=== PATIENT | male | born 1955 | race Caucasian/White ===

== ENCOUNTER 2024-10-08 15:07 | Outpatient (AMB) | payer MEDICARE, SELFPAY ==
--- NOTE | 2024-10-08 15:25 | A.OFFPC_ITS ---
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 ?? PMHx:? PMH: CAD w/ CABGx4 2005, Heart Failure w/ EF 35-40% (Has been as low as 20%). AICD in place. Currently on Entresto, Carvedilol, Aspirin. Taking?atorvastatin?40? mg?b.i.d.?but?notes?adverse?effects?including?muscle?aches. Triple AAA. Followed by [facility] CABGx4 2006, Angiogram 2005, OA Hands SurgHx:? SocHx: Quit Cigs in 2006, EtOH very little 1 dr a month. No drugs PFSH Medical History (Updated 10/08/24 @ 16:25 by Ammon Bowie) Neuropathy Arthritis Heart disease High cholesterol Family History (Updated 10/08/24 @ 15:33 by Tomy Atkins [facility]) Father High blood pressure High cholesterol Thyroid disorder [facility] Tobacco Use Status: Never used Tobacco e-Cigarette/Vaping Use: Never Used service: No Current occupational status: retired Cognitive needs: No Hearing needs: No Vision needs: Yes Questionnaire PHQ-9 Over the last 2 weeks, how often have you been bothered by any of the following problems? 1. Little interest or pleasure in doing things: not at all 2. Feeling down, depressed, or hopeless: not at all 3. Trouble falling or staying asleep, or sleeping too much: several days 4. Feeling tired or having little energy: not at all 5. Poor appetite or overeating: not at all 6. Feeling bad about yourself - or that you are a failure or have let yourself or your family down: not at all 7. Trouble concentrating on things, such as reading the newspaper or watching television: not at all 8. Moving or speaking so slowly that other people could have noticed. Or the opposite - being so fidgety or restless that you have been moving around a lot more than usual: not at all 9. Thoughts that you would be better off or of hurting yourself in some way: not at all Total score: 1 Depression Screening Interpretation: Negative Depression Screening Done: Yes 54536 - PHQ-9 Billing: Yes Source: Developed by Drs. Rudi Sanchez, Serenity Mendez, Mauricio Charles and colleagues, with an educational zenaida from [employer]. Thrive Questionnaire Date Thrive assessed: 10/08/24 I am a: Patient What is your living situation today?: I have a steady place to live Within the past 12 months, did the food you bought not last and you didn't have the money to get more?: Never true Within the past 12 months, did you worry whether your food would run out before you got money to buy more?: Never true Do you have trouble paying for medicines?: No Do you have trouble getting transportation to medical appointments?: No Do you have trouble paying your heating and electricity bill?: No Do you have trouble taking care of your child, family member or friend?: No Do you have trouble with day-to-day activities such as bathing, preparing meals, shopping, managing finances, etc.?: No Are you currently unemployed and looking for a job?: No Are you interested in more education?: No Please select the resources that you would like help with: Paying for medicine Currently or been in a relationship where the following occur: No concerns reported THRIVE Score: 0 AUDIT C Alcohol Use Questionnaire (AUDIT-C) 1. How often do you have a drink containing alcohol?: Monthly or less 2. How many drinks containing alcohol do you have on a typical day when you are drinking?: 1 or 2 3. How often do you have six or more drinks on one occasion?: Never Total Score: 1 Score Reviewed/Action Taken: Yes MARA-7 AMB Questionnaire MARA-7 Date MARA - 7 assessed: 10/08/24 Feeling nervous, anxious, or on edge: 0 = Not at all Not being able to stop or control worryin = Not at all Worrying too much about different things: 1 = Several days Trouble relaxin = Not at all Being so restless that it is hard to sit still: 0 = Not at all Becoming easily annoyed or irritable: 0 = Not at all Feeling afraid as if something awful might happen: 0 = Not at all Total MARA-7 score (0-4 normal; 5-9 mild; 10-14 moderate; 15-21 severe): 1 Source: Developed by Drs. Rudi Sanchez, Serenity Mendez, Mauricio Charles and colleagues, with an educational zenaida from [employer]. MARA-7 Assessment Billing MARA-7 Assessment Tool: MARA-7 Assessment 79731 Review of Systems Const Denies chills, Denies fatigue, Denies fever(s), Denies headache(s) and Denies weakness ENT Denies dizziness and Denies headache(s) Card Denies chest pain, Denies lightheadedness, Denies dyspnea and Denies other (Palpitations) Resp Denies cough, Denies dyspnea, Denies wheezing and Denies other ( shortness of breath) Musc Denies numbness and Denies tingling Neuro Denies dizziness, Denies headache(s), Denies numbness, Denies tingling, Denies paresthesias and Denies weakness Psych Denies anxiety and Denies depression Endo Denies fatigue Aller/Immun Denies wheezing Physical exam (Primary Care) Tobacco/Smoking Status: Tobacco use Status Tobacco use date assessed 10/08/24 10/08/24 15:38 Patient Tobacco Use Status Never used Tobacco 10/08/24 15:40 e-Cigarette/Vaping Use Never Used 10/08/24 15:40 PHQ-9: PHQ-9 Score PHQ-9: Total score 1 10/08/24 15:46 Depression Screening Interpretation: Negative Thrive Assessment: Date of Thrive Assessment Date Thrive assessed 10/08/24 10/08/24 15:28 Currently or been in a relationship where the following occur: No concerns reported Const General: no acute distress and well developed Nutritional Appearance: well nourished Orientation/consciousness: patient oriented x3 HENMT Head: Yes normocephalic and Yes atraumatic Eyes General: appearance normal, both eyes and all related structures Pupils: Equal, round and reactive pupils present EOM: EOMs intact bilaterally Resp Effort & Inspection: normal respiratory effort Auscultation: clear to auscultation bilaterally Cardio Rate: regular rate Rhythm: regular rhythm Heart sounds: S1 normal heart sound present, S2 normal heart sound present, no gallops, no murmurs and no rubs Neuro General: patient oriented x3 and gait normal Cranial nerves: Yes Equal, round and reactive pupils present Psych Affect: normal affect Coding Level of Care Code New Pt Level 4 (73662) Diagnoses Coronary artery disease I25.10 Hyperlipidemia E78.5 Hypertension I10 Ischemic cardiomyopathy I25.5 Hx of CABG Z95.1 NSVT (nonsustained ventricular tachycardia) I47.29 ICD (implantable cardioverter-defibrillator) in place Z95.810 AAA (abdominal aortic aneurysm) I71.40 Neuropathy G62.9 History of smoking Z87.891 HFrEF (heart failure with reduced ejection fraction) I50.20 Lower extremity edema R60.0 Laboratory exam ordered as part of routine general medical examination Z00.00 Additional Codes MARA-7 Assessment Billing - MARA-7 Assessment Tool: MARA-7 Assessment 50723 ([id number]) PHQ-9 - 98908 - PHQ-9 Billing: Yes ([id number]) Assessment & Plan Assessment & Plan (1) Coronary artery disease: Code(s): I25.10 - Atherosclerotic heart disease of [place] coronary artery without angina pectoris Category: Medical Plan: PMH: CAD w/ CABGx4 2006, Heart Failure w/ EF 35-40% (Has been as low as 20%). AICD in place. Currently on Entresto, Carvedilol, Aspirin. Taki ng?atorvastatin?40?mg?b.i.d.?but?notes?adverse?effects?including?muscle?aches. Triple AAA. Followed by [facility] CABGx4 2006, Angiogram 2005, Trial rosuvastatin?instead?of?atorvas tatin.??He?will?let?me?know?if?adverse?effects - could?return?to?atorvastatin?if?he?prefers (2) Hyperlipidemia: Code(s): E78.5 - Hyperlipidemia, unspecified Category: Medical Plan: On Atorvastatin 40mg BID w/ adverse effect; Muscle aches. As?above,?will?switch?to?rosuvastatin (3) Hypertension: Code(s): I10 - Essential (primary) hypertension Category: Medical Plan: Blood?pressure?is?too?high.??Goal?is?less?than?130/80 1st?visit?here. Continue?Entresto?and?carvedilol Patient?says?blood?pressure?is?usually?well?controlled?at?home (4) Ischemic cardiomyopathy: Code(s): I25.5 - Ischemic cardiomyopathy Category: Medical Plan: Currently?stable Follow-up?with[facility]?as?recommended (5) Hx of CABG: Code(s): Z95.1 - Presence of aortocoronary bypass graft Category: Surgical Plan: As?above (6) NSVT (nonsustained ventricular tachycardia): Code(s): I47.29 - Other ventricular tachycardia Category: Medical Plan: S/p?AICD Stable (7) ICD (implantable cardioverter-defibrillator) in place: Code(s): Z95.810 - Presence of automatic (implantable) cardiac defibrillator Category: Medical Plan: As?above (8) AAA (abdominal aortic aneurysm): Code(s): I71.40 - Abdominal aortic aneurysm, without rupture, unspecified Category: Medical Plan: Awaiting?further?records Follow-up?with?Cardiology?as?recommended (9) Neuropathy: Code(s): G62.9 - Polyneuropathy, unspecified Category: Medical Plan: Patient?notes?tingling?burning?sensation?in?bilateral?toes?and?feet He?does?have?edema?in?bilateral?feet?and?ankles,?right?worse?than?left?and?had saphenous?vein?grafted?from?right?leg. Checking?labs?including?blood?sugar,?B12,?thyroid?level?and?electrolytes. ?Also?checking?BNP Elevate?legs (10) History of smoking: Code(s): Z87.891 - Personal history of nicotine dependence Category: Social Hx Plan: Quit?cigarettes?in?2006 (11) HFrEF (heart failure with reduced ejection fraction): Code(s): I50.20 - Unspecified systolic (congestive) heart failure Category: Medical Plan: Heart?failure?with?reduced?ejection?fraction Checking?BNP Continue?Entresto Avoid?salt/sodium Follow-up?with?Cardiology (12) Lower extremity edema: Code(s): R60.0 - Localized edema Category: Medical Plan: Bilateral?lower?extremity?edema?right?worse?than?left?though?patient?has?had?vei n?harvested?for?CABG?from?right?leg Elevate?legs ?avoid?salt Will?monitor (13) Laboratory exam ordered as part of routine general medical examination: Code(s): Z00.00 - Encounter for general adult medical examination without abnormal findings Category: Medical Plan: Check labs Orders: Orders Comprehensive [place]. Panel Fast Today I25.5 - Ischemic cardiomyopathy, Z00.00 - Encounter for general adult medical examination without abnormal findings Complete Blood Count Auto Diff Today I25.5 - Ischemic cardiomyopathy, Z00.00 - Encounter for general adult medical examination without abnormal findings Lipid Panel Today I25.5 - Ischemic cardiomyopathy, Z00.00 - Encounter for general adult medical examination without abnormal findings Microalbumin, Random (w Creat) Today I10 - Essential (primary) hypertension, I25.5 - Ischemic cardiomyopathy UA CC w/rflx Micro + Cult Today I25.5 - Ischemic cardiomyopathy, Z00.00 - Encounter for general adult medical examination without abnormal findings B Type Natriuretic Peptide Today I25.5 - Ischemic cardiomyopathy, I50.9 - Heart failure, unspecified Vitamin D 25-OH Total Today E55.9 - Vitamin D deficiency, unspecified TSH reflex Free T4 Today I25.5 - Ischemic cardiomyopathy, Z00.00 - Encounter for general adult medical examination without abnormal findings Prostate Specific Antigen Scr Today Z12.5 - Encounter for screening for m alignant neoplasm of prostate Hemoglobin A1c Today I25.5 - Ischemic cardiomyopathy, R73.01 - Impaired fasting glucose Vitamin B12 and Folate Today E53.8 - Deficiency of other specified B group vitamins
[2024-10-08 16:24] VITALS: BP 152/72; PULSE 88; RESP 16; TEMP 36.7; O2SAT 98; BMI 36.6
[2024-10-08 16:28] VITALS: BP 152/72
--- OUTSIDE RECORDS SUMMARY | 2024-10-08 17:58 | XMS_ITS | Clinical Summary ---
Author Organization Patient Business Ser Formerly named [facility] Address [address] [place] [address] Care Team Providers Care Movie Projectionist Name Role Phone Orlin Shah MD Primary Care Provider Allergies No known active allergies Medications sacubitriL-vals marion (Entresto) 24-26 mg per tablet Take 1 tablet by mouth 2 (two) times a day. 4 Active zolpidem (AMBIEN) 5 mg tablet Take 0.5-1 Tablets by mouth at bedtime as needed for Insomnia. 3 Active aspirin 81 mg chewable tablet Chew 1 tablet (81 mg total) 1 (one) time each day. 0 Active OMEGA-3 FATTY ACIDS ORAL Take by mouth. Nicasio-3 Fatty Acids (FISH OIL) 1200 MG Cap Active cholecalciferol , vitamin D3, 10 mcg (400 unit) tablet,chewable Chew. Acti ve carvediloL (COREG) 25 mg tablet TAKE 1 TABLET BY MOUTH TWICE DAILY WITH MEALS 180 tablet 3 5 Active atorvastatin (LIPITOR) 40 mg tablet Take 2 tablets (80 mg total) by mouth 1 (one) time each day. 180 tablet 5 Active atorvastatin (LIPITOR) 40 mg tablet Take 2 tablets (80 mg total) by mouth 1 (one) time each day. 4 09/11/19 25 Discontinu ed(Reorder ) Active Problems Problem Noted Date Diagnosed Date Insomnia 03/25/2023 BPH (benign prostatic hyperplasia) 11/18/2019 Lung nodules 03/01/2019 Overview (05/07/2024): Seen on ldct Fatty liver 03/01/2019 Overview (05/07/2024): Seen on ldct Obstructive sleep apnea 02/22/2017 Overview (05/07/2024): [facility] Home Polysomnogram: Date 02/19/2017; AHI 35, Unclassified apneas 2; Obstructive apneas 145; Central apneas 6; Mixed apneas 1; hypopneas 8; average oxygen saturation 93% (lowest 81% without saturations <88% for 5% or more of study) [facility] Polysomnogram treatment study. Date 06/03/2017. SE 65 % SM 72 %; spent 18 % of the study in REM. At the optimal pressure of CPAP @ 11; RDI 3.4 (AHI 3.4), Central apneas 4; Obstructive apneas 0; Mixed apneas 0; hypopneas 0; RERAs 0; and, average oxygen saturation was 93%. For the entire study, PLMs ~14. Eczema 03/01/2016 Coronary artery disease 02/19/2015 Overview (05/07/2024): 4 vessel 2004 Last Assessment & Plan: Patient has history of coronary artery disease status post four-vessel CABG in 2005. He continues to feel well and denies any exertional anginal symptoms. He continues on cardioprotective medical therapy with aspirin, beta-charu and statin. I have reviewed with the patient the importance of a heart healthy lifestyle which includes eating a low-fat low-salt diet, getting regular exercise, maintaining a healthy weight, not smoking, and following up with routine medical care. Ischemic cardiomyopathy 02/19/2015 Overview (05/07/2024): EF 30% in 2019 Last Assessment & Plan: Patient has history of HFrEF-EF 40% ischemic, ACC/AHA stage C heart failure with NYHA class II symptoms. He remains euvolemic on physical examination he is tolerating his medical therapies well. He was unable to tolerate spironolactone due to pain gynecomastia. Diuretic is not indicated at this time. His labs have been stable. He will continue on Entresto and carvedilol as prescribed. We discussed adding Farxiga for optimization of GDMT for heart failure. At this time the patient would like to think about it. Will update an echocardiogram in 6 months. The use of an SGLT2 inhibitor is recommended for patients with chronic heart failure in order to reduce hospitalization due to heart failure and cardiovascular mortality, irrespective of the presence of type 2 diabetes (class Ia recommendation from the 2022 [place] [employer] heart failure guidelines). I've asked the patient to call if they develop worsening symptoms of heart failure such as increased shortness of breath, new or worsening cough, increased swelling in the legs or ankles, or weight gain of more than 2 pounds in one day or 4 pounds in one week. AAA (abdominal aortic aneurysm) ([facility] V24) Overview (05/07/2024): Last Assessment & Plan: This is been stable. This is monitored by vascular surgery. 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 He gets quarterly checks in our device clinic. He will consider remote monitoring next device clinic apt. We discussed his history of NSVT and importance of close monitoring. Microscopic hematuria 02/18/2015 Overview (05/07/2024): Neg work up Hyperlipidemia 02/18/2015 Overview (05/07/2024): Last Assessment & Plan: Patient's last LDL cholesterol is 41 this is at goal. His triglycerides remain elevated at 338. Patient encouraged to follow a low-fat diet and also to make greater efforts to lose weight. He continues on fish oil. HTN (hypertension) 02/18/2015 Overview (05/07/2024): Last Assessment & Plan: Patient's blood pressure is under excellent control with a reading today of 126/76. Continue with carvedilol and Entresto as prescribed. Resolved Problems Problem Noted Date Diagnosed Date Resolved Date Edema 10/11/2022 07/05/2024 Overview (05/07/2024): Last Assessment & Plan: We did discuss his leg edema. This is mild. This worse in his right leg where he had his vein harvested from. We will continue to monitor. I have encouraged him to use compression stockings. If this worsens he will let us know. COVID-19 07/23/2020 07/05/2024 Aneurysm of ascending aorta (CMS/HCC V24) 08/26/2019 07/05/2024 Overview (05/07/2024): 3.8cm 2019 Low HDL (under 40) 12/19/2018 Hemorrhage of rectum 11/17/2016 025 Overview (05/07/2024): 02/2013 Dr. Gardiner, neg colonoscopy 04/2013 Old NE (myocardial infarction) 02/18/2015 07/05/2024 Overview (05/07/2024): 10/16 silent Encounters Date Type Department Care Team Description 09/25/2024 9:00 AM EDT Ancillary Procedure [facility] [address] [address] [place] [id number] Encounter for adjustment or management of cardiac device 09/10/2024 Telephone [facility] [address] [place] [address] Roger Nelson MD Med Refill (Atorvastatin) 08/02/2024 Telephone [facility] [address] [place] [address] Annika Blakely NP Results 08/01/2024 9:10 AM EST Office Visit [facility] [address] [place] [phone] Annika Blakley NP Coronary artery disease involving sokaogon coronary artery of sokaogon heart without angina pectoris (Primary Dx); Primary hypertension; Ischemic cardiomyopathy; Mixed hyperlipidemia; Presence of combination internal cardiac defibrillator (ICD) and pacemaker 08/01/2024 Telephone [facility] [address] [place] [address] Annika Blakely NP 07/31/2024 Telephone [facility] [address] [place] [address] Annika Blakely NP Concerned 07/18/2024 8:30 AM EST Ancillary Procedure [facility] [address] [place] [address] Coronary artery disease involving sokaogon coronary artery of sokaogon heart without angina pectoris from Last 3 Months Immunizations Name Administration Dates Next Due Influenza Quadravalent, MDCK , 0.5ml, preservative free (Flucelvax) 6mo and older 07/03/2018 Influenza Quadravalent, MDCK , 0.5ml, with preservative (Flucelvax) 6mo and older 03/30/2017 Influenza trivalent, 0.5mL ( Fluad) 65yo and older 03/25/2023,03/25/2022,04/06/2021,04/03 Influenza trivalent, 0.5mL, preservative free (Fluarix; FluLaval; Fluzone) ages 6mo and older (Afluria) 3 years and older 03/21/2019,03/01/2016,02/27/2015 Mechanology SARS-CoV-2 COVID-19, mRNA, LNP-S, preservative free 05/26/2021 Pneumococcal conjugate 13 va lent (Prevnar 13, PCV13) 2mo and older 01/21/2020 Pneumococcal polysaccharide 23 valent (Pneumovax 23) 2yo and older 04/06/2021 Tdap Tetanus diptheria acell ular pertussis (Boostrix; Adacel) 7yo and older 03/01/2016 Zoster Live 09/07/2016 Surgical History Surgery Date Site/Laterality Comments COLONOSCOPY 05/08/2013 PROCEDURE: HISTORICAL COLONOSCOPY; COMMENT: Dr Gardiner, 2012, due in 10 yrs OTHER SURGICAL HISTORY PROCEDURE: MO CORONARY ARTERY BYP W/VEIN & ARTERY GRAFT 4 VEIN OTHER SURGICAL HISTORY PROCEDURE: HISTORICAL ICD; COMMENT: single lead CYST REMOVAL PROCEDURE: MO EXCISION PILONIDAL CYST/SINUS SIMPLE Medical History Medical History Date Comments AAA (abdominal aortic aneury sm) (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 Gardiner, neg colonoscopy 04/2013 Low HDL (under 40) 12/19/2018 DX:Low HDL (u nder 40) Lung nodules 03/01/2019 DX:Lung nodules; COMMENT: Seen on ldct Fatty liver 03/01/2019 DX:Fatty liver; COMMENT: Seen on ldct Aneurysm of ascending aorta ([facility]/HCC V24) 08/26/2019 DX:Aneurysm of ascending aor ta (HCC); COMMENT: 3.8cm 2019 BPH (benign prostatic hyperplasia) 11/18/2019 DX:BPH (benign prostatic hyperplasia) Covid-19 07/23/2020 Family History Medical History Relation Name Comments Breast cancer Aunt age 60, does n ot think she had it bilat Other: brain aneurysm Father Relation Name Status Comments Aunt Father Social History Tobacco Use Types Packs/Day Years Used Date Smoking Tobacco: Former Cigarettes 1 32 0 06/13/1972 - 06/13/2004 Smokeless Tobacco: Former Alcohol Use Standard Drinks/Week Comments Yes 0 (1 standard drink = 0.6 oz pur e alcohol) occassionally Sex and Gender Information Value Date Recorded Sex Assigned at Not on file Legal Sex Male 6:46 PM EST Gender Identity Not on file Sexual Orientation Not on file Obstetrics History Last Filed Vital Signs Vital Sign Reading Time Taken Comments Blood Pressure 118/70 08/01/2024 9:14 AM EST Pulse 74 08/01/2024 9:14 AM EST Temperature - - Respiratory Rate - - Oxygen Saturation 94% 08/01/2024 9:14 AM EST Inhaled Oxygen Concentration - - Weight 108 kg (237 lb) 08/01/2024 9:14 AM EST Height 182.9 cm (6') 08/01/2024 9:14 AM EST Body Mass Index 32.14 08/01/2024 9:14 AM EST Plan of Treatment Upcoming Encounters Date Type Department Care Team (Late st Contact Info) Description 11/01/2024 9:40 AM EDT Office Visit [facility] [address] [place] [address] [address] [place] [address] Annika Blakely NP [address] [place] [address] [address] [place] [address] 12/25/2024 10:30 AM EDT Ancillary Procedure [facility] [address] [place] [address] 01/01/2025 10:20 AM EDT Office Visit [facility] [address] [place] [address] Dr [address] [place] [address] Roger Nelson MD [address] [place] [address] [address] [place] [address] Health Maintenance Due Date Last Done Comments RSV Immunization Adult Patients (1 - Risk 60-74 years 1-dose series) 2014 Zoster Vaccines (2 of 3) 11/02/2016 09/07/2016 Falls Risk Assessment 04/29/2020 Social Influencers of Health Screening 04/29/2020 Colorectal Cancer Screening: Colonoscopy 05/08/2023 05/08/2013 COVID-19 Vaccine ( season) 2024 05/26/2021, 09/19/2020, 08/29/2020 Depression Screening 05/10/2024 05/10/2023 Medicare Annual Wellness Visit 05/10/2024 05/10/2023 Hypertension/CHF/CAD Annual BMP Blood Test 08/01/2025 08/01/2024, 03/24/2023 DTaP,Tdap,and Td Vaccines (2 - Td or Tdap) 03/01/2026 03/01/2016 Cholesterol Screening (Lipid Panel) 08/01/2029 08/01/2024, 03/24/2023 Hepatitis C Screening Completed 08/28/2015 Pneumococcal Vaccine: 50+ Years Completed 04/06/2021, 01/21/2020 Influenza Vaccine Completed 04/04/2024, , 03/25/2022, Additional history exists HIB Vaccines Aged Out No longer eligi ble based on patient's age to complete this topic HPV Vaccines Aged Out No longer eligi ble based on patient's age to complete this topic Hepatitis A Vaccines Aged Out No long er eligible based on patient's age to complete this topic Hepatitis B Vaccines Aged Out No long er eligible based on patient's age to complete this topic IPV Vaccines Aged Out No longer eligi ble based on patient's age to complete this topic MMR Vaccines Aged Out No longer eligi ble based on patient's age to complete this topic Meningococcal ACWY Vaccine Aged Out N o longer eligible based on patient's age to complete this topic Meningococcal B Vaccine Aged Out No l onger eligible based on patient's age to complete this topic RSV Immunization Patients Under 20 months Aged Out No longer eligible based on patient's age to complete this topic Varicella Vaccines Aged Out No longer eligible based on patient's age to complete this topic Medical Devices Implanted Type Area Manual Tester Device Identifier Shelf Expiration Date Model / Serial / Lot Bsci-[id number] Implanted:10/2013 by Dean Kaba MD (Quantity not on file) Cardiac ICD Left: Chest [employer] CARD RHYTHM MGMT [id number] / [id number] / Procedures Procedure Name Priority Date/Time Associated Diagnosis Comments CARDIAC DEVICE CHECK- IN CLINIC- [facility] Routine 09/25/2024 9:11 AM EDT Encounter for adjustment or management of cardiac device BASIC METABOLIC PANEL Routine 08/01/2024 9:50 AM EST CBC WITH AUTO DIFFERENTIAL Routine 08/01/2024 9:50 AM EST Coronary artery disease involving sokaogon coronary artery of sokaogon heart without angina pectoris LIPID PANEL Routine 08/01/2024 9:50 AM EST Coronary artery disease involving sokaogon coronary artery of sokaogon heart without angina pectoris PROTHROMBIN TIME WITH INR Routine 08/01/2024 9:50 AM EST Coronary artery disease involving sokaogon coronary artery of sokaogon heart without angina pectoris CBC AND DIFFERENTIAL Routine 08/01/2024 9:50 AM EST Coronary artery disease involving sokaogon coronary artery of sokaogon heart without angina pectoris NM LEXISCAN STRESS TEST W/ MYOCARDIAL PERFUSION Routine 07/18/2024 10:50 AM EST Coronary artery disease involving sokaogon coronary artery of sokaogon heart without angina pectoris HM DEPRESSION SCREENING Routine 05/10/2023 HM HEPATITIS C SCREENING Routine 08/28/2015 HM COLONOSCOPY Routine 05/08/2013 from Last 3 Months or Most Recently Relevant to Health Maintenance Results * CARDIAC [place]ICE [place] [facility] [place]09/25/[place]24 9:11 AM EDT) Date Time Interrogation Session [id number] CV DEVICE CHECK Implantable Pulse Generator Manual Tester BSX CV DEVICE CHECK Implantable Pulse Generator Type ICD CV DEVICE CHECK Implantable Pulse Generator Model E141 CV DEVICE CHECK Implantable Pulse Generator Serial Number [id number] CV DEVICE CHECK Implantable Pulse Generator Implant Date 20140115 CV DEVICE CHECK Battery Status Middle of Service CV DEVICE CHECK Eb Statistic RV Percent Paced 1.00 CV DEVICE CHECK Lead Channel Sensing Intrinsic Amplitude 17.700 CV DEVICE CHECK Lead Channel Setting Sensing Sensitivity 0.60 CV DEVICE CHECK Lead Channel Impedance Value 471 CV DEVICE CHECK Lead Channel Pacing Threshold Amplitude 1.000 CV DEVICE CHECK Lead Channel Pacing Threshold Pulse Width 0.5 CV DEVICE CHECK Lead Channel RV Pacing Threshold Date 2024-09-25 CV DEVICE CHECK Lead Channel Setting Pacing Amplitude 2.000 CV DEVICE CHECK Lead Channel Setting Pacing Pulse Width 0.5 CV DEVICE CHECK Eb Setting Mode (NBG Code) VVI CV DEVICE CHECK Eb Setting Lower Rate Limit 40 CV DEVICE CHECK Therapy Statistic Recent Shocks Delivered 0 CV DEVICE CHECK Therapy Statistic Recent Shocks Aborted 0 CV DEVICE CHECK Therapy Statistic Recent ATP Delivered 0 CV DEVICE CHECK Shock Measured Impedance 88 CV DEVICE CHECK Zone Setting Type Category VF CV DEVICE CHECK Rate 200 CV DEVICE CHECK Therapies 31J, 41J CV DEVICE CHECK Zone Setting Status On CV DEVICE CHECK Zone ID 1 CV DEVICE CHECK Zone Setting Type Category VT CV DEVICE CHECK Rate 170 CV DEVICE CHECK Therapies 31J, 41J CV DEVICE CHECK Zone Setting Status On CV DEVICE CHECK Zone ID 2 CV DEVICE CHECK Zone Setting Type Category VT1 CV DEVICE CHECK Rate 150 CV DEVICE CHECK Therapies NaNJ, NaNJ CV DEVICE CHECK Zone Setting Status Off CV DEVICE CHECK Zone ID 3 CV DEVICE CHECK Date of Service 2024-09-26 CV DEVICE CHECK Anatomical Region Laterality Modality Device Interroga tion 09/25/2024 Impressions 09/25/2024 10:44 AM EDT Normal In-Office: With Events * Normal Device Function * Events or Alerts: 11 NSVT events noted in-keeping with Hx. Pt asymptomatic, will continue to monitor * Battery: MOS, 3.5 years * Sensing, impedance and thresholds reviewed and tested * Presenting Rhythm: VS 70's * Heart Rate Histograms reviewed * Pacing and Detection Parameters were evaluated Narrative Procedure Note Dean Kaba MD - 09/25/2024 IMPRESSION: Normal In-Office: With Events * Normal Device Function * Events or Alerts: 11 NSVT events noted in-keeping with Hx. Ptasymptomatic, will continue to monitor * Battery: MOS, 3.5 years * Sensing, impedance and thresholds reviewed and tested * Presenting Rhythm: VS 70's * Heart Rate Histograms reviewed * Pacing and Detection Parameters were evaluated us Order Referral Cardiovascular CV IMPLANTABLE CAR DIAC DEVICE PROCEDURES Final Result * (ABNORMAL) Basic metabolic panel (08/01/2024 9:50 AM EST) Glucose 129(H) 70 - 99 MG/DL [facility] Blood Urea Nitrogen (BUN) 12 8 - 23 MG/DL [facility] Creatinine 0.56(L) 0.7 - 1.2 MG/DL [facility] eGFR 106 ML/MIN/1.7 3 M2 [facility] Comment: Creatinine based estimated glomerular filtration (eGFR) in adults is calculated using the National [employer] recommended 2020 CKD-EPI equation. Estimates GFR from serum creatinine, age and sex. Sodium 138 133 - 145 MMOL/L [facility] Potassium 4.3 3.6 - 5.2 MMOL/L [facility] Chloride 103 98 - 107 MMOL/L [facility] Carbon Dioxide 25 22 - 29 MMOL/L [facility] Anion Gap 10 4 - 17 MMOL/L [facility] Calcium 9.7 8.6 - 10.5 MG/DL [facility] 1 08/01/2024 9:50 AM EST 08/01/2024 Narrative [facility] - 08/01/2024 11:45 AM EST Performed at: ??01 - [address] ??[id number] Newspaper Manager: Roosevelt Ferro MD, Phone: ??[phone] us Annika Blakely COLLAR TRIMMER LAB BLOOD ORDERABLES Final R esult [facility] * CBC auto differential (08/01/2024 9:50 AM EST) WBC 8.0 4.0 - 11.0 K/MM3 [facility] RBC 5.55 4.70 - 6.10 M/MM3 [facility] Hemoglobin 16.4 13.7 - 17.1 GM/DL [facility] Hematocrit 49.4 40.5 - 50.0 % [facility] MCV 89.0 80.0 - 94.0 FL [facility] MCH 29.5 27.0 - 34.0 PG [facility] MCHC 33.2 33.0 - 37.0 g/dL [facility] RDW 43.3 <47.0 FL [facility] Platelets 212 150 - 460 K/MM3 [facility] Neutrophils 68.5 44 - 76 % [facility] Lymphocytes 22.5 15 - 43 % [facility] Monocytes 6.5 4.5 - 10.5 % [facility] Eosinophils 1.6 0 - 6 % [facility] Basophils 0.7 0 - 2 % [facility] Neutrophils Absolute 5.5 1.3 - 7.0 K/MM3 [facility] Lymphocytes Absolute 1.8 0.8 - 3.1 K/MM3 [facility] Monocytes Absolute 0.5 0.4 - 1.3 K/MM3 [facility] Eosinophils Absolute 0.1 0.0 - 0.4 K/MM3 [facility] Basophils Absolute 0.1 0.0 - 0.1 K/MM3 [facility] Immature Granulocytes Relative 0.2 % [facility] Immature Grans (Abs) 0.0 K/MM3 [facility] 1 Nucleated RBC 0.0 #/100 WBC'S [facility] 1 Hematology Comments: Comment [facility] Comment: AUTOMATED DIFFERENTIAL MPV ?10.6 ? FL ? 9.4-12.4 ?? N ABS. NRBC ?0.0 ?K/MM3 ? N Blood Venous blood specimen / Unknown 08/01/2024 9:50 AM EST 08/01/2024 Narrative [facility] - 08/01/2024 11:32 AM EST Performed at: ??01 - [address] ??[id number] Newspaper Manager: Roosevelt Ferro MD, Phone: ??[phone] us Annika Blakely [employer]LL[employer] TR[employer] LAB BLOOD ORDERABLES Final R esult [facility] * Prothrombin time with INR (08/01/2024 9:50 AM EST) International Normalized Ratio (INR) 1.0 0.9 - 1.1 [facility] Prothrombin Time 11.0 9.2 - 11.4 SEC [facility] 1 Blood Venous blood specimen / Unknown 08/01/2024 9:50 AM EST 08/01/2024 Narrative [facility] - 08/01/2024 11:45 AM EST Performed at: ??01 - [address] ??[id number] Newspaper Manager: Roosevelt Ferro MD, Phone: ??[phone] us Annikase Blakely [employer]LLAR TR[employer]MER LAB BLOOD ORDERABLES Final R esult [facility] * (ABNORMAL) Lipid panel (08/01/2024 9:50 AM EST) Cholesterol Total 156 100 - 199 mg/dL [facility] Triglycerides 206(H) 0 - 149 mg/dL [facility] HDL Cholesterol 38(L) >39 mg/dL [facility] VLDL Cholesterol Calculated 35 5 - 40 mg/dL [facility] LDL Chol Calc (NIH) 83 0 - 99 mg/dL [facility] 1 Blood Venous blood specimen / Unknown 08/01/2024 9:50 AM EST 08/01/2024 Narrative [facility] - 08/02/2024 8:07 AM EST Performed at: ??01 - [facility] [address] ??[id number] Newspaper Manager: Mala Jenkins MD, Phone: ??[phone] us Annika Blakely COLLAR TRIMMER LAB BLOOD ORDERABLES Final R esult [facility] * NM LEXISCAN STRESS TEST W/ MYOCARDIAL PERFUSION (07/18/2024 10:50 AM EST) Exercise/injec tion duration (min) 0 CV PACS STRESS Exercise/injec tion duration (sec) 46 CV PACS STRESS Peak SBP 135 mmHg CV PACS STRESS Peak DBP 78 mmHg CV PACS STRESS Peak HR 84 bpm CV PACS STRESS Baseline HR 73 bpm CV PACS STRESS Baseline SBP 135 mmHg CV PACS STRESS Baseline DBP 78 mmHg CV PACS STRESS Estimated workload 1.0 METS CV PACS STRESS Percent HR 56 % CV PACS STRESS Rate Pressure Product 11,340.0 mmHg*bpm CV PACS STRESS BSA 2.44 m2 CV PACS STRESS Target HR 128 bpm CV PACS STRESS TID 0.98 CV PACS STRESS Nuc Stress EF 56 % CV PAC S STRESS Nuc Rest EF 60 % CV PACS STRESS Anatomical Region Laterality Modality Nuclear Medicine 07/18/2024 9:27 AM EST 07/18/2024 9:52 AM EST Impressions 07/18/2024 2:59 PM EST Abnormal Regadenoson stress test with nuclear imaging. ?? No chest pain or EKG changes consistent with ischemia. Nuclear imaging revealed a small, moderate, reversible perfusion defect of the apex consistent with ischemia There is a normal TID ratio. Gated SPECT imaging was performed demonstrating a dilated LV and normal ?? LVEF of 60 %. Narrative 07/18/2024 2:59 PM EST Nuclear imaging of the left ventricle shows a dilated cavity size. Myocardial perfusion imaging of the left ventricle reveals a small, moderate, reversible perfusion defect of the anteroseptal, noemí apical and apical rice after CT attenuation correction was applied to the study Gated SPECT imaging was performed which demonstrated normal left ventricular systolic function. The calculated LVEF is 60 %. TID ratio is normal. Stress Findings A pharmacological stress test was performed using regadenoson, 0.4 mg IV over 10-15 seconds, followed by radiopharmacological injection 10 seconds post infusion. Total stress time was 0 min and 46 sec. The patient reached the end of the protocol. Blood pressure demonstrated a normal response. Heart rate demonstrated a normal response. The patient reported no symptoms during the stress test. ECG 69 yo male with CAD, prior CABG and ischemic cardiomyopathy. History of defective anginal warning system. The ECG shows normal sinus rhythm with PVCS, anterior infarct pattern and mild nonspecific STT abnormality Arrhythmias during stress: occasional premature ventricular contractions (PVCs) . The result of the stress ECG was non- diagnostic for ischemia due to baseline ECG abnormalities and pharmacologic stress test. Nuclear Study Quality Study technique: MPI, SPECT, multi, rest and stress, 1 day. Overall image quality is excellent. CT attenuation correction was utilized. There are no artifacts present. No radiopharmaceutical dose was extravasated. The time from injection to rest imaging is 35 mins. The time from injection to stress imaging is 35 mins. Stress Function Comments Stress ejection fraction is 56%. Rest Function Comments Resting ejection fraction was 60%. Annika Blakely COLLAR TRIMMER CV STRESS PROCEDURES Final R esult * Depression Screening (05/10/2023) [facility] Depression Screening Abstracted Result [facility] Historical Provider MD HEALTH MAINTENANCE Final Result * Hepatitis C Screening (08/28/2015) [facility] Hepatitis C Screening Abstracted Result [facility] Provider MD HEALTH MAINTENANCE Final Result * Colonoscopy (05/08/2013) [facility] Colonoscopy No Interpretation , Abstracted Anatomical Region Laterality Modality Other Result [facility] Provider HEALTH MAINTENANCE Final Result from Last 3 Months or Most Recently Relevant to Health Maintenance Insurance MEDICARE [facility] Care Teams Movie Projectionist Relationship Specialty Start Date End Date Orlin Shah MD [address] [place] [address] Dr Benjamin MA PCP - General 03/27/24
== END 2024-10-08 16:22 | disposition home or self-care (01) ==
LOC: HO.HMCFM 15:10
PROVIDERS: PCP Family Medicine; Visit Provider Family Medicine
DX: I25.10 Atherosclerotic heart disease of native coronary artery without angina pectoris (principal); I47.29 Other ventricular tachycardia; I50.20 Unspecified systolic (congestive) heart failure; E78.5 Hyperlipidemia, unspecified; I10 Essential (primary) hypertension; I25.5 Ischemic cardiomyopathy; Z95.1 Presence of aortocoronary bypass graft; Z95.810 Presence of automatic (implantable) cardiac defibrillator; I71.40 Abdominal aortic aneurysm, without rupture, unspecified; G62.9 Polyneuropathy, unspecified; Z87.891 Personal history of nicotine dependence; R60.0 Localized edema

== ENCOUNTER → 2024-10-08 15:07 | Outpatient (BNVA) | payer MEDICARE, SELFPAY | PROVIDERS: PCP Family Medicine; Visit Provider Family Medicine | DX: I25.10 Atherosclerotic heart disease of native coronary artery without angina pectoris (principal); E78.5 Hyperlipidemia, unspecified; I25.5 Ischemic cardiomyopathy; I47.29 Other ventricular tachycardia; I71.40 Abdominal aortic aneurysm, without rupture, unspecified; G62.9 Polyneuropathy, unspecified; Z87.891 Personal history of nicotine dependence; I11.0 Hypertensive heart disease with heart failure; I50.20 Unspecified systolic (congestive) heart failure; R60.0 Localized edema; Z95.810 Presence of automatic (implantable) cardiac defibrillator; Z95.1 Presence of aortocoronary bypass graft | CPT/HCPCS: 96127; 99202 ==

== ENCOUNTER 2024-10-09 07:58 | Outpatient (REF) | payer MEDICARE, SELFPAY ==
--- OUTSIDE RECORDS SUMMARY | 2024-10-09 08:03 | XMS_ITS | Encounter Summary ---
Author Organization [facility] Address [address] [place] [address] Care Team Providers Care Steam Service Inspector Name Role Phone Jeanette Camacho MD Primary Care Provider Unavailable Donna Padilla MD Primary Care Provider [phone] Jeanette Camacho MD Primary Care Provider Unavailable Jillian Bustamante MD Primary Care Provider Unavailable Jillian Bustamante MD Primary Care Provider Unavailable Annika Blakely BRAND COMMUNICATIONS MANAGER Unavailable [phone] Misael Plascencia MD Unavailable Unavailable Kenia Omalley DO Primary Care Provider Unavaila Dionne Monteiro MD Primary Care Provider Un available Orlin Shah MD Primary Care Provider Unav ailable Encounter Details Date Type Department Care Team Description 09/19/2015 Rug Dyer Helper Report Medical Records [address] [place] [address] Jose Lara MD Social History Tobacco Use Types Packs/Day Years Used Date Smoking Tobacco: Former Smokeless Tobacco: Never Alcohol Use Standard Drinks/Week Comments Yes 0 (1 standard drink = 0.6 oz pur e alcohol) occas Sex Assigned at Date Recorded Not on file Job Start Date Occupation Industry Not on file Not on file Not on file documented as of this encounter Plan of Treatment Not on file documented as of this encounter Visit Diagnoses Not on filedocumented in this encounter Care Teams Steam Service Inspector Relationship Specialty Start Date End Date Jeanette Camacho MD PCP - General Internal Medicine 01/17/15 11/10/15 Donna Padilla MD [address] [place] [address] PCP - General Internal Medicine 08/12/17 01/11/18 Yolanda-Jeanette Dupree MD PCP - General Internal Medicine 01/12/18 01/14/20 Jillian Bustamante MD [address] [place] [address] PCP - General Internal Medicine 01/15/20 06/21/21 Jillian Bustamante MD [address] [place] [address] PCP - General 11/11/15 08/11/17 Kenia Omalley DO [address] [place] [address] PCP - General Internal Medicine 06/22/21 11/23/23 Dionne Marcus MD [address] [place] [address] PCP - General Internal Medicine 11/24/23 03/26/24 Orlin Shah MD [address] [place] [address] PCP - General Family Practice 03/27/24 Annika Blakely, FRANK [address] [place], [place] [id number] Nurse Practitioner Cardiology 10/29/20 Misael Plascencia MD [address] [place] [address] Medical Record Clerk Cardiovascular Disease 10/29/20 11/14/23 documented as of this encounter
--- OUTSIDE RECORDS SUMMARY | 2024-10-09 08:03 | XMS_ITS | Encounter Summary ---
Author Organization [facility] Address [address] [place] [address] Care Team Providers Care Genetic Supervisor Name Role Phone Annika Blakely PERSONAL CARE ASSISTANT Unavailable [phone] Misael Plascencia MD Unavailable Unavailable Kenia Omalley DO Primary Care Provider Unavaila ble Dionne Marcus MD Primary Care Provider Un available Orlin Shah MD Primary Care Provider Unav ailable Reason for Visit * Reason Comments Remote Device Check Encounter Details Date Type Department Care Team Description 12/20/2021 Remote Device Check Cardio PVC POC 154 [address] [facility] [address] [place] [address] Dean Kaba MD [address] [place] [address] Social History Tobacco Use Types Packs/Day Years Used Date Smoking Tobacco: Former Cigarettes 1 32 1 973 - 2005 Smokeless Tobacco: Former Alcohol Use Standard Drinks/Week Comments Yes 0 (1 standard drink = 0.6 oz pur e alcohol) occ Sex Assigned at Date Recorded Not on file Job Start Date Occupation Industry Not on file Not on file Not on file documented as of this encounter Plan of Treatment Not on file documented as of this encounter Visit Diagnoses Not on filedocumented in this encounter Care Teams Genetic Supervisor Relationship Specialty Start Date End Date Kenia Omalley DO PCP - General Internal Medicine 06/22/21 11/23/23 Dionne Marcus MD PCP - General Internal Medicine 11/24/23 03/26/24 Orlin Shah MD PCP - General Family Practice 03/27/24 Annika Blakely NP Nurse Practitioner Cardiology 10/29/20 Misael Plascencia MD Conveyor Technician Cardiovascular Disease 10/29/20 11/14/23 documented as of this encounter
--- OUTSIDE RECORDS SUMMARY | 2024-10-09 08:03 | XMS_ITS | Encounter Summary ---
Author Organization [facility] Address [address] [place] [address] Care Team Providers Care Garbage Worker Name Role Phone Jillian Bustamante MD Primary Care Provider Unavailable Jeanette Camacho MD Primary Care Provider Unavailable Donna Padilla MD Primary Care Provider [phone] Jeanette Camacho MD Primary Care Provider Unavailable Jillian Bustamante MD Primary Care Provider Unavailable Jillian Bustamante MD Primary Care Provider Unavailable Annika Blakely NP Unavailable [phone] Misael Plascencia MD Unavailable Unavailable Kenia Omalley DO Primary Care Provider Unavaila Dionne Monteiro MD Primary Care Provider Un available Orlin Shah MD Primary Care Provider Unav ailable Encounter Details Date Type Department Care Team Description 01/15/2014 Hospital Medical Records [address] [place] [address] Social History Tobacco Use Types Packs/Day Years Used Date Smoking Tobacco: Former Cigarettes 1 32 1 973 - 2004 Smokeless Tobacco: Former Alcohol Use Standard Drinks/Week [...] on filedocumented in this encounter Care Teams Garbage Worker Relationship Specialty Start Date End Date Jillian Bustamante MD PCP - General Internal Medicine 12/31/14 01/16/15 Jeanette Camacho MD PCP - General Internal Medicine 01/17/15 11/10/15 Donna Padilla MD [address] [place] [address] PCP - General Internal Medicine 08/12/17 01/11/18 Richmond-Jeanette Dupree MD PCP - General Internal Medicine 01/12/18 01/14/20 Jillian Bustamante MD PCP - General Internal Medicine 01/15/20 06/21/21 Jillian Bustamante MD PCP - General 11/11/15 08/11/17 Kenia Omalley DO [address] [place] [address] PCP - General Internal Medicine 06/22/21 11/23/23 Dionne Marcus MD [address] [place] [address] PCP - General Internal Medicine 11/24/23 03/26/24 Orlin Shah MD [address] [place] [address] PCP - General Family Practice 03/27/24 Annika Blakely NP [address] [place], [place] [id number] Nurse Practitioner Cardiology 10/29/20 Misael Plascencia MD [address] [place] [address] Fitting Room Supervisor Cardiovascular Disease 10/29/20 11/14/23 documented as of this encounter
--- OUTSIDE RECORDS SUMMARY | 2024-10-09 08:03 | XMS_ITS | Encounter Summary ---
Author Organization [facility] Address [address] [place] [address] Care Team Providers Care Furniture Associate Name Role Phone Annika Blakely BROKE BEATER Unavailable [phone] Misael Plascencia MD Unavailable Unavailable Kenia Omalley DO Primary Care Provider Unavaila ble Dionne Marcus MD Primary Care Provider Un available Orlin Shah MD Primary Care Provider Unav ailable Reason for Visit * Reason Comments Remote Device Check Encounter Details Date Type Department Care Team Description 07/27/2021 Remote Device Check Cardio PVC POC 154 [address] [facility] [address] [place] [address] Dean Kaba MD [address] [place] [address] Social History Tobacco Use Types Packs/Day Years [...] on filedocumented in this encounter Care Teams Furniture Associate Relationship Specialty Start Date End Date Kenia Omalley DO PCP - General Internal Medicine 06/22/21 11/23/23 Dionne Marcus MD PCP - General Internal Medicine 11/24/23 03/26/24 Orlin Shah MD PCP - General Family Practice 03/27/24 Annika Blakely NP Nurse Practitioner Cardiology 10/29/20 Misael Plascencia MD Field Agronomist Cardiovascular Disease 10/29/20 11/14/23 documented as of this encounter
--- OUTSIDE RECORDS SUMMARY | 2024-10-09 08:03 | XMS_ITS | Encounter Summary ---
Author Organization [facility] Address [address] [place] [address] Care Team Providers Care Traffic Personnel Supervisor Name Role Phone Jillian Bustamante MD Primary Care Provider Unavailable Annika Blakely AUTOPSY PATHOLOGIST Unavailable [phone] Misael Plascencia MD Unavailable Unavailable Kenia Omalley DO Primary Care Provider Unavaila ble Dionne Marcus MD Primary Care Provider Un available Orlin Shah MD Primary Care Provider Unav ailable Encounter Details Date Type Department Care Team Description 03/04/2020 Residential Treatment Staff Report Medical Records [address] [place] [address] [facility] [address] [place] [address] Social History Tobacco Use Types Packs/Day Years Used Date Smoking Tobacco: Former Cigarettes 1 32 1 3 - 2004 Smokeless Tobacco: Never Alcohol Use Standard Drinks/Week [...] on filedocumented in this encounter Care Teams Traffic Personnel Supervisor Relationship Specialty Start Date End Date Jillian Bustamante MD PCP - General Internal Medicine 01/15/20 06/21/21 Kenia Omalley DO PCP - General Internal Medicine 06/22/21 11/23/23 Dionne Marcus MD PCP - General Internal Medicine 11/24/23 03/26/24 Orlin Shah MD PCP - General Family Practice 03/27/24 Annika Blakely, AUTOPSY PATHOLOGIST Nurse Practitioner Cardiology 10/29/20 Misael Plascencia MD Injection Maintenance Technician Cardiovascular Disease 10/29/20 11/14/23 documented as of this encounter
--- OUTSIDE RECORDS SUMMARY | 2024-10-09 08:03 | XMS_ITS | Encounter Summary ---
Author Organization [facility] Address [address] [place] [address] Care Team Providers Care Product Safety Administrator Name Role Phone Jeanette Camacho MD Primary Care Provider Unavailable Donna Padilla MD Primary Care Provider [phone] Jeanette Camacho MD Primary Care Provider Unavailable Jillian Bustamante MD Primary Care Provider Unavailable Jillian Bustamante MD Primary Care Provider Unavailable Annika Blakely POWERTRAIN CALIBRATION ENGINEER Unavailable [phone] Misael Plascencia MD Unavailable Unavailable Kenia Omalley DO Primary Care Provider UnavailDionne Hewitt MD Primary Care Provider Un available Orlin Shah MD Primary Care Provider Unav ailable Encounter Details Date Type Department Care Team Description 01/22/2015 Release of Information Medical Records [address] [place] [address] Abstract, Provider Social History Tobacco Use Types Packs/Day Years Used Date Smoking Tobacco: Never Assessed Sex Assigned at Date Recorded Not on file Job Start Date Occupation Industry Not on file Not on file Not on file documented as of this encounter Plan of Treatment Not on file documented as of this encounter Visit Diagnoses Not on filedocumented in this encounter Care Teams Product Safety Administrator Relationship Specialty Start Date End Date Jeanette Camacho MD PCP - General Internal Medicine 01/17/15 11/10/15 Donna Padilla MD [address] [place] [address] PCP - General Internal Medicine 08/12/17 01/11/18 Jeanette Camacho MD PCP - General Internal Medicine 01/12/18 01/14/20 Jillian Bustamante MD [address] [place] [address] PCP - General Internal Medicine 01/15/20 06/21/21 Jillian Bustamante MD [address] [place] [address] PCP - General 11/11/15 08/11/17 Kenia Omalley DO [address] [place] [address] PCP - General Internal Medicine 06/22/21 11/23/23 Dionne Marcus MD [address] [place] [address] PCP - General Internal Medicine 11/24/23 03/26/24 Orlin Shah MD [address] [place], [place] [id number] PCP - General Family Practice 03/27/24 Annika Blakely NP [address] [place], [place] [address] Nurse Practitioner Cardiology 10/29/20 Misael Plascencia MD [address] [place], [place] [address] Manager Economic Cardiovascular Disease 10/29/20 11/14/23 documented as of this encounter
--- OUTSIDE RECORDS SUMMARY | 2024-10-09 08:03 | XMS_ITS | Encounter Summary ---
Author Organization [facility] Address [address] [place] [address] Care Team Providers Care Sheet Rock Layer Name Role Phone Annika Blakely NP Unavailable [phone] Misael Plascencia MD Unavailable Unavailable Kenia Omalley DO Primary Care Provider Unavaila Dionne Monteiro MD Primary Care Provider Un available Orlin Shah MD Primary Care Provider Unav ailable Encounter Details Date Type Department Care Team Description 11/08/2022 Pt. Non Urgent Medic [place] [address] Bernarda Augustin PA-C [address] [place] [address] Social History Tobacco Use Types Packs/Day Years Used Date Smoking Tobacco: Former Cigarettes 1 32 1 973 - 2005 Smokeless Tobacco: Former Alcohol Use Standard Drinks/Week Comments Yes 0 (1 standard drink = 0.6 oz pur e alcohol) occ Sex Assigned at Date Recorded Not on file Job Start Date Occupation Industry Not on file Not on file Not on file COVID-19 Exposure Response Date Recorded In the last 10 days, have yo u been in contact with someone who was confirmed or suspected to have Coronavirus/COVID-19? No / Unsure 10/27/2022 11:00 AM EDT documented as of this encounter Miscellaneous Notes * Telephone Encounter - Jeannette Cheung L.P.N. - 11/09/2022 9:03 AM EDTFrom: Aaron Humphreys To: Henry Augustin Sent: 11/08/2022 7:35 AM EDT Subject: Triglycerides high range Hello Bernarda, My latest triglyceride count was well over the range. is this something I should be very concerned about? documented in this encounter Plan of Treatment Not on file documented as of this encounter Visit Diagnoses Not on filedocumented in this encounter Care Teams Sheet Rock Layer Relationship Specialty Start Date End Date Kenia Omalley DO PCP - General Internal Medicine 06/22/21 11/23/23 Dionne Marcus MD PCP - General Internal Medicine 11/24/23 03/26/24 Orlin Shah MD PCP - General Family Practice 03/27/24 Annika Blakely NP Nurse Practitioner Cardiology 10/29/20 Misael Plascencia MD Bilingual Secretary Cardiovascular Disease 10/29/20 11/14/23 documented as of this encounter
--- OUTSIDE RECORDS SUMMARY | 2024-10-09 08:03 | XMS_ITS | Encounter Summary ---
Author Organization [facility] Address [address] [place] [address] Care Team Providers Care Deep Sea Diver Name Role Phone Jeanette Camacho MD Primary Care Provider Unavailable Donna Padilla MD Primary Care Provider [phone] Jeanette Camacho MD Primary Care Provider Unavailable Jillian Bustamante MD Primary Care Provider Unavailable Jillian Bustamante MD Primary Care Provider Unavailable Annika Blakely SERVICE ENGINE REPAIRER Unavailable [phone] Misael Plascencia MD Unavailable Unavailable Kenia Omalley DO Primary Care Provider Unavaila Dionne Monteiro MD Primary Care Provider Un available Orlin Shah MD Primary Care Provider Unav ailable Reason for Referral * EXTERNAL (Routine) - Authorized/Booked Specialty Diagnoses / Procedures Referred By Curtis barnett Referred To Contact Dermatology Procedures REFERRAL TO DERMATOLOGY Jeanette Camacho MD [address] [place] [address] External Dermatology Referral ID Status Reason Start Date Expiration Date V isits Requested Visits Authorized SEE REVIEW 10/24/15 Authorized/ Booked 10/23/2015 10/22/2016 1 1 Reason for Visit * Reason Onset Date Comments Marine Equipment Research Engineer Feedback 10/23/2015 Encounter Details Date Type Department Care Team Description 10/23/2015 Telephone Adult Medicine - [place] [address] [place] [address] Jeanette Camacho MD Marine Equipment Research Engineer Feedback Social History Tobacco Use Types Packs/Day Years Used Date Smoking Tobacco: Former Smokeless Tobacco: Never Alcohol Use Standard Drinks/Week Comments Yes 0 (1 standard drink = 0.6 oz pur e alcohol) occas Sex Assigned at Date Recorded Not on file Job Start Date Occupation Industry Not on file Not on file Not on file documented as of this encounter Miscellaneous Notes * Telephone Encounter - Aaron Winkler - 10/23/2015 9:46 AM EDT Please review this patients new referral request. The referral has been pended. Please complete thefollowing: If approved> sign order If denied>please give instructions and route to your practice nursing pool. Practice nurse should inform referrals and the patient if denied. * Telephone Encounter - Bessie Thompson - 10/23/2015 9:38 AM EDT What insurance does the patient have today? [employer] Effective 03/13/09: [facility] will not retro referral requests over 90 days. If request is for this please instruct patient to call the 800# on their insurance card to appeal. Do not submit a request. Referrals cannot be processed if the insurance is not accurate. If the insurance listed above in red is NO BILLING INFORMATION FOUND FOR THIS ENCOUTNER The patients correct insurance must be obtained and registered in [facility] or their referral can not be processed. Is this a retro request? NO. If yes for what date of service do you need the retro referral? Who is calling to request this referral? pATIENT If the caller is not the patient, what is their name? Ask the patient WHO referred them to this specialty: Patient saw DR Yolanda Dupree at [facility] and was told if symptoms did not resolve or worsen they would refer them to this specialty FIRST and LAST NAME of SPECIALIST PATIENT is seeing: [facility] What specialty is this? Line Controller DIAGNOSIS Patient is being seen for (Not a body part or a procedure): Facial rash Have you seen this SPECIALIST for this PROBLEM/DX before?NO If YES, when: Have you checked REVIEW or the APPT DESK to see if this referral has already been done or has visits left? Yes-Pt has an appt with Derm at [facility] in Jan. Bust doesn't want to wait that long Is this visit:Initial Visit Address of Specialist[facility] [address] Phone # of Specialist:[phone] Fax #: (if applicable): Does patient have an appointment scheduled?: NO Date of appointment- (including a retro-request): Is this appointment related to: Not MVA, WC or Surgery related documented in this encounter Plan of Treatment Not on file documented as of this encounter Visit Diagnoses Not on filedocumented in this encounter Care Teams Deep Sea Diver Relationship Specialty Start Date End Date Yolanda-Jeanette Dupree MD PCP - General Internal Medicine 01/17/15 11/10/15 Donna Padilla MD [address] [place] [address] PCP - General Internal Medicine 08/12/17 01/11/18 Jeanette Camacho MD PCP - General Internal Medicine 01/12/18 01/14/20 Jillian Bustamante MD [address] [place] [address] PCP - General Internal Medicine 01/15/20 06/21/21 Jillian Bustamante MD [address] [place] [address] PCP - General 11/11/15 08/11/17 Kenia Omalley DO [address] [place] [address] PCP - General Internal Medicine 06/22/21 11/23/23 Dionne Marcus MD [address] [place] [address] PCP - General Internal Medicine 11/24/23 03/26/24 Orlin Shah MD [address] [place] [address] PCP - General Family Practice 03/27/24 Annika Blakely NP [address] [place] [address] Nurse Practitioner Cardiology 10/29/20 Misael Plascencia MD [address] [place], [place] [address] Material Expediter Cardiovascular Disease 10/29/20 11/14/23 documented as of this encounter
--- OUTSIDE RECORDS SUMMARY | 2024-10-09 08:03 | XMS_ITS | Encounter Summary ---
Author Organization [facility] Address [address] [place] [address] Care Team Providers Care Drafter Apprentice Name Role Phone Annika Blakely NP Unavailable [phone] Misael Plascencia MD Unavailable Unavailable Kenia Omalley DO Primary Care Provider Unavaila Dionne Monteiro MD Primary Care Provider Un available Orlin Shah MD Primary Care Provider Unav ailable Encounter Details Date Type Department Care Team Description 08/13/2021 Telephone Cardio PVC POC [address] [place] [address] [address] [place] [address] Khadra Gandhi PA-C [address] [place] [address] Social History Tobacco Use Types Packs/Day Years [...] encounter Miscellaneous Notes * Telephone Encounter - Khadra Gandhi PA-C - 08/13/2021 9:19 AM EST 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 brief, 19 beats August 11 at 5:30 AM rate 150 bpm documented in this encounter Plan of Treatment Not on file documented as of this encounter Visit Diagnoses Not on filedocumented in this encounter Care Teams Drafter Apprentice Relationship Specialty Start Date End Date Kenia Omalley DO PCP - General Internal Medicine 06/22/21 11/23/23 Dionne Marcus MD PCP - General Internal Medicine 11/24/23 03/26/24 Orlin Shah MD PCP - General Family Practice 03/27/24 Annika Blakely NP Nurse Practitioner Cardiology 10/29/20 Misael Plascencia MD School Psychology Professor Cardiovascular Disease 10/29/20 11/14/23 documented as of this encounter
--- OUTSIDE RECORDS SUMMARY | 2024-10-09 08:03 | XMS_ITS | Encounter Summary ---
Author Organization [facility] Address [address] [place] [address] Care Team Providers Care School Bus Driver/Custodian Name Role Phone Annika Blakely YARN DYER Unavailable [phone] Misael Plascencia MD Unavailable Unavailable Kenia Omalley DO Primary Care Provider Unavaila ble Dionne Marcus MD Primary Care Provider Un available Orlin Shah MD Primary Care Provider Unav ailable Encounter Details Date Type Department Care Team Description 11/12/2021 Tooling Supervisor Report Medical Records [address] [place] [address] Jeannine Muller PA-C Social History Tobacco Use Types Packs/Day Years [...] suspected to have Coronavirus/COVID-19? No / Unsure 10/22/2021 9:23 AM EDT documented as of this encounter Plan of Treatment Not on file documented as of this encounter Visit Diagnoses Not on filedocumented in this encounter Care Teams School Bus Driver/Custodian Relationship Specialty Start Date End Date Kenia Omalley DO PCP - General Internal Medicine 06/22/21 11/23/23 Dionne Marcus MD PCP - General Internal Medicine 11/24/23 03/26/24 Orlin Shah MD PCP - General Family Practice 03/27/24 Annika Blakely, FRANK Nurse Practitioner Cardiology 10/29/20 Misael Plascencia MD Bank Vault Attendant Cardiovascular Disease 10/29/20 11/14/23 documented as of this encounter
--- OUTSIDE RECORDS SUMMARY | 2024-10-09 08:03 | XMS_ITS | Encounter Summary ---
Author Organization [facility] Address [address] [place] [address] Care Team Providers Care Precinct I Police Sergeant Name Role Phone Annika Blakely NP Unavailable [phone] Misael Plascencia MD Unavailable Unavailable Kenia Omalley DO Primary Care Provider Unavaila Dionne Monteiro MD Primary Care Provider Un available Orlin Shah MD Primary Care Provider Unav ailable Encounter Details Date Type Department Care Team Description 11/04/2022 Orders Only Cardio PVC [facility] [address] [place] [address] Default, Provider Social History Tobacco Use Types Packs/Day [...] on file documented as of this encounter Procedures Procedure Name Priority Date/Time Associated Diagnosis Comments OUTSIDE LAB Routine 11/01/2022 documented in this encounter Results * OUTSIDE LAB (11/01/2022) Provider Default LAB documented in this encounter Visit Diagnoses Not on filedocumented in this encounter Care Teams Precinct I Police Sergeant Relationship Specialty Start Date End Date Kenia Omalley DO PCP - General Internal Medicine 06/22/21 11/23/23 Dionne Marcus MD PCP - General Internal Medicine 11/24/23 03/26/24 Orlin Shah MD PCP - General Family Practice 03/27/24 Annika Blakely NP Nurse Practitioner Cardiology 10/29/20 Misael Plascencia MD Change Control Manager Cardiovascular Disease 10/29/20 11/14/23 documented as of this encounter
--- OUTSIDE RECORDS SUMMARY | 2024-10-09 08:03 | XMS_ITS | Encounter Summary ---
Author Organization [facility] Address [address] [place] [address] Care Team Providers Care Final Rail Cutter Name Role Phone Jillian Bustamante MD Primary Care Provider Unavailable Jeanette Camacho MD Primary Care Provider Unavailable Donna Padilla MD Primary Care Provider [phone] Jeanette Camacho MD Primary Care Provider Unavailable Jillian Bustamante MD Primary Care Provider Unavailable Jillian Bustamante MD Primary Care Provider Unavailable Annika Blakely NP Unavailable [phone] Misael Plascencia MD Unavailable Unavailable Kenia Omalley DO Primary Care Provider Unavaila Dionne Monteiro MD Primary Care Provider Un available Orlin Shah MD Primary Care Provider Unav ailable Encounter Details Date Type Department Care Team Description 01/15/2014 Hospital Medical Records [address] [place] [address] Social History Tobacco Use Types Packs/Day Years [...] on filedocumented in this encounter Care Teams Final Rail Cutter Relationship Specialty Start Date End Date Jillian Bustamante MD PCP - General Internal Medicine 12/31/14 01/16/15 Jeanette Camacho MD PCP - General Internal Medicine 01/17/15 11/10/15 Donna Padilla MD [address] [place] [address] PCP - General Internal Medicine 08/12/17 01/11/18 Enfield-Jeanette Dupree MD PCP - General Internal Medicine 01/12/18 01/14/20 Jillian Bustamante MD PCP - General Internal Medicine 01/15/20 06/21/21 Jillian Bustamante MD PCP - General 11/11/15 08/11/17 Kenia Omalley DO [address] [place] [address] PCP - General Internal Medicine 06/22/21 11/23/23 Dionne Marcus MD [address] [place] [address] PCP - General Internal Medicine 11/24/23 03/26/24 Orlin Shah MD [address] [place] [address] PCP - General Family Practice 03/27/24 Annika Blakely NP [address] [place], [place] [id number] Nurse Practitioner Cardiology 10/29/20 Misael Plascencia MD [address] [place] [address] Snow Remover Cardiovascular Disease 10/29/20 11/14/23 documented as of this encounter
--- OUTSIDE RECORDS SUMMARY | 2024-10-09 08:03 | XMS_ITS | Encounter Summary ---
Author Organization [facility] Address [address] [place] [address] Care Team Providers Care Supervisor Pastry Name Role Phone Jeanette Camacho MD Primary Care Provider Unavailable Donna Padilla MD Primary Care Provider [phone] Jeanette Camacho MD Primary Care Provider Unavailable Jillian Bustamante MD Primary Care Provider Unavailable Jillian Bustamante MD Primary Care Provider Unavailable Annika Blakely CARE DIRECTOR Unavailable Misael Plascencia MD Unavailable Unavailable Kenia Omalley DO Primary Care Provider Unavaila Dionne Monteiro MD Primary Care Provider Un available Orlin Shah MD Primary Care Provider Unav ailable Reason for Referral * EXTERNAL (Routine) - Authorized/Booked Specialty Diagnoses / Procedures Referred By Conttodd barnett Referred To Contact Dermatology Procedures REFERRAL TO DERMATOLOGY Jeanette Camacho MD [address] [place] [address] Ginger De La Rosa MD [address] [place] [address] Referral ID Status Reason Start Date Expiration Date V isits Requested Visits Authorized SEE NOTE Authorized/B ooked 10/27/2015 10/26/2016 1 1 Reason for Visit * Reason Onset Date Comments Assessment Specialist Feedback 10/24/2015 [facility] Encounter Details Date Type Department Care Team Description 10/24/2015 Telephone Adult Medicine - [place] [address] [place] [address] Jeanette Camacho MD Assessment Specialist Feedback ([facility]) Social History Tobacco Use Types Packs/Day Years [...] Miscellaneous Notes * Telephone Encounter - Khadra Paul - 10/24/2015 8:[address] Camacho, You have placed a referral to see [facility]. Unfortunately, their office does not accept this patient's health insurance.. A new order is required to schedule patient externally. Please review this patient???s new referral request. The referral has been pended. Please complete the following: If approved> sign order If denied>please give instructions and route to your practice nursing pool. Practice nurse should inform referrals and the patient if denied. Thank you, Khadra documented in this encounter Plan of Treatment Not on file documented as of this encounter Visit Diagnoses Not on filedocumented in this encounter Care Teams Supervisor Pastry Relationship Specialty Start Date End Date Jeanette Camacho MD PCP - General Internal Medicine 01/17/15 11/10/15 Donna Padilla MD [address] [place] [address] PCP - General Internal Medicine 08/12/17 01/11/18 Jeanette Camacho MD PCP - General Internal Medicine 01/12/18 01/14/20 Jillian Bustamante MD [address] [place] [address] PCP - General Internal Medicine 01/15/20 06/21/21 Jillian Bustamante MD [address] [place] [address] PCP - General 11/11/15 08/11/17 Kenia Omalley DO [address] [place] [address] PCP - General Internal Medicine 06/22/21 11/23/23 Dionne Marcus MD [address] [place] [address] PCP - General Internal Medicine 11/24/23 03/26/24 Orlin Shah MD [address] [place] [address] PCP - General Family Practice 03/27/24 Annika Blakely NP [address] [place] [address] Nurse Practitioner Cardiology 10/29/20 Misael Plascencia MD [address] [place] [address] Seo Associate Cardiovascular Disease 10/29/20 11/14/23 documented as of this encounter
--- OUTSIDE RECORDS SUMMARY | 2024-10-09 08:03 | XMS_ITS | Encounter Summary ---
Author Organization [facility] Address [address] [place] [address] Care Team Providers Care Jig Builder Name Role Phone Yolanda-Jeanette Dupree MD Primary Care Provider Unavailable Jillian Bustamante MD Primary Care Provider Unavailable Annika Blakely NP Unavailable [phone] Misael Plascencia MD Unavailable Unavailable Kenia Omalley DO Primary Care Provider Unavaila Dionne Monteiro MD Primary Care Provider Un available Orlin Shah MD Primary Care Provider Unav ailable Encounter Details Date Type Department Care Team Description 02/26/2019 Manager Float Report Medical Records [address] [place] [address] Jazmin Greene PA-C [address] [place] [id number] Social History Tobacco Use Types Packs/Day Years Used Date Smoking Tobacco: Former Cigarettes 1 32 1 973 - 2004 Smokeless Tobacco: Never Alcohol Use [...] on filedocumented in this encounter Care Teams Jig Builder Relationship Specialty Start Date End Date Jeanette [...] Nurse Practitioner Cardiology 10/29/20 Misael Plascencia MD Websphere Architect Cardiovascular Disease 10/29/20 11/14/23 documented as of this encounter
--- OUTSIDE RECORDS SUMMARY | 2024-10-09 08:03 | XMS_ITS | Encounter Summary ---
Author Organization [facility] Address [address] [place] [address] Care Team Providers Care Nnp Name Role Phone Jillian Bustamante MD Primary Care Provider Unavailable Annika Blakely AEROSOL LINE OPERATOR Unavailable [phone] Misael Plascencia MD Unavailable Unavailable Kenia Omalley DO Primary Care Provider Unavaila ble Dionne Marcus MD Primary Care Provider Un available Orlin Shah MD Primary Care Provider Unav ailable Encounter Details Date Type Department Care Team Description 03/26/2020 Incoming Correspondence Medical Records [address] [place] [id number] [place] [address] Social History Tobacco Use Types Packs/Day Years Used Date Smoking Tobacco: Former Cigarettes 1 32 1 973 - 2005 Smokeless Tobacco: Never Alcohol Use Standard Drinks/Week [...] on filedocumented in this encounter Care Teams Nnp Relationship Specialty Start Date End Date Jillian Bustamante MD PCP - General Internal Medicine 01/15/20 06/21/21 Kenia Omalley DO PCP - General Internal Medicine 06/22/21 11/23/23 Dionne Marcus MD PCP - General Internal Medicine 11/24/23 03/26/24 Orlin Shah MD PCP - General Family Practice 03/27/24 Annika Blakely NP Nurse Practitioner Cardiology 10/29/20 Misael Plascencia MD Ditcher Operator Cardiovascular Disease 10/29/20 11/14/23 documented as of this encounter
--- OUTSIDE RECORDS SUMMARY | 2024-10-09 08:03 | XMS_ITS | Encounter Summary ---
Author Organization [facility] Address [address] [place] [address] Care Team Providers Care Remote Ruby On Rails Developer Name Role Phone Annika Blakely MANAGER INCOME TAX Unavailable [phone] Misael Plascencia MD Unavailable Unavailable Kenia Omalley DO Primary Care Provider Unavaila ble Dionne Marcus MD Primary Care Provider Un available Orlin Shah MD Primary Care Provider Unav ailable Reason for Visit * Reason Comments Remote Device Check Encounter Details Date Type Department Care Team Description 08/12/2021 Remote Device Check Cardio PVC POC [address] [facility] [address] [place] [address] Dean Kaba MD [address] [place] [address] Social History Tobacco Use Types Packs/Day Years [...] on filedocumented in this encounter Care Teams Remote Ruby On Rails Developer Relationship Specialty Start Date End Date Kenia Omalley DO PCP - General Internal Medicine 06/22/21 11/23/23 Dionne Marcus MD PCP - General Internal Medicine 11/24/23 03/26/24 Orlin Shah MD PCP - General Family Practice 03/27/24 Annika Blakely NP Nurse Practitioner Cardiology 10/29/20 Misael Plascencia MD Pig Caster Cardiovascular Disease 10/29/20 11/14/23 documented as of this encounter
--- OUTSIDE RECORDS SUMMARY | 2024-10-09 08:03 | XMS_ITS | Encounter Summary ---
Author Organization [facility] Address [address] [place] [address] Care Team Providers Care Composition Professor Name Role Phone Jillian Bustamante MD Primary Care Provider Unavailable Annika Blakely NP Unavailable [phone] Misael Plascencia MD Unavailable Unavailable Kenia Omalley DO Primary Care Provider Unavaila Dionne Monteiro MD Primary Care Provider Un available Orlin Shah MD Primary Care Provider Unav ailable Reason for Visit * Reason Onset Date Comments Error 01/22/2020 Encounter Details Date Type Department Care Team Description 01/22/2020 Telephone Adult Medicine - [address] [address] Jillian Bustamante MD Error Social History Tobacco Use Types Packs/Day Years [...] encounter Miscellaneous Notes * Telephone Encounter - Xuan Dockery - 01/22/2020 9:53 AM EDT documented in this encounter Plan of Treatment Not on file documented as of this encounter Visit Diagnoses Not on filedocumented in this encounter Care Teams Composition Professor Relationship Specialty Start Date End Date Jillian Bustamante MD PCP - General Internal Medicine 01/15/20 06/21/21 Kenia Omalley DO PCP - General Internal Medicine 06/22/21 11/23/23 Dionne Marcus MD PCP - General Internal Medicine 11/24/23 03/26/24 Orlin Shah MD PCP - General Family Practice 03/27/24 Annika Blakely NP Nurse Practitioner Cardiology 10/29/20 Misael Plascencia MD Senior Major Gifts Officer Cardiovascular Disease 10/29/20 11/14/23 documented as of this encounter
--- OUTSIDE RECORDS SUMMARY | 2024-10-09 08:03 | XMS_ITS | Encounter Summary ---
Author Organization [facility] Address [address] [place] [address] Care Team Providers Care Optometry Professor Name Role Phone Annika Blakely NP Unavailable [phone] Misael Plascencia MD Unavailable Unavailable Kenia Omalley DO Primary Care Provider Unavaila Dionne Monteiro MD Primary Care Provider Un available Orlin Shah MD Primary Care Provider Unav ailable Reason for Visit * Reason Onset Date Comments Orders Call 08/25/2021 Encounter Details Date Type Department Care Team Description 08/25/2021 Telephone Adult Medicine - [address] [address] Kenia Omalley DO Orders Call Social History Tobacco Use Types Packs/Day Years [...] Exposure Response Date Recorded In the last month, have you been in contact with someone who was confirmed or suspected to have Coronavirus / COVID-19? No / Unsure 08/25/2021 8:31 AM EDT documented as of this encounter Miscellaneous Notes * Telephone Encounter - Kenia Omalley DO - 08/25/2021 11:35 AM EDT Breast ultrasound order changed to external * Telephone Encounter - Kareen Coe - 08/25/2021 9:14 AM EDT An order for a right breast u/s complete was ordered for this pt, however, we only do limited breast u/s. If there's a specific location you would like evaluated please change the order to limited. If you'd like the whole breast done, please change the order to external. Thank you. documented in this encounter Plan of Treatment Not on file documented as of this encounter Visit Diagnoses Not on filedocumented in this encounter Care Teams Optometry Professor Relationship Specialty Start Date End Date Kenia Omalley DO PCP - General Internal Medicine 06/22/21 11/23/23 Dionne Marcus MD PCP - General Internal Medicine 11/24/23 03/26/24 Orlin Shah MD PCP - General Family Practice 03/27/24 Annika Blakely NP Nurse Practitioner Cardiology 10/29/20 Misael Plascencia MD Automotive Salesperson Cardiovascular Disease 10/29/20 11/14/23 documented as of this encounter
--- OUTSIDE RECORDS SUMMARY | 2024-10-09 08:03 | XMS_ITS | Encounter Summary ---
Author Organization [facility] Address [address] [place] [address] Care Team Providers Care Service Transformer Repair Supervisor Name Role Phone Jillian Bustamante MD Primary Care Provider Unavailable Annika Blakely NP Unavailable [phone] Misael Plascencia MD Unavailable Unavailable Kenia Omalley DO Primary Care Provider Unavaila Dionne Monteiro MD Primary Care Provider Un available Orlin Shah MD Primary Care Provider Unav ailable Encounter Details Date Type Department Care Team Description 02/07/2020 Orders Only Medical Records [address] [place] [address] Sasha Walker PA-C [address] [place] [phone] Social History Tobacco Use Types Packs/Day Years [...] Name Priority Date/Time Associated Diagnosis Comments OUTSIDE VASCULAR STUDY Routine 02/04/2020 documented in this encounter Results * OUTSIDE VASCULAR STUDY (02/04/2020) Sasha Walker PA-C CARDIOLOGY documented in this encounter Visit Diagnoses Not on filedocumented in this encounter Care Teams Service Transformer Repair Supervisor Relationship Specialty Start Date End Date Jillian Bustamante MD PCP - General Internal Medicine 01/15/20 06/21/21 Kenia Omalley DO PCP - General Internal Medicine 06/22/21 11/23/23 Dionne Marcus MD PCP - General Internal Medicine 11/24/23 03/26/24 Orlin Shah MD PCP - General Family Practice 03/27/24 Annika Blakely NP Nurse Practitioner Cardiology 10/29/20 Misael Plascencia MD Claim Processing Specialist Cardiovascular Disease 10/29/20 11/14/23 documented as of this encounter
--- OUTSIDE RECORDS SUMMARY | 2024-10-09 08:03 | XMS_ITS | Encounter Summary ---
Author Organization [facility] Address [address] [place] [address] Care Team Providers Care Radiologist Diagnostic Name Role Phone Yolanda-Jeanette Dupree MD Primary Care Provider Unavailable Jillian Bustamante MD Primary Care Provider Unavailable Annika Blakely CASING COOKER Unavailable [phone] Misael Plascencia MD Unavailable Unavailable Kenia Omalley DO Primary Care Provider Unavaila ble Dionne Marcus MD Primary Care Provider Un available Orlin Shah MD Primary Care Provider Unav ailable Encounter Details Date Type Department Care Team Description 07/11/2019 Incoming Correspondence Medical Records [address] [place] [address] [facility] Social History Tobacco Use Types Packs/Day Years Used Date Smoking Tobacco: Former Cigarettes 1 32 1 3 2004 Smokeless Tobacco: Never Alcohol Use Standard [...] on filedocumented in this encounter Care Teams Radiologist Diagnostic Relationship Specialty Start Date End Date Jeanette [...] Nurse Practitioner Cardiology 10/29/20 Misael Plascencia MD Strip Mine Supervisor Cardiovascular Disease 10/29/20 11/14/23 documented as of this encounter
--- OUTSIDE RECORDS SUMMARY | 2024-10-09 08:03 | XMS_ITS | Encounter Summary ---
Author Organization [facility] Address [address] [place] [address] Care Team Providers Care Tree Driller Name Role Phone Kevincynthialanette Annika LOSS PREVENTION AGENT Unavailable [phone] Misael Plascencia MD Unavailable Unavailable Kenia Omalley DO Primary Care Provider Unavaila ble Dionne Marcus MD Primary Care Provider Un available Orlin Shah MD Primary Care Provider Unav ailable Reason for Visit * Reason Comments Remote Device Check Encounter Details Date Type Department Care Team Description 11/01/2021 Remote Device Check Cardio PVC POC [address] [facility] [address] [place] [address] Dean Kaba MD [address] [place] [address] Social History Tobacco Use Types Packs/Day Years [...] on filedocumented in this encounter Care Teams Tree Driller Relationship Specialty Start Date End Date Kenia Omalley DO PCP - General Internal Medicine 06/22/21 11/23/23 Dionne Marcus MD PCP - General Internal Medicine 11/24/23 03/26/24 Orlin Shah MD PCP - General Family Practice 03/27/24 Annika Blakely NP Nurse Practitioner Cardiology 10/29/20 Misael Plascencia MD Furniture Assembler And Installer Cardiovascular Disease 10/29/20 11/14/23 documented as of this encounter
--- OUTSIDE RECORDS SUMMARY | 2024-10-09 08:03 | XMS_ITS | Encounter Summary ---
Author Organization [facility] Address [address] [place] [address] Care Team Providers Care Coal Cutting Machine Operator Name Role Phone Yolanda-Jeanette Dupree MD Primary Care Provider Unavailable Jillian Bustamante MD Primary Care Provider Unavailable Annika Blakely CONDUIT WORKER Unavailable [phone] Misael Plascencia MD Unavailable Unavailable Kenia Omalley DO Primary Care Provider Unavaila Dionne Monteiro MD Primary Care Provider Un available Orlin Shah MD Primary Care Provider Unav ailable Encounter Details Date Type Department Care Team Description 05/08/2019 Senior Manager Creative Services Report Medical Records [address] [place] [address] Annika Blakely, FRANK [address] [place] [address] [place] [address] Social History Tobacco Use Types Packs/Day Years [...] on filedocumented in this encounter Care Teams Coal Cutting Machine Operator Relationship Specialty Start Date End Date Jeanette [...] Practitioner Cardiology 10/29/20 Misael Plascencia MD Furniture Reproducer Cardiovascular Disease 10/29/20 11/14/23 documented as of this encounter
--- OUTSIDE RECORDS SUMMARY | 2024-10-09 08:04 | XMS_ITS | Encounter Summary ---
Author Organization [facility] Address [address] [place] [address] Care Team Providers Care Java Technical Architect Name Role Phone Donna Padilla MD Primary Care Provider Jeanette Camacho MD Primary Care Provider Unavailable Jillian Bustamante MD Primary Care Provider Unavailable Jillian Bustamante MD Primary Care Provider Unavailable Annika Blakely SOFTWARE PUBLISHER Unavailable [phone] Misael Plascencia MD Unavailable Unavailable Kenia Omalley DO Primary Care Provider Unavaila Dionne Monteiro MD Primary Care Provider Un available Orlin Shah MD Primary Care Provider Unav ailable Encounter Details Date Type Department Care Team Description 07/20/2016 Accounts Administrator Report Medical Records [address] [place] [address] Delvin Hassan MD Social History Tobacco Use Types Packs/Day [...] on filedocumented in this encounter Care Teams Java Technical Architect Relationship Specialty Start Date End Date Donna Padilla MD [address] [place] [address] PCP - General Internal Medicine 08/12/17 01/11/18 Jeanette Camacho MD [address] [place] [address] PCP - General Internal Medicine 01/12/18 01/14/20 Jillian Bustamante MD [address] [place] [address] PCP - General Internal Medicine 01/15/20 06/21/21 Jillian Bustamante MD [address] [place] [address] PCP - General 11/11/15 08/11/17 Kenia Omalley DO [address] [place] [address] PCP - General Internal Medicine 06/22/21 11/23/23 Dionne Marcus MD [address] [place] [address] PCP - General Internal Medicine 11/24/23 03/26/24 Orlin Shah MD [address] [place] [address] PCP - General Family Practice 03/27/24 Annika Blakely NP [address] [place] [address] Nurse Practitioner Cardiology 10/29/20 Misael Plascencia MD [address] [place] [address] Chair Inspector And Leveler Cardiovascular Disease 10/29/20 11/14/23 documented as of this encounter
--- OUTSIDE RECORDS SUMMARY | 2024-10-09 08:04 | XMS_ITS | Encounter Summary ---
Author Organization [facility] Address [address] [place] [address] Care Team Providers Care Chief Credit Officer Name Role Phone Donna Padilla MD Primary Care Provider [phone] Jeanette Camacho MD Primary Care Provider Unavailable Jillian Bustamante MD Primary Care Provider Unavailable Jillian Bustamante MD Primary Care Provider Unavailable Annika Blakely CLICKER OPERATOR Unavailable [phone] Misael Plascencia MD Unavailable Unavailable Kenia Omalley DO Primary Care Provider Unavaila Dionne Monteiro MD Primary Care Provider Un available Orlin Shah MD Primary Care Provider Unav ailable Reason for Visit * Reason Onset Date Comments Echocardiogram 03/07/2017 Encounter Details Date Type Department Care Team Description 03/07/2017 Telephone Cardiology - [address] [id number] Monika Aguilar, [address] [id number] Echocardiogram Social History Tobacco Use Types Packs/Day Years [...] encounter Miscellaneous Notes * Telephone Encounter - Brenna Guerin - 03/07/2017 8:45 AM EDT [facility]- no auth required * Telephone Encounter - Bessie Duarte - 03/07/2017 8:29 AM EDT Aaron is having an echo done on 03/19/17 and he has [facility] Silver ins. Does this ins require an auth? Thank you Bessie in cardiology. documented in this encounter Plan of Treatment Not on file documented as of this encounter Visit Diagnoses Not on filedocumented in this encounter Care Teams Chief Credit Officer Relationship Specialty Start Date End Date Donna Padilla MD [address] [place] [address] PCP - General Internal Medicine 08/12/17 01/11/18 [place]-Jeanette Dupree MD [address] [place], [place] [phone] PCP - General Internal Medicine 01/12/18 01/14/20 Jillian Bustamante MD [address] [place] [address] PCP - General Internal Medicine 01/15/20 06/21/21 Jillian Bustamante MD [address] [place] [address] PCP - General 11/11/15 08/11/17 Kenia Omalley DO [address] [place] [address] PCP - General Internal Medicine 06/22/21 11/23/23 Dionne Marcus MD [address] [place] [address] PCP - General Internal Medicine 11/24/23 03/26/24 Orlin Shah MD [address] [place] [address] PCP - General Family Practice 03/27/24 Annika Blakely NP [address] [place], [place] [id number] Nurse Practitioner Cardiology 10/29/20 Misael Plascencia MD [address] [place], [place] [phone] Printing Press Machine Operator Cardiovascular Disease 10/29/20 11/14/23 documented as of this encounter
--- OUTSIDE RECORDS SUMMARY | 2024-10-09 08:04 | XMS_ITS | Encounter Summary ---
Author Organization [facility] Address [address] [place] [address] Care Team Providers Care Manager Cath Lab Name Role Phone Annika Blakely BLOOD BANK COORDINATOR Unavailable [phone] Miasel Plascencia MD Unavailable Unavailable Kenia Omalley DO Primary Care Provider Unavaila ble Dionne Marcus MD Primary Care Provider Un available Orlin Shah MD Primary Care Provider Unav ailable Encounter Details Date Type Department Care Team Description 08/15/2023 SCAN Medical Records [address] [place] [address] Abstract, Provider Social History Tobacco Use Types [...] on filedocumented in this encounter Care Teams Manager Cath Lab Relationship Specialty Start Date End Date Kenia Omalley DO PCP - General Internal Medicine 06/22/21 11/23/23 Dionne Marcus MD PCP - General Internal Medicine 11/24/23 03/26/24 Orlin Shah MD PCP - General Family Practice 03/27/24 Annika Blakely NP Nurse Practitioner Cardiology 10/29/20 Misael Plascencia MD Transit Operator Cardiovascular Disease 10/29/20 11/14/23 documented as of this encounter
--- OUTSIDE RECORDS SUMMARY | 2024-10-09 08:04 | XMS_ITS | Encounter Summary ---
Author Organization [facility] Address [address] [place] [address] Care Team Providers Care Snack Bar Attendant Name Role Phone Jillian Bustamante MD Primary Care Provider Unavailable Annika Blakely NP Unavailable Misael Plascencia MD Unavailable Unavailable Kenia Omalley DO Primary Care Provider Unavaila Dionne Monteiro MD Primary Care Provider Un available Orlin Shah MD Primary Care Provider Unav ailable Reason for Visit * Reason Comments E-prescribe Rx Request Encounter Details Date Type Department Care Team Description 10/25/2020 Refill Cardio PVC [facility] [address] [facility] [address] [place] [address] Misael Plascencia MD E-prescribe Rx Request Social History Tobacco Use Types Packs/Day Years [...] encounter Miscellaneous Notes * Telephone Encounter - Gila Castañeda R.N. - 10/27/2020 8:30 AM EDT Carvedilol refill sent electronically. Pt is overdue for an OV. Please arrange. Thanks. documented in this encounter Plan of Treatment Not on file documented as of this encounter Visit Diagnoses Not on filedocumented in this encounter Care Teams Snack Bar Attendant Relationship Specialty Start Date End Date Jillian Bustamante MD PCP - General Internal Medicine 01/15/20 06/21/21 Kenia Omalley DO PCP - General Internal Medicine 06/22/21 11/23/23 Dionne Marcus MD PCP - General Internal Medicine 11/24/23 03/26/24 Orlin Shah MD PCP - General Family Practice 03/27/24 Annika Blakely NP Nurse Practitioner Cardiology 10/29/20 Misael Plascencia MD Jailkeeper Cardiovascular Disease 10/29/20 11/14/23 documented as of this encounter
--- OUTSIDE RECORDS SUMMARY | 2024-10-09 08:04 | XMS_ITS | Encounter Summary ---
Author Organization [facility] Address [address] [place] [address] Care Team Providers Care [place]man Name Role Phone Donna Padilla MD Primary Care Provider [phone] Jeanette Camacho MD Primary Care Provider Unavailable Jillian Bustamante MD Primary Care Provider Unavailable Jillian Bustamante MD Primary Care Provider Unavailable Annika Blakely OFFICE SPECIALIST Unavailable [phone] Misael Plascencia MD Unavailable Unavailable Kenia Omalley DO Primary Care Provider Unavaila Dionne Monteiro MD Primary Care Provider Un available Orlin Shah MD Primary Care Provider Unav ailable Encounter Details Date Type Department Care Team Description 03/30/2017 Transfer Records Medical Records [address] [place], [place] [id number] Abstract, Provider Social History Tobacco Use Types [...] on filedocumented in this encounter Care Teams [place] Relationship Specialty Start Date End Date Donna Padilla MD [address] [place] [address] PCP - General Internal Medicine 08/12/17 01/11/18 Jeanette Camacho MD [address] [place], [place] [phone] PCP - General Internal Medicine 01/12/18 01/14/20 Jillian Bustamante MD [address] [place] [address] PCP - General Internal Medicine 01/15/20 06/21/21 Jillian Bustamante MD [address] [place] [address] PCP - General 11/11/15 08/11/17 Kenia Omalley DO [address] [place] [address] PCP - General Internal Medicine 06/22/21 11/23/23 Dionne Marcus MD [address] [place], [place] [phone] PCP - General Internal Medicine 11/24/23 03/26/24 Orlin Shah MD [address] [place], [place] [address] PCP - General Family Practice 03/27/24 Annika Blakely NP [address] [place], [place] [id number] Nurse Practitioner Cardiology 10/29/20 Misael Plascencia MD [address] [place], [place] [id number] Candy Wrapping Machine Operator Cardiovascular Disease 10/29/20 11/14/23 documented as of this encounter
--- OUTSIDE RECORDS SUMMARY | 2024-10-09 08:04 | XMS_ITS | Encounter Summary ---
Author Organization [facility] Address [address] [place] [address] Care Team Providers Care Supervisor Sulfuric Acid Plant Name Role Phone Annika Blakely EQUIPMENT APPLICATION SPECIALIST Unavailable [phone] Misael Plascencia MD Unavailable Unavailable Kenia Omalley DO Primary Care Provider Unavaila ble Dionne Marcus MD Primary Care Provider Un available Orlin Shah MD Primary Care Provider Unav ailable Encounter Details Date Type Department Care Team Description 05/17/2023 SCAN Medical Records [address] [place] [id number] [place] [address] Social History Tobacco Use Types Packs/Day Years [...] filedocumented in this encounter Care Teams Supervisor Sulfuric Acid Plant Relationship Specialty Start Date End Date Kenia Omalley DO PCP - General Internal Medicine 06/22/21 11/23/23 Dionne Marcus MD PCP - General Internal Medicine 11/24/23 03/26/24 Orlin Shah MD PCP - General Family Practice 03/27/24 Annika Blakely NP Nurse Practitioner Cardiology 10/29/20 Misael Plascencia MD Safe Deposit Clerk Cardiovascular Disease 10/29/20 11/14/23 documented as of this encounter
--- OUTSIDE RECORDS SUMMARY | 2024-10-09 08:04 | XMS_ITS | Encounter Summary ---
Author Organization [facility] Address [address] [place] [address] Care Team Providers Care Rn Flight Name Role Phone Donna Padilla MD Primary Care Provider [phone] Jeanette Camacho MD Primary Care Provider Unavailable Jillian Bustamante MD Primary Care Provider Unavailable Jillian Bustamante MD Primary Care Provider Unavailable Annika Blakely DIORAMIST Unavailable [phone] Misael Plascencia MD Unavailable Unavailable Kenia Omalley DO Primary Care Provider Unavaila Dionne Monteiro MD Primary Care Provider Un available Orlin Shah MD Primary Care Provider Unav ailable Encounter Details Date Type Department Care Team Description 03/17/2016 Mapping Specialist Report Medical Records [address] [place], [place] [id number] Linh Quiroz Social History Tobacco Use Types Packs/Day Years [...] on filedocumented in this encounter Care Teams Rn Flight Relationship Specialty Start Date End Date Donna Padilla MD [address] [place] [address] PCP - General Internal Medicine 08/12/17 01/11/18 Jeanette Camacho MD [address] [place], [place] [phone] PCP - General Internal Medicine 01/12/18 01/14/20 Jillian Bustamante MD [address] [place] [address] PCP - General Internal Medicine 01/15/20 06/21/21 Jillian Bustamante MD [address] [place] [address] PCP - General 11/11/15 08/11/17 Kenia Omalley DO [address] [place] [address] PCP - General Internal Medicine 06/22/21 11/23/23 Dionne Marcus MD [address] [place] [address] PCP - General Internal Medicine 11/24/23 03/26/24 Orlin Shah MD [address] [place] [address] PCP - General Family Practice 03/27/24 Annika Blakely NP [address] [place] [address] Nurse Practitioner Cardiology 10/29/20 Misael Plascencia MD [address] [place] [address] Railway Track Worker Cardiovascular Disease 10/29/20 11/14/23 documented as of this encounter
--- OUTSIDE RECORDS SUMMARY | 2024-10-09 08:04 | XMS_ITS | Encounter Summary ---
Author Organization [facility] Address [address] [place] [address] Care Team Providers Care Field Naturalist Name Role Phone Donna Padilla MD Primary Care Provider [phone] Jeanette Camacho MD Primary Care Provider Unavailable Jillian Bustamante MD Primary Care Provider Unavailable Jillian Bustamante MD Primary Care Provider Unavailable Annika Blakely PERSONAL DRIVER Unavailable [phone] Misael Plascencia MD Unavailable Unavailable Kenia Omalley DO Primary Care Provider Unavaila Dionne Monteiro MD Primary Care Provider Un available Orlin Shah MD Primary Care Provider Unav ailable Encounter Details Date Type Department Care Team Description 05/11/2017 Certified Alcohol And Drug Counselor Report Medical Records [address] [place] [phone] Dean Kaba MD [address] [place] [address] [id number] Social History Tobacco Use Types Packs/Day Years [...] on filedocumented in this encounter Care Teams Field Naturalist Relationship Specialty Start Date End Date Donna Padilla MD [address] [place] [address] [phone] PCP - General Internal Medicine 08/12/17 01/11/18 [place]-Jeanette Dupree MD [address] [place] [address] PCP - General Internal Medicine 01/12/18 01/14/20 Jillian Bustamante MD [address] [place] [address] PCP - General Internal Medicine 01/15/20 06/21/21 Jillian Bustamante MD [address] [place] [address] PCP - General 11/11/15 08/11/17 Kenia Omalley DO [address] [place] [address] PCP - General Internal Medicine 06/22/21 11/23/23 Dionne Marcus MD [address] [place] [address] PCP - General Internal Medicine 11/24/23 03/26/24 Orlin Shah MD [address] [place] [address] PCP - General Family Practice 03/27/24 Annika Blakely NP [address] [place], [place] [phone] Nurse Practitioner Cardiology 10/29/20 Misael Plascencia MD [address] [place] [address] [place] Cardiovascular Disease 10/29/20 11/14/23 documented as of this encounter
--- OUTSIDE RECORDS SUMMARY | 2024-10-09 08:04 | XMS_ITS | Encounter Summary ---
Author Organization [facility] Address [address] [place] [address] Care Team Providers Care Transmission Rebuilder Name Role Phone Jillian Bustamante MD Primary Care Provider Unavailable Annika Blakely SERVICE DELIVERY DIRECTOR Unavailable [phone] Misael Plascencia MD Unavailable Unavailable Kenia Omalley DO Primary Care Provider Unavaila ble Dionne Marcus MD Primary Care Provider Un available Orlin Shah MD Primary Care Provider Unav ailable Encounter Details Date Type Department Care Team Description 08/13/2020 Waterproof Material Folder Report Medical Records [address] [place] [address] Gene Venessa Social History Tobacco Use Types Packs/Day Years [...] have Coronavirus / COVID-19? No / Unsure 07/23/2020 9:29 AM EST documented as of this encounter Plan of Treatment Not on file documented as of this encounter Visit Diagnoses Not on filedocumented in this encounter Care Teams Transmission Rebuilder Relationship Specialty Start Date End Date Jillian Bustamante MD PCP - General Internal Medicine 01/15/20 06/21/21 Kenia Omalley DO PCP - General Internal Medicine 06/22/21 11/23/23 Dionne Marcus MD PCP - General Internal Medicine 11/24/23 03/26/24 Orlin Shah MD PCP - General Family Practice 03/27/24 Annika Blakely NP Nurse Practitioner Cardiology 10/29/20 Misael Plascencia MD Hand Cigar Making Supervisor Cardiovascular Disease 10/29/20 11/14/23 documented as of this encounter
--- OUTSIDE RECORDS SUMMARY | 2024-10-09 08:04 | XMS_ITS | Encounter Summary ---
Author Organization [facility] Address [address] [place] [address] Care Team Providers Care Crm Coordinator Name Role Phone Jillian Bustamante MD Primary Care Provider Unavailable Annika Blakely NP Unavailable [phone] Misael Plascencia MD Unavailable Unavailable Kenia Omalley DO Primary Care Provider Unavaila Dionne Monteiro MD Primary Care Provider Un available Orlin Shah MD Primary Care Provider Unav ailable Reason for Visit * Reason Comments E-prescribe Rx Request Encounter Details Date Type Department Care Team Description 07/29/2020 Refill Cardio PVC [facility] [address] [facility] [address] [place] [address] Misael Plascencia MD E-prescribe Rx [...] AM EST documented as of this encounter Miscellaneous Notes * Telephone Encounter - Herlinda Brush C.M.A. - 07/30/2020 7:41 AM EST Efaxed Carvedilol x 3 months 0 refills--Scheduling team please arrange and call pt with details-- documented in this encounter Plan of Treatment Not on file documented as of this encounter Visit Diagnoses Not on filedocumented in this encounter Care Teams Crm Coordinator Relationship Specialty Start Date End Date Jillian Bustamante MD PCP - General Internal Medicine 01/15/20 06/21/21 Kenia Omalley DO PCP - General Internal Medicine 06/22/21 11/23/23 Dionne Marcus MD PCP - General Internal Medicine 11/24/23 03/26/24 Orlin Shah MD PCP - General Family Practice 03/27/24 Annika Blakely NP Nurse Practitioner Cardiology 10/29/20 Misael Plascencia MD Store Team Leader Cardiovascular Disease 10/29/20 11/14/23 documented as of this encounter
--- OUTSIDE RECORDS SUMMARY | 2024-10-09 08:04 | XMS_ITS | Encounter Summary ---
Author Organization [facility] Address [address] [place] [address] Care Team Providers Care Soap Inspector Name Role Phone Donna Padilla MD Primary Care Provider [phone] Jeanette Camacho MD Primary Care Provider Unavailable Jillian Bustamante MD Primary Care Provider Unavailable Jillian Bustamante MD Primary Care Provider Unavailable Annika Blakely TUMBLING AND ROLLING SUPERVISOR Unavailable [phone] Misael Plascencia MD Unavailable Unavailable Kenia Omalley DO Primary Care Provider Unavaila Dionne Monteiro MD Primary Care Provider Un available Orlin Shah MD Primary Care Provider Unav ailable Encounter Details Date Type Department Care Team Description 03/31/2017 Telephone Adult Medicine - [address] [address] Jeanette Camacho MD Social History Tobacco Use Types Packs/Day [...] encounter Miscellaneous Notes * Telephone Encounter - Jeanette Camacho MD - 03/31/2017 4:12 PM EDT Dean, here is the stress test result we spoke about. Jeanette [place] documented in this encounter Plan of Treatment Not on file documented as of this encounter Visit Diagnoses Not on filedocumented in this encounter Care Teams Soap Inspector Relationship Specialty Start Date End Date Donna Padilla MD [address] [place] [address] PCP - General Internal Medicine 08/12/17 01/11/18 [place]-Jeanette Dupree MD [address] [place] [address] PCP - General Internal Medicine 01/12/18 01/14/20 Jillian Bustamante MD [address] [place] [address] PCP - General Internal Medicine 01/15/20 06/21/21 Jillian Bustamante MD [address] [place] [address] PCP - General 11/11/15 08/11/17 Kenia Omalley DO [address] [place] [address] PCP - General Internal Medicine 06/22/21 11/23/23 Dionne Marcus MD [address] [place] [address] PCP - General Internal Medicine 11/24/23 03/26/24 Orlin Shah MD [address] [place] [address] PCP - General Family Practice 03/27/24 Annika Blakely NP [address] [place] [address] Nurse Practitioner Cardiology 10/29/20 Misael Plascencia MD [address] [place] [address] Drafter Geophysical Cardiovascular Disease 10/29/20 11/14/23 documented as of this encounter
--- OUTSIDE RECORDS SUMMARY | 2024-10-09 08:04 | XMS_ITS | Encounter Summary ---
Author Organization [facility] Address [address] [place] [address] Care Team Providers Care Payroll Processor Name Role Phone Donna Padilla MD Primary Care Provider [phone] Jeanette Camacho MD Primary Care Provider Unavailable Jillian Bustamante MD Primary Care Provider Unavailable Jillian Bustamante MD Primary Care Provider Unavailable Annika Blakely EXECUTIVE SOUS CHEF Unavailable [phone] Misael Plascencia MD Unavailable Unavailable Kenia Omalley DO Primary Care Provider Unavaila Dionne Monteiro MD Primary Care Provider Un available Orlin Shah MD Primary Care Provider Unav ailable Encounter Details Date Type Department Care Team Description 07/21/2017 Marketing Recruiter Report Medical Records [address] [place] [address] Jeannine Muller PA-C Social History Tobacco Use Types Packs/Day Years Used Date Smoking Tobacco: Former Cigarettes 13 Smokeless Tobacco: Never Alcohol Use Standard Drinks/Week [...] on filedocumented in this encounter Care Teams Payroll Processor Relationship Specialty Start Date End Date Donna Padilla MD [address] [place] [address] PCP - General Internal Medicine 08/12/17 01/11/18 Jeanette Camacho MD [address] [place] [address] PCP - General Internal Medicine 01/12/18 01/14/20 Jillian Bustamante MD [address] [place] [address] PCP - General Internal Medicine 01/15/20 06/21/21 Jillian Bustamante MD [address] [place] [address] PCP - General 11/11/15 08/11/17 Kenia Omalley DO [address] [place], [place] [phone] PCP - General Internal Medicine 06/22/21 11/23/23 Dionne Marcus MD [address] [place] [address] PCP - General Internal Medicine 11/24/23 03/26/24 Orlin Shah MD [address] [place] [address] PCP - General Family Practice 03/27/24 Annika Blakely NP [address] [place] [address] Nurse Practitioner Cardiology 10/29/20 Misael Plascencia MD [address] [place] [address] Bottom Painter Cardiovascular Disease 10/29/20 11/14/23 documented as of this encounter
--- OUTSIDE RECORDS SUMMARY | 2024-10-09 08:04 | XMS_ITS | Clinical Summary ---
Author Organization [facility] Address [address] [place] [address] Care Team Providers Care Sap Hana Developer Name Role Phone ZoraAnnika TILE BURNER Unavailable [phone] Orlin Shah MD Primary Care Provider Unav ailable Allergies No known active allergies Medications Medication Sig Dispensed Refills Start Date End Date Status [place]-3 Fatty Acids (FISH OIL) 1200 MG Cap Take by mouth. 0 Active Cholecalciferol (VITAMIN D) 400 UNITS Tab Take by mouth. 0 Active [facility] ASPIRIN ADULT LOW DOSE 81 MG chewable tabletIndications:Old NC (myocardial infarction) CHEW 1 TABLET BY MOUTH DAILY 90 Tab 0 11/23/2019 Active Zolpidem Tartrate (Ambien) 5 MG TabIndications:Insomni a, unspecified type Take 0.5-1 Tablets by mouth at bedtime as needed for Insomnia. 30 Tablet 0 09/23/2022 Active triamcinolone (KENALOG) 0.1 % creamIndications:Eczem a, unspecified type Apply to eczema rash twice daily. 30 g 2 05/10/2023 Active Entresto 24-26 MG Tab TAKE 1 TABLET BY MOUTH TWICE DAILY 180 Tablet 2 08/12/2023 Active atorvastatin (LIPITOR) 40 MG tabletIndications:Hype rlipidemia, unspecified hyperlipidemia type TAKE 1 TABLET BY MOUTH DAILY 90 Tablet 2 08/15/2023 Active carvedilol (COREG) 25 MG tablet TAKE 1 TABLET BY MOUTH TWICE DAILY WITH MEALS 180 Tablet 0 02/16/2024 Active Active Problems Problem Noted Date Insomnia 03/25/2023 Edema 10/11/2022 Last Assessment & Plan: We did discuss his leg edema. This is mild. This worse in his right leg where he had his vein harvested from. We will continue to monitor. I have encouraged him to use compression stockings. If this worsens he will let us know. COVID-19 07/23/2020 BPH (benign prostatic hyperplasia) 11/17 Aneurysm of ascending aorta 08/26/2019 Overview: 3.8cm 2019 Lung nodules 03/01/2019 Overview: Seen on ldct Fatty liver 03/01/2019 Overview: Seen on ldct Low HDL (under 40) 12/19/2018 Obstructive sleep apnea severe AHI 35 Overview: [facility] Home Polysomnogram: Date 02/19/2017; AHI 35, Unclassified apneas 2; Obstructive apneas 145; Central apneas 6; Mixed apneas 1; hypopneas 8; average oxygen saturation 93% (lowest 81% without saturations <88% for 5% or more of study) RBM Polysomnogram treatment study. Date 06/03/2017. SE 65 % SM 72 %; spent 18 % of the study in REM. At the optimal pressure of CPAP @ 11; RDI 3.4 (AHI 3.4), Central apneas 4; Obstructive apneas 0; Mixed apneas 0; hypopneas 0; RERAs 0; and, average oxygen saturation was 93%. For the entire study, PLMs ~14. Hemorrhage of rectum 11/17/2016 Overview: 02/2013 Dr. Gardiner, neg colonoscopy 04/2013 Eczema 03/01/2016 Coronary artery disease 02/19/2015 Overview: 4 vessel 2004 Last Assessment & Plan: [...] with routine medical care. Ischemic cardiomyopathy 02/19/2015 Overview: EF 30% in 2019 Last Assessment & [...] 2 diabetes (class Ia recommendation from the 2021 [place] heart failure guidelines). I've asked the patient to call if they develop worsening symptoms of heart failure such as increased shortness of breath, new or worsening cough, increased swelling in the legs or ankles, or weight gain of more than 2 pounds in one day or 4 pounds in one week. AAA (abdominal aortic aneurysm) 02/19/20 15 Last Assessment & Plan: This is been stable. This is monitored by vascular surgery. Presence of combination internal cardiac defibrillator (ICD) and pacemaker 02/18/2015 Last Assessment & Plan: Patient does not have remote monitoring at this time. He gets quarterly checks in our device clinic. He will consider remote monitoring next device clinic apt. We discussed his history of NSVT and importance of close monitoring. Microscopic hematuria 02/18/2015 Overview: Neg work up Old NC (myocardial infarction) 5 Overview: 10/16 silent Hyperlipidemia 02/18/2015 Last Assessment & Plan: Patient's last LDL cholesterol is 41 this is at goal. His triglycerides remain elevated at 338. Patient encouraged to follow a low-fat diet and also to make greater efforts to lose weight. He continues on fish oil. HTN (hypertension) 02/18/2015 Last Assessment & Plan: Patient's blood pressure is under excellent control with a reading today of 126/76. Continue with carvedilol and Entresto as prescribed. Immunizations Name Administration Dates Next Due COVID-19 (Pfizer) 05/26/2021,09/19/2020,08/30/19 21 Influenza (> 6 Months) 03/21/2019,03/01/2016, Influenza Vaccine-preservati ve Free-quadrivalent 4 Years 07/03/2018 Influenza Vaccine-quadrivale nt 4 Years Plus 03/30/2017 Influenza vaccine high dose age 65 and over 03/25/2023,03/25/2022,04/06/2021,04/03 Pneumoccoccal(Adult) Polysac charide PPSV23 04/06/2021 Pneumococcal Conjugate PCV-13 01/21/2020 Tdap 03/01/2016 Zostavax 09/07/2016 Family History Medical History Relation Name Comments CA Breast Aunt age 60, does no t think she had it bilat brain aneurysm Father Relation Name Status Comments [...] file Not on file Not on file Last Filed Vital Signs Vital Sign Reading Time Taken Comments Blood Pressure 120/70 11/16/2023 10:04 AM EDT Pulse 96 07/05/2023 4:41 PM EST Temperature 36 ??C (96.8 ??F) 07/05/2023 4:41 PM EST Respiratory Rate 12 10/11/2022 11:04 AM EDT Oxygen Saturation 98% 07/05/2023 4:41 PM EST Inhaled Oxygen Concentration - - Weight 114.3 kg (252 lb) 05/17/2023 7:56 AM EST Height 182.9 cm (6') 11/16/2023 10:04 AM EDT Body Mass Index 34.18 05/17/2023 7:56 AM EST Plan of Treatment Health Maintenance Due Date Last Done Comments SHINGLES VACCINE (2 of 3) 11/02/2016 09/07/2016 Lung Cancer Screening (Low D ose CT) 03/04/2021 03/04/2020, 02/26/2019 FALL RISK ASSESSMENT 09/22/2022 09/22/2021, 07/17/2021, 01/21/2020 COLON CANCER SCREENING 05/08/2023 3 (External Completion), 05/08/2013 Covid-19 Vaccine (2022-07 4 season) 2024 05/26/2021, 09/19/2020, 08/29/2020 DEPRESSION SCREEN 05/10/2024 05/10/2023, (Completed), 09/22/2021 BMI CHECK/ADVISE 06/13/2024 03/25/2023, , 09/23/2022 (Completed), Additional history exists DEPRESSION SCREENING/FOLLOWUP 06/13/2024 (Completed), 07/18/2018 (Completed) INFLUENZA (Season Ended) 2025 023, 03/25/2022, 04/06/2021, Additional history exists DTAP/TDAP/TD (2 - Td or Tdap) 03/01/2026 03/01/2016 CHOLESTEROL SCREENING 03/24/2028 03/24/2023 , 11/01/2022, 08/18/2022, Additional history exists HEPATITIS C SCREENING Completed 08/28/2015 PNEUMOCOCCAL VACCINE Completed 04/06/2021, 01/21/20 20 Advance Directives For more information, please contact: [phone] Latest Code Status on File Code Status Date Activated Date Inactivated Comments Full Code 05/10/2023 10:38 AM Care Teams Sap Hana Developer Relationship Specialty Start Date End Date Orlin Shah MD PCP - General Family Practice 03/27/24 Annika Blakely NP Nurse Practitioner Cardiology 10/29/20
--- OUTSIDE RECORDS SUMMARY | 2024-10-09 08:04 | XMS_ITS | Clinical Summary ---
Author Organization Patient Business Ser [facility] Address [address] [place] [address] Care Team Providers Care Valve Steamer Name Role Phone Orlin Shah MD Primary [...] OMEGA-3 FATTY ACIDS ORAL Take by mouth. [place]-3 Fatty Acids (FISH OIL) 1200 MG Cap [...] ldct Obstructive sleep apnea 02/22/2017 Overview (05/07/2024): [facility] Home Polysomnogram: Date 02/19/2017; AHI 35, Unclassified [...] diabetes (class Ia recommendation from the 2022 [employer] heart failure guidelines). I've asked the patient to call if they develop worsening symptoms of heart failure such as increased shortness of breath, new or worsening cough, increased swelling in the legs or ankles, or weight gain of more than 2 pounds in one day or 4 pounds in one week. AAA (abdominal aortic aneurysm) ([facility] V24) Overview (05/07/2024): Last Assessment & Plan: [...] 02/2013 Dr. Gardiner, neg colonoscopy 04/2013 Old GA (myocardial infarction) 02/18/2015 07/05/2024 Overview (05/07/2024): 10/16 silent Encounters Date Type Department Care Team Description 09/25/2024 9:00 AM EDT Ancillary Procedure [facility] Cardiology [facility] [address] [place] [id number] Encounter for adjustment or management of cardiac device 09/10/2024 Telephone [facility] Cardiology [facility] [address] [place] [address] Roger Nelson MD Med Refill (Atorvastatin) 08/02/2024 [address] [facility] [address] [place] [address] Annika Blakely NP Results 08/01/2024 9:10 AM EST Office Visit [facility] [address] [place] [phone] Annika Blakely NP Coronary artery disease involving confederated coos coronary artery of confederated coos heart without angina pectoris (Primary Dx); Primary hypertension; Ischemic cardiomyopathy; Mixed hyperlipidemia; Presence of combination internal cardiac defibrillator (ICD) and pacemaker 08/01/2024 Telephone [facility] Cardiology [facility] [address] [place] [address] Annika Blakely NP 07/31/2024 Telephone [facility] [address] [place] [address] Annika Blakely NP Concerned 07/18/2024 8:30 AM EST Ancillary Procedure [facility] [address] [place] [address] Coronary artery disease involving confederated coos coronary artery of confederated coos heart without angina pectoris from Last 3 [...] older (Afluria) 3 years and older 03/21/2019,03/01/2016,02/27/2015 Percentil SARS-CoV-2 COVID-19, mRNA, LNP-S, preservative free 05/26/2021 [...] in 10 yrs OTHER SURGICAL HISTORY PROCEDURE: CT CORONARY ARTERY BYP W/VEIN & ARTERY GRAFT 4 VEIN OTHER SURGICAL HISTORY PROCEDURE: HISTORICAL ICD; COMMENT: single lead CYST REMOVAL PROCEDURE: CT EXCISION PILONIDAL CYST/SINUS SIMPLE Medical History Medical History Date Comments AAA (abdominal aortic aneury sm) ([facility]/HCC V24) 02/18/2015 DX:AAA (abdominal aortic ane urysm) ([facility]); COMMENT: 05/27/14 US/ was to repeat in 1 year / distal abd aortic aneurysm 3.3 cm Presence of combination inte rnal cardiac defibrillator (ICD) and pacemaker 02/18/2015 DX:Presence of combination i nternal cardiac defibrillator (ICD) and pacemaker Microscopic hematuria 02/18/2015 DX:Microsc opic hematuria; COMMENT: Dr Rosario Old GA (myocardial infarction) 02/18/2015 D X:Old GA (myocardial infarction); COMMENT: 10/16 silent Hyperlipidemia 02/18/2015 [...] Seen on ldct Aneurysm of ascending aorta ([facility]/HCC V24) 08/26/2019 DX:Aneurysm of ascending aor ta [...] Description 11/01/2024 9:40 AM EDT Office Visit [facility] [address] [place] [address] [address] [place] [address] Annika Blakely NP [address] [place] [address] [address] [place] [address] 12/25/2024 10:30 AM EDT Ancillary Procedure [facility] [address] [place] [address] 01/01/2025 10:20 AM EDT Office Visit [facility] [address] [place] [address] [address] [place] [address] Roger Nelson MD [address] [place] [address] [address]IVE [address] [place] [address] Health Maintenance Due Date Last Done Comments [...] this topic Medical Devices Implanted Type Area Installer Device Identifier Shelf Expiration Date Model / Serial / Lot Bsci-[id number] Implanted:10/2013 by Dean Kaba MD (Quantity not on file) Cardiac ICD Left: Chest [employer] [employer]HY[employer] MGMT [id number] / [id number] / Procedures Procedure Name Priority Date/Time Associated Diagnosis Comments CARDIAC DEVICE CHECK- IN CLINIC- MURJ Routine 09/25/2024 9:11 AM EDT Encounter for adjustment or management of cardiac device BASIC METABOLIC PANEL Routine 08/01/2024 9:50 AM EST CBC WITH AUTO DIFFERENTIAL Routine 08/01/2024 9:50 AM EST Coronary artery disease involving confederated coos coronary artery of confederated coos heart without angina pectoris LIPID PANEL Routine 08/01/2024 9:50 AM EST Coronary artery disease involving confederated coos coronary artery of conf[place] coos heart without angina pectoris PROTHROMBIN TIME WITH INR Routine 08/01/2024 9:50 AM EST Coronary artery disease involving confederated coos coronary artery of confederated coos heart without angina pectoris CBC AND DIFFERENTIAL Routine 08/01/2024 9:50 AM EST Coronary artery disease involving confederated coos coronary artery of confederated coos heart without angina pectoris NM LEXISCAN STRESS TEST W/ MYOCARDIAL PERFUSION Routine 07/18/2024 10:50 AM EST Coronary artery disease involving confederated coos coronary artery of confederated coos heart without angina pectoris HM DEPRESSION SCREENING Routine 05/10/2023 HM HEPATITIS C SCREENING Routine 08/28/2015 HM COLONOSCOPY Routine 05/08/2013 from Last 3 Months or Most Recently Relevant to Health Maintenance Results * CARDIAC DEVICE CHECK- IN CLINIC- [facility] (09/25/2024 9:11 AM EDT) Date Time Interrogation Session [id number] CV DEVICE CHECK Implantable Pulse Generator Installer BSX CV DEVICE CHECK Implantable Pulse Generator Type ICD CV DEVICE CHECK Implantable Pulse Generator Model E141 CV DEVICE CHECK Implantable Pulse Generator Serial Number [id number] CV DEVICE CHECK Implantable Pulse Generator Implant [...] Mode (NBG Code) VVI CV DEVICE CHECK Be Setting Lower Rate Limit 40 CV DEVICE [...] 11:45 AM EST Performed at: ??01 - [address] ??[id number] Panelboard Operator: Roosevelt Ferro MD, Phone: ??[phone] us Annika Blakely CUSTODIAN LAB BLOOD ORDERABLES Final R esult [facility] [...] 11:32 AM EST Performed at: ??[address] ??[id number] Panelboard Operator: Roosveelt Ferro MD, Phone: ??[phone] us Annika Blakely CUSTODIAN LAB BLOOD ORDERABLES Final R esult [facility] 1 * Prothrombin time with INR (08/01/2024 9:50 AM EST) International Normalized Ratio (INR) 1.0 0.9 - 1.1 [facility] 1 Prothrombin Time 11.0 9.2 - 11.4 SEC [facility] 1 Blood Venous blood specimen / Unknown 08/01/2024 9:50 AM EST 08/01/2024 Narrative [facility] 1 - 08/01/2024 11:45 AM EST Performed at: ??[address] - [address] ??[id number] Panelboard Operator: Roosevelt Ferro MD, Phone: ??[phone] us Annikase Blakely CUSTODIAN LAB BLOOD ORDERABLES Final R esult [facility] [...] AM EST Performed at: ??01 - [facility] [address] ??[id number] Panelboard Operator: Mala Jenkins MD, Phone: ??[phone] us Annika Blakely CUSTODIAN LAB BLOOD ORDERABLES Final R esult [facility] [...] Resting ejection fraction was 60%. Annika Blakely CUSTODIAN CV STRESS PROCEDURES Final R esult * Depression Screening (05/10/2023) [facility] Depression Screening Abstracted Result [facility] Historical Provider MD HEALTH MAINTENANCE Final Result * Hepatitis C Screening (08/28/2015) [facility] Hepatitis C Screening Abstracted Result [facility] Provider MD HEALTH MAINTENANCE Final Result * Colonoscopy (05/08/2013) [facility] Colonoscopy No Interpretation , Abstracted Anatomical Region Laterality Modality Other Result [facility] Provider HEALTH MAINTENANCE Final Result from Last 3 Months or Most Recently Relevant to Health Maintenance Insurance MEDICARE [facility] Care Teams Valve Steamer Relationship Specialty Start Date End Date Orlin Shah MD [address] [place] [address] Dr Benjamin [place] PCP - General 03/27/24
--- OUTSIDE RECORDS SUMMARY | 2024-10-09 08:04 | XMS_ITS | Encounter Summary ---
Author Organization [facility] Address [address] [place] [address] Care Team Providers Care Manager Property Name Role Phone KevinAnnika blake FRANK Unavailable [phone] Misael Plascencia MD Unavailable Unavailable Kenia Omalley DO Primary Care Provider Unavaila Dionne Monteiro MD Primary Care Provider Un available Orlin Shah MD Primary Care Provider Unav ailable Encounter Details Date Type Department Care Team Description 11/12/2023 Pt. Non Urgent Medic al Question [place] [address] Bernarda Augustin PA-C [address] [place] [address] Social History Tobacco Use Types Packs/Day Years [...] encounter Miscellaneous Notes * Telephone Encounter - Bernarda Augustin PA-C - 11/24/2023 2:44 PM EDT Forwarding to you thanks :) * Telephone Encounter - Zuri Gallardo L.P.N. - 11/14/2023 8:07 AM EDT From: Aaron Humphreys To: Henry Augustin Sent: 11/12/2023 4:16 PM EDT Subject: Question from your patient Alondra Menchaca, I received a letter today from [facility] indicating that Doctor Shahram is leaving the [facility]. You have been my PA for a while now and I feel very comfortable with your care. In fact, I have seen only you for my last several visits. I have to select a new primary and I am leaning toward cho osing Dr Dionne Barrett. However, I do not want to lose you as my PA. Will you be joining Dr Truong after Dr Omalley leaves the practice? My personal cell number is [phone]. Fell free to call if easier for you. Thank you, Hay documented in this encounter Plan of Treatment Not on file documented as of this encounter Visit Diagnoses Not on filedocumented in this encounter Care Teams Manager Property Relationship Specialty Start Date End Date Kenia Omalley DO PCP - General Internal Medicine 06/22/21 11/23/23 Dionne Marcus MD PCP - General Internal Medicine 11/24/23 03/26/24 Orlin Shah MD PCP - General Family Practice 03/27/24 Annika Blakely NP Nurse Practitioner Cardiology 10/29/20 Misael Plascencia MD Social Worker Health Services Cardiovascular Disease 10/29/20 11/14/23 documented as of this encounter
[2024-10-09 11:30] LABS: MANUAL DIFF FLAG NO
[2024-10-09 11:37] LABS: B Type Natriuretic Peptide 456 pg/mL (<100)
[2024-10-09 11:37] LABS: Appearance Urine Clear; Color Urine Yellow; Glucose Urine UA Negative (Negative); Leukocyte Esterase Urine Negative (Negative); Nitrite Urine Negative (Negative); UMIC TRIGGER UACC YES; Urine Blood Negative (Negative); Urine Ketones Negative (Negative); Urine Protein 30 (1+) mg/dL (Neg-Trace)
[2024-10-09 11:40] LABS: Basophils Percent Auto 0.6 % (0-2); Eosinophils Absolute Auto 0.1 X10*3/uL (0.0-0.4); Eosinophils Percent Auto 1.4 % (0-4); Hematocrit 45.3 % (42.0-52.0); Hemoglobin 15.2 g/dl (14.0-18.0); Imm Gran Abs Auto 0.03 X10*3/uL (0.00-0.03); Imm Gran Pct Auto 0.4 % (0.0-0.4); Lymphocytes Absolute Auto 1.7 X10*3/uL (1.2-4.9); Lymphocytes Percent Auto 24.3 % (20-40); Mean Corpuscular HGB Conc 33.6 g/dl (31.0-36.0); Mean Corpuscular Hemoglobin 30.5 pg (27.0-33.0); Mean Corpuscular Volume 90.8 fL (80.0-98.0); Mean Platelet Volume 11.2 fL (9.4-12.4); Monocytes Absolute Auto 0.6 X10*3/uL (0.1-1.2); Monocytes Percent Auto 8.1 % (2-11); Neutrophils Absolute Auto 4.6 x10*3/uL (2.0-8.3); Neutrophils Percent Auto 65.2 % (45-73); Platelet Count 174 X10*3/uL (160-400); Red Blood Count 4.99 X10*6/uL (4.60-5.80); Red Cell Distribution Width 13.8 % (11.0-16.0); White Blood Count 7.1 X10*3/uL (4.8-10.8)
[2024-10-09 11:42] LABS: Bacteria Urine None Seen (None Seen); Hyaline Casts Urine 0-2 /LPF (0-2); RBC Urine 0-2 /HPF (0-2); Squamous Epithelial Cell Urine 0-2 /HPF (0-2); WBC Urine 0-5 /HPF (0-5)
[2024-10-09 11:43] LABS: Estimated Average Glucose 120 mg/dL; Hemoglobin A1C 161.2298 umol/L; Hemoglobin A1c % 5.8 % (<6.0); Total Hemoglobin (HGBA1C) 3995.4242 umol/L
[2024-10-09 12:00] LABS: Alanine Aminotransferase 34 U/L (0-40); Albumin Level 3.8 g/dL (3.5-5.0); Alkaline Phosphatase 88 U/L (39-117); Anion Gap 11 (12-20); Aspartate Amino Transferase 32 U/L (5-37); Bilirubin Total 1.1 mg/dL (0.0-1.0); Blood Urea Nitrogen 14 mg/dL (9-16); Calcium 8.7 mg/dL (8.4-10.2); Carbon Dioxide 29 mmol/L (22-29); Chloride 106 mmol/L (96-108); Cholesterol 116 mg/dL (<200); Estimated Glomerular Filt Rate > 60; Glucose Fasting 117 mg/dL (60-99); HDL Cholesterol 35 mg/dL (>40); LDL Cholesterol Calculated 57 mg/dL (<100); Potassium 4.1 mmol/L (3.3-5.1); Sodium 142 mmol/L (135-145); Total Protein 6.6 g/dL (6.5-8.0); Triglycerides 124 mg/dL (<150)
[2024-10-09 12:15] LABS: Creatinine Urine 131.15 mg/dL
[2024-10-09 12:18] LABS: TSH reflex Free T4 2.16 uIU/mL (0.32-4.0); Vitamin D 25-OH Total 63.8 ng/mL (>30)
[2024-10-09 12:24] LABS: Folate 7.8 ng/mL (> or = 4.0); Prostate Specific Antigen Scr 0.66 ng/mL (<0.05-4.0); Vitamin B12 329 pg/mL (200-900)
== END 2024-10-09 07:59 | disposition home or self-care (01) ==
LOC: HO.WFDLDS 07:58
PROVIDERS: Visit Provider Family Medicine
DX: Z00.00 Encounter for general adult medical examination without abnormal findings (principal); Z12.5 Encounter for screening for malignant neoplasm of prostate; I11.0 Hypertensive heart disease with heart failure; I50.9 Heart failure, unspecified; I25.5 Ischemic cardiomyopathy; E55.9 Vitamin D deficiency, unspecified; R73.01 Impaired fasting glucose; E53.8 Deficiency of other specified B group vitamins
CPT/HCPCS: 36415; 80053; 80061; 81001; 82043; 82306; 82570; 82607; 82746; 83036; 83880; 84153; 84443; 85025

== ENCOUNTER 2025-02-05 11:34 | Outpatient (AMB) | payer MEDICARE, SELFPAY ==
--- NOTE | 2025-02-05 11:36 | A.OFFPC_ITS ---
Vital Signs 02/05/25 11:42 Height 6 ft Weight 263 lb 8 oz BMI 35.7 BP 124/72 Blood Pressure Location Rt brachial Position Sitting Respiration 13 Pulse 68 Pulse Source Pulse Oximeter Temp 96.7 F L Temp Source Temporal Artery Scan Pulse Oximetry (%) 95 Oxygen Delivery Method Room Air Intake Visit Reasons: CPE with f/u labs and health maint. 30 mins Intake Note: Aaron presents in the office today for his annual physical. Patient would like a referral to a new director enterprise systems. Allergies No Known Allergies Allergy (Verified 02/05/25 11:38) Medication List - Last Reconciled 02/05/25 by Orlin Shah MD aspirin (Loren Low Dose Aspirin) 81 mg PO DAILY carvedilol 25 mg PO BID cholecalciferol (vitamin D3) 50 mcg PO DAILY omega 4-one-uat-fish oil 1,200 (144-216) mg (Fish Oil) caps PO rosuvastatin 40 mg PO DAILY 90 days sacubitril-valsartan 24-26 mg (Entresto) 1 tab PO BID Tobacco use date assessed: 02/05/25 Dental Screening Dental Screen Date: 02/05/25 Did you have a dental visit in the last 12 months?: Yes Did you have a dental problem in the last 6 months where you did not have access to dental care?: No Was dental information given to patient?: Patient has dentist HPI CPE with f/u labs and health maint. 30 mins HPI Details 69 y/o male presents for an extended exa m with f/u labs and health maintenance. Blood pressure today 124/72, 68p. He is on Entresto, carvedilol 25mg b.i.d. Labs drawn 10/09/24. Reviewed labs with pt. A1c 5.8%. Triglycerides 124. TC 116. LDL 57. HDL low at 35. Has complaints of some lower extremity swelling. Reports hx of sleep apnea. [facility] Medical History (Updated 02/05/25 @ 12:38 by Ammon Bowie) Neuropathy Arthritis Heart disease High cholesterol Family History (Updated 02/05/25 @ 11:41 by Tori Lopes MA) Father High blood pressure High cholesterol Thyroid disorder Daughter FHx: mental illness Bipolar 1 disorder Social History (Updated 02/05/25 @ 11:42 by Tori Lopes MA) Housing: Condominium Alcohol intake: current Patient Tobacco Use Status: Never used Tobacco e-Cigarette/Vaping Use: Never Used Second Hand Smoke Exposure: No service: No Current occupational status: retired Cognitive needs: No Hearing needs: No Vision needs: Yes Questionnaire PHQ-9 Over the last 2 weeks, how often have you been bothered by any of the following problems? 1. Little interest or pleasure in doing things: not at all 2. Feeling down, depressed, or hopeless: not at all 3. Trouble falling or staying asleep, or sleeping too much: several days 4. Feeling tired or having little energy: several days 5. Poor appetite or overeating: not at all 6. Feeling bad about yourself - or that you are a failure or have let yourself or your family down: not at all 7. Trouble concentrating on things, such as reading the newspaper or watching television: not at all 8. Moving or speaking so slowly that other people could have noticed. Or the opposite - being so fidgety or restless that you have been moving around a lot more than usual: not at all 9. Thoughts that you would be better off or of hurting yourself in some way: not at all Total score: 2 Depression Screening Interpretation: Negative Depression Screening Done: Yes 56293 - PHQ-9 Billing: Yes Source: Developed by Drs. Rudi Sanchez, Serenity Mendez, Mauricio Charles and colleagues, with an educational zenaida from [employer]. Thrive Questionnaire Date Thrive assessed: 02/05/25 I am a: Patient What is your living situation today?: I have a steady place to live Within the past 12 months, did the food you bought not last and you didn't have the money to get more?: Never true Within the past 12 months, did you worry whether your food would run out before you got money to buy more?: Never true Do you have trouble paying for medicines?: No Do you have trouble getting transportation to medical appointments?: No Do you have trouble paying your heating and electricity bill?: No Do you have trouble taking care of your child, family member or friend?: No Do you have trouble with day-to-day activities such as bathing, preparing meals, shopping, managing finances, etc.?: No Are you currently unemployed and looking for a job?: No Are you interested in more education?: No Please select the resources that you would like help with: Paying for medicine Currently or been in a relationship where the following occur: No concerns reported THRIVE Score: 0 AUDIT C Alcohol Use Questionnaire (AUDIT-C) 1. How often do you have a drink containing alcohol?: Monthly or less 2. How many drinks containing alcohol do you have on a typical day when you are drinking?: 1 or 2 3. How often do you have six or more drinks on one occasion?: Never Total Score: 1 MARA-7 AMB Questionnaire MARA-7 Date MARA - 7 assessed: 02/05/25 Source: Developed by Drs. Rudi Sanchez, Serenity Mendez, Mauricio Charles and colleagues, with an educational zenaida from [employer]. Review of Systems Const Denies chills, Denies fatigue, Denies fever(s), Denies headache(s) and Denies weakness Eyes Denies change in vision ENT Denies dizziness, Denies headache(s), Denies hearing loss, Denies nasal congestion, Denies sinus pain, Denies sinus pressure and Denies sore throat Card Denies chest pain, Denies lightheadedness, Denies dyspnea and Denies other (palpitations) Resp Denies cough, Denies dyspnea and Denies wheezing GI Denies abdominal pain, Denies melena, Denies hematochezia, Denies change in bowel habits, Denies dyspepsia and Denies nausea Denies hematuria and Denies dysuria Musc Denies abnormal gait, Denies myalgias, Denies arthralgias, Denies numbness and Denies tingling Skin/Breast Denies rash, Denies unusual bruising and Denies wounds Neuro Denies abnormal gait, Denies dizziness, Denies headache(s), Denies memory loss, Denies numbness, Denies Sensory deficit (Neuro), Denies tingling and Denies weakness Psych Denies anxiety, Denies depression and Denies memory loss Endo Denies cold intolerance, Denies fatigue, Denies heat intolerance, Denies polydipsia and Denies polyuria Bertram/Lymph Denies easy bleeding and Denies easy bruising Aller/Immun Denies wheezing Physical exam (Primary Care) Vital Signs: Last Vital Signs Temp 96.7 F L 02/05/25 11:42 Pulse 68 02/05/25 11:42 Resp 13 02/05/25 11:42 BP 124/72 02/05/25 11:42 Pulse Ox 95 02/05/25 11:42 Oxygen Delivery Method Room Air 02/05/25 11:42 BMI result Body Mass Index 35.7 Tobacco/Smoking Status: Tobacco use Status Tobacco use date assessed 02/05/25 02/05/25 11:45 Patient Tobacco Use Status Never used Tobacco 02/05/25 11:42 e-Cigarette/Vaping Use Never Used 02/05/25 11:42 PHQ-9: PHQ-9 Score PHQ-9: Total score 2 02/05/25 12:00 Depression Screening Interpretation: Negative Thrive Assessment: Date of Thrive Assessment Date Thrive assessed 02/05/25 02/05/25 11:37 Currently or been in a relationship where the following occur: No concerns reported Const General: no acute distress, well developed, alert and awake Nutritional Appearance: well nourished Orientation/consciousness: patient oriented x3 HENMT Head: Yes normocephalic and Yes atraumatic Ears: hearing grossly normal bilaterally and TM's normal bilaterally General nose exam: Normal external nose present and Normal nares present Mouth: Normal oral and palatal mucosa present and moist mucous membranes Teeth and gingiva: dentition normal Throat: Yes posterior oropharynx normal Eyes General: appearance normal, both eyes and all related structures Pupils: Equal, round and reactive pupils present and Pupil accommodation reflex normal EOM: EOMs intact bilaterally Neck Neck: Yes normal visual inspection, Yes no lymphadenopathy and Yes trachea midline Thyroid: Thyroid normal Carotids: no bruits Lymphatic: no lymphadenopathy noted Chest Chest palpation & inspection: normal inspection of the chest Resp Effort & Inspection: normal respiratory effort Auscultation: clear to auscultation bilaterally Cardio Rate: regular rate Rhythm: regular rhythm Heart sounds: S1 normal heart sound present, S2 normal heart sound present, no gallops, no murmurs and no rubs Bruits: no abdominal aortic bruits and no carotid bruits GI Palpation (GI): No Abdominal aortic bruit present, Soft to palpation, nontender, No hepatosplenomegaly present and No Rebound tenderness present Auscultation: normal bowel sounds General: Yes no CVA tenderness Back/Spine/Pelvis Back: no CVA tenderness Cervical Spine: cervical ROM normal and No Cervical spine tenderness Thoracic/Lumbar Spine: thoraco-lumbar ROM normal, No pain with thoraco-lumbar ROM, No thoracic spinal tenderness and No lumbar spinal tenderness Skin Lesions: no lesions Rashes: no rashes Trauma: no lacerations or abrasions Wounds: no wounds Nails: normal Neuro General: patient oriented x3 Cranial nerves: Yes Equal, round and reactive pupils present Cognition (Neuro): normal cognition Gait exam (Neuro): Normal gait present Motor exam (neuro): 5/5 motor strength present throughout Sensory Exam: No Sensory deficit (Neuro) Deep tendon reflexes (DTR's): Right patellar reflex intensity grade: 2+ and Left patellar reflex intensity grade: 2+ Extrem General: Yes normal to inspection and No edema Psych Appearance: grossly normal Affect: normal affect Attitude: cooperative Thought process: Normal thought process present Coding Level of Care Code Est Pt Level 4 (81263) Diagnoses AAA (abdominal aortic aneurysm) I71.40 Coronary artery disease I25.10 Hypertension I10 Screening for colon cancer Z12.11 Screening for prostate cancer Z12.5 Obesity E66.9 Sleep apnea G47.30 Swelling of lower extremity M79.89 Pre-diabetes R73.03 Hyperlipidemia E78.5 Adult general medical examination Z00.00 Insomnia G47.00 Additional Codes PHQ-9 - 22157 - PHQ-9 Billing: Yes ([id number]) Assessment & Plan Assessment & Plan (1) AAA (abdominal aortic aneurysm): Code(s): I71.40 - Abdominal aortic aneurysm, without rupture, unspecified Category: Medical (2) Coronary artery disease: Code(s): I25.10 - Atherosclerotic heart disease of campo coronary artery without angina pectoris Category: Medical (3) Hypertension: Code(s): I10 - Essential (primary) hypertension Category: Medical (4) Screening for colon cancer: Code(s): Z12.11 - Encounter for screening for malignant neoplasm of colon Category: Medical (5) Screening for prostate cancer: Code(s): Z12.5 - Encounter for screening for malignant neoplasm of prostate Category: Medical (6) Obesity: Code(s): E66.9 - Obesity, unspecified Category: Medical (7) Sleep apnea: Code(s): G47.30 - Sleep apnea, unspecified Category: Medical (8) Swelling of lower extremity: Code(s): M79.89 - Other specified soft tissue disorders Category: Medical (9) Pre-diabetes: Code(s): R73.03 - Prediabetes Category: Medical (10) Hyperlipidemia: Code(s): E78.5 - Hyperlipidemia, unspecified Category: Medical (11) Adult general medical examination: Code(s): Z00.00 - Encounter for general adult medical examination without abnormal findings Category: Medical (12) Insomnia: Code(s): G47.00 - Insomnia, unspecified Category: Medical Plan History of coronary artery disease with CABG, partially reoccluded. History of ICD placement. Followed by [facility] Cardiology but patient has been given a new director enterprise systems and is not happy with the reassignment. He would like a new director enterprise systems at [facility]; Dr. Shadi Shin. Referred. Also has history of CHF. He is on Entresto and also takes carvedilol, aspirin and rosuvastatin for his cardiac issues. BNP 456. Encouraged diet low in salt/sodium History of AAA. No notes in cardiology reports about follow-up for this. Requesting most recent ultrasound report. If no report available, will wonder a follow-up ultrasound. A1c in pre diabetes range. Encouraged diet lower in sugars and starches Will continue to monitor and advise patient The patient is obese and has issues such as sleep apnea and comorbidities such as coronary artery disease. Will try prescribing Tirzepatide Swelling in bilateral lower extremities, right worse than left and he did have vein graft for his CABG from his right lower extremity. Elevate legs Avoid salt in sodium Compression stockings PSA is within normal range Will continue annual screening Colonoscopy at [place]. Will request report so I can advise patient on when he is due for follow-up. History of sleep apnea Has not had re-evaluation in many years. He is having some difficulty with sleeping. Referred back to Sleep Medicine Orders: Orders Microalbumin, Random (w Creat) Today I10 - Essential (primary) hypertension, R73.03 - Prediabetes LDL Cholesterol Direct Today E78.5 - Hyperlipidemia, unspecified Comprehensive Louise. Panel Fast Today E78.5 - Hyperlipidemia, unspecified, Z00.00 - Encounter for general adult medical examination without abnormal findings Hemoglobin A1c Today R73.01 - Impaired fasting glucose, R73.03 - Prediabetes Referrals Cardiology Referral I25.10 - Atherosclerotic heart disease of campo coronary artery without angina pectoris, I25.5 - Ischemic cardiomyopathy, I71.40 - Abdominal aortic aneurysm, without rupture, unspecified, Z95.1 - Presence of aortocoronary bypass graft, Z95.810 - Presence of automatic (implantable) cardiac defibrillator Sleep Medicine Referral G47.30 - Sleep apnea, unspecified Medications: New zolpidem 5 mg PO BEDTIME PRN 14 tabs 0RF sleep 28 days tirzepatide (weight loss) (Zepbound) for 4 weeks 2.5 mg (0.5 mL) subcut QWEEK 2 mL 0RF 28 days E66.9 - Obesity, unspecified, G47.30 - Sleep apnea, unspecified
[2025-02-05 11:42] VITALS: BP 124/72; PULSE 68; RESP 13; TEMP 35.9; O2SAT 95; BMI 35.7
--- OUTSIDE RECORDS SUMMARY | 2025-02-05 12:31 | XMS_ITS | Encounter Summary ---
Author Organization [facility] Address [address] [place] [address] Care Team Providers Care Bench Assembler Electrical Name Role Phone Jillian Bustamante MD Primary Care Provider Unavailable Annika Blakely NP Unavailable [phone] Misael Plascencia MD Unavailable Unavailable Kenia Omalley DO Primary Care Provider Unavaila Dionne Monteiro MD Primary Care Provider Un available Orlin Shah MD Primary Care Provider Unav ailable Reason for Visit * Reason Onset Date Comments Error 01/22/2020 Encounter Details Date Type Department Care Team Description 01/22/2020 Telephone Adult Medicine - [address] [address] Jillian Bustamante MD Error Social History Tobacco [...] on filedocumented in this encounter Care Teams Bench Assembler Electrical Relationship Specialty Start Date End Date Jillian Bustamante MD PCP - General Internal Medicine 01/15/20 06/21/21 Kenia Omalley DO PCP - General Internal Medicine 06/22/21 11/23/23 Dionne Marcus MD PCP - General Internal Medicine 11/24/23 03/26/24 Orlin Shah MD PCP - General Family Practice 03/27/24 Annika Blakely NP Nurse Practitioner Cardiology 10/29/20 Misael Plascencia MD Sex Offender Treatment Professional Cardiovascular Disease 10/29/20 11/14/23 documented as of this encounter
--- OUTSIDE RECORDS SUMMARY | 2025-02-05 12:31 | XMS_ITS | Encounter Summary ---
Author Organization [facility] Address [address] [place] [address] Care Team Providers Care Nursing Information Systems Coordinator Name Role Phone Jeanette Camacho MD Primary Care Provider Unavailable Donna Padilla MD Primary Care Provider [phone] Jeanette Camacho MD Primary Care Provider Unavailable Jillian Bustamante MD Primary Care Provider Unavailable Jillian Bustamante MD Primary Care Provider Unavailable Annika Blakely BRIQUETTE MAKER Unavailable [phone] Misael Plascencia MD Unavailable Unavailable Kenia Omalley DO Primary Care Provider UnavailDionne Hewitt MD Primary Care Provider Un available Orlin Shah MD Primary Care Provider Unav ailable Encounter Details Date Type Department Care Team Description 01/22/2015 Release of Information Medical Records [address] [place] [id number] Abstract, Provider Social History Tobacco Use Types Packs/Day Years Used Date Smoking Tobacco: Never Assessed Sex Assigned at Date Recorded Not on file Job Start Date Occupation Industry Not on file Not on file Not on file documented as of this encounter Plan of Treatment Not on file documented as of this encounter Visit Diagnoses Not on filedocumented in this encounter Care Teams Nursing Information Systems Coordinator Relationship Specialty Start Date End Date Jeanette Camacho MD PCP - General Internal Medicine 01/17/15 11/10/15 Donna Padilla MD [address] [place] [address] PCP - General Internal Medicine 08/12/17 01/11/18 Jeanette Camacho MD PCP - General Internal Medicine 01/12/18 01/14/20 Jillian Bustamante MD [address] [place] [address] PCP - General Internal Medicine 01/15/20 06/21/21 Jillian Bustamante MD [address] [place] [address] PCP - General 11/11/15 08/11/17 Kenia Omalley DO [address] [place] [address] PCP - General Internal Medicine 06/22/21 11/23/23 Dionne Marcus MD [address] [place] [address] PCP - General Internal Medicine 11/24/23 03/26/24 Orlin Shah MD [address] [place], [place] [id number] PCP - General Family Practice 03/27/24 Annika Blakely NP [address] [place], [place] [address] Nurse Practitioner Cardiology 10/29/20 Misael Plascencia MD [address] [place], [place] [address] Freight Brakeman Cardiovascular Disease 10/29/20 11/14/23 documented as of this encounter
--- OUTSIDE RECORDS SUMMARY | 2025-02-05 12:31 | XMS_ITS | Encounter Summary ---
Author Organization [facility] Address [address] [place] [address] Care Team Providers Care Doubling Machine Operator Name Role Phone Yolanda-Jeanette Dupree MD Primary Care Provider Unavailable Jillian Bustamante MD Primary Care Provider Unavailable Annika Blakely PARTNER INTEGRATION PLANNER Unavailable [phone] Misael Plascencia MD Unavailable Unavailable Kenia Omalley DO Primary Care Provider Unavaila ble Dionne Marcus MD Primary Care Provider Un available Orlin Shah MD Primary Care Provider Unav ailable Encounter Details Date Type Department Care Team Description 12/26/2019 Incoming Correspondence Medical Records [address] [place] [id number] [facility] Social History Tobacco Use Types Packs/Day Years [...] on filedocumented in this encounter Care Teams Doubling Machine Operator Relationship Specialty Start Date End [...] Nurse Practitioner Cardiology 10/29/20 Misael Plascencia MD Egg Gatherer Cardiovascular Disease 10/29/20 11/14/23 documented as of this encounter
--- OUTSIDE RECORDS SUMMARY | 2025-02-05 12:31 | XMS_ITS | Encounter Summary ---
Author Organization [facility] Address [address] [place] [address] Care Team Providers Care Roll Winder Name Role Phone Yolanda-Jeanette Dupree MD Primary Care Provider Unavailable Jillian Bustamante MD Primary Care Provider Unavailable Annika Blakely BAKELITE MOLDER Unavailable [phone] Misael Plascencia MD Unavailable Unavailable Kenia Omalley DO Primary Care Provider Unavaila ble Dionne Marcus MD Primary Care Provider Un available Orlin Shah MD Primary Care Provider Unav ailable Encounter Details Date Type Department Care Team Description 01/09/2019 Incoming Correspondence Medical Records [address] [place] [id number] [facility] Social History Tobacco Use Types Packs/Day [...] on filedocumented in this encounter Care Teams Roll Winder Relationship Specialty Start Date End Date Jeanette [...] Nurse Practitioner Cardiology 10/29/20 Misael Plascencia MD Dedicated Intermodal Truck Driver Cardiovascular Disease 10/29/20 11/14/23 documented as of this encounter
--- OUTSIDE RECORDS SUMMARY | 2025-02-05 12:31 | XMS_ITS | Encounter Summary ---
Author Organization [facility] Address [address] [place] [address] Care Team Providers Care Superintendent Colliery Name Role Phone Jeanette Camacho MD Primary Care Provider Unavailable Donna Padilla MD Primary Care Provider [phone] Jeanette Camacho MD Primary Care Provider Unavailable Jillian Bustamante MD Primary Care Provider Unavailable Jillian Bustamante MD Primary Care Provider Unavailable Annika Blakely WIRE STRAIGHTENING MACHINE OPERATOR Unavailable [phone] Misael Plascencia MD Unavailable Unavailable Kenia Omalley DO Primary Care Provider Unavaila Dionne Monteiro MD Primary Care Provider Un available Orlin Shah MD Primary Care Provider Unav ailable Encounter Details Date Type Department Care Team Description 09/18/2015 Paper Cutter Operator Report Medical Records [address] [place] [id number] [facility] Social History Tobacco Use Types [...] on filedocumented in this encounter Care Teams Superintendent Colliery Relationship Specialty Start Date End Date Jeanette Camacho MD PCP - General Internal Medicine 01/17/15 11/10/15 Donna Padilla MD [address] [place] [address] PCP - General Internal Medicine 08/12/17 01/11/18 Yolanda-Jeanette Dupree MD PCP - General Internal Medicine 01/12/18 01/14/20 Jillian Bustamante MD [address] [place] [address] PCP - General Internal Medicine 01/15/20 06/21/21 Jillian Bustamante MD [address] [place] [address] PCP - General 11/11/15 08/11/17 Kenia Omalley DO [address] [place] [address] PCP - General Internal Medicine 06/22/21 11/23/23 Dionne Marcus MD [address] [place] [address] PCP - General Internal Medicine 11/24/23 03/26/24 Orlin Shah MD [address] [place] [address] PCP - General Family Practice 03/27/24 Annika Blakely, FRANK [address] [place], [place] [id number] Nurse Practitioner Cardiology 10/29/20 Misael Plascencia MD [address] [place] [address] Steel Pan Form Placing Supervisor Cardiovascular Disease 10/29/20 11/14/23 documented as of this encounter
--- OUTSIDE RECORDS SUMMARY | 2025-02-05 12:31 | XMS_ITS | Encounter Summary ---
Author Organization [facility] Address [address] [place] [address] Care Team Providers Care Photoengraver Apprentice Name Role Phone Jillian Bustamante MD Primary Care Provider Unavailable Jeanette Camacho MD Primary Care Provider Unavailable Donna Padilla MD Primary Care Provider [phone] Jeanette Camacho MD Primary Care Provider Unavailable Jillian Bustamante MD Primary Care Provider Unavailable Jillian Bustamante MD Primary Care Provider Unavailable Annika Blakely NP Unavailable [phone] Misael Plascencia MD Unavailable Unavailable Kenia Omalley DO Primary Care Provider Unavaila Dionne Monteiro MD Primary Care Provider Un available Orlin Shah MD Primary Care Provider Unav ailable Encounter Details Date Type Department Care Team Description 01/15/2014 Hospital Medical Records [address] [place] [address] Social History Tobacco Use Types Packs/Day Years [...] on filedocumented in this encounter Care Teams Photoengraver Apprentice Relationship Specialty Start Date End Date Jillian Bustamante MD PCP - General Internal Medicine 12/31/14 01/16/15 Jeanette Camacho MD PCP - General Internal Medicine 01/17/15 11/10/15 Donna Padilla MD [address] [place] [address] PCP - General Internal Medicine 08/12/17 01/11/18 Aiken-Jeanette Dupree MD PCP - General Internal Medicine 01/12/18 01/14/20 Jillian Bustamante MD PCP - General Internal Medicine 01/15/20 06/21/21 Jillian Bustamante MD PCP - General 11/11/15 08/11/17 Kenia Omalley DO [address] [place] [address] PCP - General Internal Medicine 06/22/21 11/23/23 Dionne Marcus MD [address] [place] [address] PCP - General Internal Medicine 11/24/23 03/26/24 Orlin Shah MD [address] [place] [address] PCP - General Family Practice 03/27/24 Annika Blakely NP [address] [place], [place] [id number] Nurse Practitioner Cardiology 10/29/20 Misael Plascencia MD [address] [place] [address] Side Seam Machine Operator Cardiovascular Disease 10/29/20 11/14/23 documented as of this encounter
--- OUTSIDE RECORDS SUMMARY | 2025-02-05 12:31 | XMS_ITS | Encounter Summary ---
Author Organization [facility] Address [address] [place] [address] Care Team Providers Care Progress Man Name Role Phone Annika Blakely NP Unavailable [phone] Misael Plascencia MD Unavailable Unavailable Kenia Omalley DO Primary Care Provider Unavaila Dionne Monteiro MD Primary Care Provider Un available Orlin Shah MD Primary Care Provider Unav ailable Encounter Details Date Type Department Care Team Description 11/08/2022 Pt. Non Urgent Medic al Question Adult Medicine - [address] [address] Bernarda Augustin PA-C Social History Tobacco Use Types Packs/Day [...] 7:35 AM EDT Subject: Triglycerides high range Alondra Menchaca, My latest triglyceride count was well over the range. is this something I should be very concerned about? documented in this encounter Plan of Treatment Not on file documented as of this encounter Visit Diagnoses Not on filedocumented in this encounter Care Teams Progress Man Relationship Specialty Start Date End Date Kenia Omalley DO PCP - General Internal Medicine 06/22/21 11/23/23 Dionne Marcus MD PCP - General Internal Medicine 11/24/23 03/26/24 Orlin Shah MD PCP - General Family Practice 03/27/24 Annika Blakely NP Nurse Practitioner Cardiology 10/29/20 Misael Plascencia MD Sr Account Executive Cardiovascular Disease 10/29/20 11/14/23 documented as of this encounter
--- OUTSIDE RECORDS SUMMARY | 2025-02-05 12:31 | XMS_ITS | Encounter Summary ---
Author Organization [facility] Address [address] [place] [address] Care Team Providers Care Food Sampler Name Role Phone Jeanette Camacho MD Primary Care Provider Unavailable Donna Padilla MD Primary Care Provider [phone] Jeanette Camacho MD Primary Care Provider Unavailable Jillian Bustamante MD Primary Care Provider Unavailable Jillian Bustamante MD Primary Care Provider Unavailable Annika Blakely STRADDLE CARRIER OPERATOR Unavailable [phone] Misael Plascencia MD Unavailable Unavailable Kenia Omalley DO Primary Care Provider Unavaila Dionne Monteiro MD Primary Care Provider Un available Orlin Shah MD Primary Care Provider Unav ailable Encounter Details Date Type Department Care Team Description 04/22/2015 SCAN Medical Records [address] [place] [address] Obed Law Social History Tobacco Use Types Packs/Day Years [...] Name Priority Date/Time Associated Diagnosis Comments OUTSIDE STRESS ECHO Routine 04/22/2015 documented in this encounter Results * OUTSIDE STRESS ECHO (04/22/2015) Provider Abstract CARDIOLOGY documented in this encounter Visit Diagnoses Not on filedocumented in this encounter Care Teams Food Sampler Relationship Specialty Start Date End Date Alda-Jeanette Dupree MD PCP - General Internal Medicine 01/17/15 11/10/15 Donna Padilla MD [address] [place] [address] PCP - General Internal Medicine 08/12/17 01/11/18 Alda-Jeanette Dupree MD PCP - General Internal Medicine 01/12/18 01/14/20 Jillian Bustamante MD [address] [place] [address] PCP - General Internal Medicine 01/15/20 06/21/21 Jillian Bustamante MD [address] [place], [place] [id number] PCP - General 11/11/15 08/11/17 Kenia Omalley DO [address] [place] [address] PCP - General Internal Medicine 06/22/21 11/23/23 Dionne Marcus MD [address] [place] [address] PCP - General Internal Medicine 11/24/23 03/26/24 Orlin Shah MD [address] [place] [address] PCP - General Family Practice 03/27/24 Annika Blakely NP [address] [place], [place] [id number] Nurse Practitioner Cardiology 10/29/20 Misael Plascencia MD [address] [place] [address] Small Business Representative Cardiovascular Disease 10/29/20 11/14/23 documented as of this encounter
--- OUTSIDE RECORDS SUMMARY | 2025-02-05 12:31 | XMS_ITS | Encounter Summary ---
Author Organization [facility] Address [address] [place] [address] Care Team Providers Care Lead Nuclear Medicine Technologist Name Role Phone Yolanda-Jeanette Dupree MD Primary Care Provider Unavailable Jillian Bustamante MD Primary Care Provider Unavailable Annika Blakely EMPLOYEE RELATIONS ADVISOR Unavailable [phone] Misael Plascencia MD Unavailable Unavailable Kenia Omalley DO Primary Care Provider Unavaila ble Dionne Marcus MD Primary Care Provider Un available Orlin Shah MD Primary Care Provider Unav ailable Encounter Details Date Type Department Care Team Description 08/08/2019 Route Inspector Report Medical Records [address] [place] [address] Delvin Hassan MD Social History Tobacco Use Types Packs/Day Years Used Date Smoking Tobacco: Former Cigarettes 1 1 3 2004 Smokeless Tobacco: Never Alcohol [...] on filedocumented in this encounter Care Teams Lead Nuclear Medicine Technologist Relationship Specialty Start Date End Date Jeanette [...] Nurse Practitioner Cardiology 10/29/20 Misael Plascencia MD Destination Imagination Coordinator Cardiovascular Disease 10/29/20 11/14/23 documented as of this encounter
--- OUTSIDE RECORDS SUMMARY | 2025-02-05 12:31 | XMS_ITS | Encounter Summary ---
Author Organization [facility] Address [address] [place] [address] Care Team Providers Care Panel Raiser Operator Name Role Phone Annika Blakely NP Unavailable [phone] Misael Plascencia MD Unavailable Unavailable Kenia Omalley DO Primary Care Provider Unavaila Dionne Monteiro MD Primary Care Provider Un available Orlin Shah MD Primary Care Provider Unav ailable Reason for Visit * Reason Onset Date Comments Device Check 10/27/2022 Encounter Details Date Type Department Care Team Description 10/27/2022 Telephone Cardio PVC POC [address] [facility] [address] [place] [address] Dean Kaba MD [address] [place] [id number] Device Check Social History Tobacco Use Types Packs/Day Years [...] encounter Miscellaneous Notes * Telephone Encounter - Keysha Newman - 10/29/2022 2:15 PM EDT Spoke with patient and explained to him that this went towards his Medicare deductiable which his [employer] does not pay for. Once his deductible is met [employer] will turkey picker his co-insurance. Also, I told him if he has further questions about his deductible to contact Medicare. * Telephone Encounter - Argentina Mayer C.M.A. - 10/27/2022 11:14 AM EDT Patient wants to know why he is getting billed for in office device checks. We did provide the service but he said he never got billed before. He has called [facility] and they are no help. Can you look back to see if he always got billed? I did suggest he check with his insurance. documented in this encounter Plan of Treatment Not on file documented as of this encounter Visit Diagnoses Not on filedocumented in this encounter Care Teams Panel Raiser Operator Relationship Specialty Start Date End Date Kenia Omalley DO PCP - General Internal Medicine 06/22/21 11/23/23 Dionne Marcus MD PCP - General Internal Medicine 11/24/23 03/26/24 Orlin Shah MD PCP - General Family Practice 03/27/24 Annika Blakely NP Nurse Practitioner Cardiology 10/29/20 Misael Plascencia MD Pipe Manufacture Supervisor Cardiovascular Disease 10/29/20 11/14/23 documented as of this encounter
--- OUTSIDE RECORDS SUMMARY | 2025-02-05 12:31 | XMS_ITS | Encounter Summary ---
Author Organization [facility] Address [address] [place] [address] Care Team Providers Care Dispensing Lead Name Role Phone Yoladna-Jeanette Dupree MD Primary Care Provider Unavailable Jillian Bustamante MD Primary Care Provider Unavailable Annika Blakely PROCESS DEVELOPMENT MANAGER Unavailable [phone] Misael Plascencia MD Unavailable Unavailable Kenia Omalley DO Primary Care Provider Unavaila Dionne Monteiro MD Primary Care Provider Un available Orlin Shah MD Primary Care Provider Unav ailable Encounter Details Date Type Department Care Team Description 05/08/2019 Pecan Grower Report Medical Records [address] [place] [address] Annika Blakely, FRANK [address] [place] [address] [place] [address] Social History Tobacco Use Types Packs/Day Years [...] on filedocumented in this encounter Care Teams Dispensing Lead Relationship Specialty Start Date End Date Jeanette [...] Nurse Practitioner Cardiology 10/29/20 Misael Plascencia MD Document Advisor Cardiovascular Disease 10/29/20 11/14/23 documented as of this encounter
--- OUTSIDE RECORDS SUMMARY | 2025-02-05 12:31 | XMS_ITS | Encounter Summary ---
Author Organization [facility] Address [address] [place] [address] Care Team Providers Care Cashier Greeter Name Role Phone Jillian Bustamante MD Primary Care Provider Unavailable Annika Blakely NP Unavailable [phone] Misael Plascencia MD Unavailable Unavailable Kenia Omalley DO Primary Care Provider Unavaila Dionne Monteiro MD Primary Care Provider Un available Orlin Shah MD Primary Care Provider Unav ailable Encounter Details Date Type Department Care Team Description 02/07/2020 Orders Only Medical Records [address] [place] [address] Sasha Walker PA-C [address] [place] [id number] Social History Tobacco Use Types Packs/Day [...] on filedocumented in this encounter Care Teams Cashier Greeter Relationship Specialty Start Date End Date Jillian Bustamante MD PCP - General Internal Medicine 01/15/20 06/21/21 Kenia Omalley DO PCP - General Internal Medicine 06/22/21 11/23/23 Dionne Marcus MD PCP - General Internal Medicine 11/24/23 03/26/24 Orlin Shah MD PCP - General Family Practice 03/27/24 Annika Blakely NP Nurse Practitioner Cardiology 10/29/20 Misael Plascencia MD Telecasting Engineer Cardiovascular Disease 10/29/20 11/14/23 documented as of this encounter
--- OUTSIDE RECORDS SUMMARY | 2025-02-05 12:31 | XMS_ITS | Encounter Summary ---
Author Organization [facility] Address [address] [place] [address] Care Team Providers Care Portfolio Accountant Name Role Phone Annika Blakely FINAL TESTER Unavailable [phone] Misael Plascencia MD Unavailable Unavailable Kenia Omalley DO Primary Care Provider Unavaila ble Dionne Marcus MD Primary Care Provider Un available Orlin Shah MD Primary Care Provider Unav ailable Reason for Visit * Reason Comments Remote Device Check Encounter Details Date Type Department Care Team Description 12/20/2021 Remote Device Check Cardio PVC POC 154 [address] [facility] [address] [place] [address] Dean Kaba MD [address] [place] [address] Social History Tobacco Use Types Packs/Day Years [...] on filedocumented in this encounter Care Teams Portfolio Accountant Relationship Specialty Start Date End Date Kenia Omalley DO PCP - General Internal Medicine 06/22/21 11/23/23 Dionne Marcus MD PCP - General Internal Medicine 11/24/23 03/26/24 Orlin Shah MD PCP - General Family Practice 03/27/24 Annika Blakely NP Nurse Practitioner Cardiology 10/29/20 Misael Plascencia MD Crimping Press Operator Cardiovascular Disease 10/29/20 11/14/23 documented as of this encounter
--- OUTSIDE RECORDS SUMMARY | 2025-02-05 12:31 | XMS_ITS | Encounter Summary ---
Author Organization [facility] Address [address] [place] [address] Care Team Providers Care Organ Fixer Name Role Phone Annika Blakely SALES ENABLEMENT SPECIALIST Unavailable [phone] Misael Plascencia MD Unavailable Unavailable Kenia Omalley DO Primary Care Provider Unavaila ble Dionne Marcus MD Primary Care Provider Un available Orlin Shah MD Primary Care Provider Unav ailable Encounter Details Date Type Department Care Team Description 11/15/2022 Director Sales Support Report Medical Records [address] [place] [address] Jeannine Muller PA-C Social History Tobacco Use [...] on filedocumented in this encounter Care Teams Organ Fixer Relationship Specialty Start Date End Date Kenia Omalley DO PCP - General Internal Medicine 06/22/21 11/23/23 Dionne Marcus MD PCP - General Internal Medicine 11/24/23 03/26/24 Orlin Shah MD PCP - General Family Practice 03/27/24 Annika Blakely, SALES ENABLEMENT SPECIALIST Nurse Practitioner Cardiology 10/29/20 Misael Plascencia MD Frickertron Checker Cardiovascular Disease 10/29/20 11/14/23 documented as of this encounter
--- OUTSIDE RECORDS SUMMARY | 2025-02-05 12:32 | XMS_ITS | Encounter Summary ---
Author Organization [facility] Address [address] [place] [address] Care Team Providers Care Gymnastic Teacher Name Role Phone Kevincynthialanette Annika PRISON OFFICER Unavailable [phone] Misael Plascencia MD Unavailable Unavailable Kenia Omalley DO Primary Care Provider Unavaila ble Dionne Marcus MD Primary Care Provider Un available Orlin Shah MD Primary Care Provider Unav ailable Reason for Visit * Reason Comments Remote Device Check Encounter Details Date Type Department Care Team Description 11/01/2021 Remote Device Check Cardio PVC POC 154 [address] [facility] [address] [place] [address] Dean Kaba MD [address] [place] [address] Social History Tobacco Use Types Packs/Day Years [...] on filedocumented in this encounter Care Teams Gymnastic Teacher Relationship Specialty Start Date End Date Kenia Omalley DO PCP - General Internal Medicine 06/22/21 11/23/23 Dionne Marcus MD PCP - General Internal Medicine 11/24/23 03/26/24 Orlin Shah MD PCP - General Family Practice 03/27/24 Annika Blakely NP Nurse Practitioner Cardiology 10/29/20 Misael Plascencia MD Weigher Packing Cardiovascular Disease 10/29/20 11/14/23 documented as of this encounter
--- OUTSIDE RECORDS SUMMARY | 2025-02-05 12:32 | XMS_ITS | Encounter Summary ---
Author Organization [facility] Address [address] [place] [address] Care Team Providers Care Engineering Officer Name Role Phone Annika Blakely NP Unavailable [phone] Misael Plascencia MD Unavailable Unavailable Kenia Omalley DO Primary Care Provider Unavaila Dionne Monteiro MD Primary Care Provider Un available Orlin Shah MD Primary Care Provider Unav ailable Reason for Visit * Reason Onset Date Comments REFERRAL 04/21/2023 derm Encounter Details Date Type Department Care Team Description 04/21/2023 Telephone Adult Medicine [address] [address] Kenia Omalley DO REFERRAL (derm) Social History Tobacco Use Types Packs/Day Years [...] suspected to have Coronavirus/COVID-19? No / Unsure 03/25/2023 10:25 AM EDT documented as of this encounter Miscellaneous Notes * Telephone Encounter - Cristina Ochoa M.A. - 04/25/2023 10:23 AM EST Spoke to patient and message was given below. * Telephone Encounter - Kenia Omalley DO - 04/22/2023 8:45 AM EST Patient has an appointment with Bernarda in 2 weeks. Can hold referral till then * Telephone Encounter - Mala Linton - 04/21/2023 9:19 AM EST Pt is calling Looking for ref for derm Pt is C/O of red dry skin Pt last ref in 2015 Pt is looking for new referral Kenia Omalley documented in this encounter Plan of Treatment Not on file documented as of this encounter Visit Diagnoses Not on filedocumented in this encounter Care Teams Engineering Officer Relationship Specialty Start Date End Date Kenia Omalley DO PCP - General Internal Medicine 06/22/21 11/23/23 Dionne Marcus MD PCP - General Internal Medicine 11/24/23 03/26/24 Orlin Shah MD PCP - General Family Practice 03/27/24 Annika Blakely NP Nurse Practitioner Cardiology 10/29/20 Misael Plascencia MD District Fire Chief Cardiovascular Disease 10/29/20 11/14/23 documented as of this encounter
--- OUTSIDE RECORDS SUMMARY | 2025-02-05 12:32 | XMS_ITS | Encounter Summary ---
Author Organization [facility] Address [address] [place] [address] Care Team Providers Care Oil And Gas Principal Name Role Phone Annika Blakely NP Unavailable [phone] Misael Plascencia MD Unavailable Unavailable Kenia Omalley DO Primary Care Provider Unavaila Dionne Monteiro MD Primary Care Provider Un available Orlin Shah MD Primary Care Provider Unav ailable Reason for Visit * Reason Onset Date Comments Orders Call 09/09/2021 Encounter Details Date Type Department Care Team Description 09/09/2021 Telephone Adult Medicine - [address] [address] Kenia Omalley DO Orders Call Social History [...] encounter Miscellaneous Notes * Telephone Encounter - Michelle He M.A. - 09/09/2021 9:46 AM EDT Order faxed to [facility] notified * Telephone Encounter - Maria Elena Vasques - 09/09/2021 9:34 AM EDT Pt is asking that the order for a breast sonogram be faxed to [facility]. He is asking that when this gets faxed that we call him to inform him it actually got faxed. Please advise documented in this encounter Plan of Treatment Not on file documented as of this encounter Visit Diagnoses Not on filedocumented in this encounter Care Teams Oil And Gas Principal Relationship Specialty Start Date End Date Kenia Omalley DO PCP - General Internal Medicine 06/22/21 11/23/23 Dionne Marcus MD PCP - General Internal Medicine 11/24/23 03/26/24 Orlin Shah MD PCP - General Family Practice 03/27/24 Annika Blakely NP Nurse Practitioner Cardiology 10/29/20 Misael Plascencia MD Lean Manager Cardiovascular Disease 10/29/20 11/14/23 documented as of this encounter
--- OUTSIDE RECORDS SUMMARY | 2025-02-05 12:32 | XMS_ITS | Encounter Summary ---
Author Organization [facility] Address [address] [place] [address] Care Team Providers Care Manager Emergency Department Name Role Phone Donna Padilla MD Primary Care Provider [phone] Jeanette Camacho MD Primary Care Provider Unavailable Jillian Bustamante MD Primary Care Provider Unavailable Annika Blakely NP Unavailable [phone] Misael Plascencia MD Unavailable Unavailable Kenia Omalley DO Primary Care Provider Unavaila Dionne Monteiro MD Primary Care Provider Un available Orlin Shah MD Primary Care Provider Unav ailable Reason for Visit * Reason Onset Date Comments DME Request 08/15/2017 Encounter Details Date Type Department Care Team Description 08/15/2017 Telephone Pulmonology - [address] [place] [address] Bebeto Chan MD DME Request Social History Tobacco Use Types Packs/Day [...] encounter Miscellaneous Notes * Telephone Encounter - Fela Ruth - 08/15/2017 8:42 AM EST Pt is calling he canceled his FU with Dr Chan tomorrow 08/16, as he still does not have his CPAP machine . He states that [facility] is changing to [employer] as of 09/12. States he willwait ltil he hears back from them. documented in this encounter Plan of Treatment Not on file documented as of this encounter Visit Diagnoses Not on filedocumented in this encounter Care Teams Manager Emergency Department Relationship Specialty Start Date End Date Donna Padilla MD [address] [place] [address] PCP - General Internal Medicine 08/12/17 01/11/18 Minden-Jeanette Dupree MD [address] [place], [place] [address] PCP - General Internal Medicine 01/12/18 01/14/20 Jillian Bustamante MD [address] [place], [place] [address] PCP - General Internal Medicine 01/15/20 06/21/21 Kenia Omalley DO [address] [place] [address] PCP - General Internal Medicine 06/22/21 11/23/23 Dionne Marcus MD [address] [place], [place] [address] PCP - General Internal Medicine 11/24/23 03/26/24 Orlin Shah MD [address] [place] [address] PCP - General Family Practice 03/27/24 Annika Blakely NP [address] [place] [address] Nurse Practitioner Cardiology 10/29/20 Misael Plascencia MD [address] [place], [place] [address] [place]hop Cardiovascular Disease 10/29/20 11/14/23 documented as of this encounter
--- OUTSIDE RECORDS SUMMARY | 2025-02-05 12:32 | XMS_ITS | Encounter Summary ---
Author Organization [facility] Address [address] [place] [address] Care Team Providers Care Grinding Machine Operator Automatic Name Role Phone Jillian Bustamante MD Primary Care Provider Unavailable Annika Blakely NP Unavailable [phone] Misael Plascencia MD Unavailable Unavailable Kenia Omalley DO Primary Care Provider Unavaila Dionne Monteiro MD Primary Care Provider Un available Orlin Shah MD Primary Care Provider Unav ailable Reason for Visit * Reason Comments E-prescribe Rx Request Encounter Details Date Type Department Care Team Description 10/25/2020 Refill Cardio PVC [facility] [address] [facility] [address] [place] [address] Misael Plascencia MD E-prescribe Rx [...] on filedocumented in this encounter Care Teams Grinding Machine Operator Automatic Relationship Specialty Start Date End Date Jillian Bustamante MD PCP - General Internal Medicine 01/15/20 06/21/21 Kenia Omalley DO PCP - General Internal Medicine 06/22/21 11/23/23 Dionne Marcus MD PCP - General Internal Medicine 11/24/23 03/26/24 Orlin Shah MD PCP - General Family Practice 03/27/24 Annika Blakely NP Nurse Practitioner Cardiology 10/29/20 Misael Plascencia MD Party Demonstrator Cardiovascular Disease 10/29/20 11/14/23 documented as of this encounter
--- OUTSIDE RECORDS SUMMARY | 2025-02-05 12:32 | XMS_ITS | Encounter Summary ---
Author Organization [facility] Address [address] [place] [address] Care Team Providers Care Bridal Consultant Name Role Phone Donna Padilla MD Primary Care Provider [phone] Jeanette Camacho MD Primary Care Provider Unavailable Jillian Bustamante MD Primary Care Provider Unavailable Jillian Bustamante MD Primary Care Provider Unavailable Annika Blakely ENVIRONMENTAL ADVISER Unavailable [phone] Misael Plascencia MD Unavailable Unavailable Kenia Omalley DO Primary Care Provider Unavaila Dionne Monteiro MD Primary Care Provider Un available Orlin Shah MD Primary Care Provider Unav ailable Encounter Details Date Type Department Care Team Description 11/17/2016 Transfer Records Medical Records [address] [place] [address] [facility] [address] [place] [address] Social History Tobacco Use Types Packs/Day Years [...] on filedocumented in this encounter Care Teams Bridal Consultant Relationship Specialty Start Date End Date Donna Padilla MD [address] [place] [address] PCP - General Internal Medicine 08/12/17 01/11/18 Jeanette Camacho MD [address] [place] [address] PCP - General Internal Medicine 01/12/18 01/14/20 Jillian Bustamante MD [address] [place] [address] PCP - General Internal Medicine 01/15/20 06/21/21 Jillian Bustamante MD [address] [place] [address] PCP - General 11/11/15 08/11/17 Kenia Omalley DO [address] [place] [address] PCP - General Internal Medicine 06/22/21 11/23/23 Dionne Marcus MD [address] [place] [address] PCP - General Internal Medicine 11/24/23 03/26/24 Orlin Shah MD [address] [place] [address] PCP - General Family Practice 03/27/24 Annika Blakely, FRANK [address] [place] [address] Nurse Practitioner Cardiology 10/29/20 Misael Plascencia MD [address] [place] [address] Manager Mechanical Maintenance Cardiovascular Disease 10/29/20 11/14/23 documented as of this encounter
--- OUTSIDE RECORDS SUMMARY | 2025-02-05 12:32 | XMS_ITS | Encounter Summary ---
Author Organization [facility] Address [address] [place] [address] Care Team Providers Care Netbackup Administrator Name Role Phone Annika Blakely NP Unavailable [phone] Misael Plascencia MD Unavailable Unavailable Kenia Omalley DO Primary Care Provider Unavaila Dionne Monteiro MD Primary Care Provider Un available Orlin Shah MD Primary Care Provider Unav ailable Reason for Visit * Reason Onset Date Comments Orders Call 08/25/2021 Encounter Details Date Type Department Care Team Description 08/25/2021 Telephone Adult Medicine - [address] [address] Kenia Omalley DO Orders Call Social History [...] on filedocumented in this encounter Care Teams Netbackup Administrator Relationship Specialty Start Date End Date Kenia Omalley DO PCP - General Internal Medicine 06/22/21 11/23/23 Dionne Marcus MD PCP - General Internal Medicine 11/24/23 03/26/24 Orlin Shah MD PCP - General Family Practice 03/27/24 Annika Blakely NP Nurse Practitioner Cardiology 10/29/20 Misael Plascencia MD Chair Frame Builder Cardiovascular Disease 10/29/20 11/14/23 documented as of this encounter
--- OUTSIDE RECORDS SUMMARY | 2025-02-05 12:32 | XMS_ITS ---
Author Name [facility] Organization Unknown Care Team Organization Name Specialty Phone Email Start Date End Da te [facility] Termed, PROVIDER Primary Care 04/20/202201/11
--- OUTSIDE RECORDS SUMMARY | 2025-02-05 12:32 | XMS_ITS | Encounter Summary ---
Author Organization [facility] Address [address] [place] [address] Care Team Providers Care Clip Coater Name Role Phone Jillian Bustamante MD Primary Care Provider Unavailable Annika Blakely NP Unavailable [phone] Misael Plascencia MD Unavailable Unavailable Kenia Omalley DO Primary Care Provider Unavaila Dionne Monteiro MD Primary Care Provider Un available Orlin Shah MD Primary Care Provider Unav ailable Encounter Details Date Type Department Care Team Description 02/17/2021 Telephone Cardio PVC POC [address] [facility] [address] [place] [address] Khadra Gandhi PA-C [address] [place] [id number] Social History Tobacco Use Types Packs/Day Years [...] have Coronavirus / COVID-19? No / Unsure 02/20/2021 11:24 AM EDT documented as of this encounter Miscellaneous Notes * Telephone Encounter - Annika Blakely NP - 02/18/2021 11:25 AM EDT Spoke with patient. He will have labs done. No symptoms. * Telephone Encounter - Annika Blakely NP - 02/18/2021 11:11 AM EDT I left detailed message on voicemail. Labs ordered. Echo schedule for next month. If he is having any symptoms I will order nuclear stress test also. I asked patient to call back. Please have triage assess if he is having any symptoms if he calls. Thanks, Annika * Telephone Encounter - Khadra Gandhi PA-C - 02/17/2021 5:26 PM EDT Remote alert single chamber ICD 9 episodes of NSVT since Jan 18, longest 11 secs rate 146 bpm 02/16 at 7: 30 pm , last OV 05/2019 with you scheduled follow up Apr 2021 - has HX of NSVT defer further mgmt to you documented in this encounter Plan of Treatment Not on file documented as of this encounter Results * MAGNESIUM,SERUM (02/20/2021 11:24 AM EDT) MAGNESIUM (MG) 2.3 1.9 - 2.6 mg/dL 02/20/2021 2:28 PM EDT [facility] 02/20/2021 11:2 4 AM EDT 02/20/2021 11:26 AM EDT Narrative [facility] - 02/20/2021 2:28 PM EDT Release to patient->Immediate Aninka Blakely NP LAB [facility] * (ABNORMAL) COMPREHENSIVE METABOLIC PANEL (02/20/2021 11:24 AM EDT) Blood Urea Nitrogen 16 5 - 25 mg/dL 02/20/2021 2:28 PM EDT [facility] CREAT 1.01 0.7 - 1.3 mg/dL 02/20/2021 2:28 PM EDT [facility] GLOMERULAR FILTRATION RATE > 60 02/20/2021 2:28 PM EDT [facility] Comment: If patient is -Thai, multiply result by 1.21 Chronic Kidney Disease: < 60 ml/min/1.73 square meters Kidney Failure: < 15 ml/min/1.73 square meters NA 140 135 - 145 mEq/L 02/20/2021 2:28 PM EDT [facility] K 4.7 3.5 - 5.5 mmol/L 02/20/2021 2:28 PM EDT [facility] CL 105 96 - 110 mmol/L 02/20/2021 2:28 PM EDT [facility] CALCIUM 9.0 8.5 - 10.5 mg/dL 02/20/2021 2:28 PM EDT [facility] Albumin 3.6 3.2 - 5.0 G/dL 02/20/2021 2:28 PM EDT [facility] SGPT 34 10 - 60 U/L 02/20/2021 2:28 PM EDT [facility] GLUCOSE 102(H) 70 - 100 mg/dL 02/20/2021 2:35 PM EDT [facility] Comment:Reference range appl icable to fasting specimens only CARBON DIOXIDE (CO2) 29 21 - 32 mmol/L 02/20/2021 2:35 PM EDT [facility] ANION GAP 6 3 - 11 02/20/2021 2:35 PM EDT [facility] TOTAL PROTEIN (TP) 7.0 6.0 - 8.0 G/dL 02/20/2021 2:35 PM EDT [facility] BILIRUBIN TOTAL 0.7 0.0 - 1.4 mg/dL 02/20/2021 2:35 PM EDT [facility] SGOT 23 10 - 42 U/L 02/20/2021 2:35 PM EDT [facility] ALK PHOS 88 42 - 121 U/L 02/20/2021 2:35 PM EDT [facility] 02/20/2021 11:2 4 AM EDT 02/20/2021 11:26 AM EDT [facility]arrative [facility] - 02/20/2021 2:35 PM EDT Release to patient->Immediate Annika Blakely NP LAB [facility] documented in this encounter Visit Diagnoses Diagnosis NSVT (nonsustained ventricular tachycardia) (HCC)- Primary Paroxysmal ventricular tachycardia Ischemic cardiomyopathy Other specified forms of chronic ischemic heart disease Ischemic cardiomyopathy Other specified forms of chronic ischemic heart disease NSVT (nonsustained ventricular tachycardia) (HCC) Paroxysmal ventricular tachycardia documented in this encounter Care Teams Clip Coater Relationship Specialty Start Date End Date Jillian Bustamante MD PCP - General Internal Medicine 01/15/20 06/21/21 Kenia Omalley DO PCP - General Internal Medicine 06/22/21 11/23/23 Dionne Marcus MD PCP - General Internal Medicine 11/24/23 03/26/24 Orlin Shah MD PCP - General Family Practice 03/27/24 Annika Blakely NP Nurse Practitioner Cardiology 10/29/20 Misael Plascencia MD American Indian Policy Specialist Cardiovascular Disease 10/29/20 11/14/23 documented as of this encounter
--- OUTSIDE RECORDS SUMMARY | 2025-02-05 12:32 | XMS_ITS | Encounter Summary ---
Author Organization [facility] Address [address] [place] [address] Care Team Providers Care Wash Driller Name Role Phone Jillian Bustamante MD Primary Care Provider Unavailable Annika Blakely NP Unavailable [phone] Misael Plascencia MD Unavailable Unavailable Kenia Omalley DO Primary Care Provider Unavaila Dionne Monteiro MD Primary Care Provider Un available Orlin Shah MD Primary Care Provider Unav ailable Encounter Details Date Type Department Care Team Description 03/21/2021 Pt. Non Urgent Medical Question Cardio PVC [facility] [address] [facility] [address] [place] [address] Annika Blakely, FRANK [address] [place] [address] [place] [address] Social History Tobacco Use Types Packs/Day Years [...] have Coronavirus / COVID-19? No / Unsure 03/16/2021 8:58 AM EDT documented as of this encounter Plan of Treatment Not on file documented as of this encounter Visit Diagnoses Not on filedocumented in this encounter Care Teams Wash Driller Relationship Specialty Start Date End Date Jillian Bustamante MD PCP - General Internal Medicine 01/15/20 06/21/21 Kenia Omalley DO PCP - General Internal Medicine 06/22/21 11/23/23 Dionne Marcus MD PCP - General Internal Medicine 11/24/23 03/26/24 Orlin Shah MD PCP - General Family Practice 03/27/24 Annika Blakely NP Nurse Practitioner Cardiology 10/29/20 Misael Plascencia MD Customs Patrol Officer Cardiovascular Disease 10/29/20 11/14/23 documented as of this encounter
--- OUTSIDE RECORDS SUMMARY | 2025-02-05 12:32 | XMS_ITS | Encounter Summary ---
Author Organization [facility] Address [address] [place] [address] Care Team Providers Care Spring Clipper Name Role Phone Jillian Bustamante MD Primary Care Provider Unavailable Annika Blakely NP Unavailable [phone] Misael Plascencia MD Unavailable Unavailable Kenia Omalley DO Primary Care Provider Unavaila ble Dionne Marcus MD Primary Care Provider Un available Orlin Shah MD Primary Care Provider Unav ailable Reason for Visit * Reason Comments Remote Device Check Encounter Details Date Type Department Care Team Description 06/09/2021 Remote Device Check Cardio PVC POC [address] [facility] [address] [place] [address] Dean Kaba MD [address] [place] [id number] Social History Tobacco Use Types Packs/Day Years [...] on filedocumented in this encounter Care Teams Spring Clipper Relationship Specialty Start Date End Date Jillian Bustamante MD PCP - General Internal Medicine 01/15/20 06/21/21 Kenia Omalley DO PCP - General Internal Medicine 06/22/21 11/23/23 Dionne Marcus MD PCP - General Internal Medicine 11/24/23 03/26/24 Orlin Shah MD PCP - General Family Practice 03/27/24 Annika Blakely NP Nurse Practitioner Cardiology 10/29/20 Misael Plascencia MD Proof Reader Cardiovascular Disease 10/29/20 11/14/23 documented as of this encounter
--- OUTSIDE RECORDS SUMMARY | 2025-02-05 12:32 | XMS_ITS | Encounter Summary ---
Author Organization [facility] Address [address] [place] [address] Care Team Providers Care Lead Ingot Molder Name Role Phone Annika Blakely CARPENTER LABOR SUPERVISOR Unavailable [phone] Misael Plascencia MD Unavailable Unavailable Kenia Omalley DO Primary Care Provider Unavaila ble Dionne Marcus MD Primary Care Provider Un available Orlin Shah MD Primary Care Provider Unav ailable Encounter Details Date Type Department Care Team Description 08/15/2023 SCAN Medical Records [address] [place] [address] Abstract, Provider Social History Tobacco Use Types [...] filedocumented in this encounter Care Teams Lead Ingot Molder Relationship Specialty Start Date End Date Kenia Omalley DO PCP - General Internal Medicine 06/22/21 11/23/23 Dionne Marcus MD PCP - General Internal Medicine 11/24/23 03/26/24 Orlin Shah MD PCP - General Family Practice 03/27/24 Annika Blakely NP Nurse Practitioner Cardiology 10/29/20 Misael Plascencia MD Sales Representative [employer] Cardiovascular Disease 10/29/20 11/14/23 documented as of this encounter
--- OUTSIDE RECORDS SUMMARY | 2025-02-05 12:32 | XMS_ITS | Clinical Summary ---
Author Organization Patient Business Ser [facility] Address [address] [place] [address] Care Team Providers Care Fitness Center Attendant Name Role Phone Orlin Shah MD Primary Care Provider Allergies No known active allergies Medications OMEGA-3 FATTY ACIDS ORAL Take 1 capsule by mouth 1 (one) time each day. Geismar-3 Fatty Acids (FISH OIL) 1200 MG Cap Active carvediloL (COREG) 25 mg tablet TAKE 1 TABLET BY MOUTH TWICE DAILY WITH MEALS 180 tablet 3 08/16/2024 Active aspirin 81 mg EC tablet Take 1 tablet (81 mg total) by mouth 1 (one) time each day. Active rosuvastatin (CRESTOR) 40 mg tablet Take 1 tablet (40 mg total) by mouth 1 (one) time each day. Active cholecalciferol (VITAMIN D-3) 25 mcg (1,000 unit) tablet Take 1 tablet (1,000 Units total) by mouth 1 (one) time each day. Active sacubitriL-vals marion (Entresto) 24-26 mg per tablet TAKE 1 TABLET BY MOUTH TWICE DAILY 180 tablet 3 12/04/2024 Active Active Problems Problem Noted Date Diagnosed Date Insomnia 03/25/2023 BPH (benign prostatic hyperplasia) 11/18/2019 Lung nodules 03/01/2019 Overview (05/07/2024): Seen on ldct Fatty liver 03/01/2019 Overview (05/07/2024): Seen on ldct Obstructive sleep apnea 02/22/2017 Overview (05/07/2024): SMS Home Polysomnogram: Date 02/19/2017; AHI 35, Unclassified [...] Eczema 03/01/2016 Coronary artery disease 02/19/2015 Overview (11/01/2024): 4 vessel 2005 Assessment & Plan (11/01/2024 10:14 AM EDT): Patient has coronary artery disease with history of four-vessel CABG at [facility] in 2004. Recent coronary angiogram as outlined in detailed above. Patient does report some shortness of breath with exertion however generally he does not have any chest pain or significant dyspnea. He continues on cardioprotective medical therapy with aspirin, beta-charu and statin. He was recently switched to rosuvastatin as he was having difficulties with myalgias on high-dose atorvastatin. His last LDL cholesterol was 51 which is at goal. Patient encouraged to continue with his medications as prescribed however if he needed to take a statin vacation on the weekends I have advised that he can hold doses of statin on the weekends to better tolerate. We reviewed the results of his recent coronary angiogram and reiterated that there was no role for PCI and in the absence of symptoms we would not pursue any further invasive option at this point. Patient is understanding and agreeable to the current plan. I have reviewed with the patient the importance of a heart healthy lifestyle which includes eating a low-fat low-salt diet, getting regular exercise, maintaining a healthy weight, not smoking, and following up with routine medical care. 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 Patient still has patent ARMENTA graft. No anginal symptoms. Remains on medical management with risk factor modification in place. Echocardiography has shown a near normal left ventricular ejection fraction. On guideline directed therapy. Patient to be sent for repeat echocardiogram in 6 months Orders: Transthoracic echocardiogram (TTE) complete with PRN contrast, bubble, strain, and 3D order panel; Future perflutren lipid microsphere (DEFINITY) 1.3 mL in sodium chloride 0.9% 8.7 mL injection Assessment & Plan (11/01/2024 10:14 AM EDT): Patient has history of HFrEF with an EF as low as 20% in the past. On medical therapy his last echocardiogram shows an LVEF of 35 to 40%. Patient has ACC/AHA stage C heart failure with NYHA class II-III symptoms. He does have an AICD in place and continues on guideline directed medical therapies. He is currently on Entresto and carvedilol. The addition of Farxiga 10 mg daily was discussed at last visit, but due to cost patient is not taking this medication. He is advised to continue his current medication regimen. Patient advised to seek emergency medical attention by calling 911 if they were to develop severe dyspnea, chest pain that did not resolve with rest or nitroglycerin, or if they were to faint. I've asked the patient to call if they develop worsening symptoms of heart failure such as increased shortness of breath, new or worsening cough, increased swelling in the legs or ankles, or weight gain of more than 2 pounds in one day or 4 pounds in one week. AAA (abdominal aortic aneurysm) ([facility] V24) Overview (05/07/2024): Last Assessment & Plan: [...] of NSVT and importance of close monitoring. Assessment & Plan (11/01/2024 10:14 AM EDT): We will continue with remote monitoring and routine visits to our device clinic. Microscopic hematuria 02/18/2015 Overview (05/07/2024): Neg work up Hyperlipidemia 02/18/2015 Assessment & Plan (11/01/2024 10:14 AM EDT): Patient's last LDL cholesterol was 51. He will continue on rosuvastatin as outlined in detailed above. HTN (hypertension) 02/18/2015 Overview (05/07/2024): Last Assessment & Plan: Patient's blood pressure is under excellent control with a reading today of 126/76. Continue with carvedilol and Entresto as prescribed. Assessment & Plan (11/01/2024 10:14 AM EDT): Patient's blood pressure is acceptable with a reading today of 120/78. Continue with Entresto as prescribed. Resolved Problems Problem Noted [...] 02/2013 Dr. Gardiner, neg colonoscopy 04/2013 Old MT (myocardial infarction) 02/18/2015 07/05/2024 Overview (05/07/2024): 10/16 silent Encounters Date Type Department Care Team Description 01/01/2025 10:20 AM EDT Office Visit [facility] [address] [place] [address] Dr [address] [place] [address] Roger Nelson MD Ischemic cardiomyopathy (Primary Dx) 12/25/2024 10:30 AM EDT Ancillary Procedure [facility] - [address] [place] [id number] Encounter for adjustment or management of cardiac device 12/04/2024 Telephone [facility] [address] [place] [address] [place] [address] Roger Nelson MD from Last 3 Months Immunizations Name Administration Dates Next Due Influenza Quadravalent, MDCK , 0.5ml, preservative free (Flucelvax) 6mo and older 07/03/2018 Influenza Quadravalent, MDCK , 0.5ml, with preservative (Flucelvax) 6mo and older 03/30/2017 Influenza trivalent, 0.5mL ( Fluad) 65yo and older 03/25/2023,03/25/2022,04/06/2021,04/03 Influenza trivalent, 0.5mL, preservative free (Fluarix; FluLaval; Fluzone) ages 6mo and older (Afluria) 3 years and older 03/21/2019,03/01/2016,02/27/2015 Pfizer SARS-CoV-2 COVID-19, mRNA, LNP-S, preservative free 05/26/2021 [...] in 10 yrs OTHER SURGICAL HISTORY PROCEDURE: RI CORONARY ARTERY BYP W/VEIN & ARTERY GRAFT 4 VEIN OTHER SURGICAL HISTORY PROCEDURE: HISTORICAL ICD; COMMENT: single lead CYST REMOVAL PROCEDURE: RI EXCISION PILONIDAL CYST/SINUS SIMPLE CARDIAC CATHETERIZATION DONE ON 08/17/2024 AT [facility] W KM INDICTIONS:Abnormal nuclear perfusion study. Medical History Medical History Date Comments AAA (abdominal aortic aneury sm) (CMS/HCC V24) 02/18/2015 DX:AAA (abdominal aortic ane urysm) ([facility]); COMMENT: 05/27/14 US/ was to repeat in 1 year / distal abd aortic aneurysm 3.3 cm Presence of combination inte rnal cardiac defibrillator (ICD) and pacemaker 02/18/2015 DX:Presence of combination i nternal cardiac defibrillator (ICD) and pacemaker Microscopic hematuria 02/18/2015 DX:Microsc opic hematuria; COMMENT: Dr Rosario Old MT (myocardial infarction) 02/18/2015 D X:Old MT (myocardial infarction); COMMENT: 10/16 silent Hyperlipidemia 02/18/2015 [...] Seen on ldct Aneurysm of ascending aorta (CMS/HCC V24) 08/26/2019 DX:Aneurysm of ascending aor ta [...] 32 0 06/13/1973 - 06/13/2004 Smokeless Tobacco: Never Tobacco Cessation:Counseling Given: Not Answered Alcohol Use Standard Drinks/Week Comments Yes 0 (1 standard drink = 0.6 oz pur e alcohol) occassional Sex and Gender Information Value Date Recorded Sex Assigned at Not on file Legal Sex Male 6:46 PM EST Gender Identity Not on file Sexual Orientation Not on file Obstetrics History Last Filed Vital Signs Vital Sign Reading Time Taken Comments Blood Pressure 118/70 01/01/2025 10:22 AM EDT Pulse 67 01/01/2025 10:22 AM EDT Temperature - - Respiratory Rate - - Oxygen Saturation 93% 01/01/2025 10:22 AM EDT Inhaled Oxygen Concentration - - Weight 119 kg (263 lb) 01/01/2025 10:22 AM EDT Height 182.9 cm (6') 01/01/2025 10:22 AM EDT Body Mass Index 35.67 01/01/2025 10:22 AM EDT Plan of Treatment Upcoming Encounters Date Type Department Care Team (Late st Contact Info) Description 04/03/2025 10:30 AM EDT Ancillary Procedure [facility] - [address] [place] [address] 07/05/2025 11:00 AM EST Ancillary Procedure [facility] - [address] [place] [address] Health Maintenance Due Date Last Done Comments Zoster Vaccines (2 of 3) 11/02/2016 09/07/2016 Falls Risk Assessment 04/29/2020 Social Influencers of Health Screening 04/29/2020 Colorectal Cancer Screening: Colonoscopy 05/08/2023 05/08/2013 COVID-19 Vaccine ( season) 2024 05/26/2021, 09/19/2020, 08/29/2020 Medicare Annual Wellness Visit 05/10/2024 05/10/2023 Depression Screening 06/13/2024 05/10/2023 Influenza Vaccine (#1) 2025 , 03/25/2023, 03/25/2022, Additional history exists Hypertension/CHF/CAD Annual BMP Blood Test 08/01/2025 08/01/2024, 03/24/2023 DTaP,Tdap,and Td Vaccines (2 - Td or Tdap) 03/01/2026 03/01/2016 RSV Immunization Adult Patients (1 - 1-dose 75+ series) 2029 Cholesterol Screening (Lipid Panel) 10/23/2029 10/23/2024, 08/01/2024, 03/24/2023 Hepatitis C Screening Completed 08/28/2015 Pneumococcal Vaccine: 50+ Years Completed 04/06/2021, 01/21/2020 HIB Vaccines Aged Out No longer eligi [...] this topic Medical Devices Implanted Type Area Certified Medical Transcriptionist Device Identifier Shelf Expiration Date Model / Serial / Lot [id number] Implanted:10/2013 by Dean Kaba MD (Quantity not on file) Cardiac ICD Left: Chest [employer] [employer]HY[employer] MGMT [id number] / [id number] / Procedures Procedure Name Priority Date/Time Associated Diagnosis Comments CARDIAC DEVICE CHECK- IN [facility]- [facility] Routine 12/25/2024 12:41 PM EDT Encounter for adjustment or management of cardiac device PROSTATE SPECIFIC ANTIGEN SCREEN Routine 12/11/2024 11:43 AM EDT Enlarged prostate with urinary obstruction LIPID PANEL WITH LDL AND HDL RATIO Routine 10/23/2024 7:42 AM EDT BASIC METABOLIC PANEL Routine 08/01/2024 9:50 AM EST HM DEPRESSION SCREENING Routine 05/10/2023 HM HEPATITIS C SCREENING Routine 08/28/2015 HM COLONOSCOPY Routine 05/08/2013 from Last 3 Months or Most Recently Relevant to Health Maintenance Results * CARDIAC DEVICE CHECK- IN CL[facility]IC- [facility] (12/25/2024 12:41 PM EDT) Date Time Interrogation Session [id number] CV DEVICE CHECK Implantable Pulse Generator Certified Medical Transcriptionist BSX CV DEVICE CHECK Implantable Pulse Generator Type ICD CV DEVICE CHECK Implantable Pulse Generator Model E141 CV DEVICE CHECK Implantable Pulse Generator Serial Number [id number] CV DEVICE CHECK Implantable Pulse Generator Implant Date 20140115 CV DEVICE CHECK Battery Remaining Longevity 44.0 CV DEVICE CHECK Battery Status Unknown CV DE VICE CHECK Lead Channel Sensing Intrinsic Amplitude 15.100 CV DEVICE CHECK Lead Channel Setting Sensing Sensitivity 0.60 CV DEVICE CHECK Lead Channel Impedance Value 463 CV DEVICE CHECK Lead Channel Pacing Threshold Amplitude 1.000 CV DEVICE CHECK Lead Channel Pacing Threshold Pulse Width 0.5 CV DEVICE CHECK Lead Channel RV Pacing Threshold Date 2024-12-25 CV DEVICE CHECK Lead Channel Setting Pacing [...] 0 CV DEVICE CHECK Shock Measured Impedance 93 CV DEVICE CHECK Zone Setting Type Category [...] 3 CV DEVICE CHECK Date of Service 2024-12-26 CV DEVICE CHECK Anatomical Region Laterality Modality Device Interroga tion 12/25/2024 Impressions 12/26/2024 10:45 AM EDT Normal In-Office: With Events * Normal Device Function * Events or Alerts: 2 new NSVT alerts since last device check, EGM suggestive of NSVT lasting only 6-beats. Second EGM was suggestive of 7-beats of AT * Battery: Battery is at 45.4%, 44 months * Sensing, impedance and thresholds reviewed and tested * Presenting Rhythm: VS 70s * Heart Rate Histograms reviewed * Pacing and Detection Parameters were evaluated Narrative Procedure Note Dean Kaba MD - 12/26/2024 IMPRESSION: Normal In-Office: With Events * Normal Device Function * Events or Alerts: 2 new NSVT alerts since last device check, EGMsuggestive of NSVT lasting only 6-beats. Second EGM was suggestive of7-beats of AT * Battery: Battery is at 45.4%, 44 months * Sensing, impedance and thresholds reviewed and tested * Presenting Rhythm: VS 70s * Heart Rate Histograms reviewed * Pacing and Detection Parameters were evaluated us Order Referral Cardiovascular CV IMPLANTABLE CAR DIAC DEVICE PROCEDURES Final Result * Prostate specific antigen screen (12/11/2024 11:43 AM EDT) PSA 0.87 0.00 - 4.00 ng/mL LAB CHEMISTRY METHOD 12/11/2024 3:58 PM EDT [facility] Blood Venous blood specimen / Unknown Venipuncture / Unknown 12/11/2024 11:43 AM EDT 12/11/2024 11:43 AM EDT Narrative [facility] - 12/11/2024 3:58 PM EDT The Siemens Advia Centaur Chemiluminescent Immunoassay is used. Results obtained with different assay methods or kits cannot be used interchangeably. Results cannot be interpreted as absolute evidence of the presence or absence of malignant disease. us Jeannine YBARRA LAB BLOOD ORDERABLES Final Resul t Performing Organization Address [facility]/ZIP Co de Phone Number [facility] ([facility]) [facility] [address] [place] [address], [place] [phone] * (ABNORMAL) Lipid panel with LDL and HDL ratio (10/23/2024 7:42 AM EDT) Cholesterol Total 120 100 - 199 mg/dL [facility] Triglycerides 201(H) 0 - 149 mg/dL [facility] HDL Cholesterol 36(L) >39 mg/dL [facility] VLDL Cholesterol Calculated 33 5 - 40 mg/dL [facility] LDL Chol Calc (NIH) 51 0 - 99 mg/dL [facility] LDL/HDL Ratio 1.4 0.0 - 3.6 ratio [facility] Comment: LDL/HDL Ratio Men Women 1/2 Avg.Risk 1.0 1.5 Avg.Risk 3.6 3.2 2X Avg.Risk 6.2 5.0 3X Avg.Risk 8.0 6.1 10/23/2024 7:42 AM EDT 10/23/2024 Narrative [facility] - 10/24/2024 2:06 AM EDT Performed at: - [facility] [id number] German Teacher: Mala Jenkins MD, Phone: [phone] Specimen Comment: A courtesy copy of this report has been sent to [phone] us Annika Blakely NP LAB BLOOD ORDERABLES Final R esult [facility] * (ABNORMAL) Basic metabolic panel (08/01/2024 9:50 [...] - 08/01/2024 11:45 AM EST Performed at: [address] [place] [id number] German Teacher: Roosevelt Ferro MD, Phone: [phone] Annika Blakely STORE GIFT WRAP ASSOCIATE LAB BLOOD ORDERABLES Final R esult [facility] * Depression Screening (05/10/2023) Pathologist [facility] hospital Depression Screening Abstracted Historical Provider HEALTH MAINTENANCE Final Result * Hepatitis C Screening (08/28/2015) [facility] Hepatitis C Screening Abstracted Historical Provider HEALTH MAINTENANCE Final Result * Colonoscopy (05/08/2013) [facility] Colonoscopy No Interpretation , Abstracted Anatomical Region Laterality Modality Other Historical Provider HEALTH MAINTENANCE Final Result from Last 3 Months or Most Recently Relevant to Health Maintenance Insurance MEDICARE [facility] Care Teams Fitness Center Attendant Relationship Specialty Start Date End Date Orlin Shah MD [address] [place] [address] Dr Benjamin [place] PCP - General 03/27/24
--- OUTSIDE RECORDS SUMMARY | 2025-02-05 12:32 | XMS_ITS | Encounter Summary ---
Author Organization [facility] Address [address] [place] [address] Care Team Providers Care Spray Painting Machine Operator Name Role Phone Annika Blakely MEDIA RELATIONS DIRECTOR Unavailable [phone] Misael Plascencia MD Unavailable Unavailable Kenia Omalley DO Primary Care Provider Unavaila ble Dionne Marcus MD Primary Care Provider Un available Orlin Shah MD Primary Care Provider Unav ailable Encounter Details Date Type Department Care Team Description 11/11/2023 SCAN Medical Records [address] [place] [address] Abstract, Provider Social History Tobacco Use Types [...] on filedocumented in this encounter Care Teams Spray Painting Machine Operator Relationship Specialty Start Date End Date Kenia Omalley DO PCP - General Internal Medicine 06/22/21 11/23/23 Dionne Marcus MD PCP - General Internal Medicine 11/24/23 03/26/24 Orlin Shah MD PCP - General Family Practice 03/27/24 Annika Blaekly NP Nurse Practitioner Cardiology 10/29/20 Misael Plascencia MD Stockroom Selector Cardiovascular Disease 10/29/20 11/14/23 documented as of this encounter
--- OUTSIDE RECORDS SUMMARY | 2025-02-05 12:32 | XMS_ITS | Encounter Summary ---
Author Organization [facility] Address [address] [place] [address] Care Team Providers Care Package Maker Name Role Phone Jillian Bustamante MD Primary Care Provider Unavailable Annika Blakely NP Unavailable [phone] Misael Plascencia MD Unavailable Unavailable Kenia Omalley DO Primary Care Provider Unavaila Dionne Monteiro MD Primary Care Provider Un available Orlin Shah MD Primary Care Provider Unav ailable Reason for Visit * Reason Comments Remote Device Check Encounter Details Date Type Department Care Team Description 02/17/2021 Remote Device Check Cardio PVC POC [address] [facility] [address] [place] [address] Dean Kaba MD [address] [place] [id number] Social History Tobacco Use Types Packs/Day Years [...] on filedocumented in this encounter Care Teams Package Maker Relationship Specialty Start Date End Date Jillian Bustamante MD PCP - General Internal Medicine 01/15/20 06/21/21 Kenia Omalley DO PCP - General Internal Medicine 06/22/21 11/23/23 Dionne Marcus MD PCP - General Internal Medicine 11/24/23 03/26/24 Orlin Shah MD PCP - General Family Practice 03/27/24 Annika Blakely NP Nurse Practitioner Cardiology 10/29/20 Misael Plascencia MD Building And Construction Manager Cardiovascular Disease 10/29/20 11/14/23 documented as of this encounter
--- OUTSIDE RECORDS SUMMARY | 2025-02-05 12:32 | XMS_ITS | Encounter Summary ---
Author Organization [facility] Address [address] [place] [address] Care Team Providers Care Food Service Aide Name Role Phone Annika Blakely TOOLING SPECIALIST Unavailable [phone] Dionne Marcus MD Primary Care Provider Un available Orlin Shah MD Primary Care Provider Unav ailable Encounter Details Date Type Department Care Team Description 01/24/2024 SCAN Medical Records [address] [place] [address] Abstract, Provider Social History Tobacco Use Types [...] filedocumented in this encounter Care Teams Food Service Aide Relationship Specialty Start Date End Date Dionne Marcus MD PCP - General Internal Medicine 11/24/2303/26 Orlin Shah MD PCP - General Family Practice 03/27/24 Annika Blakely NP Nurse Practitioner Cardiology 10/29/20 documented as of this encounter
--- OUTSIDE RECORDS SUMMARY | 2025-02-05 12:32 | XMS_ITS | Encounter Summary ---
Author Organization [facility] Address [address] [place] [address] Care Team Providers Care Clinching Machine Operator Name Role Phone Jillian Bustamante MD Primary Care Provider Unavailable Annika Blakely NP Unavailable [phone] Misael Plascencia MD Unavailable Unavailable Kenia Omalley DO Primary Care Provider Unavaila ble Dionne Marcus MD Primary Care Provider Un available Orlin Shah MD Primary Care Provider Unav ailable Encounter Details Date Type Department Care Team Description 02/04/2021 Telephone Radiology - [address] [address] Jillian Bustamante MD Social History Tobacco Use Types Packs/Day Years Used Date Smoking Tobacco: Former Cigarettes 1 32 1 3 - 2004 Smokeless Tobacco: Former Alcohol Use [...] have Coronavirus / COVID-19? No / Unsure 01/21/2021 9:31 AM EDT documented as of this encounter Plan of Treatment Not on file documented as of this encounter Visit Diagnoses Not on filedocumented in this encounter Care Teams Clinching Machine Operator Relationship Specialty Start Date End Date Jillian Bustamante MD PCP - General Internal Medicine 01/15/20 06/21/21 Kenia Omalley DO PCP - General Internal Medicine 06/22/21 11/23/23 Dionne Marcus MD PCP - General Internal Medicine 11/24/23 03/26/24 Orlin Shah MD PCP - General Family Practice 03/27/24 Annika Blakely NP Nurse Practitioner Cardiology 10/29/20 Misael Plascencia MD Senior Information Systems Architect Cardiovascular Disease 10/29/20 11/14/23 documented as of this encounter
--- OUTSIDE RECORDS SUMMARY | 2025-02-05 12:32 | XMS_ITS | Encounter Summary ---
Author Organization [facility] Address [address] [place] [address] Care Team Providers Care Senior Product Analyst Name Role Phone Donna Padilla MD Primary Care Provider [phone] Jeanette Camacho MD Primary Care Provider Unavailable Jillian Bustamante MD Primary Care Provider Unavailable Jillian Bustamante MD Primary Care Provider Unavailable Annika Blakely LUMBER TRIMMER Unavailable [phone] Misael Plascencia MD Unavailable Unavailable Kenia Omalley DO Primary Care Provider Unavaila Dionne Monteiro MD Primary Care Provider Un available Orlin Shah MD Primary Care Provider Unav ailable Encounter Details Date Type Department Care Team Description 03/30/2017 Transfer Records Medical Records [address] [place], [place] [id number] Abstract, Provider Social History Tobacco Use Types [...] on filedocumented in this encounter Care Teams Senior Product Analyst Relationship Specialty Start Date End Date Donan Padilla MD [address] [place] [address] PCP - General Internal Medicine 08/12/17 01/11/18 Jeanette Camacho MD [address] [place], [place] [id number] PCP - General Internal Medicine 01/12/18 01/14/20 Jillian Bustamante MD [address] [place] [id number] PCP - General Internal Medicine 01/15/20 06/21/21 Jillian Bustamante MD [address] [place] [address] PCP - General 11/11/15 08/11/17 Kenia Omalley DO [address] [place] [address] PCP - General Internal Medicine 06/22/21 11/23/23 Dionne Marcus MD [address] [place], [place] [id number] PCP - General Internal Medicine 11/24/23 03/26/24 Orlin Shah MD [address] [place], [place] [id number] PCP - General Family Practice 03/27/24 Annika Blakely NP [address] [place], [place] [id number] Nurse Practitioner Cardiology 10/29/20 Misael Plascencia MD [address] [place], [place] [phone] Shellfish Processing Laborer Cardiovascular Disease 10/29/20 11/14/23 documented as of this encounter
--- OUTSIDE RECORDS SUMMARY | 2025-02-05 12:32 | XMS_ITS | Encounter Summary ---
Author Organization [facility] Address [address] [place] [address] Care Team Providers Care Striper Spray Gun Name Role Phone Annika Blakely BUFFING WHEEL INSPECTOR Unavailable [phone] Misael Plascencia MD Unavailable Unavailable Kenia Omalley DO Primary Care Provider Unavaila ble Dionne Marcus MD Primary Care Provider Un available Orlin Shah MD Primary Care Provider Unav ailable Reason for Visit * Reason Comments Remote Device Check Encounter Details Date Type Department Care Team Description 07/27/2021 Remote Device Check Cardio PVC POC 154 [address] [facility] [address] [place] [address] Dean Kaba MD [address] [place] [id number] Social History Tobacco Use Types Packs/Day Years [...] on filedocumented in this encounter Care Teams Striper Spray Gun Relationship Specialty Start Date End Date Kenia Omalley DO PCP - General Internal Medicine 06/22/21 11/23/23 Dionne Marcus MD PCP - General Internal Medicine 11/24/23 03/26/24 Orlin Shah MD PCP - General Family Practice 03/27/24 Annika Blakely NP Nurse Practitioner Cardiology 10/29/20 Misael Plascencia MD Senior Environmental Practice Leader Cardiovascular Disease 10/29/20 11/14/23 documented as of this encounter
--- OUTSIDE RECORDS SUMMARY | 2025-02-05 12:32 | XMS_ITS | Encounter Summary ---
Author Organization [facility] Address [address] [place] [address] Care Team Providers Care Data Network Architect Name Role Phone Zora Annika NP Unavailable [phone] Misael Plascencia MD Unavailable Unavailable Kenia Omalley DO Primary Care Provider Unavaila Dionne Monteiro MD Primary Care Provider Un available Orlin Shah MD Primary Care Provider Unav ailable Encounter Details Date Type Department Care Team Description 11/12/2023 Pt. Non Urgent Medic al Question Adult Medicine - [address] [address] Bernarda Augustin PA-C Social History Tobacco Use [...] [place], I received a letter today from [facility] indicating that Doctor Shahram is leaving [...] the practice? My personal cell number is [phone]. Fell free to call if easier for you. Thank you, Hay documented in this encounter Plan of Treatment Not on file documented as of this encounter Visit Diagnoses Not on filedocumented in this encounter Care Teams Data Network Architect Relationship Specialty Start Date End Date Kenia Omalley DO PCP - General Internal Medicine 06/22/21 11/23/23 Dionne Marcus MD PCP - General Internal Medicine 11/24/23 03/26/24 Orlin Shah MD PCP - General Family Practice 03/27/24 Annika Blakely NP Nurse Practitioner Cardiology 10/29/20 Misael Plascencia MD Health Club Manager Cardiovascular Disease 10/29/20 11/14/23 documented as of this encounter
--- OUTSIDE RECORDS SUMMARY | 2025-02-05 12:32 | XMS_ITS | Encounter Summary ---
Author Organization [facility] Address [address] [place] [address] Care Team Providers Care Manager Regional Name Role Phone Annika Blakely SENIOR DRAFTER Unavailable [phone] Misael Plascencia MD Unavailable Unavailable Kenia Omalley DO Primary Care Provider Unavaila ble Dionne Marcus MD Primary Care Provider Un available Orlin Shah MD Primary Care Provider Unav ailable Encounter Details Date Type Department Care Team Description 08/13/2021 SCAN Medical Records [address] [place] [address] Abstract, Provider Social History Tobacco Use Types [...] Date/Time Associated Diagnosis Comments OUTSIDE LAB Routine 08/13/2021 documented in this encounter Results * OUTSIDE LAB (08/13/2021) Provider Abstract LAB documented in this encounter Visit Diagnoses Not on filedocumented in this encounter Care Teams Manager Regional Relationship Specialty Start Date End Date Kenia Omalley DO PCP - General Internal Medicine 06/22/21 11/23/23 Dionne Marcus MD PCP - General Internal Medicine 11/24/23 03/26/24 Orlin Shah MD PCP - General Family Practice 03/27/24 Annika Blakely NP Nurse Practitioner Cardiology 10/29/20 Misael Plascencia MD Agricultural Extension Agent Cardiovascular Disease 10/29/20 11/14/23 documented as of this encounter
--- OUTSIDE RECORDS SUMMARY | 2025-02-05 12:32 | XMS_ITS | Encounter Summary ---
Author Organization [facility] Address [address] [place] [address] Care Team Providers Care Fitter Machinist Name Role Phone Donna Padilla MD Primary Care Provider [phone] Jeanette Camacho MD Primary Care Provider Unavailable Jillian Bustamante MD Primary Care Provider Unavailable Jillian Bustamante MD Primary Care Provider Unavailable Annika Blakely APARTMENT RENTAL AGENT Unavailable [phone] Misael Plascencia MD Unavailable Unavailable Kenia Omalley DO Primary Care Provider Unavaila Dionne Monteiro MD Primary Care Provider Un available Orlin Shah MD Primary Care Provider Unav ailable Encounter Details Date Type Department Care Team Description 05/11/2017 Strategic Advisor Report Medical Records [address] [place] [address] Dean Kaba MD [address] [place] [address] [id number] Social History Tobacco Use Types Packs/Day Years [...] on filedocumented in this encounter Care Teams Fitter Machinist Relationship Specialty Start Date End Date Donna Padilla MD [address] [place] [address] [id number] PCP - General Internal Medicine 08/12/17 01/11/18 [place]-Jeanette Dupree MD [address] [place] [address] PCP - General Internal Medicine 01/12/18 01/14/20 Jillian Bustamante MD [address] [place] [address] PCP - General Internal Medicine 01/15/20 06/21/21 Jillian Bustamante MD [address] [place] [address] PCP - General 11/11/15 08/11/17 Kenia Omalley DO [address] [place] [address] PCP - General Internal Medicine 06/22/21 11/23/23 Dionne Marcus MD [address] [place] [address] PCP - General Internal Medicine 11/24/23 03/26/24 Orlin Shah MD [address] [place] [address] PCP - General Family Practice 03/27/24 Annika Blakely NP [address] [place], [place] [phone] Nurse Practitioner Cardiology 10/29/20 Misael Plascencia MD [address] [place] [address] Second Floor Operator Cardiovascular Disease 10/29/20 11/14/23 documented as of this encounter
--- OUTSIDE RECORDS SUMMARY | 2025-02-05 12:32 | XMS_ITS | Encounter Summary ---
Author Organization [facility] Address [address] [place] [address] Care Team Providers Care Scrub Wheel Operator Name Role Phone Donna Padilla MD Primary Care Provider [phone] Jeanette Camacho MD Primary Care Provider Unavailable Jillian Bustamante MD Primary Care Provider Unavailable Jillian Bustamante MD Primary Care Provider Unavailable Annika Blakely HOSPITAL SUPERVISOR Unavailable [phone] Misael Plascencia MD Unavailable Unavailable Kenia Omalley DO Primary Care Provider Unavaila Dionne Monteiro MD Primary Care Provider Un available Orlin Shah MD Primary Care Provider Unav ailable Reason for Visit * Reason Onset Date Comments Echocardiogram 03/07/2017 Encounter Details Date Type Department Care Team Description 03/07/2017 Telephone Cardiology - [address] [id number] Monika Aguilar, [address] [phone] Echocardiogram Social History Tobacco Use Types Packs/Day [...] echo done on 03/19/17 and he has [employer] Silver ins. Does this ins require an auth? Thank you Bessie in cardiology. documented in this encounter Plan of Treatment Not on file documented as of this encounter Visit Diagnoses Not on filedocumented in this encounter Care Teams Scrub Wheel Operator Relationship Specialty Start Date End Date Donna Padilla MD [address] [place] [address] PCP - General Internal Medicine 08/12/17 01/11/18 [place]-Jeanette Dupree MD [address] [place], [place] [phone] PCP - General Internal Medicine 01/12/18 01/14/20 Jillian Bustamante MD [address] [place] [address] PCP - General Internal Medicine 01/15/20 06/21/21 Jillian Bustamante MD [address] [place] [address] PCP - General 11/11/15 08/11/17 Kenia Omalley DO [address] [place] [address] PCP - General Internal Medicine 06/22/21 11/23/23 Dionne Marcus MD [address] [place] [address] PCP - General Internal Medicine 11/24/23 03/26/24 Orlin Shah MD [address] [place] [address] PCP - General Family Practice 03/27/24 Annika Blakely NP [address] [place], [place] [phone] Nurse Practitioner Cardiology 10/29/20 Misael Plascencia MD [address] [place], [place] [phone] Vp Ad Products And Planning Cardiovascular Disease 10/29/20 11/14/23 documented as of this encounter
--- OUTSIDE RECORDS SUMMARY | 2025-02-05 12:32 | XMS_ITS | Encounter Summary ---
Author Organization [facility] Address [address] [place] [address] Care Team Providers Care Tool And Fixture Repairer Name Role Phone Yolanda-Jeanette Dupree MD Primary Care Provider Unavailable Jillian Bustamante MD Primary Care Provider Unavailable Annika Blakely AWNING HANGER HELPER Unavailable [phone] Misael Plascencia MD Unavailable Unavailable Kenia Omalley DO Primary Care Provider Unavaila ble Dionne Marcus MD Primary Care Provider Un available Orlin Shah MD Primary Care Provider Unav ailable Encounter Details Date Type Department Care Team Description 02/26/2019 Tenderizer Tender Report Medical Records [address] [place], [place] [phone] [place] [address] Social History Tobacco Use Types Packs/Day Years [...] on filedocumented in this encounter Care Teams Tool And Fixture Repairer Relationship Specialty Start Date End Date Jeanette [...] Nurse Practitioner Cardiology 10/29/20 Misael Plascencia MD Cycle Touring Guide Cardiovascular Disease 10/29/20 11/14/23 documented as of this encounter
== END 2025-02-05 12:39 | disposition home or self-care (01) ==
LOC: HO.HMCFM 11:34
PROVIDERS: PCP Family Medicine; Visit Provider Family Medicine
DX: I71.40 Abdominal aortic aneurysm, without rupture, unspecified (principal); I25.10 Atherosclerotic heart disease of native coronary artery without angina pectoris; E66.9 Obesity, unspecified; Z68.35 Body mass index [BMI] 35.0-35.9, adult; I10 Essential (primary) hypertension; Z12.11 Encounter for screening for malignant neoplasm of colon; Z12.5 Encounter for screening for malignant neoplasm of prostate; G47.30 Sleep apnea, unspecified; M79.89 Other specified soft tissue disorders; R73.03 Prediabetes; E78.5 Hyperlipidemia, unspecified

== ENCOUNTER → 2025-02-05 11:34 | Outpatient (BNVA) | payer MEDICARE, SELFPAY | PROVIDERS: PCP Family Medicine; Visit Provider Family Medicine | DX: Z00.00 Encounter for general adult medical examination without abnormal findings (principal); I71.40 Abdominal aortic aneurysm, without rupture, unspecified; I25.10 Atherosclerotic heart disease of native coronary artery without angina pectoris; I10 Essential (primary) hypertension; E66.9 Obesity, unspecified; Z68.35 Body mass index [BMI] 35.0-35.9, adult; G47.30 Sleep apnea, unspecified; M79.89 Other specified soft tissue disorders; R73.03 Prediabetes; E78.5 Hyperlipidemia, unspecified; G47.00 Insomnia, unspecified; Z71.3 Dietary counseling and surveillance | CPT/HCPCS: 96127; 99212 ==

== ENCOUNTER 2025-02-12 09:28 | Outpatient (AMB) | payer MEDICARE, SELFPAY ==
[2025-02-12 09:31] VITALS: BP 128/82; PULSE 74; O2SAT 92; BMI 35.9
--- NOTE | 2025-02-12 09:31 | MHC.OFFVIS ---
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 History of sleep apnea. Has not had re-evaluation in many years. He is having some difficulty with sleeping. Not using CPAP. Accompanied by: Self / Same As Patient Allergies No Known Allergies Allergy (Verified 02/12/25 09:35) HPI Comments Details: 69 year old male presents for an evaluation of sleep apnea, he is referred to us by his PCP. He was evaluated for deonte year ago and could not tolerate the cpap machine. He had a CABG in his 50s, and pacemaker implant. He is a former smoker. He goes to bed at 11pm, and wakes up at 6-8am with 2 bathroom breaks. PSA is 0.6. He thinks sleep is mainly disturbed due to nocturia. He snores loudly per his partner, he denies gasping for air or witnessed apneas. He takes ambien intermittently once every 2 months. Relaxium 2 tablets, 1x a month, when having trouble staying asleep. He denies morning headaches, clenching of teeth and jaw pain. He denies acid reflux. He has RLS symptoms of neuropathy with tingling, paresthesias on the plantar surface of the feet bilaterally. His diet is good, eats fruits and vegetables but increased carbs in his diet. STM memory is poor slow to process and difficulty finding words. Mood is stable. Dad passed at 65 due to aneurysm. Denies fh of alzheimer's dementia, [place] Palsey and epileptiform / movement disorders. [facility] Medical History Neuropathy Arthritis Heart disease High cholesterol Family History Father High blood pressure High cholesterol Thyroid disorder Daughter FHx: mental illness Bipolar 1 disorder Social [facility] Alcohol intake: current Patient Tobacco Use Status: Never used Tobacco e-Cigarette/Vaping Use: Never Used Second Hand Smoke Exposure: No service: No Current occupational status: retired Cognitive needs: No Hearing needs: No Vision needs: Yes Physical Exam Vital Signs: Last Vital Signs Pulse 74 02/12/25 09:31 BP 128/82 02/12/25 09:31 Pulse Ox 92 02/12/25 09:31 Oxygen Delivery Method Room Air 02/12/25 09:31 BMI result Body Mass Index 35.9 Const General: cooperative, comfortable and no acute distress Nutritional Appearance: obese Orientation/consciousness: patient oriented x3 HEENT Face and sinus: Yes face symmetric Teeth and gingiva: other (Mallmpti score of 3) Eyes Pupils: Equal, round and reactive pupils present Neck Neck: Yes full ROM Resp Effort & Inspection: normal respiratory effort and able to speak in complete sentences Neuro General: patient oriented x3 and moves all extremities Cranial nerves: Yes Equal, round and reactive pupils present, Yes Normal accommodation reflex present, Yes Nystagmus not present, Yes Normal facial strength present, Yes Midline tongue present, Yes Ability to bilaterally rotate head present and Yes Ability to bilaterally elevate shoulders present Cognition (Neuro): normal cognition Gait exam (Neuro): Antalgic gait present Motor exam (neuro): 5/5 motor strength present throughout and Normal motor muscle tone present throughout Psych Appearance: grossly normal Speech and movement: Normal speech and movement present Affect: normal affect Thought process: Normal thought process present Thought content: Normal thought content present Results Reviewed Results Reviewed: December 2024 Consult [place] -4 vessel by Ana hays Cardiomyopathy. EF is 60% with ARMENTA to LAD. Assessment & Plan Assessment & Plan (1) Excessive daytime sleepiness: Code(s): G47.19 - Other hypersomnia Category: Medical (2) Fatigue: Code(s): R53.83 - Other fatigue Category: Medical Qualifiers: Fatigue type: chronic, unspecified Qualified Code(s): R53.82 - Chronic fatigue, unspecified Plan HST r/o deonte pending zepbound per insurance as he is concerned about his weight gain. Labs r/o deficiencies for fatigue. RLS / PLMD? Neuropathy / Radiculopathy, will monitor Gabapentin if pt wants symptomatic treatment for pain. Orders: Orders Ferritin Today R53.83 - Other fatigue Vitamin B12 and Folate Today R53.83 - Other fatigue RT home sleep study Today G47.19 - Other hypersomnia Homocysteine Today G47.9 - Sleep disorder, unspecified, R53.83 - Other fatigue Methylmalonic Acid Today G47.9 - Sleep disorder, unspecified, R53.83 - Other fatigue Vitamin B6 Today R53.83 - Other fatigue Vitamin B1 Today R53.83 - Other fatigue Patient Instructions: Sleep Hygiene provided: set a scheduled bedtime and wake time to help regulate the circadian rhythm and balance the release of pituitary hormones. Sleep in a dark room, temperatures below 68 degrees, and no devices n bed. Limit caffeinated products 6 hours prior to bed, and limit fluids 2-4 hours prior to bed. Gentle night yoga, diffusing essential oils, and playing soft music can be relaxing. Innography in future for RLS will monitor. BPH f/u with Urology Sleep study Labs to complete Coding Level of Care Code New Pt Level 4 (57309) Diagnoses Excessive daytime sleepiness G47.19 Chronic fatigue R53.82 Fatigue type: chronic, unspecified
--- OUTSIDE RECORDS SUMMARY | 2025-02-12 10:29 | XMS_ITS | Clinical Summary ---
Author Organization Patient Business Ser [facility] Address [address] [place] [address] Care Team Providers Care Metallurgy Laboratory Technician Name Role Phone Orlin Shah MD Primary Care Provider Allergies No known active allergies Medications OMEGA-3 FATTY ACIDS ORAL Take 1 capsule by mouth 1 (one) time each day. [place]-3 Fatty Acids (FISH OIL) 1200 MG Cap [...] disease with history of four-vessel CABG at [facility] in 2004. Recent coronary angiogram as outlined [...] in one week. AAA (abdominal aortic aneurysm) ([facility] V24) Overview (05/07/2024): Last Assessment & Plan: [...] 02/2013 Dr. Gardiner, neg colonoscopy 04/2013 Old SC (myocardial infarction) 02/18/2015 07/05/2024 Overview (05/07/2024): 10/16 silent Encounters Date Type Department Care Team Description 01/01/2025 10:20 AM EDT Office Visit [facility] [address] [place] [address] Dr [address] [place] [address] Roger Nelson MD Ischemic cardiomyopathy (Primary Dx) 12/25/2024 10:30 AM EDT Ancillary Procedure [facility] [address] [place] [id number] Encounter for adjustment or management of cardiac device 12/04/2024 Telephone [facility] [address] [place] [address] [place] [address] Roger Nelson MD from Last 3 Months [...] in 10 yrs OTHER SURGICAL HISTORY PROCEDURE: VT CORONARY ARTERY BYP W/VEIN & ARTERY GRAFT 4 VEIN OTHER SURGICAL HISTORY PROCEDURE: HISTORICAL ICD; COMMENT: single lead CYST REMOVAL PROCEDURE: [place] EXCISION PILONIDAL CYST/SINUS SIMPLE CARDIAC CATHETERIZATION DONE ON 08/17/2024 AT [facility] [place] INDICTIONS:Abnormal nuclear perfusion study. 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 (ICD) and pacemaker 02/18/2015 DX:Presence of combination i nternal cardiac defibrillator (ICD) and pacemaker Microscopic hematuria 02/18/2015 DX:Microsc opic hematuria; COMMENT: Dr Rosario Old SC (myocardial infarction) 02/18/2015 D X:Old SC (myocardial infarction); COMMENT: 10/16 silent Hyperlipidemia 02/18/2015 [...] Description 04/03/2025 10:30 AM EDT Ancillary Procedure [facility] [address] [place] [address] 07/05/2025 11:00 AM EST Ancillary Procedure [facility] [address] [place] [address] Health Maintenance Due Date Last Done Comments [...] this topic Medical Devices Implanted Type Area Process Engineer Device Identifier Shelf Expiration Date Model / Serial / Lot [id number] Implanted:10/2013 by Dean Kaba MD (Quantity not on file) Cardiac ICD Left: Chest [employer] [employer]HY[employer] MGMT [id number] / [id number] / Procedures Procedure Name Priority Date/Time Associated Diagnosis Comments CARDIAC DEVICE CHECK- IN [facility] Routine 12/25/2024 12:41 PM EDT Encounter for [...] Results * CARDIAC DEVICE CHECK- IN [facility] (12/25/2024 12:41 PM EDT) Date Time Interrogation Session [id number] CV DEVICE CHECK Implantable Pulse Generator Process Engineer BSX CV DEVICE CHECK Implantable Pulse Generator Type ICD CV DEVICE CHECK Implantable Pulse Generator Model E141 CV DEVICE CHECK Implantable Pulse Generator Serial Number [id number] CV DEVICE CHECK Implantable Pulse Generator Implant [...] ORDERABLES Final Resul t Performing Organization Address [facility]/ZIP Co de Phone Number [facility] [address] [place] [address], [place] [phone] * (ABNORMAL) Lipid panel with LDL and [...] 10/24/2024 2:06 AM EDT Performed at: - [facility] [id number] Unit Trust Manager: Mala Jenkins MD, Phone: [phone] Specimen Comment: A courtesy copy of this report has been sent to [phone] us Annika Blakely NP LAB BLOOD ORDERABLES [...] - 08/01/2024 11:45 AM EST Performed at: [address] [place] [id number] Unit Trust Manager: Roosevelt Ferro MD, Phone: [phone] Annika Blakely MANAGER CLINICAL RESEARCH LAB BLOOD ORDERABLES Final R esult [facility] 1 * Depression Screening (05/10/2023) Pathologist [facility] Depression Screening Abstracted Historical Provider HEALTH MAINTENANCE Final Result * Hepatitis C Screening (08/28/2015) [facility] Hepatitis C Screening Abstracted Historical Provider HEALTH MAINTENANCE Final Result * Colonoscopy (05/08/2013) [facility] Colonoscopy No Interpretation , Abstracted Anatomical Region Laterality Modality Other Historical Provider HEALTH MAINTENANCE Final Result from Last 3 Months or Most Recently Relevant to Health Maintenance Insurance MEDICARE [facility] Care Teams Metallurgy Laboratory Technician Relationship Specialty Start Date End Date Orlin Shah MD [address] [place] [address] Dr Benjamin [place] PCP - General 03/27/24
== END 2025-02-12 10:19 | disposition home or self-care (01) ==
LOC: HO.HSMS 09:29
PROVIDERS: PCP Family Medicine; Visit Provider Physician Assistant Medical
DX: G47.19 Other hypersomnia (principal); R53.82 Chronic fatigue, unspecified
CPT/HCPCS: 99204

== ENCOUNTER 2025-02-12 09:28 | Outpatient (REF) | payer MEDICARE, SELFPAY ==
--- OUTSIDE RECORDS SUMMARY | 2025-02-12 11:59 | XMS_ITS | Encounter Summary ---
Author Organization [facility] Address [address] [place] [address] Care Team Providers Care Slotter Operator Helper Name Role Phone Annika Blakely PINEAPPLE PLANTATION MANAGER Unavailable [phone] Misael Plascencia MD Unavailable Unavailable Kenia Omalley DO Primary Care Provider Unavaila ble Dionne Marcus MD Primary Care Provider Un available Orlin Shah MD Primary Care Provider Unav ailable Encounter Details Date Type Department Care Team Description 11/15/2022 Engine Service Repairer Report Medical Records [address] [place] [address] Jeannine Muller PA-C Social History Tobacco Use [...] on filedocumented in this encounter Care Teams Slotter Operator Helper Relationship Specialty Start Date End Date Kenia Omalley DO PCP - General Internal Medicine 06/22/21 11/23/23 Dionne Marcus MD PCP - General Internal Medicine 11/24/23 03/26/24 Orlin Shah MD PCP - General Family Practice 03/27/24 Annika Blakely, PINEAPPLE PLANTATION MANAGER Nurse Practitioner Cardiology 10/29/20 Misael Plascencia MD Hall Director Cardiovascular Disease 10/29/20 11/14/23 documented as of this encounter
--- OUTSIDE RECORDS SUMMARY | 2025-02-12 11:59 | XMS_ITS | Encounter Summary ---
Author Organization [facility] Address [address] [place] [address] Care Team Providers Care Electronics Mechanic Name Role Phone Jillian Bustamante MD Primary Care Provider Unavailable Annika Blakely ACCOUNT DEVELOPER Unavailable [phone] Misael Plascencia MD Unavailable Unavailable Kenia Omalley DO Primary Care Provider Unavaila ble Dionne Marcus MD Primary Care Provider Un available Orlin Shah MD Primary Care Provider Unav ailable Encounter Details Date Type Department Care Team Description 03/26/2020 Incoming Correspondence Medical Records [address] [place] [phone] [place] [address] Social History Tobacco Use Types Packs/Day Years [...] on filedocumented in this encounter Care Teams Electronics Mechanic Relationship Specialty Start Date End Date Jillian Bustamante MD PCP - General Internal Medicine 01/15/20 06/21/21 Kenia Omalley DO PCP - General Internal Medicine 06/22/21 11/23/23 Dionne Marcus MD PCP - General Internal Medicine 11/24/23 03/26/24 Orlin Shah MD PCP - General Family Practice 03/27/24 Annika Blakely NP Nurse Practitioner Cardiology 10/29/20 Misael Plascencia MD Repair Table Operator Cardiovascular Disease 10/29/20 11/14/23 documented as of this encounter
--- OUTSIDE RECORDS SUMMARY | 2025-02-12 11:59 | XMS_ITS | Encounter Summary ---
Author Organization [facility] Address [address] [place] [address] Care Team Providers Care Barbecue Cook Name Role Phone Annika Blakely NP Unavailable [phone] Misael Plascencia MD Unavailable Unavailable Kenia Omalley DO Primary Care Provider Unavaila Dionne Monteiro MD Primary Care Provider Un available Orlin Shah MD Primary Care Provider Unav ailable Reason for Visit * Reason Onset Date Comments Orders Call 08/25/2021 Encounter Details Date Type Department Care Team Description 08/25/2021 Telephone Adult Medicine - [address] [address] Kenia Omalley DO Orders Call Social History [...] on filedocumented in this encounter Care Teams Barbecue Cook Relationship Specialty Start Date End Date Kenia Omalley DO PCP - General Internal Medicine 06/22/21 11/23/23 Dionne Marcus MD PCP - General Internal Medicine 11/24/23 03/26/24 Orlin Shah MD PCP - General Family Practice 03/27/24 Annika Blakely NP Nurse Practitioner Cardiology 10/29/20 Misael Plascencia MD Feather Boner Cardiovascular Disease 10/29/20 11/14/23 documented as of this encounter
--- OUTSIDE RECORDS SUMMARY | 2025-02-12 11:59 | XMS_ITS | Encounter Summary ---
Author Organization [facility] Address [address] [place] [address] Care Team Providers Care Application Development Intern Name Role Phone Jillian Bustamante MD Primary Care Provider Unavailable Annika Blakely NP Unavailable [phone] Misael Plascencia MD Unavailable Unavailable Kenia Omalley DO Primary Care Provider Unavaila Dionne Monteiro MD Primary Care Provider Un available Orlin Shah MD Primary Care Provider Unav ailable Encounter Details Date Type Department Care Team Description 04/26/2021 Pt. Non Urgent Medic al Question Medicine/Pediatrics - [address] [address] Xuan Diamond PA-C [address] [place] [address] Social History Tobacco Use Types Packs/Day Years [...] have Coronavirus / COVID-19? No / Unsure 04/06/2021 3:43 PM EDT documented as of this encounter Miscellaneous Notes * Telephone Encounter - Zuri Gallardo L.P.N. - 04/27/2021 8:35 AM EST From: Aaron Humphreys To: Raquel Diamond Sent: 04/26/2021 11:17 AM EST Subject: Trying to contact you Rajiv Govea, Not sure if you remember me. You treated me as a patient when you practiced in [place]. When you moved to [place] I went with Dr Linton as a primary. As you are aware Dr. Linton is leaving the area and I would very much like to see you for my future care. I have no issue in traveling to [facility] to have you as part of my care team. Looking forward to hearing from you. My personal cell number is [phone] if a phone call is preferred. Thank you, Hay Humphreys documented in this encounter Plan of Treatment Not on file documented as of this encounter Visit Diagnoses Not on filedocumented in this encounter Care Teams Application Development Intern Relationship Specialty Start Date End Date Jillian Bustamante MD PCP - General Internal Medicine 01/15/20 06/21/21 Kenia Omalley DO PCP - General Internal Medicine 06/22/21 11/23/23 Dionne Marcus MD PCP - General Internal Medicine 11/24/23 03/26/24 Orlin Shah MD PCP - General Family Practice 03/27/24 Annika Blakely NP Nurse Practitioner Cardiology 10/29/20 Misael Plascencia MD In Processing Instructor Cardiovascular Disease 10/29/20 11/14/23 documented as of this encounter
--- OUTSIDE RECORDS SUMMARY | 2025-02-12 11:59 | XMS_ITS | Encounter Summary ---
Author Organization [facility] Address [address] [place] [address] Care Team Providers Care Unix System Administrator Name Role Phone Jillian Bustamante MD Primary Care Provider Unavailable Jeanette Camacho MD Primary Care Provider Unavailable Donna Padilla MD Primary Care Provider [phone] Jeanette Camacho MD Primary Care Provider Unavailable Jillian Bustamante MD Primary Care Provider Unavailable Jillian Bustamante MD Primary Care Provider Unavailable Annika Blakely NP Unavailable [phone] Misael Plascencia MD Unavailable Unavailable Kenia Omalley DO Primary Care Provider Unavaila Dionne Monteiro MD Primary Care Provider Un available Orlin Shah MD Primary Care Provider Unav ailable Encounter Details Date Type Department Care Team Description 01/15/2014 Hospital Medical Records [address] [place] [address] Social History Tobacco Use Types Packs/Day Years [...] on filedocumented in this encounter Care Teams Unix System Administrator Relationship Specialty Start Date End Date Jillian Bustamante MD PCP - General Internal Medicine 12/31/14 01/16/15 Jeanette Camacho MD PCP - General Internal Medicine 01/17/15 11/10/15 Donna Padilla MD [address] [place] [address] PCP - General Internal Medicine 08/12/17 01/11/18 [place]-Jeanette Dupree MD PCP - General Internal Medicine 01/12/18 01/14/20 Jillian Bustamante MD PCP - General Internal Medicine 01/15/20 06/21/21 Jillian Bustamante MD PCP - General 11/11/15 08/11/17 Kenia Omalley DO [address] [place] [address] PCP - General Internal Medicine 06/22/21 11/23/23 Dionne Marcus MD [address] [place] [address] PCP - General Internal Medicine 11/24/23 03/26/24 Orlin Shah MD [address] [place] [address] PCP - General Family Practice 03/27/24 Annika Blakely NP [address] [place], [place] [id number] Nurse Practitioner Cardiology 10/29/20 Misael Plascencia MD [address] [place] [address] Manager [place]ow Cardiovascular Disease 10/29/20 11/14/23 documented as of this encounter
--- OUTSIDE RECORDS SUMMARY | 2025-02-12 11:59 | XMS_ITS | Encounter Summary ---
Author Organization [facility] Address [address] [place] [address] Care Team Providers Care Turbine Operator Name Role Phone Annika Blakely WEIGHT TRAINER Unavailable [phone] Misael Plascencia MD Unavailable Unavailable Kenia Omalley DO Primary Care Provider Unavaila ble Dionne Marcus MD Primary Care Provider Un available Orlin Shah MD Primary Care Provider Unav ailable Reason for Visit * Reason Comments Remote Device Check Encounter Details Date Type Department Care Team Description 07/27/2021 Remote Device Check Cardio PVC POC 154 [address] [facility] [address] [place] [address] Dean Kaba MD [address] [place] [address] Social History Tobacco Use Types Packs/Day Years [...] on filedocumented in this encounter Care Teams Turbine Operator Relationship Specialty Start Date End Date Kenia Omalley DO PCP - General Internal Medicine 06/22/21 11/23/23 Dionne Marcus MD PCP - General Internal Medicine 11/24/23 03/26/24 Orlin Shah MD PCP - General Family Practice 03/27/24 Annika Blakely NP Nurse Practitioner Cardiology 10/29/20 Misael Plascencia MD Fire Loss Prevention Engineer Cardiovascular Disease 10/29/20 11/14/23 documented as of this encounter
--- OUTSIDE RECORDS SUMMARY | 2025-02-12 11:59 | XMS_ITS | Encounter Summary ---
Author Organization [facility] Address [address] [place] [address] Care Team Providers Care Office Runner Name Role Phone Yolanda-Jeanette Dupree MD Primary Care Provider Unavailable Jillian Bustamante MD Primary Care Provider Unavailable Annika Blakely CELLULAR TOWER CLIMBER Unavailable [phone] Misael Plascencia MD Unavailable Unavailable Kenia Omalley DO Primary Care Provider Unavaila ble Dionne Marcus MD Primary Care Provider Un available Orlin hSah MD Primary Care Provider Unav ailable Encounter Details Date Type Department Care Team Description 12/26/2019 Incoming Correspondence Medical Records [address] [place] [address] [facility] Social History Tobacco Use Types Packs/Day [...] on filedocumented in this encounter Care Teams Office Runner Relationship Specialty Start Date End Date Jeanette [...] Nurse Practitioner Cardiology 10/29/20 Misael Plascencia MD Director Of Spa And Guest Experience Cardiovascular Disease 10/29/20 11/14/23 documented as of this encounter
--- OUTSIDE RECORDS SUMMARY | 2025-02-12 11:59 | XMS_ITS | Encounter Summary ---
Author Organization [facility] Address [address] [place] [address] Care Team Providers Care Bookseamer Blindstitch Name Role Phone Annika Blakely TRAY SERVICE WORKER Unavailable [phone] Misael Plascencia MD Unavailable Unavailable Kenia Omalley DO Primary Care Provider Unavaila ble Dionne Marcus MD Primary Care Provider Un available Orlin Shah MD Primary Care Provider Unav ailable Encounter Details Date Type Department Care Team Description 08/13/2021 SCAN Medical Records [address] [place] [address] Abstract, Provider Social History Tobacco Use Types [...] on filedocumented in this encounter Care Teams Bookseamer Blindstitch Relationship Specialty Start Date End Date Kenia Omalley DO PCP - General Internal Medicine 06/22/21 11/23/23 Dionne Marcus MD PCP - General Internal Medicine 11/24/23 03/26/24 Orlin Shah MD PCP - General Family Practice 03/27/24 Annika Blakely NP Nurse Practitioner Cardiology 10/29/20 Misael Plascencia MD Mortgage Protection Sales Cardiovascular Disease 10/29/20 11/14/23 documented as of this encounter
--- OUTSIDE RECORDS SUMMARY | 2025-02-12 11:59 | XMS_ITS | Encounter Summary ---
Author Organization [facility] Address [address] [place] [address] Care Team Providers Care Charter Coordinator Name Role Phone Jillian Bustamante MD Primary Care Provider Unavailable Annika Blakely NP Unavailable [phone] Misael Plascencia MD Unavailable Unavailable Kenia Omalley DO Primary Care Provider Unavaila ble Dionne Marcus MD Primary Care Provider Un available Orlin Shah MD Primary Care Provider Unav ailable Reason for Visit * Reason Comments Remote Device Check Encounter Details Date Type Department Care Team Description 06/09/2021 Remote Device Check Cardio PVC POC 154 [address] [facility] [address] [place] [address] Dean Kaba MD [address] [place] [address] Social History Tobacco Use Types Packs/Day Years [...] on filedocumented in this encounter Care Teams Charter Coordinator Relationship Specialty Start Date End Date Jillian Bustamante MD PCP - General Internal Medicine 01/15/20 06/21/21 Kenia Omalley DO PCP - General Internal Medicine 06/22/21 11/23/23 Dionne Marcus MD PCP - General Internal Medicine 11/24/23 03/26/24 Orlin Shah MD PCP - General Family Practice 03/27/24 Annika Blakely NP Nurse Practitioner Cardiology 10/29/20 Misael Plascencia MD Global Professional Cardiovascular Disease 10/29/20 11/14/23 documented as of this encounter
--- OUTSIDE RECORDS SUMMARY | 2025-02-12 11:59 | XMS_ITS | Encounter Summary ---
Author Organization [facility] Address [address] [place] [address] Care Team Providers Care Boat Tester Name Role Phone Jeanette Camacho MD Primary Care Provider Unavailable Donna Padilla MD Primary Care Provider [phone] Jeanette Camacho MD Primary Care Provider Unavailable Jillian Bustamante MD Primary Care Provider Unavailable Jillian Bustamante MD Primary Care Provider Unavailable Annika Blakely CASH REGISTER SERVICER Unavailable [phone] Misael Plascencia MD Unavailable Unavailable Kenia Omalley DO Primary Care Provider Unavaila Dionne Monteiro MD Primary Care Provider Un available Orlin Shah MD Primary Care Provider Unav ailable Reason for Referral * EXTERNAL (Routine) - Authorized/Booked Specialty Diagnoses / Procedures Referred By Conttodd barnett Referred To Contact Dermatology Procedures REFERRAL TO DERMATOLOGY Jeanette Camacho MD [address] [place] [address] Ginger De La Rosa MD [address] [place] [address] Referral ID Status Reason Start Date Expiration Date V isits Requested Visits Authorized SEE NOTE Authorized/B ooked 10/27/2015 10/26/2016 1 1 Reason for Visit * Reason Onset Date Comments Media Monitor Feedback 10/24/2015 [facility] Encounter Details Date Type Department Care Team Description 10/24/2015 Telephone Adult Medicine - [place] [address] [place] [address] Jeanette Camacho MD Media Monitor Feedback ([facility]) Social History Tobacco Use Types Packs/Day [...] You have placed a referral to see [facility]. Unfortunately, their office does not accept [...] on filedocumented in this encounter Care Teams Boat Tester Relationship Specialty Start Date End Date Jeanette Camacho MD PCP - General Internal Medicine 01/17/15 11/10/15 Donna Padilla MD [address] [place] [address] PCP - General Internal Medicine 08/12/17 01/11/18 Jeanette Camacho MD PCP - General Internal Medicine 01/12/18 01/14/20 Jillian Bustamante MD [address] [place] [address] PCP - General Internal Medicine 01/15/20 06/21/21 Jillian Bustamante MD [address] [place] [address] PCP - General 11/11/15 08/11/17 Kenia Omalley DO [address] [place] [address] PCP - General Internal Medicine 06/22/21 11/23/23 Dionne Marcus MD [address] [place] [address] PCP - General Internal Medicine 11/24/23 03/26/24 Orlin Shah MD [address] [place] [address] PCP - General Family Practice 03/27/24 Annika Blakely NP [address] [place] [address] Nurse Practitioner Cardiology 10/29/20 Misael Plascencia MD [address] [place] [address] Claims Service Adjustor Cardiovascular Disease 10/29/20 11/14/23 documented as of this encounter
--- OUTSIDE RECORDS SUMMARY | 2025-02-12 11:59 | XMS_ITS | Encounter Summary ---
Author Organization [facility] Address [address] [place] [address] Care Team Providers Care Traffic Law Attorney Name Role Phone Kevincynthialanette Annika PIECE WORKER Unavailable [phone] Misael Plascencia MD Unavailable Unavailable Kenia Omalley DO Primary Care Provider Unavaila ble Dionne Marcus MD Primary Care Provider Un available Orlin Shah MD Primary Care Provider Unav ailable Reason for Visit * Reason Comments Remote Device Check Encounter Details Date Type Department Care Team Description 11/01/2021 Remote Device Check Cardio PVC POC [address] [facility] [address] [place] [address] Dean Kaba MD [address] [place] [address] Social History Tobacco Use Types Packs/Day Years [...] filedocumented in this encounter Care Teams Traffic Law Attorney Relationship Specialty Start Date End Date Kenia Omalley DO PCP - General Internal Medicine 06/22/21 11/23/23 Dionne Marcus MD PCP - General Internal Medicine 11/24/23 03/26/24 Orlin Shah MD PCP - General Family Practice 03/27/24 Annika Blakely NP Nurse Practitioner Cardiology 10/29/20 Misael Plascencia MD Teacher Selection Specialist Cardiovascular Disease 10/29/20 11/14/23 documented as of this encounter
--- OUTSIDE RECORDS SUMMARY | 2025-02-12 11:59 | XMS_ITS | Encounter Summary ---
Author Organization [facility] Address [address] [place] [address] Care Team Providers Care Associate Programmer Analyst Name Role Phone Annika Blakely NP Unavailable [phone] Misael Plascencia MD Unavailable Unavailable Kenia Omalley DO Primary Care Provider Unavaila Dionne Monteiro MD Primary Care Provider Un available Orlin Shah MD Primary Care Provider Unav ailable Encounter Details Date Type Department Care Team Description 11/08/2022 Pt. Non Urgent Medic al Question Adult Medicine - [address] [address] Bernarda Augustin PA-C Social History Tobacco Use [...] on filedocumented in this encounter Care Teams Associate Programmer Analyst Relationship Specialty Start Date End Date Kenia Omalley DO PCP - General Internal Medicine 06/22/21 11/23/23 Dionne Marcus MD PCP - General Internal Medicine 11/24/23 03/26/24 Orlin Shah MD PCP - General Family Practice 03/27/24 Annika Blakely NP Nurse Practitioner Cardiology 10/29/20 Misael Plascencia MD Supervisor Intelligence Analyst Cardiovascular Disease 10/29/20 11/14/23 documented as of this encounter
--- OUTSIDE RECORDS SUMMARY | 2025-02-12 11:59 | XMS_ITS | Encounter Summary ---
Author Organization [facility] Address [address] [place] [address] Care Team Providers Care Project Manager Finance Name Role Phone Jillian Bustamante MD Primary Care Provider Unavailable Annika Blakely FAMILY CONSULTANT Unavailable [phone] Misael Plascencia MD Unavailable Unavailable Kenia Omalley DO Primary Care Provider Unavaila ble Dionne Marcus MD Primary Care Provider Un available Orlin Shah MD Primary Care Provider Unav ailable Encounter Details Date Type Department Care Team Description 03/04/2020 Waterproofer Helper Report Medical Records [address] [place] [address] [facility] [address] [place] [address] Social History Tobacco Use Types Packs/Day Years [...] on filedocumented in this encounter Care Teams Project Manager Finance Relationship Specialty Start Date End Date Jillian Bustamante MD PCP - General Internal Medicine 01/15/20 06/21/21 Kenia Omalley DO PCP - General Internal Medicine 06/22/21 11/23/23 Dionne Marcus MD PCP - General Internal Medicine 11/24/23 03/26/24 Orlin Shah MD PCP - General Family Practice 03/27/24 Annika Blakely, FAMILY CONSULTANT Nurse Practitioner Cardiology 10/29/20 Misael Plascencia MD Weigher And Mixer Cardiovascular Disease 10/29/20 11/14/23 documented as of this encounter
--- OUTSIDE RECORDS SUMMARY | 2025-02-12 11:59 | XMS_ITS | Encounter Summary ---
Author Organization [facility] Address [address] [place] [address] Care Team Providers Care Account Maintenance Representative Name Role Phone Annika Blakely RELIEF PILOT Unavailable Misael Plascencia MD Unavailable Unavailable Kenia Omalley DO Primary Care Provider Unavaila ble Dionne Marcus MD Primary Care Provider Un available Orlin Shah MD Primary Care Provider Unav ailable Encounter Details Date Type Department Care Team Description 11/11/2023 SCAN Medical Records [address] [place] [address] Abstract, Provider Social History Tobacco Use Types [...] on filedocumented in this encounter Care Teams Account Maintenance Representative Relationship Specialty Start Date End Date Kenia Omalley DO PCP - General Internal Medicine 06/22/21 11/23/23 Dionne Marcus MD PCP - General Internal Medicine 11/24/23 03/26/24 Orlin Shah MD PCP - General Family Practice 03/27/24 Annika Blakely NP Nurse Practitioner Cardiology 10/29/20 Misael Plascencia MD Material Handling Warehouse Supervisor Cardiovascular Disease 10/29/20 11/14/23 documented as of this encounter
--- OUTSIDE RECORDS SUMMARY | 2025-02-12 11:59 | XMS_ITS | Encounter Summary ---
Author Organization [facility] Address [address] [place] [address] Care Team Providers Care Core Measures Abstractor Name Role Phone Yolanda-Jeanette Dupree MD Primary Care Provider Unavailable Jillian Bustamante MD Primary Care Provider Unavailable Annika Blakely SHIP PILOT DISPATCHER Unavailable [phone] Misael Plascencia MD Unavailable Unavailable Kenia Omalley DO Primary Care Provider Unavaila ble Dionne Marcus MD Primary Care Provider Un available Orlin Shah MD Primary Care Provider Unav ailable Encounter Details Date Type Department Care Team Description 08/08/2019 Weeder Thinner Report Medical Records [address] [place] [address] Delvin Hassan MD Social History Tobacco Use [...] on filedocumented in this encounter Care Teams Core Measures Abstractor Relationship Specialty Start Date End Date Jeanette [...] Nurse Practitioner Cardiology 10/29/20 Misael Plascencia MD Gastroenterology Technician Cardiovascular Disease 10/29/20 11/14/23 documented as of this encounter
--- OUTSIDE RECORDS SUMMARY | 2025-02-12 11:59 | XMS_ITS | Encounter Summary ---
Author Organization [facility] Address [address] [place] [address] Care Team Providers Care Physical Therapy Supervisor Name Role Phone Yolanda-Jeanette Dupree MD Primary Care Provider Unavailable Jillian Bustamante MD Primary Care Provider Unavailable Annika Blakely COUNTER WAITRESS/WAITER Unavailable [phone] Misael Plascencia MD Unavailable Unavailable Kenia Omalley DO Primary Care Provider Unavaila ble Dionne Marcus MD Primary Care Provider Un available Orlin Shah MD Primary Care Provider Unav ailable Encounter Details Date Type Department Care Team Description 02/26/2019 Public Relations Officer Report Medical Records [address] [place], [place] [id number] [place] [address] Social History Tobacco Use Types Packs/Day Years [...] on filedocumented in this encounter Care Teams Physical Therapy Supervisor Relationship Specialty Start Date End Date Jeanette [...] Nurse Practitioner Cardiology 10/29/20 Misael Plascencia MD Tax Representative Cardiovascular Disease 10/29/20 11/14/23 documented as of this encounter
--- OUTSIDE RECORDS SUMMARY | 2025-02-12 11:59 | XMS_ITS | Encounter Summary ---
Author Organization [facility] Address [address] [place] [address] Care Team Providers Care Lumber Planer Name Role Phone Annika Blakely FRONT COUNTER ATTENDANT Unavailable [phone] Misael Plascencia MD Unavailable Unavailable Kenia Omalley DO Primary Care Provider Unavaila ble Dionne Marcus MD Primary Care Provider Un available Orlin Shah MD Primary Care Provider Unav ailable Reason for Visit * Reason Comments Remote Device Check Encounter Details Date Type Department Care Team Description 07/24/2021 Remote Device Check Cardio PVC POC 154 [address] [facility] [address] [place] [address] Dean Kaba MD [address] [place] [address] Social History Tobacco Use Types Packs/Day Years [...] on filedocumented in this encounter Care Teams Lumber Planer Relationship Specialty Start Date End Date Kenia Omalley DO PCP - General Internal Medicine 06/22/21 11/23/23 Dionne Marcus MD PCP - General Internal Medicine 11/24/23 03/26/24 Orlin Shah MD PCP - General Family Practice 03/27/24 Annika Blakely NP Nurse Practitioner Cardiology 10/29/20 Misael Plascencia MD High School Foreign Language Tutor Cardiovascular Disease 10/29/20 11/14/23 documented as of this encounter
--- OUTSIDE RECORDS SUMMARY | 2025-02-12 11:59 | XMS_ITS | Encounter Summary ---
Author Organization [facility] Address [address] [place] [address] Care Team Providers Care Senior Power Scheduler Name Role Phone Jeanette Camacho MD Primary Care Provider Unavailable Donna Padilla MD Primary Care Provider [phone] Jeanette Camacho MD Primary Care Provider Unavailable Jillian Bustamante MD Primary Care Provider Unavailable Jillian Bustamante MD Primary Care Provider Unavailable Annika Blakely FASTENER TECHNOLOGIST Unavailable [phone] Misael Plascencia MD Unavailable Unavailable Kenia Omalley DO Primary Care Provider Unavaila Dionne Monteiro MD Primary Care Provider Un available Orlin Shah MD Primary Care Provider Unav ailable Encounter Details Date Type Department Care Team Description 09/18/2015 Food And Beverage Director Report Medical Records [address] [place] [address] Linh Quiroz Social History Tobacco Use Types [...] filedocumented in this encounter Care Teams Senior Power Scheduler Relationship Specialty Start Date End Date Jeanette Camacho MD PCP - General Internal Medicine 01/17/15 11/10/15 Donna Padilla MD [address] [place] [address] PCP - General Internal Medicine 08/12/17 01/11/18 Yolanda-Jeanette Dupree MD PCP - General Internal Medicine 01/12/18 01/14/20 Jillian Bustamante MD [address] [place] [address] PCP - General Internal Medicine 01/15/20 06/21/21 Jillian Bustamante MD [address] [place] [address] PCP - General 11/11/15 08/11/17 Kenia Omalley DO [address] [place] [address] PCP - General Internal Medicine 06/22/21 11/23/23 Dionne Marcus MD [address] [place] [address] PCP - General Internal Medicine 11/24/23 03/26/24 Orlin Shah MD [address] [place] [address] PCP - General Family Practice 03/27/24 Annika Blakely, FRANK [address] [place], [place] [id number] Nurse Practitioner Cardiology 10/29/20 Misael Plascencia MD [address] [place] [address] Double Cut Off Saw Operator Cardiovascular Disease 10/29/20 11/14/23 documented as of this encounter
--- OUTSIDE RECORDS SUMMARY | 2025-02-12 11:59 | XMS_ITS | Encounter Summary ---
Author Organization [facility] Address [address] [place] [address] Care Team Providers Care Forest Pathology Teacher Name Role Phone Yolanda-Jeanette Dupree MD Primary Care Provider Unavailable Jillian Bustamante MD Primary Care Provider Unavailable Annika Blakely NUTRITIONALIST Unavailable [phone] Misael Plascencia MD Unavailable Unavailable Kenia Omalley DO Primary Care Provider Unavaila ble Dionne Marcus MD Primary Care Provider Un available Orlin Shah MD Primary Care Provider Unav ailable Encounter Details Date Type Department Care Team Description 01/09/2019 Incoming Correspondence Medical Records [address] [place] [address] [facility] Social History Tobacco Use Types Packs/Day [...] on filedocumented in this encounter Care Teams Forest Pathology Teacher Relationship Specialty Start Date End Date Jeanette [...] Nurse Practitioner Cardiology 10/29/20 Misael Plascencia MD Cinder Worker Cardiovascular Disease 10/29/20 11/14/23 documented as of this encounter
--- OUTSIDE RECORDS SUMMARY | 2025-02-12 11:59 | XMS_ITS | Encounter Summary ---
Author Organization [facility] Address [address] [place] [address] Care Team Providers Care Nutrition Aides Teacher Name Role Phone Yolanda-Jeanette Dupree MD Primary Care Provider Unavailable Jillian Bustamante MD Primary Care Provider Unavailable Annika Blakely CLOTH TESTER Unavailable [phone] Misael Plascencia MD Unavailable Unavailable Kenia Omalley DO Primary Care Provider Unavaila ble Dionne Marcus MD Primary Care Provider Un available Orlin Shah MD Primary Care Provider Unav ailable Encounter Details Date Type Department Care Team Description 12/13/2018 Public Safety Telecommunicator Report Medical Records [address] [place] [address] [facility] Social History Tobacco Use Types Packs/Day [...] on filedocumented in this encounter Care Teams Nutrition Aides Teacher Relationship Specialty Start Date End Date [...] Nurse Practitioner Cardiology 10/29/20 Misael Plascencia MD Picker Packer Cardiovascular Disease 10/29/20 11/14/23 documented as of this encounter
--- OUTSIDE RECORDS SUMMARY | 2025-02-12 11:59 | XMS_ITS | Encounter Summary ---
Author Organization [facility] Address [address] [place] [address] Care Team Providers Care Petrophysicist Name Role Phone Annika Blakely TEAR DOWN MATCHER Unavailable [phone] Misael Plascencia MD Unavailable Unavailable Kenia Omalley DO Primary Care Provider Unavaila ble Dionne Marcus MD Primary Care Provider Un available Orlin Shah MD Primary Care Provider Unav ailable Encounter Details Date Type Department Care Team Description 07/23/2022 Telephone Cardio PVC [facility] [address] [place] [address] Misael Plascencia MD Social History Tobacco Use Types Packs/Day [...] on filedocumented in this encounter Care Teams Petrophysicist Relationship Specialty Start Date End Date Kenia Omalley DO PCP - General Internal Medicine 06/22/21 11/23/23 Dionne Marcus MD PCP - General Internal Medicine 11/24/23 03/26/24 Orlin Shah MD PCP - General Family Practice 03/27/24 Annika Blakely NP Nurse Practitioner Cardiology 10/29/20 Misael Plascencia MD Service Control Operator Cardiovascular Disease 10/29/20 11/14/23 documented as of this encounter
--- OUTSIDE RECORDS SUMMARY | 2025-02-12 11:59 | XMS_ITS | Encounter Summary ---
Author Organization [facility] Address [address] [place] [address] Care Team Providers Care Die Maker Trim Name Role Phone Annika Blakely TANK WAGON DRIVER Unavailable [phone] Dionne Marcus MD Primary Care Provider Un available Orlin Shah MD Primary Care Provider Unav ailable Encounter Details Date Type Department Care Team Description 01/24/2024 SCAN Medical Records [address] [place] [address] Abstract, Provider Social History Tobacco Use Types [...] on filedocumented in this encounter Care Teams Die Maker Trim Relationship Specialty Start Date End Date Dionne Marcus MD PCP - General Internal Medicine 11/24/2303/26 Orlin Shah MD PCP - General Family Practice 03/27/24 Annika Blakely NP Nurse Practitioner Cardiology 10/29/20 documented as of this encounter
--- OUTSIDE RECORDS SUMMARY | 2025-02-12 11:59 | XMS_ITS | Encounter Summary ---
Author Organization [facility] Address [address] [place] [address] Care Team Providers Care Machine Package Sealer Name Role Phone Jillian Bustamante MD Primary Care Provider Unavailable Annika Blakely NP Unavailable [phone] Misael Plascencia MD Unavailable Unavailable Kenia Omalley DO Primary Care Provider Unavaila Dionne Monteiro MD Primary Care Provider Un available Orlin Shah MD Primary Care Provider Unav ailable Reason for Visit * Reason Onset Date Comments Error 01/22/2020 Encounter Details Date Type Department Care Team Description 01/22/2020 Telephone Adult Medicine - [address] [address] Jillian Bustamante MD Error Social History Tobacco [...] on filedocumented in this encounter Care Teams Machine Package Sealer Relationship Specialty Start Date End Date Jillian Bustamante MD PCP - General Internal Medicine 01/15/20 06/21/21 Kenia Omalley DO PCP - General Internal Medicine 06/22/21 11/23/23 Dionne Marcus MD PCP - General Internal Medicine 11/24/23 03/26/24 Orlin Shah MD PCP - General Family Practice 03/27/24 Annika Blakely NP Nurse Practitioner Cardiology 10/29/20 Misael Plascencia MD Strainer Cleaner Cardiovascular Disease 10/29/20 11/14/23 documented as of this encounter
--- OUTSIDE RECORDS SUMMARY | 2025-02-12 11:59 | XMS_ITS | Encounter Summary ---
Author Organization [facility] Address [address] [place] [address] Care Team Providers Care Bereavement Counselor Name Role Phone Annika Blakely NP Unavailable Misael Plascencia MD Unavailable Unavailable Kenia Omalley DO Primary Care Provider Unavaila Dionne Monteiro MD Primary Care Provider Un available Orlin Shah MD Primary Care Provider Unav ailable Encounter Details Date Type Department Care Team Description 08/13/2021 Telephone Cardio PVC POC [address] [place] [address] [address] [place] [address] Khadra Gandhi PA-C [address] [place] [address] Social History Tobacco Use Types Packs/Day Years [...] on filedocumented in this encounter Care Teams Bereavement Counselor Relationship Specialty Start Date End Date Kenia Omalley DO PCP - General Internal Medicine 06/22/21 11/23/23 Dionne Marcus MD PCP - General Internal Medicine 11/24/23 03/26/24 Orlin Shah MD PCP - General Family Practice 03/27/24 Annika Blakely NP Nurse Practitioner Cardiology 10/29/20 Misael Plascencia MD Fuel Cell Systems Engineer Cardiovascular Disease 10/29/20 11/14/23 documented as of this encounter
--- OUTSIDE RECORDS SUMMARY | 2025-02-12 11:59 | XMS_ITS | Encounter Summary ---
Author Organization [facility] Address [address] [place] [address] Care Team Providers Care Paperhanger Assistant Name Role Phone Annika Blakely EDUCATIONAL TECHNOLOGY COORDINATOR Unavailable [phone] Misael Plascencia MD Unavailable Unavailable Kenia Omalley DO Primary Care Provider Unavaila ble Dionne Marcus MD Primary Care Provider Un available Orlin Shah MD Primary Care Provider Unav ailable Reason for Visit * Reason Comments Remote Device Check Encounter Details Date Type Department Care Team Description 12/20/2021 Remote Device Check Cardio PVC POC [address] [facility] [address] [place] [address] Dean Kaba MD [address] [place] [address] Social History Tobacco Use Types Packs/Day Years [...] on filedocumented in this encounter Care Teams Paperhanger Assistant Relationship Specialty Start Date End Date Kenia Omlaley DO PCP - General Internal Medicine 06/22/21 11/23/23 Dionne Marcus MD PCP - General Internal Medicine 11/24/23 03/26/24 Orlin Shah MD PCP - General Family Practice 03/27/24 Annika Blakely NP Nurse Practitioner Cardiology 10/29/20 Misael Plascencia MD Grease Cup Filler Cardiovascular Disease 10/29/20 11/14/23 documented as of this encounter
--- OUTSIDE RECORDS SUMMARY | 2025-02-12 12:00 | XMS_ITS | Encounter Summary ---
Author Organization [facility] Address [address] [place] [address] Care Team Providers Care Cattle Trader Name Role Phone Jillian Bustamante MD Primary Care Provider Unavailable Annika Blakely NP Unavailable [phone] Misael Plascencia MD Unavailable Unavailable Kenia Omalley DO Primary Care Provider Unavaila ble Dionne Marcus MD Primary Care Provider Un available Orlin Shah MD Primary Care Provider Unav ailable Encounter Details Date Type Department Care Team Description 02/04/2021 Telephone Radiology - [address] [address] Jillian Bustamante MD Social History Tobacco Use [...] on filedocumented in this encounter Care Teams Cattle Trader Relationship Specialty Start Date End Date Jillian Bustamante MD PCP - General Internal Medicine 01/15/20 06/21/21 Kenia Omalley DO PCP - General Internal Medicine 06/22/21 11/23/23 Dionne Marcus MD PCP - General Internal Medicine 11/24/23 03/26/24 Orlin Shah MD PCP - General Family Practice 03/27/24 Annika Blakely NP Nurse Practitioner Cardiology 10/29/20 Misael Plascencia MD Electronic Tech Cardiovascular Disease 10/29/20 11/14/23 documented as of this encounter
--- OUTSIDE RECORDS SUMMARY | 2025-02-12 12:00 | XMS_ITS | Encounter Summary ---
Author Organization [facility] Address [address] [place] [address] Care Team Providers Care Partner Marketing Manager Name Role Phone Annika Blakely SOFTWARE APPLICATIONS ARCHITECT Unavailable [phone] Misael Plascencia MD Unavailable Unavailable Kenia Omalley DO Primary Care Provider Unavaila ble Dionne Marcus MD Primary Care Provider Un available Orlin Shah MD Primary Care Provider Unav ailable Encounter Details Date Type Department Care Team Description 08/15/2023 SCAN Medical Records [address] [place] [address] Abstract, Provider Social History Tobacco Use Types [...] on filedocumented in this encounter Care Teams Partner Marketing Manager Relationship Specialty Start Date End Date Kenia Omalley DO PCP - General Internal Medicine 06/22/21 11/23/23 Dionne Marcus MD PCP - General Internal Medicine 11/24/23 03/26/24 Orlin Shah MD PCP - General Family Practice 03/27/24 Annika Blakely NP Nurse Practitioner Cardiology 10/29/20 Misael Plascencia MD Feather Sawyer Cardiovascular Disease 10/29/20 11/14/23 documented as of this encounter
--- OUTSIDE RECORDS SUMMARY | 2025-02-12 12:00 | XMS_ITS | Encounter Summary ---
Author Organization [facility] Address [address] [place] [address] Care Team Providers Care Crm Business Analyst Name Role Phone Annika Blakely ELECTRICAL EQUIPMENT TECHNICIAN Unavailable [phone] Misael Plascencia MD Unavailable Unavailable Kenia Omalley DO Primary Care Provider Unavaila ble Dionne Marcus MD Primary Care Provider Un available Orlin Shah MD Primary Care Provider Unav ailable Encounter Details Date Type Department Care Team Description 05/17/2023 SCAN Medical Records [address] [place] [id number] [place] [address] Social History Tobacco Use Types Packs/Day Years [...] filedocumented in this encounter Care Teams Crm Business Analyst Relationship Specialty Start Date End Date Kenia Omalley DO PCP - General Internal Medicine 06/22/21 11/23/23 Dionne Marcus MD PCP - General Internal Medicine 11/24/23 03/26/24 Orlin Shah MD PCP - General Family Practice 03/27/24 Annika Blakely NP Nurse Practitioner Cardiology 10/29/20 Misael Plascencia MD Annual Giving Director Cardiovascular Disease 10/29/20 11/14/23 documented as of this encounter
--- OUTSIDE RECORDS SUMMARY | 2025-02-12 12:00 | XMS_ITS | Encounter Summary ---
Author Organization [facility] Address [address] [place] [address] Care Team Providers Care Boiling Off Winder Name Role Phone Donna Padilla MD Primary Care Provider [phone] Jeanette Camacho MD Primary Care Provider Unavailable Jillian Bustamante MD Primary Care Provider Unavailable Jillian Bustamante MD Primary Care Provider Unavailable Annika Blakely CITY ASSESSOR Unavailable [phone] Misael Plascencia MD Unavailable Unavailable Kenia Omalley DO Primary Care Provider Unavaila Dionne Monteiro MD Primary Care Provider Un available Orlin Shah MD Primary Care Provider Unav ailable Reason for Visit * Reason Onset Date Comments Echocardiogram 03/07/2017 Encounter Details Date Type Department Care Team Description 03/07/2017 Telephone Cardiology - [address] [id number] Monika Aguilar, [address] [id number] Echocardiogram Social History Tobacco Use Types Packs/Day [...] echo done on 03/19/17 and he has [facility] Silver ins. Does this ins require an auth? Thank you Bessie in cardiology. documented in this encounter Plan of Treatment Not on file documented as of this encounter Visit Diagnoses Not on filedocumented in this encounter Care Teams Boiling Off Winder Relationship Specialty Start Date End Date Donna Padilla MD [address] [place] [address] PCP - General Internal Medicine 08/12/17 01/11/18 [place]-Jeanette Dupree MD [address] [place], [place] [id number] PCP - General Internal Medicine 01/12/18 01/14/20 Jillian Bustamante MD [address] [place] [address] PCP - General Internal Medicine 01/15/20 06/21/21 Jillian Bustamante MD [address] [place] [address] PCP - General 11/11/15 08/11/17 Kenia Omalley DO [address] [place] [address] PCP - General Internal Medicine 06/22/21 11/23/23 Dionne Marcus MD [address] [place] [address] PCP - General Internal Medicine 11/24/23 03/26/24 Orlin Shah MD [address] [place] [address] PCP - General Family Practice 03/27/24 Annika Blakely NP [address] [place], [place] [id number] Nurse Practitioner Cardiology 10/29/20 Misael Plascencia MD [address] [place], [place] [id number] Riveting Machine Operator Tape Control Cardiovascular Disease 10/29/20 11/14/23 documented as of this encounter
--- OUTSIDE RECORDS SUMMARY | 2025-02-12 12:00 | XMS_ITS | Encounter Summary ---
Author Organization [facility] Address [address] [place] [address] Care Team Providers Care Pathology Supervisor Name Role Phone Donna Padilla MD Primary Care Provider [phone] Jeanette Camacho MD Primary Care Provider Unavailable Jillian Bustamante MD Primary Care Provider Unavailable Jillian Bustamante MD Primary Care Provider Unavailable Annika Blakely NATIONAL SALES DIRECTOR Unavailable Misael Plascencia MD Unavailable Unavailable Kenia Omalley DO Primary Care Provider Unavaila Dionne Monteiro MD Primary Care Provider Un available Orlin Shah MD Primary Care Provider Unav ailable Encounter Details Date Type Department Care Team Description 07/20/2016 Exercise Physiology Professor Report Medical Records [address] [place] [address] Delvin Hassan MD Social History Tobacco Use [...] on filedocumented in this encounter Care Teams Pathology Supervisor Relationship Specialty Start Date End Date Donna Padilla MD [address] [place] [address] PCP - General Internal Medicine 08/12/17 01/11/18 Jeanette Camacho MD [address] [place] [address] PCP - General Internal Medicine 01/12/18 01/14/20 Jillian Bustamante MD [address] [place] [address] PCP - General Internal Medicine 01/15/20 06/21/21 Jillian Bustamante MD [address] [place] [address] PCP - General 11/11/15 08/11/17 Kenia Omalley DO [address] [place] [address] PCP - General Internal Medicine 06/22/21 11/23/23 Dionne Marcus MD [address] [place] [address] PCP - General Internal Medicine 11/24/23 03/26/24 Orlin Shah MD [address] [place] [address] PCP - General Family Practice 03/27/24 Annika Blakely NP [address] [place] [address] Nurse Practitioner Cardiology 10/29/20 Misael Plascencia MD [address] [place] [address] Letterset Press Set Up Operator Cardiovascular Disease 10/29/20 11/14/23 documented as of this encounter
--- OUTSIDE RECORDS SUMMARY | 2025-02-12 12:00 | XMS_ITS | Encounter Summary ---
Author Organization [facility] Address [address] [place] [address] Care Team Providers Care Client Account Representative Name Role Phone Jillian Bustamante MD Primary Care Provider Unavailable Annika Blakely NP Unavailable [phone] Misael Plascencia MD Unavailable Unavailable Kenia Omalley DO Primary Care Provider Unavaila Dionne Monteiro MD Primary Care Provider Un available Orlin Shah MD Primary Care Provider Unav ailable Reason for Visit * Reason Comments Remote Device Check Encounter Details Date Type Department Care Team Description 02/17/2021 Remote Device Check Cardio PVC POC [address] [facility] [address] [place] [address] Dean Kaba MD [address] [place] [address] Social History Tobacco Use Types Packs/Day Years [...] on filedocumented in this encounter Care Teams Client Account Representative Relationship Specialty Start Date End Date Jillian Bustamante MD PCP - General Internal Medicine 01/15/20 06/21/21 Kenia Omalley DO PCP - General Internal Medicine 06/22/21 11/23/23 Dionne Marcus MD PCP - General Internal Medicine 11/24/23 03/26/24 Orlin Shah MD PCP - General Family Practice 03/27/24 Annika Blakely NP Nurse Practitioner Cardiology 10/29/20 Misael Plascencia MD Cotton Tier Cardiovascular Disease 10/29/20 11/14/23 documented as of this encounter
--- OUTSIDE RECORDS SUMMARY | 2025-02-12 12:00 | XMS_ITS | Encounter Summary ---
Author Organization [facility] Address [address] [place] [address] Care Team Providers Care Fuselage Framer Name Role Phone Jillian Bustamante MD Primary Care Provider Unavailable Annika Blakely NP Unavailable [phone] Misael Plascencia MD Unavailable Unavailable Kenia Omalley DO Primary Care Provider Unavaila Dionne Monteiro MD Primary Care Provider Un available Orlin Shah MD Primary Care Provider Unav ailable Encounter Details Date Type Department Care Team Description 02/17/2021 Telephone Cardio PVC POC 154 [address] [facility] [address] [place] [address] Khadra Gandhi PA-C [address] [place] [address] Social History Tobacco Use Types Packs/Day Years [...] 2.6 mg/dL 02/20/2021 2:28 PM EDT [facility] 02/20/2021 11:2 4 AM EDT 02/20/2021 11:26 AM EDT Narrative [facility] - 02/20/2021 2:28 PM EDT Release to patient->Immediate Annika Blakely NP LAB [facility] * (ABNORMAL) COMPREHENSIVE METABOLIC PANEL (02/20/2021 11:24 AM EDT) Blood Urea Nitrogen 16 5 - 25 mg/dL 02/20/2021 2:28 PM EDT [facility] CREAT 1.01 0.7 - 1.3 mg/dL 02/20/2021 2:28 PM EDT [facility] GLOMERULAR FILTRATION RATE > 60 02/20/2021 2:28 PM EDT [facility] Comment: If patient is -Indian, multiply result by 1.21 Chronic Kidney Disease: < 60 ml/min/1.73 square meters Kidney Failure: < 15 ml/min/1.73 square meters NA 140 135 - 145 mEq/L 02/20/2021 2:28 PM EDT [facility] K 4.7 3.5 - 5.5 mmol/L 02/20/2021 2:28 PM EDT [facility] CL 105 96 - 110 mmol/L 02/20/2021 2:28 PM EDT [facility] CALCIUM 9.0 8.5 - 10.5 mg/dL 02/20/2021 2:28 PM EDT [facility] Albumin 3.6 3.2 - 5.0 G/dL 02/20/2021 2:28 PM EDT [facility] SGPT 34 10 - 60 U/L 02/20/2021 2:28 PM EDT [facility] GLUCOSE 102(H) 70 - 100 mg/dL 02/20/2021 2:35 PM EDT [facility] Comment:Reference range appl icable to fasting specimens only CARBON DIOXIDE (CO2) 29 21 - 32 mmol/L 02/20/2021 2:35 PM EDT [facility] ANION GAP 6 3 - 11 02/20/2021 2:35 PM EDT [facility] TOTAL PROTEIN (TP) 7.0 6.0 - 8.0 G/dL 02/20/2021 2:35 PM EDT [facility] BILIRUBIN TOTAL 0.7 0.0 - 1.4 mg/dL 02/20/2021 2:35 PM EDT [facility] SGOT 23 10 - 42 U/L 02/20/2021 2:35 PM EDT [facility] ALK PHOS 88 42 - 121 U/L 02/20/2021 2:35 PM EDT [facility] 02/20/2021 11:2 4 AM EDT 02/20/2021 11:26 AM EDT Narrative [facility] - 02/20/2021 2:35 PM EDT Release to patient->Immediate Annika Blakely NP LAB [employer] [facility] documented in this encounter Visit Diagnoses Diagnosis NSVT (nonsustained ventricular tachycardia) (HCC)- Primary Paroxysmal ventricular tachycardia Ischemic cardiomyopathy Other specified forms of chronic ischemic heart disease Ischemic cardiomyopathy Other specified forms of chronic ischemic heart disease NSVT (nonsustained ventricular tachycardia) (HCC) Paroxysmal ventricular tachycardia documented in this encounter Care Teams Fuselage Framer Relationship Specialty Start Date End Date Jillian Bustamante MD PCP - General Internal Medicine 01/15/20 06/21/21 Kenia Omalley DO PCP - General Internal Medicine 06/22/21 11/23/23 Dionne Marcus MD PCP - General Internal Medicine 11/24/23 03/26/24 Orlin Shah MD PCP - General Family Practice 03/27/24 Annika Blakely NP Nurse Practitioner Cardiology 10/29/20 Misael Plascencia MD Criminal Justice Instructor Cardiovascular Disease 10/29/20 11/14/23 documented as of this encounter
--- OUTSIDE RECORDS SUMMARY | 2025-02-12 12:00 | XMS_ITS | Encounter Summary ---
Author Organization [facility] Address [address] [place] [address] Care Team Providers Care Chain Mortiser Operator Name Role Phone Donna Padilla MD Primary Care Provider [phone] Jeanette Camacho MD Primary Care Provider Unavailable Jillian Bustamante MD Primary Care Provider Unavailable Jillian Bustamante MD Primary Care Provider Unavailable Annika Blakely WAYS OPERATOR Unavailable [phone] Misael Plascencia MD Unavailable Unavailable Kenia Omalley DO Primary Care Provider Unavaila Dionne Monteiro MD Primary Care Provider Un available Orlin Shah MD Primary Care Provider Unav ailable Encounter Details Date Type Department Care Team Description 03/31/2017 Telephone Adult Medicine - [address] [address] Jeanette Camacho MD Social History Tobacco Use [...] on filedocumented in this encounter Care Teams Chain Mortiser Operator Relationship Specialty Start Date End Date Donna Padilla MD [address] [place] [address] PCP - General Internal Medicine 08/12/17 01/11/18 [place]-Jeanette Dupree MD [address] [place] [address] PCP - General Internal Medicine 01/12/18 01/14/20 Jillian Bustamante MD [address] [place] [address] PCP - General Internal Medicine 01/15/20 06/21/21 Jillian Bustamante MD [address] [place] [address] PCP - General 11/11/15 08/11/17 Kenia Omalley DO [address] [place] [address] PCP - General Internal Medicine 06/22/21 11/23/23 Dionne Marcus MD [address] [place] [address] PCP - General Internal Medicine 11/24/23 03/26/24 Orlin Shah MD [address] [place] [address] PCP - General Family Practice 03/27/24 Annika Blakely NP [address] [place] [address] Nurse Practitioner Cardiology 10/29/20 Misael Plascencia MD [address] [place] [address] Offal Baler Cardiovascular Disease 10/29/20 11/14/23 documented as of this encounter
--- OUTSIDE RECORDS SUMMARY | 2025-02-12 12:00 | XMS_ITS | Encounter Summary ---
Author Organization [facility] Address [address] [place] [address] Care Team Providers Care Department Store Manager Name Role Phone Donna Padilla MD Primary Care Provider [phone] Jeanette Camacho MD Primary Care Provider Unavailable Jillian Bustamante MD Primary Care Provider Unavailable Jillian Bustamante MD Primary Care Provider Unavailable Annika Blakely SUPERVISOR WHEEL SHOP Unavailable [phone] Misael Plascencia MD Unavailable Unavailable Kenia Omalley DO Primary Care Provider Unavaila Dionne Monteiro MD Primary Care Provider Un available Orlin Shah MD Primary Care Provider Unav ailable Encounter Details Date Type Department Care Team Description 05/11/2017 Cylinder Filler Report Medical Records [address] [place] [id number] Dean Kaba MD [address] [place] [address] [id number] Social History Tobacco Use Types Packs/Day Years [...] on filedocumented in this encounter Care Teams Department Store Manager Relationship Specialty Start Date End Date Donna Padilla MD [address] [place] [address] [phone] PCP - General Internal Medicine 08/12/17 01/11/18 Longview-Jeanette Dupree MD [address] [place] [address]97 PCP - General Internal Medicine 01/12/18 01/14/20 Jillian Bustamante MD [address] [place] [address]10 PCP - General Internal Medicine 01/15/20 06/21/21 Jillian Bustamante MD [address] [place] [address] 39431 PCP - General 11/11/15 08/11/17 Kenia Omalley DO [address] [place] [address] 94451 PCP - General Internal Medicine 06/22/21 11/23/23 Dionne Marcus MD [address] [place] [address] PCP - General Internal Medicine 11/24/23 03/26/24 Orlin Shah MD [address] [place] [address] 16445 PCP - General Family Practice 03/27/24 Annika Blakely NP [address] [place], [place] [phone] Nurse Practitioner Cardiology 10/29/20 Misael Plascencia MD [address] [place] [address] Manager Transportation Cardiovascular Disease 10/29/20 11/14/23 documented as of this encounter
--- OUTSIDE RECORDS SUMMARY | 2025-02-12 12:00 | XMS_ITS | Encounter Summary ---
Author Organization [facility] Address [address] [place] [address] Care Team Providers Care Upstairs Maid Name Role Phone Jillian Bustamante MD Primary Care Provider Unavailable Annika Blakely NP Unavailable [phone] Misael Plascencia MD Unavailable Unavailable Kenia Omalley DO Primary Care Provider Unavaila ble Dionne Marcus MD Primary Care Provider Un available Orlin Shah MD Primary Care Provider Unav ailable Encounter Details Date Type Department Care Team Description 02/04/2021 Telephone Radiology - [address] [id number] Jillian Bustamante MD Social History Tobacco Use [...] on filedocumented in this encounter Care Teams Upstairs Maid Relationship Specialty Start Date End Date Jillian Bustamante MD PCP - General Internal Medicine 01/15/20 06/21/21 Kenia Omalley DO PCP - General Internal Medicine 06/22/21 11/23/23 Dionne Marcus MD PCP - General Internal Medicine 11/24/23 03/26/24 Orlin Shah MD PCP - General Family Practice 03/27/24 Annika Blakely NP Nurse Practitioner Cardiology 10/29/20 Misael Plascencia MD Advertising Consultant Cardiovascular Disease 10/29/20 11/14/23 documented as of this encounter
--- OUTSIDE RECORDS SUMMARY | 2025-02-12 12:00 | XMS_ITS | Encounter Summary ---
Author Organization [facility] Address [address] [place] [address] Care Team Providers Care Corset Maker Name Role Phone Donna Padilla MD Primary Care Provider [phone] Jeanette Camacho MD Primary Care Provider Unavailable Jillian Bustamante MD Primary Care Provider Unavailable Jillian Bustamante MD Primary Care Provider Unavailable Annika Blakely RECORDS MANAGEMENT ANALYST Unavailable [phone] Misael Plascencia MD Unavailable Unavailable Kenia Omalley DO Primary Care Provider Unavaila Dionne Monteiro MD Primary Care Provider Un available Orlin Shah MD Primary Care Provider Unav ailable Encounter Details Date Type Department Care Team Description 11/17/2016 Transfer Records Medical Records [address] [place] [id number] [facility] [address] [place] [address] Social History Tobacco Use Types Packs/Day Years [...] on filedocumented in this encounter Care Teams Corset Maker Relationship Specialty Start Date End Date Donna Padilla MD [address] [place] [address]2435 PCP - General Internal Medicine 08/12/17 01/11/18 Jeanette Camacho MD [address] [place] [address] 06858 PCP - General Internal Medicine 01/12/18 01/14/20 Jillian Bustamante MD [address] [place] [address] 51475 PCP - General Internal Medicine 01/15/20 06/21/21 Jillian Bustamante MD [address] [place] [address] 38259 PCP - General 11/11/15 08/11/17 Kenia Omalley DO [address] [place] [address] 94118 PCP - General Internal Medicine 06/22/21 11/23/23 Dionne Marcus MD [address] [place] [address] PCP - General Internal Medicine 11/24/23 03/26/24 Orlin Shah MD [address] [place] [address] PCP - General Family Practice 03/27/24 Annika Blakely, FRANK [address] [place] [address] Nurse Practitioner Cardiology 10/29/20 Misael Plascencia MD [address] [place] [address] Baggage Inspector Cardiovascular Disease 10/29/20 11/14/23 documented as of this encounter
--- OUTSIDE RECORDS SUMMARY | 2025-02-12 12:00 | XMS_ITS | Encounter Summary ---
Author Organization [facility] Address [address] [place] [address] Care Team Providers Care Wireless Field Technician Name Role Phone Donna Padilla MD Primary Care Provider [phone] Jeanette Camacho MD Primary Care Provider Unavailable Jillian Bustamante MD Primary Care Provider Unavailable Jillian Bustamante MD Primary Care Provider Unavailable Annika Blakely INHALATION THERAPY AIDES TEACHER Unavailable [phone] Misael Plascencia MD Unavailable Unavailable Kenia Omalley DO Primary Care Provider Unavaila Dionne Monteiro MD Primary Care Provider Un available Orlin Shah MD Primary Care Provider Unav ailable Encounter Details Date Type Department Care Team Description 03/17/2016 Pain Management Physician Report Medical Records [address] [place], [place] [id number] Linh Quiroz Social History Tobacco Use Types [...] on filedocumented in this encounter Care Teams Wireless Field Technician Relationship Specialty Start Date End Date Donna Padilla MD [address] [place] [address] PCP - General Internal Medicine 08/12/17 01/11/18 Jeanette Camacho MD [address] [place], [place] [phone] PCP - General Internal Medicine 01/12/18 01/14/20 Jillian Bustamante MD [address] [place] [address] 299[address] PCP - General Internal Medicine 01/15/20 06/21/21 Jillian Bustamante MD [address] [place] [address] PCP - General 11/11/15 08/11/17 Kenia Omalley DO [address] [place] [address] 99025 PCP - General Internal Medicine 06/22/21 11/23/23 Dionne Marcus MD [address] [place] [address] 03380 PCP - General Internal Medicine 11/24/23 03/26/24 Orlin Shah MD [address] [place] [address] PCP - General Family Practice 03/27/24 Annika Blakely NP [address] [place] [address] Nurse Practitioner Cardiology 10/29/20 Misael Plascencia MD [address] [place] [address] Enrollment Consultant Cardiovascular Disease 10/29/20 11/14/23 documented as of this encounter
--- OUTSIDE RECORDS SUMMARY | 2025-02-12 12:00 | XMS_ITS | Encounter Summary ---
Author Organization [facility] Address [address] [place] [address] Care Team Providers Care Machine Sizer Name Role Phone Donna Padilla MD Primary Care Provider [phone] Jeanette Camacho MD Primary Care Provider Unavailable Jillian Bustamante MD Primary Care Provider Unavailable Jillian Bustamante MD Primary Care Provider Unavailable Annika Blakely COLOR STRAINER Unavailable Misael Plascencia MD Unavailable Unavailable Kenia Omalley DO Primary Care Provider Unavaila Dionne Monteiro MD Primary Care Provider Un available Orlin Shah MD Primary Care Provider Unav ailable Encounter Details Date Type Department Care Team Description 11/19/2016 Manager Performance Improvement Report Medical Records [address] [place], [place] [id number] Jose Lara MD Social History Tobacco Use [...] filedocumented in this encounter Care Teams Machine Sizer Relationship Specialty Start Date End Date Donna Padilla MD [address] [place] [address] PCP - General Internal Medicine 08/12/17 01/11/18 Jeanette Camacho MD [address] [place], [place] [phone] PCP - General Internal Medicine 01/12/18 01/14/20 Jillian Bustamante MD [address] [place] [address] PCP - General Internal Medicine 01/15/20 06/21/21 Jillian Bustamante MD [address] [place] [address] 92386 PCP - General 11/11/15 08/11/17 Kenia Omalley DO [address] [place] [address] 72272 PCP - General Internal Medicine 06/22/21 11/23/23 Dionne Marcus MD [address] [place] [address] 11434 PCP - General Internal Medicine 11/24/23 03/26/24 Orlin Shah MD [address] [place] [address] PCP - General Family Practice 03/27/24 Annika Blakely NP [address] [place] [address] Nurse Practitioner Cardiology 10/29/20 Misael Plascencia MD [address] [place] [address] Composition Roofer Cardiovascular Disease 10/29/20 11/14/23 documented as of this encounter
[2025-02-12 13:49] LABS: Ferritin 332 ng/mL (20-250)
[2025-02-12 13:50] LABS: Folate 8.0 ng/mL (> or = 4.0); Vitamin B12 380 pg/mL (200-900)
== END 2025-02-12 09:29 | disposition home or self-care (01) ==
LOC: HO.HKASLDS 09:28
PROVIDERS: PCP Family Medicine; Visit Provider Physician Assistant Medical
DX: G47.19 Other hypersomnia (principal); R53.83 Other fatigue
CPT/HCPCS: 36415; 82607; 82728; 82746; 83090; 83921; 84207; 84425; 99202

== ENCOUNTER 2025-04-03 08:30 | Outpatient (REF) | payer MEDICARE, SELFPAY ==
--- OUTSIDE RECORDS SUMMARY | 2025-04-03 08:49 | XMS_ITS | Clinical Summary ---
Author Organization Patient [facility] Address [address] [place] [address] Care Team Providers Care Service Counter Cashier Name Role Phone Orlin Shah MD Primary Care Provider Allergies No known active allergies Medications OMEGA-3 FATTY ACIDS ORAL Take 1 capsule by mouth 1 (one) time each day. [place]-3 Fatty Acids (FISH OIL) 1200 MG Cap [...] with history of four-vessel CABG at [facility] in 2004. Recent coronary angiogram as [...] in one week. AAA (abdominal aortic aneurysm) ([facility] V24) Overview (05/07/2024): Last Assessment & Plan: [...] 3.8cm 2019 Low HDL (under 40) 12/19/2018 5 Hemorrhage of rectum 11/17/2016 025 Overview (05/07/2024): 02/2013 Dr. Gardiner, neg colonoscopy 04/2013 [place] (myocardial infarction) 02/18/2015 07/05/2024 Overview (05/07/2024): 10/16 silent Encounters Date Type Department Care Team Description 01/01/2025 10:20 AM EDT Office Visit [facility] Cardiology Formerly [facility] [address] [place] [address] Roger Nelson MD Ischemic cardiomyopathy (Primary Dx) from Last 3 Months Immunizations Immunization Administration Dates Next Due Influenza Quadravalent, MDCK , 0.5ml, preservative free (Flucelvax) 6mo and older 07/03/2018 Influenza Quadravalent, MDCK , 0.5ml, with preservative (Flucelvax) 6mo and older 03/30/2017 Influenza trivalent, 0.5mL ( Fluad) 65yo and older 03/25/2023,03/25/2022,04/06/2021,04/03 Influenza trivalent, 0.5mL, preservative free (Fluarix; FluLaval; Fluzone) ages 6mo and older (Afluria) 3 years and older 03/21/2019,03/01/2016,02/27/2015 GoGuide SARS-CoV-2 COVID-19, mRNA, LNP-S, preservative free 05/26/2021 [...] in 10 yrs OTHER SURGICAL HISTORY PROCEDURE: [place] CORONARY ARTERY BYP W/VEIN & ARTERY GRAFT 4 VEIN OTHER SURGICAL HISTORY PROCEDURE: HISTORICAL ICD; COMMENT: single lead CYST REMOVAL PROCEDURE: [place] EXCISION PILONIDAL CYST/SINUS SIMPLE CARDIAC CATHETERIZATION DONE ON 08/17/2024 AT [facility] INDICTIONS:Abnormal nuclear perfusion study. 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 (ICD) and pacemaker 02/18/2015 DX:Presence of combination i nternal cardiac defibrillator (ICD) and pacemaker Microscopic hematuria 02/18/2015 DX:Microsc opic hematuria; COMMENT: Dr Rosario [place] (myocardial infarction) 02/18/2015 D X:Old [place] (myocardial infarction); COMMENT: 10/16 silent Hyperlipidemia 02/18/2015 [...] Seen on ldct Aneurysm of ascending aorta ([facility] V24) 08/26/2019 DX:Aneurysm of ascending aor ta [...] Description 04/03/2025 10:30 AM EDT Ancillary Procedure [facility] Cardiology [facility] [address] [place] [address] 07/05/2025 11:00 AM EST Ancillary Procedure [facility] Cardiology [facility] [address] [place] [address] 07/15/2025 1:10 PM EST Office Visit [facility] Cardiology [facility] [address] [place] [phone] Annika Blakely NP [address] [place] [address] [address] [place] [address] Health Maintenance Due Date Last Done Comments Zoster Vaccines (2 of 3) 11/02/2016 09/07/2016 Falls Risk Assessment 04/29/2020 Social Influencers of Health Screening 04/29/2020 Colorectal Cancer Screening: Colonoscopy 05/08/2023 05/08/2013 Medicare Annual Wellness Visit 05/10/2024 05/10/2023 Depression Screening 06/13/2024 05/10/2023 COVID-19 Vaccine ( season) 2025 05/26/2021, 09/19/2020, 08/29/2020 Influenza Vaccine (#1) 2025 , 03/25/2023, 03/25/2022, [...] this topic Medical Devices Implanted Type Area Review Coordinator Device Identifier Shelf Expiration Date Model / Serial / Lot [id number] Implanted:10/2013 by Dean Kaba MD (Quantity not on file) Cardiac ICD Left: Chest [employer]HY[employer] MGMT [id number] / [id number] / Procedures Procedure Name Priority Date/Time Associated Diagnosis Comments LIPID PANEL WITH LDL AND HDL RATIO Routine 10/23/2024 7:42 AM EDT BASIC METABOLIC PANEL Routine 08/01/2024 9:50 AM EST DEPRESSION SCREENING Routine 05/10/2023 HEPATITIS C SCREENING Routine 08/28/2015 COLONOSCOPY Routine 05/08/2013 from Last 3 Months or Most Recently Relevant to Health Maintenance Results * (ABNORMAL) Lipid panel with LDL and [...] - 10/24/2024 2:06 AM EDT Performed at: 01 - [facility] [id number] Pastry Assistant: Mala Jenkins MD, Phone: [phone] Specimen Comment: A courtesy copy of this report has been sent to [phone] us Annika Blakely DECK SCALER LAB BLOOD ORDERABLES Final R esult [facility] [...] - 08/01/2024 11:45 AM EST Performed at: [address] [place] [id number] Pastry Assistant: Roosevelt Ferro MD, Phone: [phone] Annika Blakely DECK SCALER LAB BLOOD ORDERABLES Final R esult [facility] 1 * Depression Screening (05/10/2023) [facility] Depression Screening Abstracted Historical Provider HEALTH MAINTENANCE Final Result * Hepatitis C Screening (08/28/2015) [facility] Hepatitis C Screening Abstracted Historical Provider HEALTH MAINTENANCE Final Result * Colonoscopy (05/08/2013) [facility] Colonoscopy No Interpretation , Abstracted Anatomical Region Laterality Modality Other Historical Provider HEALTH MAINTENANCE Final Result from Last 3 Months or Most Recently Relevant to Health Maintenance Insurance MEDICARE [facility] Care Teams Service Counter Cashier Relationship Specialty Start Date End Date Orlin Shah MD [address] [place] [address] Dr Benjamin [place] PCP - General 03/27/24
[2025-04-03 12:10] LABS: Alanine Aminotransferase 20 U/L (0-40); Albumin Level 4.2 g/dL (3.5-5.0); Alkaline Phosphatase 80 U/L (39-117); Anion Gap 10 (12-20); Aspartate Amino Transferase 27 U/L (5-37); Blood Urea Nitrogen 17 mg/dL (9-16); Calcium 8.8 mg/dL (8.4-10.2); Carbon Dioxide 28 mmol/L (22-29); Chloride 108 mmol/L (96-108); Estimated Glomerular Filt Rate > 60; Potassium 4.4 mmol/L (3.3-5.1); Sodium 142 mmol/L (135-145); Total Protein 6.7 g/dL (6.5-8.0)
[2025-04-03 14:06] LABS: Appearance Urine Clear; Glucose Urine UA Negative (Negative); PH 5.5 (5.0-9.0); Specific Gravity - Urine 1.020 (1.005-1.025); UMIC TRIGGER UACC YES
[2025-04-03 14:51] LABS: Microalbum/Creatinine Ratio Ur 93.5 ug/mg cr (<30)
== END 2025-04-03 08:31 | disposition home or self-care (01) ==
LOC: HO.WFDLDS 08:30
PROVIDERS: Visit Provider Family Medicine
DX: Z00.00 Encounter for general adult medical examination without abnormal findings (principal); I10 Essential (primary) hypertension; E78.5 Hyperlipidemia, unspecified; R73.03 Prediabetes; R73.01 Impaired fasting glucose
CPT/HCPCS: 36415; 80053; 81001; 81003; 82043; 82570; 83036; 83721

== ENCOUNTER 2025-04-09 11:41 | Outpatient (AMB) | payer MEDICARE, SELFPAY ==
--- NOTE | 2025-04-09 11:44 | MHC.PC.OV ---
Vital Signs 04/09/25 11:49 Height 6 ft Weight 267 lb 2 oz BMI 36.2 BP 105/66 Blood Pressure Location Rt brachial Position Sitting Respiration 16 Pulse 72 Pulse Source Pulse Oximeter Temp 98.4 F Temp Source Oral Pulse Oximetry (%) 95 Oxygen Delivery Method Room Air Intake Visit Reasons: f/u HTN, chronic conditions Intake Note: patient here for follow up on HTN and chronic conditions Oracle Drm Consultant Required: No Allergies No Known Allergies Allergy (Verified 04/09/25 11:47) Medication List - Last Reconciled 04/09/25 by Orlin Shah MD aspirin (Loren Low Dose Aspirin) 81 mg PO DAILY carvedilol 25 mg PO BID cholecalciferol (vitamin D3) 50 mcg PO DAILY omega 1-vzl-rmm-fish oil 1,200 (144-216) mg (Fish Oil) caps PO rosuvastatin 40 mg PO DAILY 90 days sacubitril-valsartan 24-26 mg (Entresto) 1 tab PO BID tirzepatide (weight loss) (Zepbound) 2.5 mg (0.5 mL) subcut QWEEK 28 days zolpidem 5 mg PO BEDTIME PRN 28 days Tobacco use date assessed: 04/09/25 Fall risk assessment: No Falls in past year Last assessed Fall Risk: 04/09/25 Dental Screening Dental Screen Date: 04/09/25 Did you have a dental visit in the last 12 months?: Yes Did you have a dental problem in the last 6 months where you did not have access to dental care?: No Was dental information given to patient?: Patient has dentist HPI f/u HTN, chronic conditions HPI Details 69 y/o male presents to f/u HTN, chronic conditions. Blood pressure today 105/66, 72p. He is on carvedilol 25mg b.i.d, Entresto b.i.d. Labs drawn 04/03/25. Reviewed labs with pt. A1c 6.2%. Fasting glucose 125. LDL direct 57. He is on rosuvastatin 40mg daily. Reports foot pain with numbness/tingling. HPI Comments History of Present Illness Details Documentation assistance for Orlin Shah MD, was provided by Ammon Bowie,? Four Roll Calender Operator on 04/09/2025 at 12:52 PM EST. I, Dr. Shah, have read, observed, and verified documentation. PFSH Medical History Neuropathy Arthritis Heart disease High cholesterol Family History Father High blood pressure High cholesterol Thyroid disorder Daughter FHx: mental illness Bipolar 1 disorder Social History Housing: Condominium Alcohol intake: current Patient Tobacco Use Status: Never used Tobacco e-Cigarette/Vaping Use: Never Used Second Hand Smoke Exposure: No service: No Current occupational status: retired Cognitive needs: No Hearing needs: No Vision needs: Yes Questionnaire Thrive Questionnaire Date Thrive assessed: 10/07/24 I am a: Patient What is your living situation today?: I have a steady place to live Within the past 12 months, did the food you bought not last and you didn't have the money to get more?: Never true Within the past 12 months, did you worry whether your food would run out before you got money to buy more?: Never true Do you have trouble paying for medicines?: No Do you have trouble getting transportation to medical appointments?: No Do you have trouble paying your heating and electricity bill?: No Do you have trouble taking care of your child, family member or friend?: No Do you have trouble with day-to-day activities such as bathing, preparing meals, shopping, managing finances, etc.?: No Are you currently unemployed and looking for a job?: No Are you interested in more education?: No Please select the resources that you would like help with: Paying for medicine Currently or been in a relationship where the following occur: No concerns reported THRIVE Score: 0 MARA-7 AMB Questionnaire MARA-7 Date MARA - 7 assessed: 02/05/25 Source: Developed by Drs. Rudi Sanchez, Serenity Mendez, Mauricio Charles and colleagues, with an educational zenaida from [employer]. Review of Systems Const Denies chills, Denies fatigue, Denies fever(s), Denies headache(s) and Denies weakness ENT Denies dizziness and Denies headache(s) Card Denies dyspnea Resp Denies cough, Denies dyspnea, Denies wheezing and Denies other (shortness of breath) Musc Denies numbness and Denies tingling Neuro Denies dizziness, Denies headache(s), Denies numbness, Denies tingling and Denies weakness Psych Denies anxiety and Denies depression Endo Denies fatigue Aller/Immun Denies wheezing Physical exam (Primary Care) Vital Signs: Last Vital Signs Temp 98.4 F 04/09/25 11:49 Pulse 72 04/09/25 11:49 Resp 16 04/09/25 11:49 BP 105/66 04/09/25 11:49 Pulse Ox 95 04/09/25 11:49 Oxygen Delivery Method Room Air 04/09/25 11:49 BMI result Body Mass Index 36.2 Tobacco/Smoking Status: Tobacco use Status Tobacco use date assessed 04/09/25 04/09/25 11:52 Patient Tobacco Use Status Never used Tobacco 04/09/25 11:52 e-Cigarette/Vaping Use Never Used 04/09/25 11:52 Thrive Assessment: Date of Thrive Assessment Date Thrive assessed 10/07/24 04/09/25 11:52 Currently or been in a relationship where the following occur: No concerns reported Const General: well developed; No acute distress Nutritional Appearance: well nourished Orientation/consciousness: patient oriented x3 HENMT Head: Yes normocephalic and Yes atraumatic Eyes General: appearance normal, both eyes and all related structures Pupils: Equal, round and reactive pupils present EOM: EOMs intact bilaterally Resp Effort & Inspection: normal respiratory effort Neuro General: patient oriented x3 and gait normal Cranial nerves: Yes Equal, round and reactive pupils present Psych Affect: normal affect Coding Level of Care Code Est Pt Level 4 (20305) Diagnoses Hypertension I10 Coronary artery disease I25.10 Pre-diabetes R73.03 Obesity E66.9 Hyperlipidemia E78.5 Screening for colon cancer Z12.11 Immunization counseling Z71.85 Foot pain M79.673 Paresthesias R20.2 Assessment & Plan Assessment & Plan (1) Hypertension: Code(s): I10 - Essential (primary) hypertension Category: Medical Plan: Blood pressure is a little on the low side today but patient feels well. Hydrate well Continue current medication (2) Coronary artery disease: Code(s): I25.10 - Atherosclerotic heart disease of [place] coronary artery without angina pectoris Category: Medical Plan: Stable (3) Pre-diabetes: Code(s): R73.03 - Prediabetes Category: Medical Plan: A1c climbed to 6.2%. Continue working on diet low in sugars And starches (4) Obesity: Code(s): E66.9 - Obesity, unspecified Category: Medical Plan: Encouraged weight loss and exercise (5) Hyperlipidemia: Code(s): E78.5 - Hyperlipidemia, unspecified Category: Medical Plan: LDL at goal of < 70 HDL too low Recheck lipids (6) Screening for colon cancer: Code(s): Z12.11 - Encounter for screening for malignant neoplasm of colon Category: Medical Plan: Cologuard test ordered (7) Immunization counseling: Code(s): Z71.85 - Encounter for immunization safety counseling Category: Medical Plan: Advised high-dose flu shot Patient will get this at his pharmacy (8) Foot pain: Code(s): M79.673 - Pain in unspecified foot Category: Medical (9) Paresthesias: Code(s): R20.2 - Paresthesia of skin Category: Medical Plan Ongoing bilateral foot pain and paresthesias Microfilament test reveals mild decrease in sensation slightly worse on left than right foot Checking labs including B12, inflammatory markers, autoimmune markers Referred to neurology Orders: Orders US abdominal aortic aneurysm Today I71.40 - Abdominal aortic aneurysm, without rupture, unspecified Erythrocyte Sedimentation Rate Today G62.9 - Polyneuropathy, unspecified CRP High Sensitivity Today G62.9 - Polyneuropathy, unspecified Lyme IgG/IgM w/reflex to WB Today G62.9 - Polyneuropathy, unspecified Vitamin B12 and Folate Today E53.8 - Deficiency of other specified B group vitamins, G62.9 - Polyneuropathy, unspecified Syphilis Screen Today G62.9 - Polyneuropathy, unspecified, Z11.3 - Encounter for screening for infections with a predominantly sexual mode of transmission ROBYN Reflex Titer and Pattern Today G62.9 - Polyneuropathy, unspecified Referrals Cologuard Test Z12.11 - Encounter for screening for malignant neoplasm of colon, Z12.12 - Encounter for screening for malignant neoplasm of rectum Neurology Referral G62.9 - Polyneuropathy, unspecified Medications: New mecobalamin (vitamin B12) 500 mcg PO DAILY 90 tabs 3RF 90 days G62.9 - Polyneuropathy, unspecified
[2025-04-09 11:49] VITALS: BP 105/66; PULSE 72; RESP 16; TEMP 36.9; O2SAT 95; BMI 36.2
--- OUTSIDE RECORDS SUMMARY | 2025-04-09 15:03 | XMS_ITS | Clinical Summary ---
Author Organization Patient Business Ser [facility] Address [address] [place] [address] Care Team Providers Care Retail Pharmacy Technician Name Role Phone Orlin Shah MD Primary Care Provider Allergies No known active allergies Medications OMEGA-3 FATTY ACIDS ORAL Take 1 capsule by mouth 1 (one) time each day. [place]-3 Fatty Acids (FISH OIL) 1200 MG Cap [...] disease with history of four-vessel CABG at [facility] in 2004. Recent coronary angiogram as [...] in one week. AAA (abdominal aortic aneurysm) ([facility] V24) Overview (05/07/2024): Last Assessment & Plan: [...] 02/2013 Dr. Gardiner, neg colonoscopy 04/2013 Old [place] (myocardial infarction) 02/18/2015 07/05/2024 Overview (05/07/2024): 10/16 silent Encounters Date Type Department Care Team Description 04/03/2025 10:30 AM EDT Ancillary Procedure [facility] Cardiology [facility] [address] [place] [address] Encounter for adjustment or management of cardiac device 04/03/2025 Telephone [facility] - [address] [place] [address] Marshal Farrell MA from Last 3 Months Immunizations Immunization Administration [...] 05/08/2013 PROCEDURE: HISTORICAL COLONOSCOPY; COMMENT: Dr Gardiner, 2013, due in 10 yrs OTHER SURGICAL HISTORY PROCEDURE: [place] CORONARY ARTERY BYP W/VEIN & ARTERY GRAFT 4 VEIN OTHER SURGICAL HISTORY PROCEDURE: HISTORICAL ICD; COMMENT: single lead CYST REMOVAL PROCEDURE: PA EXCISION PILONIDAL CYST/SINUS SIMPLE CARDIAC CATHETERIZATION DONE ON 08/17/2024 AT [facility] W K[facility] INDICTIONS:Abnormal nuclear perfusion study. 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 02/18/2015 DX:Presence of combination i nternal cardiac defibrillator (ICD) and pacemaker Microscopic hematuria 02/18/2015 DX:Microsc opic hematuria; COMMENT: Dr Rosario Old [place] (myocardial infarction) 02/18/2015 D X:Old [place] (myocardial infarction); COMMENT: 10/16 silent Hyperlipidemia 02/18/2015 [...] Care Team (Late st Contact Info) Description 07/05/2025 11:00 AM EST Ancillary Procedure [facility]iology [facility] [address] [place] [address] 07/09/2025 9:00 AM EST Ancillary Procedure [facility] Cardiology [facility] [address] [place] [address] 07/15/2025 1:10 PM EST Office Visit [facility] Cardiology [facility] [place] [address] [place] [address] Annika Blakely NP [address] [place] [address] Dr [address] [place] [address] Health Maintenance Due Date Last Done Comments Zoster Vaccines (2 of 3) 11/02/2016 09/07/2016 Falls Risk Assessment 04/29/2020 Social Influencers of Health Screening 04/29/2020 Colorectal Cancer Screening: Colonoscopy 05/08/2023 05/08/2013 Medicare Annual Wellness Visit 05/10/2024 05/10/2023 Depression Screening 06/13/2024 05/10/2023 COVID-19 Vaccine ( season) 2025 05/26/2021, 09/19/2020, 08/29/2020 Influenza Vaccine (#1) 2025 4, 03/25/2023, 03/25/2022, Additional history exists Hypertension/CHF/CAD Annual [...] this topic Medical Devices Implanted Type Area Promotional Marketing Analyst Device Identifier Shelf Expiration Date Model / Serial / Lot Bsci-Crm [id number] Implanted:10/2013 by Dean Kaba MD (Quantity not on file) Cardiac ICD Left: Chest [place] SCI CARD RHYTHM MGMT [id number] / [id number] / Procedures Procedure Name Priority Date/Time Associated Diagnosis Comments CARDIAC DEVICE CHECK- IN CLINIC- [facility] Routine 04/03/2025 10:55 AM EDT Encounter for adjustment or management of cardiac device LIPID PANEL WITH LDL AND HDL RATIO Routine 10/23/2024 7:42 AM EDT BASIC METABOLIC PANEL Routine 08/01/2024 9:50 AM EST HM DEPRESSION SCREENING Routine 05/10/2023 HM HEPATITIS C SCREENING Routine 08/28/2015 HM COLONOSCOPY Routine 05/08/2013 from Last 3 Months or Most Recently Relevant to Health Maintenance Results * CARDIAC DEVICE CHECK- IN CLINIC- [facility] (04/03/2025 10:55 AM EDT) Date Time Interrogation Session [id number] CV DEVICE CHECK Implantable Pulse Generator Promotional Marketing Analyst BSX CV DEVICE CHECK Implantable Pulse Generator Type ICD CV DEVICE CHECK Implantable Pulse Generator Model E141 CV DEVICE CHECK Implantable Pulse Generator Serial Number [id number] CV DEVICE CHECK Implantable Pulse Generator Implant Date 20140115 CV DEVICE CHECK Battery Status Unknown CV DE VICE CHECK Lead Channel Sensing Intrinsic Amplitude 16.200 CV DEVICE CHECK Lead Channel Setting Sensing Sensitivity 0.60 CV DEVICE CHECK Lead Channel Impedance Value 478 CV DEVICE CHECK Lead Channel Pacing Threshold Amplitude 1.000 CV DEVICE CHECK Lead Channel Pacing Threshold Pulse Width 0.5 CV DEVICE CHECK Lead Channel RV Pacing Threshold Date 2025-04-03 CV DEVICE CHECK Lead Channel Setting Pacing [...] 0 CV DEVICE CHECK Shock Measured Impedance 89 CV DEVICE CHECK Zone Setting Type Category [...] 3 CV DEVICE CHECK Date of Service 2025-06-26 CV DEVICE CHECK Anatomical Region Laterality Modality Device Interroga tion 04/03/2025 Impressions 04/04/2025 7:47 AM EDT Normal In-Office: With Events * Normal Device Function * Events or Alerts: 12 NSVT events noted since last check; longest 41 beats (8 seconds, to 171 bpm, avg 160 bpm) on 9.29.25- pt asymptomatic, no therapies warranted. AB/LAY notified of findings * Battery: Battery is at 41.7%, 3 years * Sensing, impedance and thresholds reviewed and tested * Presenting Rhythm: VS 60's * Underlying Rhythm: VS 60's * Heart Rate Histograms reviewed * Pacing and Detection Parameters were evaluated Narrative Procedure Note Dean Kaba MD - 04/04/2025 IMPRESSION: Normal In-Office: With Events * Normal Device Function * Events or Alerts: 12 NSVT events noted since last check; longest 41beats (8 seconds, to 171 bpm, avg 160 bpm) on 9.29.25- pt asymptomatic, notherapies warranted. AB/LAY notified of findings * Battery: Battery is at 41.7%, 3 years * Sensing, impedance and thresholds reviewed and tested * Presenting Rhythm: VS 60's * Underlying Rhythm: VS 60's * Heart Rate Histograms reviewed * Pacing and Detection Parameters were evaluated us Order Referral Cardiovascular CV IMPLANTABLE CAR DIAC DEVICE PROCEDURES Final Result * (ABNORMAL) Lipid panel with LDL and [...] - 10/24/2024 2:06 AM EDT Performed at: [address] [id number] Chain Puller: Mala Jenkins MD, Phone: [phone] Specimen Comment: A courtesy copy of this report has been sent to [phone] us Annika Blakely RADIO INTERFERENCE SUPERVISOR LAB BLOOD ORDERABLES Final R esult [facility] * (ABNORMAL) Basic metabolic panel (08/01/2024 9:50 AM EST) [facility] Glucose 129(H) 70 - 99 MG/DL [facility] [...] - 08/01/2024 11:45 AM EST Performed at: 01 [address] [id number] Chain Puller: Roosevelt Ferro MD, Phone: [phone] us Annika Blakely RADIO INTERFERENCE SUPERVISOR LAB BLOOD ORDERABLES Final R esult [facility] * Depression Screening (05/10/2023) Depression Screening Abstracted Historical Provider HEALTH MAINTENANCE Final Result * Hepatitis C Screening (08/28/2015) Pathologist [facility] Hepatitis C Screening Abstracted Historical Provider HEALTH MAINTENANCE Final Result * Colonoscopy (05/08/2013) Pathologist [facility] Colonoscopy No Interpretation , Abstracted Anatomical Region Laterality Modality Other Historical Provider HEALTH MAINTENANCE Final Result from Last 3 Months or Most Recently Relevant to Health Maintenance Insurance MEDICARE [facility] Care Teams Retail Pharmacy Technician Relationship Specialty Start Date End Date Orlin Shah MD [address] [place] [address] Dr Benjamin MA PCP - General 03/27/24
--- OUTSIDE RECORDS SUMMARY | 2025-04-09 15:03 | XMS_ITS | Encounter Summary ---
Author Organization [facility] Address [address] [place] [address] Care Team Providers Care Cook Helper Juice Name Role Phone Orlin Shah MD Primary Care Provider [phone] Encounter Details Date Type Department Care Team (Late st Contact Info) Description 04/03/2025 Telephone [facility] [address] [facility] [address] [place] [address] Marshal Farrell MA Social History Tobacco Use Types Packs/Day Years Used Date Smoking Tobacco: Former Cigarettes 1 32 0 06/13/1972 - 06/13/2004 Smokeless Tobacco: Never Alcohol Use Standard Drinks/Week Comments Yes 0 (1 standard drink = 0.6 oz pur e alcohol) occassional Sex and Gender Information Value Date Recorded Sex Assigned at Not on file Legal Sex Male 6:46 PM EST Gender Identity Not on file Sexual Orientation Not on file documented as of this encounter Progress Notes * Odalis Fisher MA - 04/05/2025 1:43 PM EDT Please book patient for a device check in 1 month so we can check for any new high ventricular rateepisodes as he does not do remote monitoring. You can double book him on a Tuesday or if there is no open spots. Thank you! Annika, we will let you know if he has any more episodes at that time. (Message put in MURJ as a reminder) * Annika Blakely NP - 04/04/2025 12:02 PM EDT The patient does not have remote monitoring I would recommend bringing him back in sooner for a recheck. If he continues to have episodes of nonsustained ventricular tachycardia I would like him to be seen by electrophysiology team. * Marshal Farrell MA - 04/03/2025 10:56 AM EDT AB/Dr Omar BOURNE: pt was seen today in device clinic for routine 3 month check (declines remote monitoring). Pt has had 12 NSVT events over the last month: longest 8 seconds (41 bts) on 03.11.25; to 171 bpm, averaging 160 bpm. Pt asymptomatic and denies any overt symptoms. Complete device findings available in MURJ - pending signature form JPM. No HF evaluation capable in device, but pt also denies any overt signs of fluid retention as well. Denies any recent med changes. Next OV with AB in Jul.. documented in this encounter Plan of Treatment Upcoming Encounters Date Type Department Care Team (Late st Contact Info) Description 07/05/2025 11:00 AM EST Ancillary Procedure [facility] Cardiology [facility] [address] [place] [address] 07/09/2025 9:00 AM EST Ancillary Procedure [facility] Cardiology [facility] [address] [place] [address] 07/15/2025 1:10 PM EST Office Visit [facility] Cardiology [facility] [address] [place] [phone] Annika Blakely NP [address] [place] [address] [place] [phone] documented as of this encounter Visit Diagnoses Not on filedocumented in this encounter Care Teams Cook Helper Juice Relationship Specialty Start Date End Date Orlin Shah MD [address] [place] [address] Dr Benjamin MA PCP - General 03/27/24 documented as of this encounter
== END 2025-04-09 12:46 | disposition home or self-care (01) ==
LOC: HO.HMCFM 11:42
PROVIDERS: PCP Family Medicine; Visit Provider Family Medicine
DX: I10 Essential (primary) hypertension (principal); I25.10 Atherosclerotic heart disease of native coronary artery without angina pectoris; E66.9 Obesity, unspecified; Z68.36 Body mass index [BMI] 36.0-36.9, adult; R73.03 Prediabetes; E78.5 Hyperlipidemia, unspecified; M79.671 Pain in right foot; R20.2 Paresthesia of skin; M79.672 Pain in left foot; Z12.11 Encounter for screening for malignant neoplasm of colon; Z71.85 Encounter for immunization safety counseling

== ENCOUNTER → 2025-04-09 11:41 | Outpatient (BNVA) | payer MEDICARE, SELFPAY | PROVIDERS: PCP Family Medicine; Visit Provider Family Medicine | DX: I10 Essential (primary) hypertension (principal); I25.10 Atherosclerotic heart disease of native coronary artery without angina pectoris; R73.03 Prediabetes; E66.9 Obesity, unspecified; Z68.36 Body mass index [BMI] 36.0-36.9, adult; E78.5 Hyperlipidemia, unspecified; R20.2 Paresthesia of skin; Z71.3 Dietary counseling and surveillance | CPT/HCPCS: 99212 ==

== ENCOUNTER → 2025-04-22 12:53 | Outpatient (REF) | payer MEDICARE, SELFPAY ==
--- OUTSIDE RECORDS SUMMARY | 2025-04-22 14:58 | XMS_ITS | Clinical Summary ---
Author Organization Patient Business Ser [facility] Address [address] [place] [address] Care Team Providers Care Corporate Securities Research Analyst Name Role Phone Orlin Shah MD Primary Care Provider Allergies No known active allergies Medications OMEGA-3 FATTY ACIDS ORAL Take 1 capsule by mouth 1 (one) time each day. [place]-3 Fatty Acids (FISH OIL) 1200 MG Cap [...] disease with history of four-vessel CABG at [facility] in 2004. Recent coronary angiogram as outlined [...] in one week. AAA (abdominal aortic aneurysm) ([facility] V24) Overview (05/07/2024): Last Assessment & [...] 02/2013 Dr. Gardiner, neg colonoscopy 04/2013 Old [place] (myocardial infarction) 02/18/2015 07/05/2024 Overview (05/07/2024): 10/16 silent Encounters Date Type Department Care Team Description 04/03/2025 10:30 AM EDT Ancillary Procedure [facility] Cardiology [facility] [address] [place] [address] Encounter for adjustment or management of cardiac device 04/03/2025 Telephone [facility] - [address] [place] [address] Marshal Farrell MA from Last [...] in 10 yrs OTHER SURGICAL HISTORY PROCEDURE: [place] CORONARY ARTERY BYP W/VEIN & ARTERY GRAFT 4 VEIN OTHER SURGICAL HISTORY PROCEDURE: HISTORICAL ICD; COMMENT: single lead CYST REMOVAL PROCEDURE: [place] EXCISION PILONIDAL CYST/SINUS SIMPLE CARDIAC CATHETERIZATION DONE ON 08/17/2024 AT [facility] W KM INDICTIONS:Abnormal nuclear perfusion study. Medical History Medical History Date Comments AAA (abdominal aortic aneury sm) (CMS/HCC V24) 02/18/2015 DX:AAA (abdominal aortic ane urysm) ([facility]); COMMENT: 05/27/14 US/ was to repeat in 1 year / distal abd aortic aneurysm 3.3 cm Presence of combination inte rnal cardiac defibrillator (ICD) and pacemaker 02/18/2015 DX:Presence of combination i nternal cardiac defibrillator (ICD) and pacemaker Microscopic hematuria 02/18/2015 DX:Microsc opic hematuria; COMMENT: Dr Rosario Old [place] (myocardial infarction) 02/18/2015 D X:Old [place] (myocardial infarction); COMMENT: 10/16 silent Hyperlipidemia 02/18/2015 [...] Care Team (Late st Contact Info) Description 05/06/2025 1:00 PM EST Ancillary Procedure [facility] [address] [place] [address] 07/05/2025 11:00 AM EST Ancillary Procedure [facility] [address] [place] [address] 07/09/2025 9:00 AM EST Ancillary Procedure [facility] [address] [place] [address] 07/15/2025 1:10 PM EST Office Visit [facility] Cardiology [facility] - [facility] [place] [address] [facility] [address] [place] [address] Annika Blakely NP [address] [place] [address] Health Maintenance Due Date Last Done Comments Zoster Vaccines (2 of 3) 11/02/2016 09/07/2016 Falls Risk Assessment 04/29/2020 Social Influencers of Health Screening 04/29/2020 Colorectal Cancer Screening: Colonoscopy 05/08/2023 05/08/2013 Medicare Annual Wellness Visit 05/10/2024 05/10/2023 Depression Screening 06/13/2024 05/10/2023 COVID-19 Vaccine (4 - season) 2025 05/26/2021, 09/19/2020, 08/29/2020 Influenza Vaccine [...] this topic Medical Devices Implanted Type Area Pumpman Device Identifier Shelf Expiration Date Model / Serial / Lot Bsci-Crm [id number] Implanted:10/2013 by Dean Kaba MD (Quantity not on file) Cardiac ICD Left: Chest [employer] [employer] CARD RHYTHM MGMT E141 / [id number] / Procedures Procedure Name Priority Date/Time Associated [...] Results * CARDIAC DEVICE CHECK- [facility] (04/03/2025 10:55 AM EDT) Date Time Interrogation Session [id number] CV DEVICE CHECK Implantable Pulse Generator [place] BSX CV DEVICE CHECK Implantable Pulse Generator Type ICD CV DEVICE CHECK Implantable Pulse Generator Model E141 CV DEVICE CHECK Implantable Pulse Generator Serial Number [id number] CV DEVICE CHECK Implantable Pulse Generator Implant [...] to 171 bpm, avg 160 bpm) on 03.11.25- pt asymptomatic, no therapies warranted. AB/LAY notified [...] to 171 bpm, avg 160 bpm) on 03.11.25- pt asymptomatic, notherapies warranted. AB/LAY notified of [...] 10/24/2024 2:06 AM EDT Performed at: [address] [id number] Direct Support Professional: Mala Jenkins MD, Phone: [phone] Specimen Comment: A courtesy copy of this report has been sent to [phone] us Annika Blakely GLASS ETCHER LAB BLOOD ORDERABLES Final R esult [facility] * (ABNORMAL) Basic metabolic panel (08/01/2024 9:50 AM EST) Pathologist [facility] Glucose 129(H) 70 - 99 MG/DL [facility] [...] - 08/01/2024 11:45 AM EST Performed at: [address] [place] [id number] Direct Support Professional: Roosevelt Ferro MD, Phone: [phone] us Annika Blakely GLASS ETCHER LAB BLOOD ORDERABLES Final R esult [facility] 1 * Depression Screening (05/10/2023) [facility] Depression Screening Abstracted Historical Provider HEALTH MAINTENANCE Final Result * Hepatitis C Screening (08/28/2015) [facility] Hepatitis C Screening Abstracted Historical Provider HEALTH MAINTENANCE Final Result * Colonoscopy (05/08/2013) [facility] Colonoscopy No Interpretation , Abstracted Anatomical Region Laterality Modality Other Historical Provider HEALTH MAINTENANCE Final Result from Last 3 Months or Most Recently Relevant to Health Maintenance Insurance MEDICARE [facility] Care Teams Corporate Securities Research Analyst Relationship Specialty Start Date End Date Orlin Shah MD [address] [place] [address] Dr PepeyoGARCIA espinoza PCP - General 03/27/24
== END ==
LOC: HO.SL 12:53
PROVIDERS: PCP Family Medicine; Visit Provider Physician Assistant Medical
DX: G47.19 Other hypersomnia (principal)
CPT/HCPCS: 95806

== ENCOUNTER → 2025-04-22 13:19 | Outpatient (BNV) | payer MEDICARE, SELFPAY | PROVIDERS: PCP Family Medicine; Visit Provider Psychiatry & Neurology Neurology | DX: G47.33 Obstructive sleep apnea (adult) (pediatric) (principal) | CPT/HCPCS: 95806 ==

== ENCOUNTER 2025-05-14 10:29 | Outpatient (AMB) | payer MEDICARE, SELFPAY ==
[2025-05-14 10:45] VITALS: BP 122/76; PULSE 63; O2SAT 93; BMI 35.9
--- NOTE | 2025-05-14 10:45 | A.OFFVIS_ITS ---
Vital Signs 05/14/25 10:45 Height 6 ft Weight 264 lb 8 oz BMI 35.9 BP 122/76 Pulse 63 Pulse Source Pulse Oximeter Pulse Oximetry (%) 93 Oxygen Delivery Method Room Air Intake Visit Reasons: 3 month-sleep Intake Note: Patient presents follow up Sleep. Labs in chart. HST done 04/22 Accompanied by: Self / Same As Patient Allergies No Known Allergies Allergy (Verified 05/14/25 10:48) HPI Comments Details: 69 year old male presents for an evaluation of sleep apnea, he is referred to us by his PCP. He was evaluated for deonte a year ago and could not tolerate the cpap machine. He had a CABG in his 50s, and pacemaker implant. He is a former smoker. He goes to bed at 11pm, and wakes up at 6-8am with 2 bathroom breaks. PSA is 0.6. He thinks sleep is mainly disturbed due to nocturia. He snores loudly per his partner, he denies gasping for air or witnessed apneas. He takes ambien intermittently once every 2 months. Relaxium 2 tablets, 1x a month, when having trouble staying asleep. He denies morning headaches, clenching of teeth and jaw pain. He denies acid reflux. He has RLS symptoms of neuropathy with tingling, paresthesias on the plantar surface of the feet bilaterally and sudden urge to move his feet all night long. His diet is good, eats fruits and vegetables but increased carbs in his diet. STM memory is poor slow to process and difficulty finding words. Mood is stable. Dad passed at 65 due to aneurysm. Denies fh of alzheimer's dementia, [place] Palsey and epileptiform / movement disorders. [facility] Medical History Neuropathy Arthritis Heart disease High cholesterol Family History Father High blood pressure High cholesterol Thyroid disorder Daughter FHx: mental illness Bipolar 1 disorder Social History Housing: Condominium Alcohol intake: current Patient Tobacco Use Status: Never used Tobacco e-Cigarette/Vaping Use: Never Used Second Hand Smoke Exposure: No service: No Current occupational status: retired Cognitive needs: No Hearing needs: No Vision needs: Yes Physical Exam Vital Signs: Last Vital Signs Pulse 63 05/14/25 10:45 BP 122/76 05/14/25 10:45 Pulse Ox 93 05/14/25 10:45 Oxygen Delivery Method Room Air 05/14/25 10:45 BMI result Body Mass Index 35.9 Const General: cooperative, comfortable and no acute distress Nutritional Appearance: obese Orientation/consciousness: patient oriented x3 HEENT Face and sinus: Yes face symmetric Teeth and gingiva: other (Mallmpti score of 3) Eyes Pupils: Equal, round and reactive pupils present Neck Neck: Yes full ROM Resp Effort & Inspection: normal respiratory effort and able to speak in complete sentences Neuro General: patient oriented x3 and moves all extremities Cranial nerves: Yes Equal, round and reactive pupils present, Yes Normal accommodation reflex present, Yes Nystagmus not present, Yes Normal facial strength present, Yes Midline tongue present, Yes Ability to bilaterally rotate head present and Yes Ability to bilaterally elevate shoulders present Cognition (Neuro): normal cognition Gait exam (Neuro): Antalgic gait present Motor exam (neuro): 5/5 motor strength present throughout and Normal motor muscle tone present throughout Psych Appearance: grossly normal Speech and movement: Normal speech and movement present Affect: normal affect Thought process: Normal thought process present Thought content: Normal thought content present Results Reviewed Results Reviewed: HST is pending. Assessment & Plan Assessment & Plan (1) Excessive daytime sleepiness: Code(s): G47.19 - Other hypersomnia Category: Medical (2) Fatigue: Code(s): R53.83 - Other fatigue Category: Medical Qualifiers: Fatigue type: chronic, unspecified Qualified Code(s): R53.82 - Chronic fatigue, unspecified Plan HST r/o deonte pending zepbound per insurance as he is concerned about his weight gain.- HST reading is pendin. Labs reviewed with pt today. Dry Mouth start xylemelt tablets at night. RLS / PLMD? Neuropathy / Radiculopathy, will monitor and start Gabapentin 100mg po qpm for symptomatic of discomfort. f/u in 3 months Medications: New gabapentin 100 mg PO BEDTIME 90 caps 0RF rls 3 months Coding Level of Care Code Est Pt Level 4 (11437) Diagnoses Excessive daytime sleepiness G47.19 Chronic fatigue R53.82 Fatigue type: chronic, unspecified
--- OUTSIDE RECORDS SUMMARY | 2025-05-14 12:03 | XMS_ITS | Encounter Summary ---
Author Organization [facility] Address [address] [place] [address] Care Team Providers Care Propulsion Systems Engineer Name Role Phone Orlin Shah MD Primary Care Provider [phone] Encounter Details Date Type Department Care Team (Late st Contact Info) Description 05/06/2025 Telephone [facility] - [address] [place] [address] Odalis Fisher MA Social History Tobacco Use Types Packs/Day [...] Progress Notes * Odalis Fisher MA - 05/06/2025 1:19 PM EST FYI per your request, patient was seen today for a 1 month device check to assess burden of HVR alerts, 3 new HVR alerts, single lead ICD, EGM suggestive of 2-NSVT episodes, longest was 7-beats and one EGM suggestive of 5 beats AT. Patient requested a 3 month device check as he is feeling fine, scheduled in July. documented in this encounter Plan of Treatment Upcoming Encounters Date Type Department Care Team (Late st Contact Info) Description 07/05/2025 11:00 AM EST Ancillary Procedure [facility] - [address] [place] [address] 07/15/2025 1:10 PM EST Office Visit [facility] [address] [place] [address] Annika Blakely NP [address] [place] [address] [address] [place] [phone] 08/06/2025 1:00 PM EST Ancillary Procedure [facility] - [address] [place] [address] documented as of this encounter Visit Diagnoses Not on filedocumented in this encounter Care Teams Propulsion Systems Engineer Relationship Specialty Start Date End Date Orlin Shah MD [address] [place] [address] [address] [place], [place] PCP - General 03/27/24 documented as of this encounter
--- OUTSIDE RECORDS SUMMARY | 2025-05-14 12:03 | XMS_ITS | Clinical Summary ---
Author Organization Patient Business Ser [facility] Address [address] [place] [address] Care Team Providers Care Skein Tier Name Role Phone Orlin Shah MD Primary Care Provider Allergies No known active allergies Medications OMEGA-3 FATTY ACIDS ORAL Take 1 capsule by mouth 1 (one) time each day. [place]-3 Fatty Acids (FISH OIL) 1200 MG Cap Active aspirin 81 mg EC tablet Take 1 tablet (81 mg total) by mouth 1 (one) time each day. Active rosuvastatin (CRESTOR) 40 mg tablet Take 1 tablet (40 mg total) by mouth 1 (one) time each day. Active cholecalcifero l (VITAMIN D-3) 25 mcg (1,000 unit) tablet Take 1 tablet (1,000 Units total) by mouth 1 (one) time each day. Active sacubitriL-syed sartan (Entresto) 24-26 mg per tablet TAKE 1 TABLET BY MOUTH TWICE DAILY 180 tablet 3 5 Active carvediloL (COREG) 25 mg tablet TAKE 1 TABLET BY MOUTH TWICE DAILY WITH MEALS 180 tablet 3 5 Active carvediloL (COREG) 25 mg tablet TAKE 1 TABLET BY MOUTH TWICE DAILY WITH MEALS 180 tablet 3 5 05/13/20 25 Discontinued Active Problems Problem Noted Date Diagnosed Date Insomnia 03/25/2023 BPH (benign prostatic hyperplasia) 11/18/2019 Lung nodules 03/01/2019 Overview (05/07/2024): Seen on ldct Fatty liver 03/01/2019 Overview (05/07/2024): Seen on ldct Obstructive sleep apnea 02/22/2017 Overview (05/07/2024): [facility] Home Polysomnogram: Date 02/19/2017; AHI 35, [...] artery disease 02/19/2015 Overview (11/01/2024): 4 vessel 2004 Assessment & Plan (11/01/2024 10:14 AM EDT): Patient has coronary artery disease with history of four-vessel CABG at [facility] in 2004. Recent coronary angiogram [...] (abdominal aortic aneurysm) ([facility] V24) Overview (05/07/2024): Last Assessment & [...] 02/2013 Dr. 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 (myocardial infarction) 02/18/2015 07/05/2024 Overview (05/07/2024): 10/16 silent Encounters Date Type Department Care Team Description 05/06/2025 1:00 PM EST Ancillary Procedure [facility] - [address] [place] [address] Encounter for adjustment or management of cardiac device 05/06/2025 Telephone [facility] - [address] [place] [address] Odalis Fisher MA 04/03/2025 10:30 AM EDT Ancillary Procedure [facility] - [address] [place] [address] Encounter for adjustment or management of cardiac device 04/03/2025 Telephone [facility] - [address] [place] [address] Marshal Farrell MA from Last 3 Months [...] in 10 yrs OTHER SURGICAL HISTORY PROCEDURE: NM CORONARY ARTERY BYP W/VEIN & ARTERY GRAFT 4 VEIN OTHER SURGICAL HISTORY PROCEDURE: HISTORICAL ICD; COMMENT: single lead CYST REMOVAL PROCEDURE: NM EXCISION PILONIDAL CYST/SINUS SIMPLE CARDIAC CATHETERIZATION DONE ON 08/17/2024 AT [facility] INDICTIONS:Abnormal nuclear perfusion study. Medical History Medical History Date Comments AAA (abdominal aortic aneury sm) (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 02/18/2015 DX:Presence of combination i nternal cardiac defibrillator (ICD) and pacemaker Microscopic hematuria 02/18/2015 DX:Microsc opic hematuria; COMMENT: Dr Rosario Old AK (myocardial infarction) 02/18/2015 D X:Old AK (myocardial infarction); COMMENT: 10/16 silent Hyperlipidemia 02/18/2015 [...] Description 07/05/2025 11:00 AM EST Ancillary Procedure [facility] - [address] [place] [phone] 07/15/2025 1:10 PM EST Office Visit [facility] [address] [place] [phone] Annika Blakely NP [address] [place] [address] [place] [phone] 08/06/2025 1:00 PM EST Ancillary Procedure [facility] - [address] [place] [address] Health Maintenance Due Date Last Done Comments Zoster Vaccines (2 of 3) 11/02/2016 09/07/2016 Falls Risk Assessment 04/29/2020 Social Influencers of Health Screening 04/29/2020 Medicare Annual Wellness Visit 05/10/2024 05/10/2023 Depression Screening 06/13/2024 05/10/2023 COVID-19 Vaccine ( season) 2025 05/26/2021, 09/19/2020, 08/29/2020 Hypertension/CHF/CAD Annual BMP Blood Test 08/01/2025 08/01/2024, 03/24/2023 DTaP,Tdap,and Td Vaccines (2 - Td or Tdap) 03/01/2026 03/01/2016 Colorectal Cancer Screening: FIT-DNA (Cologuard) 04/22/2028 04/22/2025 RSV Immunization Adult Patients (1 - 1-dose 75+ series) 2029 Cholesterol Screening (Lipid Panel) 10/23/2029 10/23/2024, 08/01/2024, 03/24/2023 Colorectal Cancer Screening: Colonoscopy Discontinued 05/08/2013 Hepatitis C Screening Completed 08/28/2015 Pneumococcal Vaccine: 50+ Years Completed 04/06/2021, 01/21/2020 Influenza Vaccine Completed 04/10/2025, , 03/25/2023, Additional history exists HIB Vaccines Aged Out [...] this topic Medical Devices Implanted Type Area Recovery Room Rn Device Identifier Shelf Expiration Date Model / Serial / Lot Bsci-[id number] Implanted:10/2013 by Dean Kaba MD (Quantity not on file) Cardiac ICD Left: Chest [employer]HYTHM MGMT [id number] / [id number] / Procedures Procedure Name Priority Date/Time Associated [...] Results * CARDIAC DEVICE CHECK- IN CLINIC- [facility]J (04/03/2025 10:55 AM EDT) Date Time Interrogation Session [id number] CV DEVICE CHECK Implantable Pulse Generator Recovery Room Rn BSX CV DEVICE CHECK Implantable Pulse Generator Type ICD CV DEVICE CHECK Implantable Pulse Generator Model E141 CV DEVICE CHECK Implantable Pulse Generator Serial Number [id number] CV DEVICE CHECK Implantable Pulse Generator Implant [...] to 171 bpm, avg 160 bpm) on 25- pt asymptomatic, no therapies warranted. AB/LAY notified [...] to 171 bpm, avg 160 bpm) on 25- pt asymptomatic, notherapies warranted. AB/LAY notified of [...] 2:06 AM EDT Performed at: 01 - [facility] [address] [id number] Superintendent Meters: Mala Jenkins MD, Phone: [phone] Specimen Comment: A courtesy copy of this report has been sent to [phone] Annika Blakely TOWBOAT CAPTAIN LAB BLOOD ORDERABLES Final R esult [facility] [...] - 08/01/2024 11:45 AM EST Performed at: [address] [id number] Superintendent Meters: Roosevelt Ferro MD, Phone: [phone] Annika Blakely TOWBOAT CAPTAIN LAB BLOOD ORDERABLES Final R esult [facility] 1 * Depression Screening (05/10/2023) Pathologist [facility] Depression Screening Abstracted Historical Provider HEALTH MAINTENANCE Final Result * Hepatitis C Screening (08/28/2015) Pathologist [facility] Hepatitis C Screening Abstracted Historical Provider HEALTH MAINTENANCE Final Result * Colonoscopy (05/08/2013) Pathologist [facility] Colonoscopy No Interpretation , Abstracted Anatomical Region Laterality Modality Other Historical Provider HEALTH MAINTENANCE Final Result from Last 3 Months or Most Recently Relevant to Health Maintenance Insurance MEDICARE [facility] Care Teams Skein Tier Relationship Specialty Start Date End Date Orlin Shah MD [address] [place] [address] Dr Benjamin [place] PCP - General 03/27/24
== END 2025-05-14 11:29 | disposition home or self-care (01) ==
LOC: HO.HSMS 10:30
PROVIDERS: PCP Family Medicine; Visit Provider Physician Assistant Medical
DX: G47.19 Other hypersomnia (principal); R53.82 Chronic fatigue, unspecified
CPT/HCPCS: 99214

== ENCOUNTER → 2025-05-14 10:29 | Outpatient (BNVA) | payer MEDICARE, SELFPAY | PROVIDERS: PCP Family Medicine; Visit Provider Physician Assistant Medical | DX: G47.19 Other hypersomnia (principal); R35.1 Nocturia; R53.82 Chronic fatigue, unspecified; Z95.0 Presence of cardiac pacemaker; Z87.891 Personal history of nicotine dependence | CPT/HCPCS: 99212 ==

== ENCOUNTER 2025-05-27 09:40 | Outpatient (REF) | payer MEDICARE, SELFPAY ==
[2025-05-27 11:56] LABS: Appearance Urine Clear; Glucose Urine UA Negative (Negative); PH 5.5 (5.0-9.0); Specific Gravity - Urine 1.025 (1.005-1.025); UMIC TRIGGER UACC YES
[2025-05-27 12:10] LABS: Folate 8.0 ng/mL (> or = 4.0); Vitamin B12 683 pg/mL (200-900)
[2025-05-27 12:44] LABS: Syphilis Screen Nonreactive (Nonreactive)
[2025-05-28 06:49] LABS: Lyme Abs Screen <0.90 index
== END 2025-05-27 09:41 | disposition home or self-care (01) ==
LOC: HO.WFDLDS 09:40
PROVIDERS: Visit Provider Family Medicine
DX: E53.8 Deficiency of other specified B group vitamins (principal); G62.9 Polyneuropathy, unspecified; Z01.84 Encounter for antibody response examination; Z20.2 Contact with and (suspected) exposure to infections with a predominantly sexual mode of transmission
CPT/HCPCS: 36415; 81001; 82607; 82746; 85652; 86038; 86141; 86617; 86618; 86780

== ENCOUNTER 2025-05-28 10:16 | Outpatient (REF) | payer MEDICARE, SELFPAY ==
--- NOTE | ~2025-05-28 | US_ITS ---
CLINICAL HISTORY: I71.40 - Abdominal aortic aneurysm, without rupture, unspecified --- Additional Notes or Special Instructions: f u US of abdominal aorta Comparison: None provided Findings: Body habitus and bowel gas shadowing degraded exam, abdominal aorta is not well seen and atherosclerotic changes noted, fusiform dilatation of the distal aorta noted. Aorta diameter proximal 2.8 x 2.8 cm. Aorta diameter mid 2.1 x 2.8 cm. Aorta diameter distal 3.4 x 3.7 cm. Right common iliac artery maximum diameter 0.8 x 1.2 cm. Left common iliac artery maximum diameter 1.0 x 1.4 cm. Impression: Distal abdominal aorta aneurysm 3.7 cm. This document has been electronically signed by: Sherrie Crawley MD on 05/29/2025 10:19:09
--- OUTSIDE RECORDS SUMMARY | 2025-05-28 12:46 | XMS_ITS | Encounter Summary ---
Author Organization [facility] Prior to 04/13/2024 Address [address] [place] [address] Care Team Providers Care Hydrography Teacher Name Role Phone Kevincynthialanette Annika NP Unavailable Misael Plascencia MD Unavailable Unavailable Kenia Omalley DO Primary Care Provider Unavaila Dionne Monteiro MD Primary Care Provider Un available Orlin Shah MD Primary Care Provider Unav ailable Reason for Visit * Reason Onset Date Comments Orders Call 08/25/2021 Encounter Details Date Type Department Care Team Description 08/25/2021 Telephone Adult Medicine - [address] [address] Kenia Omalley DO Orders Call Social History [...] to external * Telephone Encounter - Kareen Zuñigalin - 08/25/2021 9:14 AM EDT An order [...] on filedocumented in this encounter Care Teams Hydrography Teacher Relationship Specialty Start Date End Date Kenia Omalley DO PCP - General Internal Medicine 06/22/21 11/23/23 Dionne Marcus MD PCP - General Internal Medicine 11/24/23 03/26/24 Orlin Shah MD PCP - General Family Practice 03/27/24 Annika Blakely NP Nurse Practitioner Cardiology 10/29/20 Misael Plascencia MD Assistant Men'S Soccer Coach Cardiovascular Disease 10/29/20 11/14/23 documented as of this encounter
--- OUTSIDE RECORDS SUMMARY | 2025-05-28 12:46 | XMS_ITS | Encounter Summary ---
Author Organization [facility] Prior to 04/13/[address] [place] [address] Care Team Providers Care Consumer Loan Specialist Name Role Phone KevinAnnika blake FRANK Unavailable [phone] Misael Plascencia MD Unavailable Unavailable Kenia Omalley DO Primary Care Provider Unavaila ble Dionne Marcus MD Primary Care Provider Un available Orlin Shah MD Primary Care Provider Unav ailable Reason for Visit * Reason Comments Remote Device Check Encounter Details Date Type Department Care Team Description 10/21/2021 Remote Device Check Cardio PVC POC [address] [facility] [address] [place] [address] Dean Kaba MD [address] [place] [address] Social History Tobacco Use Types Packs/Day Years [...] on filedocumented in this encounter Care Teams Consumer Loan Specialist Relationship Specialty Start Date End Date Kenia Omalley DO PCP - General Internal Medicine 06/22/21 11/23/23 Dionne Marcus MD PCP - General Internal Medicine 11/24/23 03/26/24 Orlin Shah MD PCP - General Family Practice 03/27/24 Annika Blakely NP Nurse Practitioner Cardiology 10/29/20 Misael Plascencia MD Workers Compensation Claims Supervisor Cardiovascular Disease 10/29/20 11/14/23 documented as of this encounter
--- OUTSIDE RECORDS SUMMARY | 2025-05-28 12:46 | XMS_ITS | Encounter Summary ---
Author Organization [facility] Prior to 04/13/2024 Address [address] [place] [address] Care Team Providers Care Independent Freight Agent Name Role Phone Annika Blakely NP Unavailable [phone] Misael Plascencia MD Unavailable Unavailable Kenia Omalley DO Primary Care Provider Unavaila Dionne Monteiro MD Primary Care Provider Un available Orlin Shah MD Primary Care Provider Unav ailable Reason for Visit * Reason Onset Date Comments Orders Call 03/23/2023 Encounter Details Date Type Department Care Team Description 03/23/2023 Telephone Adult Medicine - [address] [address] Kenia Omalley DO Orders Call Social History [...] Telephone Encounter - Cristina Ochoa M.A. - 03/24/2023 2:26 PM EDT Spoke to patient and message was given below. * Telephone Encounter - Radha Augustin PA-C - 03/24/2023 9:31 AM EDT Lab order signed. He can do this 1 to 2 days before his visit. Thanks * Telephone Encounter - Patrick Castillo - 03/23/2023 2:43 PM EDT Patient calling to request labs be ordered: What lab work is patient requesting? Rotuine labs. Pt states he was supposed to get blood work before Does patient have an upcoming appointment, if yes when and WITH WHO? yes 03/27 with radha Herrera PCP is: Kenia Omalley documented in this encounter Plan of Treatment Not on file documented as of this encounter Results * PROSTATE SPEC. AG, SCREEN (03/24/2023 3:08 PM EDT) PROSTATIC SPECIFIC ANTIGEN SCR 0.7 0.0 - 4.0 ng/mL 03/24/2023 6:20 PM EDT [facility] Comment: The Siemens Advia Centaur Chemiluminescent Immunoassay is used. Results obtained with different assay methods or kits cannot be used interchangeably. Results cannot be interpreted as absolute evidence of the presence or absence of malignant disease 03/24/2023 3:08 PM EDT 03/24/2023 3:09 PM EDT Narrative [facility] - 03/24/2023 6:20 PM EDT Release to patient->Immediate Radha Augustni PA-C LAB [facility] * (ABNORMAL) CHG BLOOD COUNT COMPLETE AUTO&AUTO DIFRNTL WBC (03/24/2023 3:08 PM EDT) WHITE BLOOD COUNT 9.7 4.8 - 10.8 x10-3/uL 03/24/2023 5:59 PM EDT [facility] RED BLOOD COUNT 5.3 4.5 - 5.5 x10-6/uL 03/24/2023 5:59 PM EDT [facility] Hemoglobin 15.4 13.5 - 17.5 g/dL 03/24/2023 5:59 PM EDT [facility] Hematocrit 46.7 42 - 54 % 03/24/2023 5:59 PM EDT [facility] MEAN CORPUSCULAR VOLUME 89.0 79 - 98 fL 03/24/2023 5:59 PM EDT [facility] MEAN CORPUSCULAR HEMOGLOBIN 29.3 27 - 32 pg 03/24/2023 5:59 PM EDT [facility]AN CORPUSCULAR HGB CONC 33.0 32 - 37 g/dL 03/24/2023 5:59 PM EDT [facility] RED CELL DISTRIBUTION WIDTH 13.1 11 - 15 % 03/24/2023 5:59 PM EDT [facility] PLT COUNT 202 130 - 400 x10-3/uL 03/24/2023 5:59 PM EDT [facility] [employer] MEAN PLATELET VOLUME 11.2(H) 7 - 11 fL 03/24/2023 5:59 PM EDT [facility] NRBC % AUTO 0.0 <1 % 03/24/2023 5:59 PM EDT [facility] NEUTROPHILS % 66.5 % 03/24/2023 5:59 PM EDT [facility] LYMPH % 24.9 % 03/24/2023 5:59 PM EDT [facility] MONO % 6.5 % 03/24/2023 5:59 PM EDT [facility] EOS % 1.4 % 03/24/2023 5:59 PM EDT [facility] BASO % 0.5 % 03/24/2023 5:59 PM EDT [facility] IMMATURE GRANULOCYTES % 0.2 % 03/24/2023 5:59 PM EDT [facility] NRBC # AUTO 0.00 <0.1 x10-3/uL 03/24/2023 5:59 PM EDT [facility] NEUT # 6.41 1.5 - 7.0 x10-3/uL 03/24/2023 5:59 PM EDT [facility] LYMPH # 2.41 1 - 5.0 x10-3/uL 03/24/2023 5:59 PM EDT [facility] MONO # 0.63 0.2 - 1.0 x10-3/uL 03/24/2023 5:59 PM EDT [facility] EOS # 0.14 0 - 0.5 x10-3/uL 03/24/2023 5:59 PM EDT [facility] BASO # 0.05 0 - 0.2 x10-3/uL 03/24/2023 5:59 PM EDT [facility] IMMATURE GRANULOCYTES # 0.02 0 - 0.03 x10-3/uL 03/24/2023 5:59 PM EDT [facility] 03/24/2023 3:08 PM EDT 03/24/2023 3:09 PM EDT [facility]ative [facility] - 03/24/2023 5:59 PM EDT Release to patient->Immediate Radha Augustin PA-C LAB [facility] * (ABNORMAL) CHG COMPREHENSIVE METABOLIC PANEL (03/24/2023 3:08 PM EDT) GLUCOSE 130(H) 70 - 100 mg/dL 03/24/2023 6:13 PM EDT [facility] Comment:Reference range appl icable to fasting specimens only Blood Urea Nitrogen 17 5 - 25 mg/dL 03/24/2023 6:13 PM EDT [facility] CREAT 1.13 0.7 - 1.3 mg/dL 03/24/2023 6:13 PM EDT [facility] GLOMERULAR FILTRATION RATE 71 >60 03/24/2023 6:13 PM EDT [facility] Comment: This eGFR result was calculated using the CKD-EPI 2020 Creatinine Equation NA 141 135 - 145 mEq/L 03/24/2023 6:13 PM EDT [facility] K 3.8 3.5 - 5.5 mmol/L 03/24/2023 6:13 PM EDT [facility] CL 105 96 - 110 mmol/L 03/24/2023 6:13 PM EDT [facility] CARBON DIOXIDE (CO2) 29 21 - 32 mmol/L 03/24/2023 6:13 PM EDT [facility] ANION GAP 7 3 - 11 03/24/2023 6:13 PM EDT [facility] CALCIUM 8.8 8.5 - 10.5 mg/dL 03/24/2023 6:13 PM EDT [facility] Albumin 3.7 3.2 - 5.0 G/dL 03/24/2023 6:13 PM EDT [facility] SGPT 24 10 - 60 U/L 03/24/2023 6:13 PM EDT [facility] TOTAL PROTEIN (TP) 6.8 6.0 - 8.0 G/dL 03/24/2023 6:17 PM EDT [facility] BILIRUBIN TOTAL 0.5 0.0 - 1.4 mg/dL 03/24/2023 6:17 PM EDT [facility] SGOT 15 10 - 42 U/L 03/24/2023 6:17 PM EDT [facility] ALK PHOS 104 42 - 121 U/L 03/24/2023 6:17 PM EDT [facility] 03/24/2023 3:08 PM EDT 03/24/2023 3:09 PM EDT Narrative [facility] - 03/24/2023 6:17 PM EDT Release to patient->Immediate Radha Augustin PA-C LAB [facility] * (ABNORMAL) CHG LIPID PANEL (03/24/2023 3:08 PM EDT) Cholesterol 144 0 - 200 mg/dL 03/24/2023 6:13 PM EDT [facility] TRIGLYCERIDES 338(H) 0 - 150 mg/dL 03/24/2023 6:13 PM EDT [facility] HDL CHOLESTEROL 35(L) >40 mg/dL 6:17 PM EDT [facility] LDL CALCULATED 42 0 - 100 mg/dL 03/24/2023 6:17 PM EDT [facility] TC-HDLC RATIO 4.1 0 - 4.4 mg/dL 03/24/2023 6:17 PM EDT [facility] 03/24/2023 3:08 PM EDT 03/24/2023 3:09 PM EDT Narrative [facility] - 03/24/2023 6:17 PM EDT Release to patient->Immediate Rahda Augustin PA-C LAB [facility] documented in this encounter Visit Diagnoses Diagnosis Hypertension, unspecified type- Primary Hyperlipidemia, unspecified hyperlipidemia type Screening for malignant neoplasm of prostate Hyperlipidemia, unspecified hyperlipidemia type Hypertension, unspecified type Screening for malignant neoplasm of prostate documented in this encounter Care Teams Independent Freight Agent Relationship Specialty Start Date End Date Kenia Omalley DO PCP - General Internal Medicine 06/22/21 11/23/23 Dionne Marcus MD PCP - General Internal Medicine 11/24/23 03/26/24 Orlin Shah MD PCP - General Family Practice 03/27/24 Annika Blakely NP Nurse Practitioner Cardiology 10/29/20 Misael Plascencia MD Tire And Tube Repairer Cardiovascular Disease 10/29/20 11/14/23 documented as of this encounter
--- OUTSIDE RECORDS SUMMARY | 2025-05-28 12:46 | XMS_ITS | Encounter Summary ---
Author Organization [facility] Prior to 04/13/[address] [place] [address] Care Team Providers Care Slab Off Mill Tender Name Role Phone Annika Blakely TOWER OBSERVER Unavailable [phone] Misael Plascencia MD Unavailable Unavailable Kenia Omalley DO Primary Care Provider Unavaila ble Dionne Marcus MD Primary Care Provider Un available Orlin Shah MD Primary Care Provider Unav ailable Encounter Details Date Type Department Care Team Description 11/12/2021 Ton Container Shipper Report Medical Records [address] [place] [address] Jeannine Muller PA-C Social History Tobacco Use [...] on filedocumented in this encounter Care Teams Slab Off Mill Tender Relationship Specialty Start Date End Date Kenia Omalley DO PCP - General Internal Medicine 06/22/21 11/23/23 Dionne Marcus MD PCP - General Internal Medicine 11/24/23 03/26/24 Orlin Shah MD PCP - General Family Practice 03/27/24 Annika Blakely NP Nurse Practitioner Cardiology 10/29/20 Misael Plascencia MD Mortar Mixer Operator Cardiovascular Disease 10/29/20 11/14/23 documented as of this encounter
--- OUTSIDE RECORDS SUMMARY | 2025-05-28 12:46 | XMS_ITS | Encounter Summary ---
Author Organization [facility] Prior to 04/13/2024 Address [address] [place] [address] Care Team Providers Care Maintenance Mechanic Engine Name Role Phone Jillian Bustamante MD Primary Care Provider Unavailable Annika Blakely PRESALES ENGINEER Unavailable [phone] Misael Plascencia MD Unavailable Unavailable Kenia Omalley DO Primary Care Provider Unavaila Dionne Monteiro MD Primary Care Provider Un available Orlin Shah MD Primary Care Provider Unav ailable Reason for Visit * Reason Onset Date Comments Error 01/22/2020 Encounter Details Date Type Department Care Team Description 01/22/2020 Telephone Adult Medicine - [address] [address] Jillian Bustamante MD Error Social History Tobacco [...] on filedocumented in this encounter Care Teams Maintenance Mechanic Engine Relationship Specialty Start Date End Date Jillian Bustamante MD PCP - General Internal Medicine 01/15/20 06/21/21 Kenia Omalley DO PCP - General Internal Medicine 06/22/21 11/23/23 Dionne Marcus MD PCP - General Internal Medicine 11/24/23 03/26/24 Orlin Shah MD PCP - General Family Practice 03/27/24 Annika Blakely NP Nurse Practitioner Cardiology 10/29/20 Misael Plascencia MD Ledge Man Cardiovascular Disease 10/29/20 11/14/23 documented as of this encounter
--- OUTSIDE RECORDS SUMMARY | 2025-05-28 12:46 | XMS_ITS | Encounter Summary ---
Author Organization [facility] Prior to 04/13/[address] [place] [address] Care Team Providers Care Accounts Receivable Representative Name Role Phone Yolanda-Jeanette Dupree MD Primary Care Provider Unavailable Jillian Bustamante MD Primary Care Provider Unavailable Annika Blakely DATA CODER OPERATOR Unavailable [phone] Misael Plascencia MD Unavailable Unavailable Kenia Omalley DO Primary Care Provider Unavaila ble Dionne Marcus MD Primary Care Provider Un available Orlin Shah MD Primary Care Provider Unav ailable Encounter Details Date Type Department Care Team Description 12/13/2018 Manual Training Teacher Report Medical Records [address] [place] [id number] [place] [address] Social History Tobacco Use Types Packs/Day Years [...] on filedocumented in this encounter Care Teams Accounts Receivable Representative Relationship Specialty Start Date End Date Yolanda-Jeanette [...] Nurse Practitioner Cardiology 10/29/20 Misael Plascencia MD Poultry Feed Supervisor Cardiovascular Disease 10/29/20 11/14/23 documented as of this encounter
--- OUTSIDE RECORDS SUMMARY | 2025-05-28 12:46 | XMS_ITS | Encounter Summary ---
Author Organization [facility] Prior to 04/13/[address] [place] [address] Care Team Providers Care Fabric Designer Name Role Phone [place]-Jeanette Dupree MD Primary Care Provider Unavailable Jillian Bustamante MD Primary Care Provider Unavailable Annika Blakely ACID ADJUSTER Unavailable [phone] Misael Plascencia MD Unavailable Unavailable Kenia Omalley DO Primary Care Provider Unavaila Dionne Monteiro MD Primary Care Provider Un available Orlin Shah MD Primary Care Provider Unav ailable Encounter Details Date Type Department Care Team Description 05/08/2019 Family Day Carer Report Medical Records [address] [place] [address] Annika Blakely, FRANK [address] [place] [address] [place] [address] Social History Tobacco Use Types Packs/Day Years [...] on filedocumented in this encounter Care Teams Fabric Designer Relationship Specialty Start Date End Date Yolanda-Jeanette [...] Nurse Practitioner Cardiology 10/29/20 Misael Plascencia MD Parking Lot Attendant Cardiovascular Disease 10/29/20 11/14/23 documented as of this encounter
--- OUTSIDE RECORDS SUMMARY | 2025-05-28 12:46 | XMS_ITS | Encounter Summary ---
Author Organization Ana [facility] Prior to 04/13/[address] [place] [address] Care Team Providers Care Hvac Sheet Metal Installer Helper Name Role Phone Jeanette Camacho MD Primary Care Provider Unavailable Donna Padilla MD Primary Care Provider [phone] Jeanette Camacho MD Primary Care Provider Unavailable Jillian Bustamante MD Primary Care Provider Unavailable Jillian Bustamante MD Primary Care Provider Unavailable Annika Blakely TRAINING COORDINATOR Unavailable [phone] Misael Plascencia MD Unavailable Unavailable Kenia Omalley DO Primary Care Provider Unavaila Dionne Monteiro MD Primary Care Provider Un available Orlin Shah MD Primary Care Provider Unav ailable Encounter Details Date Type Department Care Team Description 09/19/2015 Harness And Bag Inspector Report Medical Records [address] [place] [address] Jose Lara MD Social History Tobacco Use [...] on filedocumented in this encounter Care Teams Hvac Sheet Metal Installer Helper Relationship Specialty Start Date End Date Jeanette Camacho MD PCP - General Internal Medicine 01/17/15 11/10/15 Donna Padilla MD [address] [place] [address] PCP - General Internal Medicine 08/12/17 01/11/18 Yolanda-Jeanette Dupree MD PCP - General Internal Medicine 01/12/18 01/14/20 Jillian Bustamante MD [address] [place], [place] [id number] PCP - General Internal Medicine 01/15/20 06/21/21 Jillian Bustamante MD [address] [place] [address] PCP - General 11/11/15 08/11/17 Kenia Omalley DO [address] [place], [place] [id number] PCP - General Internal Medicine 06/22/21 11/23/23 Dionen Marcus MD [address] [place] [address] PCP - General Internal Medicine 11/24/23 03/26/24 Orlin Shah MD [address] [place] [address] PCP - General Family Practice 03/27/24 Annika Blakely, FRANK [address] [place] [address] Nurse Practitioner Cardiology 10/29/20 Misael Plascencia MD [address] [place] [address] Adult Specialist Cardiovascular Disease 10/29/20 11/14/23 documented as of this encounter
--- OUTSIDE RECORDS SUMMARY | 2025-05-28 12:46 | XMS_ITS | Encounter Summary ---
Author Organization [facility] Prior to 04/13/[address] [place] [address] Care Team Providers Care Electrician Name Role Phone Jillian Bustamante MD Primary Care Provider Unavailable Jeanette Camacho MD Primary Care Provider Unavailable Donna Padilla MD Primary Care Provider [phone] Jeanette Camacho MD Primary Care Provider Unavailable Jillian Bustamante MD Primary Care Provider Unavailable Jillian Bustamante MD Primary Care Provider Unavailable Annika Blakely DRIVE WORKER Unavailable [phone] Misael Plascencia MD Unavailable Unavailable Kenia Omalley DO Primary Care Provider UnavailDionne Hewitt MD Primary Care Provider Un available Orlin Shah MD Primary Care Provider Unav ailable Encounter Details Date Type Department Care Team Description 01/15/2014 Hospital Medical Records [address] [place] [address] Social History Tobacco Use Types Packs/Day Years [...] on filedocumented in this encounter Care Teams Electrician Relationship Specialty Start Date End Date Jillian Bustamante MD PCP - General Internal Medicine 12/31/14 01/16/15 Jeanette Camacho MD PCP - General Internal Medicine 01/17/15 11/10/15 Donna Padilla MD [address] [place] [address] PCP - General Internal Medicine 08/12/17 01/11/18 Yolanda-Jeanette Dupree MD PCP - General Internal Medicine 01/12/18 01/14/20 Jillian Bustamante MD PCP - General Internal Medicine 01/15/20 06/21/21 Jillian Bustamante MD PCP - General 11/11/15 08/11/17 Kenia Omalley DO [address] [place] [address] PCP - General Internal Medicine 06/22/21 11/23/23 Dionne Marcus MD [address] [place] [address] PCP - General Internal Medicine 11/24/23 03/26/24 Orlin Shah MD [address] [place] [address] PCP - General Family Practice 03/27/24 Annika Blakely NP [address] [place], [place] [id number] Nurse Practitioner Cardiology 10/29/20 Misael Plascencia MD [address] [place], [place] [id number] Health Care Marketing Specialist Cardiovascular Disease 10/29/20 11/14/23 documented as of this encounter
--- OUTSIDE RECORDS SUMMARY | 2025-05-28 12:46 | XMS_ITS | Encounter Summary ---
Author Organization [facility] Prior to 04/13/2024 Address [address] [place] [address] Care Team Providers Care Plate Preparer Name Role Phone Jillian Bustamante MD Primary Care Provider Unavailable Annika Blakely NP Unavailable Misael Plascencia MD Unavailable Unavailable Kenia Omalley DO Primary Care Provider Unavaila Dionne Monteiro MD Primary Care Provider Un available Orlin Shah MD Primary Care Provider Unav ailable Encounter Details Date Type Department Care Team Description 02/07/2020 Orders Only Medical Records [address] [place] [address] Sasha Walker PA-C [address] [place] [id number] Social History Tobacco Use Types Packs/Day [...] on filedocumented in this encounter Care Teams Plate Preparer Relationship Specialty Start Date End Date Jillian Bustamante MD PCP - General Internal Medicine 01/15/20 06/21/21 Kenia Omalley DO PCP - General Internal Medicine 06/22/21 11/23/23 Dionne Marcus MD PCP - General Internal Medicine 11/24/23 03/26/24 Orlin Shah MD PCP - General Family Practice 03/27/24 Annika Blakely NP Nurse Practitioner Cardiology 10/29/20 Misael Plascencia MD Clay Transporter Cardiovascular Disease 10/29/20 11/14/23 documented as of this encounter
--- OUTSIDE RECORDS SUMMARY | 2025-05-28 12:46 | XMS_ITS | Encounter Summary ---
Author Organization [facility] Prior to 04/13/2024 Address [address] [place] [address] Care Team Providers Care Durable Medical Equipment Technician Name Role Phone Annika Blakely NP Unavailable [phone] Misael Plascencia MD Unavailable Unavailable Kenia Omalley DO Primary Care Provider Unavaila ble Dionne Marcus MD Primary Care Provider Un available Orlin Shah MD Primary Care Provider Unav ailable Encounter Details Date Type Department Care Team Description 11/04/2022 Orders Only Cardio PVC [facility] [address] [place] [address] Default, Provider Social History Tobacco Use Types [...] on filedocumented in this encounter Care Teams Durable Medical Equipment Technician Relationship Specialty Start Date End Date Kenia Omalley DO PCP - General Internal Medicine 06/22/21 11/23/23 Dionne Marcus MD PCP - General Internal Medicine 11/24/23 03/26/24 Orlin Shah MD PCP - General Family Practice 03/27/24 Annika Blakely NP Nurse Practitioner Cardiology 10/29/20 Misael Plascencia MD Machine Maintenance Mechanic Cardiovascular Disease 10/29/20 11/14/23 documented as of this encounter
--- OUTSIDE RECORDS SUMMARY | 2025-05-28 12:46 | XMS_ITS | Encounter Summary ---
Author Organization Ana [facility] Prior to 04/13/[address] [place] [address] Care Team Providers Care Audio Visual Director Name Role Phone Jeanette Camacho MD Primary Care Provider Unavailable Donna Padilla MD Primary Care Provider [phone] Jeanette Camacho MD Primary Care Provider Unavailable Jillian Bustamante MD Primary Care Provider Unavailable Jillian Bustamante MD Primary Care Provider Unavailable Annika Blakely CORPORATE STAFF ACCOUNTANT Unavailable [phone] Misael Plascencia MD Unavailable Unavailable Kenia Omalley DO Primary Care Provider Unavaila Dionne Monteiro MD Primary Care Provider Un available Orlin Shah MD Primary Care Provider Unav ailable Encounter Details Date Type Department Care Team Description 09/18/2015 Fishing Line Winding Machine Operator Report Medical Records [address] [place] [address] Linh Quiroz Social History Tobacco Use Types [...] on filedocumented in this encounter Care Teams Audio Visual Director Relationship Specialty Start Date End Date Jeanette Camacho MD PCP - General Internal Medicine 01/17/15 11/10/15 Donna Padilla MD [address] [place] [address] PCP - General Internal Medicine 08/12/17 01/11/18 Yolanda-Jeanette Dupree MD PCP - General Internal Medicine 01/12/18 01/14/20 Jillian Bustamante MD [address] [place], [place] [phone] PCP - General Internal Medicine 01/15/20 06/21/21 Jillian Bustamante MD [address] [place] [address] PCP - General 11/11/15 08/11/17 Kenia Omalley DO [address] [place], [place] [phone] PCP - General Internal Medicine 06/22/21 11/23/23 Dionne Marcus MD [address] [place] [address] PCP - General Internal Medicine 11/24/23 03/26/24 Orlin Shah MD [address] [place] [address] PCP - General Family Practice 03/27/24 Annika Blakely, FRANK [address] [place] [address] Nurse Practitioner Cardiology 10/29/20 Misael Plascencia MD [address] [place] [address] Tassel Maker Cardiovascular Disease 10/29/20 11/14/23 documented as of this encounter
--- OUTSIDE RECORDS SUMMARY | 2025-05-28 12:46 | XMS_ITS | Encounter Summary ---
Author Organization [facility] Prior to 04/13/[address] [place] [address] Care Team Providers Care Mineral Resources Inspector Name Role Phone Yolanda-Jeanette Dupree MD Primary Care Provider Unavailable Jillian Bustamante MD Primary Care Provider Unavailable Annika Blakely SHED WORKERS SUPERVISOR Unavailable [phone] Misael Plascencia MD Unavailable Unavailable Kenia Omalley DO Primary Care Provider Unavaila ble Dionne Marcus MD Primary Care Provider Un available Orlin Shah MD Primary Care Provider Unav ailable Encounter Details Date Type Department Care Team Description 02/26/2019 Paraprofessional Education Assistant Report Medical Records [address] [place] [address] Social History Tobacco Use Types Packs/Day Years [...] on filedocumented in this encounter Care Teams Mineral Resources Inspector Relationship Specialty Start Date End Date Yolanda-Jeanette [...] Nurse Practitioner Cardiology 10/29/20 Misael Plascencia MD Plastics Supervisor Cardiovascular Disease 10/29/20 11/14/23 documented as of this encounter
--- OUTSIDE RECORDS SUMMARY | 2025-05-28 12:46 | XMS_ITS | Encounter Summary ---
Author Organization [facility] Prior to 04/13/[address] [place] [address] Care Team Providers Care Senior Sharepoint Developer Name Role Phone KevinAnnika blake FRANK Unavailable [phone] Misael Plascencia MD Unavailable Unavailable Kenia Omalley DO Primary Care Provider Unavaila ble Dionne Marcus MD Primary Care Provider Un available Orlin Shah MD Primary Care Provider Unav ailable Reason for Visit * Reason Comments Remote Device Check Encounter Details Date Type Department Care Team Description 11/01/2021 Remote Device Check Cardio PVC POC [address] [facility] [address] [place] [address] Dean Kaba MD [address] [place] [address] Social History Tobacco Use Types Packs/Day Years [...] filedocumented in this encounter Care Teams Senior Sharepoint Developer Relationship Specialty Start Date End Date Kenia Omalley DO PCP - General Internal Medicine 06/22/21 11/23/23 Dionne Marcus MD PCP - General Internal Medicine 11/24/23 03/26/24 Orlin Shah MD PCP - General Family Practice 03/27/24 Annika Blakely NP Nurse Practitioner Cardiology 10/29/20 Misael Plascencia MD Demand Inspector Cardiovascular Disease 10/29/20 11/14/23 documented as of this encounter
--- OUTSIDE RECORDS SUMMARY | 2025-05-28 12:46 | XMS_ITS | Encounter Summary ---
Author Organization [facility] Prior to 04/13/[address] [place] [address] Care Team Providers Care Automatic Cigar Wrapper Tender Name Role Phone Jillian Bustamante MD Primary Care Provider Unavailable Annika Blakely MANAGER REPORTING Unavailable [phone] Misael Plascencia MD Unavailable Unavailable Kenia Omalley DO Primary Care Provider Unavaila ble Dionne Marcus MD Primary Care Provider Un available Orlin Shah MD Primary Care Provider Unav ailable Encounter Details Date Type Department Care Team Description 03/26/2020 Incoming Correspondence Medical Records [address] [place] [id number] [place] [address] Social History Tobacco Use Types Packs/Day Years [...] on filedocumented in this encounter Care Teams Automatic Cigar Wrapper Tender Relationship Specialty Start Date End Date Jillian Bustamante MD PCP - General Internal Medicine 01/15/20 06/21/21 Kenia Omalley DO PCP - General Internal Medicine 06/22/21 11/23/23 Dionne Marcus MD PCP - General Internal Medicine 11/24/23 03/26/24 Orlin Shah MD PCP - General Family Practice 03/27/24 Annika Blakely, FRANK Nurse Practitioner Cardiology 10/29/20 Misael Plascencia MD Ship Superintendent Cardiovascular Disease 10/29/20 11/14/23 documented as of this encounter
--- OUTSIDE RECORDS SUMMARY | 2025-05-28 12:46 | XMS_ITS | Encounter Summary ---
Author Organization [facility] Prior to 04/13/[address] [place] [address] Care Team Providers Care Cable Supervisor Name Role Phone Yolanda-Jeanette Dupree MD Primary Care Provider Unavailable Jillian Bustamante MD Primary Care Provider Unavailable Annika Blakely PERSONAL BANKING ADVISOR Unavailable [phone] Misael Plascencia MD Unavailable Unavailable Kenia Omalley DO Primary Care Provider Unavaila ble Dionne Marcus MD Primary Care Provider Un available Orlin Shah MD Primary Care Provider Unav ailable Encounter Details Date Type Department Care Team Description 01/09/2019 Incoming Correspondence Medical Records [address] [place] [address] [place] [address] Social History Tobacco Use Types Packs/Day Years [...] on filedocumented in this encounter Care Teams Cable Supervisor Relationship Specialty Start Date End Date Yolanda-Jeanette [...] Nurse Practitioner Cardiology 10/29/20 Misael Plascencia MD Toe Stripper Cardiovascular Disease 10/29/20 11/14/23 documented as of this encounter
--- OUTSIDE RECORDS SUMMARY | 2025-05-28 12:46 | XMS_ITS | Encounter Summary ---
Author Organization [facility] Prior to 04/13/[address] [place] [address] Care Team Providers Care Bellows Filler Name Role Phone Yolanda-Jeanette Dupree MD Primary Care Provider Unavailable Jillian Bustamante MD Primary Care Provider Unavailable Annika Blakely DIE HOLDER Unavailable [phone] Misael Plascencia MD Unavailable Unavailable Kenia Omalley DO Primary Care Provider Unavaila ble Dionne Marcus MD Primary Care Provider Un available Orlin Shah MD Primary Care Provider Unav ailable Encounter Details Date Type Department Care Team Description 08/08/2019 Business Intelligence Consultant Report Medical Records [address] [place] [address] Delvin Hassan MD Social History Tobacco Use [...] on filedocumented in this encounter Care Teams Bellows Filler Relationship Specialty Start Date End Date Jeanette [...] Nurse Practitioner Cardiology 10/29/20 Misael Plascencia MD Manager Critical Care Unit Cardiovascular Disease 10/29/20 11/14/23 documented as of this encounter
--- OUTSIDE RECORDS SUMMARY | 2025-05-28 12:46 | XMS_ITS | Encounter Summary ---
Author Organization [facility] Prior to 04/13/[address] [place] [address] Care Team Providers Care Geriatric Physical Therapist Name Role Phone Yolanda-Jeanette Dupree MD Primary Care Provider Unavailable Jillian Bustamante MD Primary Care Provider Unavailable Annika Blakely MECHANICAL SYSTEMS CONTROL ENGINEER Unavailable [phone] Misael Plascencia MD Unavailable Unavailable Keina Omalley DO Primary Care Provider Unavaila ble Dionne Marcus MD Primary Care Provider Un available Orlin Shah MD Primary Care Provider Unav ailable Encounter Details Date Type Department Care Team Description 06/04/2019 Pattern Checker Report Medical Records [address] [place] [address] Misael Plascencia MD Social History Tobacco Use [...] on filedocumented in this encounter Care Teams Geriatric Physical Therapist Relationship Specialty Start Date End Date Yolanda-Jeanette [...] Nurse Practitioner Cardiology 10/29/20 Misael Plascencia MD Score Caller Cardiovascular Disease 10/29/20 11/14/23 documented as of this encounter
--- OUTSIDE RECORDS SUMMARY | 2025-05-28 12:46 | XMS_ITS | Encounter Summary ---
Author Organization [facility] Prior to 04/13/[address] [place] [address] Care Team Providers Care Instrument Repairer Name Role Phone Donna Padilla MD Primary Care Provider [phone] Jeanette Camacho MD Primary Care Provider Unavailable Jillian Bustamante MD Primary Care Provider Unavailable Jillian Bustamante MD Primary Care Provider Unavailable Annika Blakely PAYMENT POSTER Unavailable [phone] Misael Plascencia MD Unavailable Unavailable Kenia Omalley DO Primary Care Provider Unavaila Dionne Monteiro MD Primary Care Provider Un available Orlin Shah MD Primary Care Provider Unav ailable Encounter Details Date Type Department Care Team Description 11/21/2015 Horse Show Judge Report Medical Records [address] [place] [address] Jose Lara MD Social History Tobacco Use [...] on filedocumented in this encounter Care Teams Instrument Repairer Relationship Specialty Start Date End Date Donna Padilla MD [address] [place] [address] PCP - General Internal Medicine 08/12/17 01/11/18 Jeanette Camacho MD [address] [place] [address] PCP - General Internal Medicine 01/12/18 01/14/20 Jillian Bustamante MD [address] [place] [address] PCP - General Internal Medicine 01/15/20 06/21/21 Jillian Bustamante MD [address] [place] [address] PCP - General 11/11/15 08/11/17 Kenia Omalley DO [address] [place] [address] PCP - General Internal Medicine 06/22/21 11/23/23 Dionne Marcus MD [address] [place] [address] PCP - General Internal Medicine 11/24/23 03/26/24 Orlin Shah MD [address] [place] [address] PCP - General Family Practice 03/27/24 Annika Blakely NP [address] [place] [address] Nurse Practitioner Cardiology 10/29/20 Misael Plascencia MD [address] [place] [address] Irrigator Gravity Flow Cardiovascular Disease 10/29/20 11/14/23 documented as of this encounter
--- OUTSIDE RECORDS SUMMARY | 2025-05-28 12:46 | XMS_ITS | Encounter Summary ---
Author Organization [facility] Prior to 04/13/[address] [place] [address] Care Team Providers Care Internal Communications Writer Name Role Phone Jeanette Camacho MD Primary Care Provider Unavailable Donna Padilla MD Primary Care Provider [phone] Jeanette Camacho MD Primary Care Provider Unavailable Jillian Bustamante MD Primary Care Provider Unavailable Jillian Bustamante MD Primary Care Provider Unavailable Annika Blakely DEAN OF STUDENT SERVICES Unavailable [phone] Misael Plascencia MD Unavailable Unavailable Kenia Omalley DO Primary Care Provider Unavaila Dionne Monteiro MD Primary Care Provider Un available Orlni Shah MD Primary Care Provider Unav ailable Reason for Referral * EXTERNAL (Routine) - Authorized/Booked Specialty Diagnoses / Procedures Referred By Conttodd barnett Referred To Contact Dermatology Procedures REFERRAL TO DERMATOLOGY Jeanette Camacho MD [address] [place] [address] External Dermatology Referral ID Status Reason Start Date Expiration Date V isits Requested Visits Authorized SEE REVIEW 10/24/15 Authorized/ Booked 10/23/2015 10/22/2016 1 1 Reason for Visit * Reason Onset Date Comments Sports Editor Feedback 10/23/2015 Encounter Details Date Type Department Care Team Description 10/23/2015 Telephone Adult Medicine - [place] [address] [place] [address] Jeanette Camacho MD Sports Editor Feedback Social History Tobacco Use Types Packs/Day [...] if denied. * Telephone Encounter - Bessie Fontenotdeur - 10/23/2015 9:38 AM EDT What insurance does the patient have today? [employer] Effective 03/13/09: [facility] will not retro referral requests over 90 [...] insurance must be obtained and registered in [facility] or their referral can not be processed. Is this a retro request? NO. If yes for what date of service do you need the retro referral? Who is calling to request this referral? pATIENT If the caller is not the patient, what is their name? Ask the patient WHO referred them to this specialty: Patient saw DR Yolanda Dupree at [facility] and was told if symptoms did not resolve or worsen they would refer them to this specialty FIRST and LAST NAME of SPECIALIST PATIENT is seeing: [facility] What specialty is this? Document Photographer DIAGNOSIS Patient is being seen for (Not a body part or a procedure): Facial rash Have you seen this SPECIALIST for this PROBLEM/DX before?NO If YES, when: Have you checked REVIEW or the APPT DESK to see if this referral has already been done or has visits left? Yes-Pt has an appt with Derm at [facility] in Jan. Bust doesn't want to wait that long Is this visit:Initial Visit Address of Specialist:[address] [place] [address] Phone # of Specialist:[phone] Fax #: (if applicable): Does patient have an appointment scheduled?: NO Date of appointment- (including a retro-request): Is this appointment related to: Not MVA, WC or Surgery related documented in this encounter Plan of Treatment Not on file documented as of this encounter Visit Diagnoses Not on filedocumented in this encounter Care Teams Internal Communications Writer Relationship Specialty Start Date End Date Yolanda-Jeanette Dupree MD PCP - General Internal Medicine 01/17/15 11/10/15 Donna Padilla MD [address] [place] [address] PCP - General Internal Medicine 08/12/17 01/11/18 Yolanda-Jeanette Dupree MD PCP - General Internal Medicine 01/12/18 01/14/20 Jillian Bustamante MD [address] [place] [address] PCP - General Internal Medicine 01/15/20 06/21/21 Jillian Bustamante MD [address] [place] [address] PCP - General 11/11/15 08/11/17 Kenia Omalley DO [address] [place] [address] PCP - General Internal Medicine 06/22/21 11/23/23 Dionne Marcus MD [address] [place] [address] PCP - General Internal Medicine 11/24/23 03/26/24 Orlin Shah MD [address] [place] [address] PCP - General Family Practice 03/27/24 Annika Blakely NP [address] [place] [address] Nurse Practitioner Cardiology 10/29/20 Misael Plascencia MD [address] [place] [address] Scrap Breaker Cardiovascular Disease 10/29/20 11/14/23 documented as of this encounter
--- OUTSIDE RECORDS SUMMARY | 2025-05-28 12:46 | XMS_ITS | Encounter Summary ---
Author Organization [facility] Prior to 04/13/[address] [place] [address] Care Team Providers Care Buildings And Grounds Superintendent Name Role Phone Yolanda-Jeanette Dupree MD Primary Care Provider Unavailable Jillian Bustamante MD Primary Care Provider Unavailable Annika Blakely CENTRIFUGE OPERATOR Unavailable [phone] Misael Plascencia MD Unavailable Unavailable Kenia Omalley DO Primary Care Provider Unavaila Dionne Monteiro MD Primary Care Provider Un available Orlin Shah MD Primary Care Provider Unav ailable Encounter Details Date Type Department Care Team Description 02/01/2019 Orders Only Medical Records [address] [place] [address] Jose Lara MD Social History Tobacco Use [...] Associated Diagnosis Comments OUTSIDE VASCULAR STUDY Routine 01/22/2019 documented in this encounter Results * OUTSIDE VASCULAR STUDY (01/22/2019) Jose Lara MD CARDIOLOGY documented in this encounter Visit Diagnoses Not on filedocumented in this encounter Care Teams Buildings And Grounds Superintendent Relationship Specialty Start Date End Date Jeanette [...] Nurse Practitioner Cardiology 10/29/20 Misael Plascencia MD Stakes Player Cardiovascular Disease 10/29/20 11/14/23 documented as of this encounter
--- OUTSIDE RECORDS SUMMARY | 2025-05-28 12:46 | XMS_ITS | Encounter Summary ---
Author Organization [facility] Prior to 04/13/[address] [place] [address] Care Team Providers Care Wheel Blocker Name Role Phone Yolanda-Jeanette Dupree MD Primary Care Provider Unavailable Jillian Bustamante MD Primary Care Provider Unavailable Annika Blakely CIRCULAR GANG SAW OPERATOR Unavailable [phone] Misael Plascencia MD Unavailable Unavailable Kenia Omalley DO Primary Care Provider Unavaila Dionne Monteiro MD Primary Care Provider Un available Orlin Shah MD Primary Care Provider Unav ailable Encounter Details Date Type Department Care Team Description 02/26/2019 Price Economist Report Medical Records [address] [place] [address] Jazmin Greene PA-C [address] [place] [id number] Social History Tobacco Use Types Packs/Day [...] on filedocumented in this encounter Care Teams Wheel Blocker Relationship Specialty Start Date End Date Jeanette [...] Nurse Practitioner Cardiology 10/29/20 Misael Plascencia MD Rail Car Repair Carman Cardiovascular Disease 10/29/20 11/14/23 documented as of this encounter
--- OUTSIDE RECORDS SUMMARY | 2025-05-28 12:46 | XMS_ITS | Encounter Summary ---
Author Organization [facility] Prior to 04/13/[address] [place] [address] Care Team Providers Care Piston Maker Name Role Phone Annika Blakely CARD CLOTHIER Unavailable [phone] Misael Plascencia MD Unavailable Unavailable Kenia Omalley DO Primary Care Provider Unavaila ble Dionne Marcus MD Primary Care Provider Un available Orlin Shah MD Primary Care Provider Unav ailable Encounter Details Date Type Department Care Team Description 08/13/2021 SCAN Medical Records [address] [place] [address] Abstract, Provider Social History Tobacco Use Types [...] on filedocumented in this encounter Care Teams Piston Maker Relationship Specialty Start Date End Date Kenia Omalley DO PCP - General Internal Medicine 06/22/21 11/23/23 Dionne Marcus MD PCP - General Internal Medicine 11/24/23 03/26/24 Orlin Shah MD PCP - General Family Practice 03/27/24 Annika Blakely NP Nurse Practitioner Cardiology 10/29/20 Misael Plascencia MD Build Master Cardiovascular Disease 10/29/20 11/14/23 documented as of this encounter
--- OUTSIDE RECORDS SUMMARY | 2025-05-28 12:46 | XMS_ITS | Encounter Summary ---
Author Organization [facility] Prior to 04/13/2024 Address [address] [place] [address] Care Team Providers Care Planning Manager Name Role Phone Annika Blakely TELEVISION AND RADIO REPAIRER Unavailable [phone] Misael Plascencia MD Unavailable Unavailable Kenia Omalley DO Primary Care Provider Unavaila ble Dionne Marcus MD Primary Care Provider Un available Orlin Shah MD Primary Care Provider Unav ailable Encounter Details Date Type Department Care Team Description 07/23/2022 Telephone Cardio PVC [facility] [address] [place] [address] Misael Plascencia MD Social History Tobacco Use [...] on filedocumented in this encounter Care Teams Planning Manager Relationship Specialty Start Date End Date Kenia Omalley DO PCP - General Internal Medicine 06/22/21 11/23/23 Dionne Marcus MD PCP - General Internal Medicine 11/24/23 03/26/24 Orlin Shah MD PCP - General Family Practice 03/27/24 Annika Blakely NP Nurse Practitioner Cardiology 10/29/20 Misael Plascencia MD Fabric Lay Out Worker Cardiovascular Disease 10/29/20 11/14/23 documented as of this encounter
--- OUTSIDE RECORDS SUMMARY | 2025-05-28 12:47 | XMS_ITS | Clinical Summary ---
Author Organization [facility] Prior to 04/13/2024 Address [address] [place] [address] Care Team Providers Care Bow Tacker Name Role Phone KevincynthialanetteAnnika DOPE HEATER Unavailable [phone] Orlin Shah MD Primary Care Provider Unav ailable Allergies No known active allergies Medications Medication Sig Dispensed Refills Start Date End Date Status [place]-3 Fatty Acids (FISH OIL) 1200 MG Cap Take by mouth. 0 Active Cholecalciferol (VITAMIN D) 400 UNITS Tab Take by mouth. 0 Active [facility] ASPIRIN ADULT LOW DOSE 81 MG chewable tabletIndications:[place] (myocardial infarction) CHEW 1 TABLET BY MOUTH [...] Obstructive sleep apnea severe AHI 35 Overview: [facility] Home Polysomnogram: Date 02/19/2017; AHI 35, [...] 2 diabetes (class Ia recommendation from the 202 [employer] [place] [employer] heart failure guidelines). I've [...] hematuria 02/18/2015 Overview: Neg work up [place] (myocardial infarction) 5 Overview: 10/16 silent Hyperlipidemia [...] 96 07/05/2023 4:41 PM EST Temperature 36 C (96.8 F) 07/05/2023 4:41 PM EST Respiratory Rate 12 [...] CANCER SCREENING 05/08/2023 3 (External Completion), 05/08/2013 DEPRESSION SCREEN 05/10/2024 05/10/2023, (Completed), 09/22/2021 BMI CHECK/ADVISE 06/13/2024 03/25/2023, , 09/23/2022 (Completed), Additional history exists DEPRESSION SCREENING/FOLLOWUP 06/13/2024 (Completed), 07/18/2018 (Completed) Covid-19 Vaccine (4 - 2022-2 4 season) 2025 05/26/2021, 09/19/2020, 08/29/2020 INFLUENZA (#1) 2025 03/25/2023, 03/13, 04/06/2021, Additional history exists DTAP/TDAP/TD (2 - Td or Tdap) 03/01/2026 03/01/2016 CHOLESTEROL SCREENING 03/24/2028 03/24/2023 , 11/01/2022, 08/18/2022, Additional history exists HEPATITIS C SCREENING Completed 08/28/2015 PNEUMOCOCCAL VACCINE Completed 04/06/2021, 01/21/20 20 Advance Directives For more information, please contact: [phone] Latest Code Status on File Code Status Date Activated Date Inactivated Comments Full Code 05/10/2023 10:38 AM Care Teams Bow Tacker Relationship Specialty Start Date End Date Orlin Shah MD PCP - General Family Practice 03/27/24 Annika Blakely NP Nurse Practitioner Cardiology 10/29/20
--- OUTSIDE RECORDS SUMMARY | 2025-05-28 12:47 | XMS_ITS | Encounter Summary ---
Author Organization [facility] Prior to 04/13/2024 Address [address] [place] [address] Care Team Providers Care Coater Operator Insulation Board Name Role Phone Jillian Bustamante MD Primary Care Provider Unavailable Annika Blakely NP Unavailable [phone] Misael Plascencia MD Unavailable Unavailable Kenia Omalley DO Primary Care Provider Unavaila Dionne Monteiro MD Primary Care Provider Un available Orlin Shah MD Primary Care Provider Unav ailable Reason for Visit * Reason Comments E-prescribe Rx Request Encounter Details Date Type Department Care Team Description 10/25/2020 Refill Cardio P[facility] [address] [place] [address] [address] [place] [id number] Misael Plascencia MD E-prescribe Rx Request Social [...] on filedocumented in this encounter Care Teams Coater Operator Insulation Board Relationship Specialty Start Date End Date Jillian Bustamante MD PCP - General Internal Medicine 01/15/20 06/21/21 Kenia Omalley DO PCP - General Internal Medicine 06/22/21 11/23/23 Dionne Marcus MD PCP - General Internal Medicine 11/24/23 03/26/24 Orlin Shah MD PCP - General Family Practice 03/27/24 Annika Blakely NP Nurse Practitioner Cardiology 10/29/20 Misael Plascencia MD Health Program Specialist Cardiovascular Disease 10/29/20 11/14/23 documented as of this encounter
--- OUTSIDE RECORDS SUMMARY | 2025-05-28 12:47 | XMS_ITS | Encounter Summary ---
Author Organization [facility] Prior to 04/13/[address] [place] [address] Care Team Providers Care Progress Clerk Name Role Phone Donna Padilla MD Primary Care Provider [phone] Jeanette Camacho MD Primary Care Provider Unavailable Jillian Bustamante MD Primary Care Provider Unavailable Jillian Bustamante MD Primary Care Provider Unavailable Annika Blakely VISUAL MERCHANDISING ASSOCIATE Unavailable [phone] Misael Plascencia MD Unavailable Unavailable Kenia Omalley DO Primary Care Provider Unavaila Dionne Monteiro MD Primary Care Provider Un available Orlin Shah MD Primary Care Provider Unav ailable Encounter Details Date Type Department Care Team Description 11/17/2016 Transfer Records Medical Records [address] [place] [address] [address] [place] [address] Social History Tobacco Use Types Packs/Day Years [...] filedocumented in this encounter Care Teams Progress Clerk Relationship Specialty Start Date End Date Donna Padilla MD [address] [place] [address] PCP - General Internal Medicine 08/12/17 01/11/18 [place]-Jeanette Dupree MD [address] [place] [address] PCP - General Internal Medicine 01/12/18 01/14/20 Jillian Bustamante MD [address] [place] [address] PCP - General Internal Medicine 01/15/20 06/21/21 Jillian Bustamante MD [address] [place] [address] PCP - General 11/11/15 08/11/17 Kenia Omalley DO [address] [place] [address] PCP - General Internal Medicine 06/22/21 11/23/23 Dionne Marcus MD [address] [place] [address] PCP - General Internal Medicine 11/24/23 03/26/24 Orlin Shah MD [address] [place] [address] PCP - General Family Practice 03/27/24 Annika Blakely NP [address] [place], [place] [id number] Nurse Practitioner Cardiology 10/29/20 Misael Plascencia MD [address] [place] [address] Senior Controls Technician Cardiovascular Disease 10/29/20 11/14/23 documented as of this encounter
--- OUTSIDE RECORDS SUMMARY | 2025-05-28 12:47 | XMS_ITS | Encounter Summary ---
Author Organization [facility] Address [address] [place] [address] Care Team Providers Care Telegraph Inspector Name Role Phone Orlin Shah MD Primary Care Provider [phone] Encounter Details Date Type Department Care Team (Late st Contact Info) Description 05/06/2025 Telephone [facility] [address] [place] [address] Odalis Fisher MA Social History [...] Description 07/05/2025 11:00 AM EST Ancillary Procedure [facility] [address] [place] [address] 07/15/2025 1:10 PM EST Office Visit [facility] Card[facility] [address] [facility] [address] [place] [phone] Annika Blakely NP [address] [place] [address] [address] [place] [phone] 08/06/2025 1:00 PM EST Ancillary Procedure [facility] [address] [place] [phone] documented as of this encounter Visit Diagnoses Not on filedocumented in this encounter Care Teams Telegraph Inspector Relationship Specialty Start Date End Date Orlin Shah MD [address] [place] [address] [address] [place], [place] PCP - General 03/27/24 documented as of this encounter
--- OUTSIDE RECORDS SUMMARY | 2025-05-28 12:47 | XMS_ITS | Encounter Summary ---
Author Organization [facility] Prior to 04/13/[address] [place] [address] Care Team Providers Care Account Services Coordinator Name Role Phone Annika Blakely MERCHANDISING ASSISTANT Unavailable [phone] Misael Plascencia MD Unavailable Unavailable Kenia Omalley DO Primary Care Provider Unavaila ble Dionne Marcus MD Primary Care Provider Un available Orlin Shah MD Primary Care Provider Unav ailable Reason for Visit * Reason Comments Remote Device Check Encounter Details Date Type Department Care Team Description 07/24/2021 Remote Device Check Cardio PVC POC [address] [facility] [address] [place] [address] Dean Kaba MD [address] [place] [address] Social History Tobacco Use Types Packs/Day Years [...] filedocumented in this encounter Care Teams Account Services Coordinator Relationship Specialty Start Date End Date Kenia Omalley DO PCP - General Internal Medicine 06/22/21 11/23/23 Dionne Marcus MD PCP - General Internal Medicine 11/24/23 03/26/24 Orlin Shah MD PCP - General Family Practice 03/27/24 Annika Blakely NP Nurse Practitioner Cardiology 10/29/20 Misael Plascencia MD Gas Leak Tester Cardiovascular Disease 10/29/20 11/14/23 documented as of this encounter
--- OUTSIDE RECORDS SUMMARY | 2025-05-28 12:47 | XMS_ITS | Encounter Summary ---
Author Organization [facility] Prior to 04/13/2024 Address [address] [place] [address] Care Team Providers Care Insulation Technician Name Role Phone Donna Padilla MD Primary Care Provider [phone] Jeanette Camacho MD Primary Care Provider Unavailable Jillian Bustamante MD Primary Care Provider Unavailable Jillian Bustamante MD Primary Care Provider Unavailable Annika Blakely SHAKER TENDER Unavailable [phone] Misael Plascencia MD Unavailable Unavailable Kenia Omalley DO Primary Care Provider Unavaila Dionne Monteiro MD Primary Care Provider Un available Orlin Shah MD Primary Care Provider Unav ailable Reason for Visit * Reason Onset Date Comments Echocardiogram 03/07/2017 Encounter Details Date Type Department Care Team Description 03/07/2017 Telephone Cardiology - [address] [address] Monika Aguilar, [facility] [address] [facility] [place] [address] Echocardiogram Social History Tobacco Use Types Packs/Day [...] Miscellaneous Notes * Telephone Encounter - Brenna Truong - 03/07/2017 8:45 AM EDT [facility]- no auth required * Telephone Encounter - Bessie Gonzalesiano - 03/07/2017 8:29 AM EDT Aaron is having an echo done on 03/19/17 and he has [facility] Silver ins. Does this ins require an auth? Thank you Bessie in cardiology. documented in this encounter Plan of Treatment Not on file documented as of this encounter Visit Diagnoses Not on filedocumented in this encounter Care Teams Insulation Technician Relationship Specialty Start Date End Date Donna Padilla MD [address] [place] [address] PCP - General Internal Medicine 08/12/17 01/11/18 [place]-Jeanette Dupree MD [address] [place] [address] PCP - General Internal Medicine 01/12/18 01/14/20 Jillian Bustamante MD [address] [place] [address] PCP - General Internal Medicine 01/15/20 06/21/21 Jillian Bustamante MD [address] [place] [address] PCP - General 11/11/15 08/11/17 Kenia Omalley DO [address] [place] [address] PCP - General Internal Medicine 06/22/21 11/23/23 Dionne Marcus MD [address] [place] [address] PCP - General Internal Medicine 11/24/23 03/26/24 Orlin Shah MD [address] [place] [address] PCP - General Family Practice 03/27/24 Annika Blakely NP [address] [place] [address] Nurse Practitioner Cardiology 10/29/20 Misael Plascencia MD [address] [place] [address] Transit Mechanic Cardiovascular Disease 10/29/20 11/14/23 documented as of this encounter
--- OUTSIDE RECORDS SUMMARY | 2025-05-28 12:47 | XMS_ITS | Encounter Summary ---
Author Organization [facility] Prior to 04/13/[address] [place] [address] Care Team Providers Care Well Puller Head Name Role Phone Donna Padilla MD Primary Care Provider [phone] Jeanette Camacho MD Primary Care Provider Unavailable Jillian Bustamante MD Primary Care Provider Unavailable Jillian Bustamante MD Primary Care Provider Unavailable Annika Blakely PHYSICIAN VICE PRESIDENT Unavailable [phone] Misael Plascencia MD Unavailable Unavailable Kenia Omalley DO Primary Care Provider Unavaila Dinone Monteiro MD Primary Care Provider Un available Orlin Shah MD Primary Care Provider Unav ailable Encounter Details Date Type Department Care Team Description 03/30/2017 Transfer Records Medical Records [address] [place] [address] Abstract, Provider Social History Tobacco Use Types [...] on filedocumented in this encounter Care Teams Well Puller Head Relationship Specialty Start Date End Date Donna Padilla MD [address] [place] [address] PCP - General Internal Medicine 08/12/17 01/11/18 Jeanette Camacho MD [address] [place] [address] PCP - General Internal Medicine 01/12/18 01/14/20 Jillian Bustamante MD [address] [place] [address] PCP - General Internal Medicine 01/15/20 06/21/21 Jillian Bustamante MD [address] [place] [address] PCP - General 11/11/15 08/11/17 Kenia Omalley DO [address] [place] [address] PCP - General Internal Medicine 06/22/21 11/23/23 Dionne Marcus MD [address] [place] [address] PCP - General Internal Medicine 11/24/23 03/26/24 Orlin Shah MD [address] [place] [address] PCP - General Family Practice 03/27/24 Annika Blakely NP [address] [place] [address] Nurse Practitioner Cardiology 10/29/20 Misael Plascencia MD [address] [place] [address] Roll Former Cardiovascular Disease 10/29/20 11/14/23 documented as of this encounter
--- OUTSIDE RECORDS SUMMARY | 2025-05-28 12:47 | XMS_ITS | Encounter Summary ---
Author Organization [facility] Prior to 04/13/2024 Address [address] [place] [address] Care Team Providers Care Lining Stuffer Name Role Phone Annika Blakely MEMBERSHIP CORRESPONDENT Unavailable [phone] Misael Plascencia MD Unavailable Unavailable Kenia Omalley DO Primary Care Provider Unavaila ble Dionne Marcus MD Primary Care Provider Un available Orlin Shah MD Primary Care Provider Unav ailable Encounter Details Date Type Department Care Team Description 11/11/2023 SCAN Medical Records [address] [place] [address] Abstract, Provider Social History Tobacco Use Types [...] on filedocumented in this encounter Care Teams Lining Stuffer Relationship Specialty Start Date End Date Kenia Omalley DO PCP - General Internal Medicine 06/22/21 11/23/23 Dionne Marcus MD PCP - General Internal Medicine 11/24/23 03/26/24 Orlin Shah MD PCP - General Family Practice 03/27/24 Annika Blakely NP Nurse Practitioner Cardiology 10/29/20 Misael Plascencia MD Occupational Medicine Specialist Cardiovascular Disease 10/29/20 11/14/23 documented as of this encounter
--- OUTSIDE RECORDS SUMMARY | 2025-05-28 12:47 | XMS_ITS | Encounter Summary ---
Author Organization [facility] Prior to 04/13/[address] [place] [address] Care Team Providers Care Systems Administration Analyst Name Role Phone Annika Blakely ACCOUNTING COORDINATOR Unavailable [phone] Misael Plascencia MD Unavailable Unavailable Kenia Omalley DO Primary Care Provider Unavaila ble Dionne Marcus MD Primary Care Provider Un available Orlin Shah MD Primary Care Provider Unav ailable Reason for Visit * Reason Comments Remote Device Check Encounter Details Date Type Department Care Team Description 08/12/2021 Remote Device Check Cardio PVC POC [address] [facility] [address] [place] [address] Dean Kaba MD [address] [place] [address] Social History Tobacco Use Types Packs/Day Years [...] on filedocumented in this encounter Care Teams Systems Administration Analyst Relationship Specialty Start Date End Date Kenia Omalley DO PCP - General Internal Medicine 06/22/21 11/23/23 Dionne Marcus MD PCP - General Internal Medicine 11/24/23 03/26/24 Orlin Shah MD PCP - General Family Practice 03/27/24 Annika Blakely NP Nurse Practitioner Cardiology 10/29/20 Misael Plascencia MD Cavalry Scout Cardiovascular Disease 10/29/20 11/14/23 documented as of this encounter
--- OUTSIDE RECORDS SUMMARY | 2025-05-28 12:47 | XMS_ITS | Encounter Summary ---
Author Organization [facility] [facility] Prior to 04/13/[address] [place] [address] Care Team Providers Care Supplier Relationship Director Name Role Phone Donna Padilla MD Primary Care Provider [phone] Jeanette Camacho MD Primary Care Provider Unavailable Jillian Bustamante MD Primary Care Provider Unavailable Jillian Bustamante MD Primary Care Provider Unavailable Annika Blakely PRINTING PRESSMAN Unavailable [phone] Misael Plascencia MD Unavailable Unavailable Kenia Omalley DO Primary Care Provider Unavaila Dionne Monteiro MD Primary Care Provider Un available Orlin Shah MD Primary Care Provider Unav ailable Encounter Details Date Type Department Care Team Description 07/20/2016 Product Marketing Engineer Report Medical Records [address] [place] [address] Delvin Hassan MD Social History Tobacco Use [...] on filedocumented in this encounter Care Teams Supplier Relationship Director Relationship Specialty Start Date End Date Donna Padilla MD [address] [place] [address] PCP - General Internal Medicine 08/12/17 01/11/18 Jeanette Camacho MD [address] [place] [address] PCP - General Internal Medicine 01/12/18 01/14/20 Jillian Bustamante MD [address] [place] [address] PCP - General Internal Medicine 01/15/20 06/21/21 Jillian Bustamante MD [address] [place] [address] PCP - General 11/11/15 08/11/17 Kenia Omalley DO [address] [place] [address] PCP - General Internal Medicine 06/22/21 11/23/23 Dionne Marcus MD [address] [place] [address] PCP - General Internal Medicine 11/24/23 03/26/24 Orlin Shah MD [address] [place] [address] PCP - General Family Practice 03/27/24 Annika Blakely NP [address] [place] [address] Nurse Practitioner Cardiology 10/29/20 Misael Plascencia MD [address] [place] [address] Prosthodontist Cardiovascular Disease 10/29/20 11/14/23 documented as of this encounter
--- OUTSIDE RECORDS SUMMARY | 2025-05-28 12:47 | XMS_ITS | Encounter Summary ---
Author Organization Ana [employer] [facility] Prior to 04/13/[address] [place] [address] Care Team Providers Care Career Technical Education Teacher Name Role Phone Donna Padilla MD Primary Care Provider [phone] Jeanette Camacho MD Primary Care Provider Unavailable Jillian Bustamante MD Primary Care Provider Unavailable Jillian Bustamante MD Primary Care Provider Unavailable Annika Blakely QUALITY ASSISTANT Unavailable [phone] Misael Plascencia MD Unavailable Unavailable Kenia Omalley DO Primary Care Provider Unavaila Dionne Monteiro MD Primary Care Provider Un available Orlin Shah MD Primary Care Provider Unav ailable Encounter Details Date Type Department Care Team Description 03/17/2016 Graduate Assistant Report Medical Records [address] [place] [address] Linh Quiroz Social History Tobacco Use Types [...] on filedocumented in this encounter Care Teams Career Technical Education Teacher Relationship Specialty Start Date End Date Donna Padilla MD [address] [place] [address] PCP - General Internal Medicine 08/12/17 01/11/18 Jeanette Camacho MD [address] [place] [address] PCP - General Internal Medicine 01/12/18 01/14/20 Jillian Bustamante MD [address] [place] [address]60 PCP - General Internal Medicine 01/15/20 06/21/21 Jillian Bustamante MD [address] [place] [address] 91978 PCP - General 11/11/15 08/11/17 Kenia Omalley DO [address] [place] [address] 74897 PCP - General Internal Medicine 06/22/21 11/23/23 Dionne Marcus MD [address] [place] [address] 35387 PCP - General Internal Medicine 11/24/23 03/26/24 Orlin Shah MD [address] [place] [address] 09560 PCP - General Family Practice 03/27/24 Annika Blakely NP [address] [place] [address] Nurse Practitioner Cardiology 10/29/20 Misael Plascencia MD [address] [place] [address] Learning Design Specialist Cardiovascular Disease 10/29/20 11/14/23 documented as of this encounter
--- OUTSIDE RECORDS SUMMARY | 2025-05-28 12:47 | XMS_ITS | Encounter Summary ---
Author Organization [facility] Prior to 04/13/2024 Address [address] [place] [address] Care Team Providers Care Consumer Studies Professor Name Role Phone Annika Blakely NP Unavailable [phone] Misael Plascencia MD Unavailable Unavailable Kenia Omalley DO Primary Care Provider Unavaila Dionne Montiero MD Primary Care Provider Un available Orlin Shah MD Primary Care Provider Unav ailable Reason for Visit * Reason Onset Date Comments Orders Call 09/09/2021 Encounter Details Date Type Department Care Team Description 09/09/2021 Telephone Adult Medicine - [address] [address] Kenia Omalley DO Orders Call Social History [...] filedocumented in this encounter Care Teams Consumer Studies Professor Relationship Specialty Start Date End Date Kenia Omalley DO PCP - General Internal Medicine 06/22/21 11/23/23 Dionne Marcus MD PCP - General Internal Medicine 11/24/23 03/26/24 Orlin Shah MD PCP - General Family Practice 03/27/24 Annika Blakely NP Nurse Practitioner Cardiology 10/29/20 Misael Plascencia MD Corn Popper Cardiovascular Disease 10/29/20 11/14/23 documented as of this encounter
--- OUTSIDE RECORDS SUMMARY | 2025-05-28 12:47 | XMS_ITS | Encounter Summary ---
Author Organization [employer] [address] [facility] Prior to 04/13/2024 Address [address] [place] [address] Care Team Providers Care Collar Tailor Name Role Phone Jillian Bustamante MD Primary Care Provider Unavailable Annika Blakely NP Unavailable Misael Plascencia MD Unavailable Unavailable Kenia Omalley DO Primary Care Provider Unavaila Dionne Monteiro MD Primary Care Provider Un available Orlin Shah MD Primary Care Provider Unav ailable Encounter Details Date Type Department Care Team Description 02/17/2021 Telephone Cardio PVC POC 154 [address] [facility] [address] [place] [address] Khadra Gandhi PA-C [address] [place] [address] Social History Tobacco Use Types Packs/Day Years [...] - 2.6 mg/dL 02/20/2021 2:28 PM EDT [facility] 02/20/2021 11:2 4 AM EDT 02/20/2021 11:26 AM EDT Narrative [facility] 02/20/2021 2:28 PM EDT Release to patient->Immediate Annika Blakely NP [facility] * (ABNORMAL) COMPREHENSIVE METABOLIC PANEL (02/20/2021 11:24 AM EDT) Blood Urea Nitrogen 16 5 - 25 mg/dL 02/20/2021 2:28 PM EDT [facility] CREAT 1.01 0.7 - 1.3 mg/dL 02/20/2021 2:28 PM EDT [facility] [employer] GLOMERULAR FILTRATION RATE > 60 02/20/2021 2:28 PM EDT [facility] [employer] Comment: If patient is -Malian, multiply result by 1.21 Chronic Kidney Disease: < 60 ml/min/1.73 square meters Kidney Failure: < 15 ml/min/1.73 square meters NA 140 135 - 145 mEq/L 02/20/2021 2:28 PM EDT [facility] K 4.7 3.5 - 5.5 mmol/L 02/20/2021 2:28 PM EDT [facility] [employer] CL 105 96 - 110 mmol/L 02/20/2021 2:28 PM EDT [facility] [employer] CALCIUM 9.0 8.5 - 10.5 mg/dL 02/20/2021 2:28 PM EDT [facility] [employer] Albumin 3.6 3.2 - 5.0 G/dL 02/20/2021 2:28 PM EDT [facility] [employer] SGPT 34 10 - 60 U/L 02/20/2021 2:28 PM EDT [facility] GLUCOSE 102(H) 70 - 100 mg/dL 02/20/2021 2:35 PM EDT [facility] [employer] Comment:Reference range appl icable to fasting specimens only CARBON DIOXIDE (CO2) 29 21 - 32 mmol/L 02/20/2021 2:35 PM EDT [facility] [employer] ANION GAP 6 3 - 11 02/20/2021 2:35 PM EDT [facility] [employer] TOTAL PROTEIN (TP) 7.0 6.0 - 8.0 G/dL 02/20/2021 2:35 PM EDT [facility] [employer] BILIRUBIN TOTAL 0.7 0.0 - 1.4 mg/dL 02/20/2021 2:35 PM EDT [facility] [employer] SGOT 23 10 - 42 U/L 02/20/2021 2:35 PM EDT [facility] [employer] ALK PHOS 88 42 - 121 U/L 02/20/2021 2:35 PM EDT [facility] [employer] 02/20/2021 11:2 4 AM EDT 02/20/2021 11:26 AM EDT Narrative [facility] - 02/20/2021 2:35 PM EDT Release to patient->Immediate Annika Blakely NP LAB [facility] documented in this encounter Visit Diagnoses Diagnosis NSVT (nonsustained ventricular tachycardia) (HCC)- Primary Paroxysmal ventricular tachycardia Ischemic cardiomyopathy Other specified forms of chronic ischemic heart disease Ischemic cardiomyopathy Other specified forms of chronic ischemic heart disease NSVT (nonsustained ventricular tachycardia) (HCC) Paroxysmal ventricular tachycardia documented in this encounter Care Teams Collar Tailor Relationship Specialty Start Date End Date Jillian Bustamante MD PCP - General Internal Medicine 01/15/20 06/21/21 Kenia Omalley DO PCP - General Internal Medicine 06/22/21 11/23/23 Dionne Marcus MD PCP - General Internal Medicine 11/24/23 03/26/24 Orlin Shah MD PCP - General Family Practice 03/27/24 Annika Blakely NP Nurse Practitioner Cardiology 10/29/20 Misael Plascencia MD Automobile Mechanic Assistant Cardiovascular Disease 10/29/20 11/14/23 documented as of this encounter
--- OUTSIDE RECORDS SUMMARY | 2025-05-28 12:47 | XMS_ITS | Encounter Summary ---
Author Organization [facility] Prior to 04/13/2024 Address [address] [place] [address] Care Team Providers Care Motorcycle Maker Name Role Phone Annika Blakely NP Unavailable [phone] Misael Plascencia MD Unavailable Unavailable Kenia Omalley DO Primary Care Provider Unavaila Dionne Monteiro MD Primary Care Provider Un available Orlin Shah MD Primary Care Provider Unav ailable Encounter Details Date Type Department Care Team Description 08/13/2021 Telephone Cardio PVC POC 154 [address] [facility] [address] [place] [address] Khadra Gandhi PA-C [address] [place] [address] Social History Tobacco Use Types Packs/Day Years [...] on filedocumented in this encounter Care Teams Motorcycle Maker Relationship Specialty Start Date End Date Kenia Omalley DO PCP - General Internal Medicine 06/22/21 11/23/23 Dionne Marcus MD PCP - General Internal Medicine 11/24/23 03/26/24 Orlin Shah MD PCP - General Family Practice 03/27/24 Annika Blakely NP Nurse Practitioner Cardiology 10/29/20 Misael Plascencia MD Grades 9 Through 12 Teacher Cardiovascular Disease 10/29/20 11/14/23 documented as of this encounter
--- OUTSIDE RECORDS SUMMARY | 2025-05-28 12:47 | XMS_ITS | Encounter Summary ---
Author Organization [facility] Prior to 04/13/2024 Address [address] [place] [address] Care Team Providers Care Competitive Intelligence Manager Name Role Phone Jillian Bustamante MD Primary Care Provider Unavailable Annika Blakely DIGITAL SPECIALIST Unavailable [phone] Misael Plascencia MD Unavailable Unavailable Kenia Omalley DO Primary Care Provider Unavaila Dionne Monteiro MD Primary Care Provider Un available Orlin Shah MD Primary Care Provider Unav ailable Reason for Visit * Reason Onset Date Comments Medication 07/24/2020 Encounter Details Date Type Department Care Team Description 07/24/2020 Telephone Adult Medicine - [address] [address] Jillian Bustamante MD Medication Social History Tobacco Use Types Packs/Day Years [...] encounter Miscellaneous Notes * Telephone Encounter - Jillian Bustamante MD - 07/24/2020 10:14 AM EST Yes its the same medication -its the chemical name that is mentioned. * Telephone Encounter - Zuri CortezPJensenNJensen - 07/24/2020 10:04 AM EST Patient made aware this medication is entresto a generic form, patient wants to know if Jillian Bustamante MD thinks this is as effective as entresto? He never heard of this as a generic medication * Telephone Encounter - Marion Aviles - 07/24/2020 9:39 AM EST Who is calling? The patient Name of the medication Sacubitril-Valsartan 24-26 MG Tab What is the specific problem or interaction? Pt will like call on this pt isnt sure why he is taking rx for If the patient is having a problem with taking the med - how long has the problem been going on? N/A documented in this encounter Plan of Treatment Not on file documented as of this encounter Visit Diagnoses Not on filedocumented in this encounter Care Teams Competitive Intelligence Manager Relationship Specialty Start Date End Date Jillian Bustamante MD PCP - General Internal Medicine 01/15/20 06/21/21 Kenia Omalley DO PCP - General Internal Medicine 06/22/21 11/23/23 Dionne Marcus MD PCP - General Internal Medicine 11/24/23 03/26/24 Orlin Shah MD PCP - General Family Practice 03/27/24 Annika Blakely NP Nurse Practitioner Cardiology 10/29/20 Misael Plascencia MD Reclamation Engineer Cardiovascular Disease 10/29/20 11/14/23 documented as of this encounter
--- OUTSIDE RECORDS SUMMARY | 2025-05-28 12:47 | XMS_ITS | Encounter Summary ---
Author Organization [facility] [employer] [facility] Prior to 04/13/[address] [place] [address] Care Team Providers Care Taxonomist Name Role Phone Donna Padilla MD Primary Care Provider [phone] Jeanette Camacho MD Primary Care Provider Unavailable Jillian Bustamante MD Primary Care Provider Unavailable Jillian Bustamante MD Primary Care Provider Unavailable Annika Blakely MEN'S LEATHER DRESS BELT MAKER Unavailable [phone] Misael Plascencia MD Unavailable Unavailable Kenia Omalley DO Primary Care Provider Unavaila Dionne Monteiro MD Primary Care Provider Un available Orlin Shah MD Primary Care Provider Unav ailable Encounter Details Date Type Department Care Team Description 03/15/2016 Transfer Records Medical Records [address] [place] [address] Linh Quiroz Social History Tobacco Use Types [...] on filedocumented in this encounter Care Teams Taxonomist Relationship Specialty Start Date End Date Donna Padilla MD [address] [place] [address] PCP - General Internal Medicine 08/12/17 01/11/18 Jeanette Camacho MD [address] [place] [address] PCP - General Internal Medicine 01/12/18 01/14/20 Jillian Bustamante MD [address] [place] [address] 295[address] PCP - General Internal Medicine 01/15/20 06/21/21 Jillian Bustamante MD [address] [place] [address] 00716 PCP - General 11/11/15 08/11/17 Kenia Omalley DO [address] [place] [address] PCP - General Internal Medicine 06/22/21 11/23/23 Dionne Marcus MD [address] [place] [address] 89772 PCP - General Internal Medicine 11/24/23 03/26/24 Orlin Shah MD [address] [place] [address] 84662 PCP - General Family Practice 03/27/24 Annika Blakely NP [address] [place] [address] Nurse Practitioner Cardiology 10/29/20 Misael Plascencia MD [address] [place] [address] Hub Lead Cardiovascular Disease 10/29/20 11/14/23 documented as of this encounter
--- OUTSIDE RECORDS SUMMARY | 2025-05-28 12:47 | XMS_ITS | Encounter Summary ---
Author Organization [facility] Prior to 04/13/[address] [place] [address] Care Team Providers Care Line Construction Supervisor Name Role Phone Jillian Bustamante MD Primary Care Provider Unavailable Annika Blakely SPINDLE CARVER Unavailable [phone] Misael Plascencia MD Unavailable Unavailable Kenia Omalley DO Primary Care Provider Unavaila ble Dionne Marcus MD Primary Care Provider Un available Orlin Shah MD Primary Care Provider Unav ailable Encounter Details Date Type Department Care Team Description 08/13/2020 Stem Assembler Report Medical Records [address] [place] [address] Venessa Mills Social History Tobacco Use Types Packs/Day Years [...] on filedocumented in this encounter Care Teams Line Construction Supervisor Relationship Specialty Start Date End Date Jillian Bustamante MD PCP - General Internal Medicine 01/15/20 06/21/21 Kenia Omalley DO PCP - General Internal Medicine 06/22/21 11/23/23 Dionne Marcus MD PCP - General Internal Medicine 11/24/23 03/26/24 Orlin Shah MD PCP - General Family Practice 03/27/24 Annika Blakely NP Nurse Practitioner Cardiology 10/29/20 Misael Plascencia MD First Beater Cardiovascular Disease 10/29/20 11/14/23 documented as of this encounter
--- OUTSIDE RECORDS SUMMARY | 2025-05-28 12:47 | XMS_ITS | Clinical Summary ---
Author Organization [employer] [facility] Address [address] [place] [address] Care Team Providers Care Global Supply Chain Vice President Name Role Phone Orlin Shah MD Primary Care Provider [phone] Allergies No known active allergies Medications OMEGA-3 FATTY ACIDS ORAL Take 1 capsule by mouth 1 (one) time each day. Mosquero-3 Fatty Acids (FISH OIL) 1200 MG Cap [...] ldct Obstructive sleep apnea 02/22/2017 Overview (05/07/2024): [facility] Home Polysomnogram: Date 02/19/2017; AHI 35, [...] with history of four-vessel CABG at [facility] in 2004. Recent coronary angiogram as [...] in one week. AAA (abdominal aortic aneurysm) 02/18/2015 Overview (05/07/2024): Last Assessment & Plan: This [...] COVID-19 07/23/2020 07/05/2024 Aneurysm of ascending aorta 08/26/2019 07/05/2024 Overview (05/07/2024): 3.8cm 2019 Low HDL (under 40) 12/19/2018 Hemorrhage of rectum 11/17/2016 025 Overview (05/07/2024): 02/2013 Dr. Gardiner, neg colonoscopy 04/2013 [place] (myocardial infarction) 02/18/2015 07/05/2024 Overview (05/07/2024): 10/16 silent Encounters Date Type Department Care Team Description 05/06/2025 1:00 PM EST Ancillary Procedure [facility] Cardiology [facility] [address] [place] [address] Encounter for adjustment or management of cardiac device 05/06/2025 Telephone [facility] Cardiology [facility] [address] [place] [address] Odalis Fisher MA 04/03/2025 10:30 AM EDT Ancillary Procedure [facility] Cardiology [facility] [address] [place] [address] Encounter for adjustment or management of cardiac device 04/03/2025 Telephone [facility] [address] [place] [address] Marshal Farrell MA from Last 3 Months [...] in 10 yrs OTHER SURGICAL HISTORY PROCEDURE: SD CORONARY ARTERY BYP W/VEIN & ARTERY GRAFT 4 VEIN OTHER SURGICAL HISTORY PROCEDURE: HISTORICAL ICD; COMMENT: single lead CYST REMOVAL PROCEDURE: SD EXCISION PILONIDAL CYST/SINUS SIMPLE CARDIAC CATHETERIZATION DONE ON 08/17/2024 AT [facility] W KM INDICTIONS:Abnormal nuclear perfusion study. Medical [...] DX:Microsc opic hematuria; COMMENT: Dr Rosario [place] (myocardial infarction) 02/18/2015 D X:Old [place] (myocardial infarction); COMMENT: 10/16 silent Hyperlipidemia 02/18/2015 [...] on file Sexual Orientation Not on file Last Filed Vital Signs [...] Description 07/05/2025 11:00 AM EST Ancillary Procedure [facility] Cardiology [facility] [address] [place] [phone] 07/15/2025 1:10 PM EST Office Visit [facility] [address] [place] [phone] Annika Blakely NP [address] [place] [phone] 08/06/2025 1:00 PM EST Ancillary Procedure [facility] [address] [place] [address] Health Maintenance Due Date Last Done Comments Zoster Vaccines (2 of 3) 11/02/2016 09/07/2016 Falls Risk Assessment 04/29/2020 Social Influencers of Health Screening 04/29/2020 Medicare Annual Wellness Visit 05/10/2024 05/10/2023 Depression Screening 06/13/2024 05/10/2023 COVID-19 Vaccine ( - season) 2025 05/26/2021, 09/19/2020, 08/29/2020 Hypertension/CHF/CAD Annual [...] this topic Medical Devices Implanted Type Area Care Process Manager Device Identifier Shelf Expiration Date Model / Serial / Lot [id number] Implanted:10/2013 by Dean Kaba MD (Quantity not on file) Cardiac ICD Left: Chest [employer] CARD RHYTHM MGMT [id number] / [id number] / Procedures Procedure Name Priority Date/Time Associated Diagnosis Comments CARDIAC DEVICE CHECK- IN CLINIC- [facility] Routine 05/06/2025 1:21 PM EST Encounter for adjustment or management of cardiac device CARDIAC DEVICE CHECK- IN CLINIC- [facility] Routine [...] * CARDIAC DEVICE CHECK- IN CLINIC- [facility] (05/06/2025 1:21 PM EST) Only the most recent of2 resultswithin the time period is included. Date Time Interrogation Session [id number] CV DEVICE CHECK Implantable Pulse Generator Care Process Manager BSX CV DEVICE CHECK Implantable Pulse Generator Type ICD CV DEVICE CHECK Implantable Pulse Generator Model E141 CV DEVICE CHECK Implantable Pulse Generator Serial Number [id number] CV DEVICE CHECK Implantable Pulse Generator Implant Date 20140115 CV DEVICE CHECK Battery Status Unknown CV DE VICE CHECK Lead Channel Setting Sensing Sensitivity 0.60 CV DEVICE CHECK Lead Channel Setting Pacing [...] Recent ATP Delivered 0 CV DEVICE CHECK Zone Setting Type Category [...] Anatomical Region Laterality Modality Device Interroga tion 05/06/2025 Impressions 05/15/2025 5:17 PM EST Normal In-Office: With Events * Normal Device Function * Events or Alerts: 3 new HVR alerts, single lead ICD, EGM suggestive of 2-NSVT episodes, longest was 7-beats and one EGM suggestive of 5 beats AT. * Battery: Battery is at 41.1%, 39 months * Sensing, impedance and thresholds reviewed and tested * Presenting Rhythm: VS 60s * Heart Rate Histograms reviewed * Pacing and Detection Parameters were evaluated Narrative Procedure Note Dean Kaba MD - 05/16/2025 IMPRESSION: Normal In-Office: With Events * Normal Device Function * Events or Alerts: 3 new HVR alerts, single lead ICD, EGM suggestive of2-NSVT episodes, longest was 7-beats and one EGM suggestive of 5 beatsAT. * Battery: Battery is at 41.1%, 39 months * Sensing, impedance and thresholds reviewed and tested * Presenting Rhythm: VS 60s * Heart Rate Histograms reviewed * Pacing [...] 2:06 AM EDT Performed at: 01 - [address] [id number] Log Cut Off Sawyer: Mala Jenkins MD, Phone: [phone] Specimen Comment: A courtesy copy of this report has been sent to [phone] us Annika Blakely DRILL OPERATOR AUTOMATIC LAB BLOOD ORDERABLES Final R esult [facility] [...] - 08/01/2024 11:45 AM EST Performed at: [address] [place] [id number] Log Cut Off Sawyer: Roosevelt Ferro MD, Phone: [phone] us Annika Blakely DRILL OPERATOR AUTOMATIC LAB BLOOD ORDERABLES Final R esult [facility] 1 * Depression Screening (05/10/2023) Pathologist [facility] Depression Screening Abstracted Historical Provider HEALTH MAINTENANCE Final Result * Hepatitis C Screening (08/28/2015) [facility] Hepatitis C Screening Abstracted Historical Provider HEALTH MAINTENANCE Final Result * Colonoscopy (05/08/2013) Pathologist [facility] Colonoscopy No Interpretation , Abstracted Anatomical Region Laterality Modality Other Historical Provider HEALTH MAINTENANCE Final Result from Last 3 Months or Most Recently Relevant to Health Maintenance Insurance MEDICARE [facility] Care Teams Global Supply Chain Vice President Relationship Specialty Start Date End Date Orlin Shah MD [address] [place] [address] Dr [place] PCP - General 03/27/24
--- OUTSIDE RECORDS SUMMARY | 2025-05-28 12:47 | XMS_ITS | Encounter Summary ---
Author Organization Ana [employer] [facility] Prior to 04/13/[address] [place] [address] Care Team Providers Care Silk Printer Name Role Phone Donna Padilla MD Primary Care Provider [phone] Jeanette Camacho MD Primary Care Provider Unavailable Jillian Bustamante MD Primary Care Provider Unavailable Jillian Bustamante MD Primary Care Provider Unavailable Annika Blakely RETIREMENT MANAGER Unavailable Misael Plascencia MD Unavailable Unavailable Kenia Omalley DO Primary Care Provider Unavaila Dionne Monteiro MD Primary Care Provider Un available Orlin Shah MD Primary Care Provider Unav ailable Encounter Details Date Type Department Care Team Description 05/11/2017 Information Management Manager Report Medical Records [address] [place] [address] Dean Kaba MD [address] [place] [address] Social History Tobacco Use Types Packs/Day Years [...] on filedocumented in this encounter Care Teams Silk Printer Relationship Specialty Start Date End Date Donna Padilla MD [address] [place] [address] PCP - General Internal Medicine 08/12/17 01/11/18 [place]-Jeanette Dupree MD [address] [place] [address] PCP - General Internal Medicine 01/12/18 01/14/20 Jillian Bustamante MD [address] [place] [address] PCP - General Internal Medicine 01/15/20 06/21/21 Jillian Bustamante MD [address] [place] [address] PCP - General 11/11/15 08/11/17 Kenia Omalley DO [address] [place] [address] PCP - General Internal Medicine 06/22/21 11/23/23 Dionne Marcus MD [address] [place] [address] PCP - General Internal Medicine 11/24/23 03/26/24 Orlin Shah MD [address] [place] [address] PCP - General Family Practice 03/27/24 Annika Blakely, FRANK [address] [place] [address] Nurse Practitioner Cardiology 10/29/20 Misael Plascencia MD [address] [place] [address] Pet Resort Concierge Cardiovascular Disease 10/29/20 11/14/23 documented as of this encounter
--- OUTSIDE RECORDS SUMMARY | 2025-05-28 12:47 | XMS_ITS | Encounter Summary ---
Author Organization [facility] Prior to 04/13/2024 Address [address] [place] [address] Care Team Providers Care Software Test Developer Name Role Phone Annika Blakely PARKS WORKER Unavailable [phone] Misael Plascencia MD Unavailable Unavailable Kenia Omalley DO Primary Care Provider Unavaila ble Dionne Marcus MD Primary Care Provider Un available Orlin Shah MD Primary Care Provider Unav ailable Encounter Details Date Type Department Care Team Description 05/17/2023 SCAN Medical Records [address] [place], [place] [id number] [place] [address] Social History Tobacco Use Types Packs/Day Years [...] on filedocumented in this encounter Care Teams Software Test Developer Relationship Specialty Start Date End Date Kenia Omalley DO PCP - General Internal Medicine 06/22/21 11/23/23 Dionne Marcus MD PCP - General Internal Medicine 11/24/23 03/26/24 Orlin Shah MD PCP - General Family Practice 03/27/24 Annika Blakely NP Nurse Practitioner Cardiology 10/29/20 Misael Plascencia MD Construction Cost Estimator Cardiovascular Disease 10/29/20 11/14/23 documented as of this encounter
--- OUTSIDE RECORDS SUMMARY | 2025-05-28 12:47 | XMS_ITS | Encounter Summary ---
Author Organization [facility] Prior to 04/13/2024 Address [address] [place] [address] Care Team Providers Care Retail Assistant Name Role Phone Jillian Bustamante MD Primary Care Provider Unavailable Annika Blakely NP Unavailable [phone] Misael Plascencia MD Unavailable Unavailable Kenia Omalley DO Primary Care Provider Unavaila Dionne Monteiro MD Primary Care Provider Un available Orlin Shah MD Primary Care Provider Unav ailable Reason for Visit * Reason Comments E-prescribe Rx Request Encounter Details Date Type Department Care Team Description 07/29/2020 Refill Cardio [facility] [address] [place] [address] [address] [place] [id number] Misael Plascencia MD E-prescribe Rx Request Social [...] team please arrange and call pt with details--LC documented in this encounter Plan of Treatment Not on file documented as of this encounter Visit Diagnoses Not on filedocumented in this encounter Care Teams Retail Assistant Relationship Specialty Start Date End Date Jillian Bustamante MD PCP - General Internal Medicine 01/15/20 06/21/21 Kenia Omalley DO PCP - General Internal Medicine 06/22/21 11/23/23 Dionne Marcus MD PCP - General Internal Medicine 11/24/23 03/26/24 Orlin Shah MD PCP - General Family Practice 03/27/24 Annika Blakely NP Nurse Practitioner Cardiology 10/29/20 Misael Plascencia MD Ammonium Hydroxide Operator Cardiovascular Disease 10/29/20 11/14/23 documented as of this encounter
--- OUTSIDE RECORDS SUMMARY | 2025-05-28 12:47 | XMS_ITS | Encounter Summary ---
Author Organization [facility] Prior to 04/13/2024 Address [address] [place] [address] Care Team Providers Care Improvement Advisor Name Role Phone Annika Blakely MECHANICAL MANUFACTURING TECHNICIAN Unavailable [phone] Dionne Marcus MD Primary Care Provider Un available Orlin Shah MD Primary Care Provider Unav ailable Encounter Details Date Type Department Care Team Description 01/24/2024 SCAN Medical Records [address] [place] [id number] Abstract, Provider Social History Tobacco Use Types [...] on filedocumented in this encounter Care Teams Improvement Advisor Relationship Specialty Start Date End Date Dionne Marcus MD PCP - General Internal Medicine 11/24/2303/26 Orlin Shah MD PCP - General Family Practice 03/27/24 Annika Blakely NP Nurse Practitioner Cardiology 10/29/20 documented as of this encounter
--- OUTSIDE RECORDS SUMMARY | 2025-05-28 12:47 | XMS_ITS | Encounter Summary ---
Author Organization [facility] Prior to 04/13/2024 Address [address] [place] [address] Care Team Providers Care Calciner Operator Name Role Phone Donna Padilla MD Primary Care Provider [phone] Jeanette Camacho MD Primary Care Provider Unavailable Jillian Bustamante MD Primary Care Provider Unavailable Jillian Bustamante MD Primary Care Provider Unavailable Annika Blakely TEAM MANAGER Unavailable [phone] Misael Plascencia MD Unavailable Unavailable Kenia Omalley DO Primary Care Provider Unavaila Dionne Monteiro MD Primary Care Provider Un available Orlin Shah MD Primary Care Provider Unav ailable Encounter Details Date Type Department Care Team Description 02/22/2017 Orders Only Medical Records [address] [place] [address] Monika Aguilar, DNP [address] [facility] [place] [address] Social History Tobacco Use Types Packs/Day Years [...] Name Priority Date/Time Associated Diagnosis Comments OUTSIDE SLEEP STUDY Routine 02/19/2017 documented in this encounter Results * OUTSIDE SLEEP STUDY (02/19/2017) Monika Aguilar [facility] documented in this encounter Visit Diagnoses Not on filedocumented in this encounter Care Teams Calciner Operator Relationship Specialty Start Date End Date Donna Padilla MD [address] [place] [address] PCP - General Internal Medicine 08/12/17 01/11/18 Pow[place]-Jeanette Dupree MD [address] [place] [address] PCP - General Internal Medicine 01/12/18 01/14/20 Jillian Bustamante MD [address] [place] [address] PCP - General Internal Medicine 01/15/20 06/21/21 Jillian Bustamante MD [address] [place] [id number] PCP - General 11/11/15 08/11/17 Kenia Omalley DO [address] [place] [address] PCP - General Internal Medicine 06/22/21 11/23/23 Dionne Marcus MD [address] [place] [address] PCP - General Internal Medicine 11/24/23 03/26/24 Orlin Shah MD [address] [place] [address] PCP - General Family Practice 03/27/24 Annika Blakely NP [address] [place] [address] Nurse Practitioner Cardiology 10/29/20 Misael Plascencia MD [address] [place], [place] [id number] Extruder Operator Horizontal Cardiovascular Disease 10/29/20 11/14/23 documented as of this encounter
== END 2025-05-28 10:17 | disposition home or self-care (01) ==
LOC: HO.US 10:16
PROVIDERS: PCP Family Medicine; Visit Provider Family Medicine
DX: I71.40 Abdominal aortic aneurysm, without rupture, unspecified (principal)
CPT/HCPCS: 76706

== ENCOUNTER → 2025-05-28 10:17 | Outpatient (BNV) | payer MEDICARE, SELFPAY | PROVIDERS: PCP Family Medicine; Visit Provider Radiology Diagnostic Radiology | DX: I71.40 Abdominal aortic aneurysm, without rupture, unspecified (principal) | CPT/HCPCS: 76706 ==